=== PATIENT | female | born 1950 | race Caucasian/White ===

== ENCOUNTER 2017-02-11 13:15 | Inpatient (IN) ==
[2017-02-11 14:15] LABS: Basophils % 0.5 %; Eosinophils # 0.1 K/mcL (0.0-0.6); Eosinophils % 1.2 %; Hematocrit 47.7 % (35.3-44.9); Hemoglobin 15.3 g/dL (11.5-15.4); Immature Granulocytes % 0.2 % (0-4); Lymphocytes # 1.9 K/mcL (0.6-4.6); Lymphocytes % 30.7 %; Mean Corpuscular HGB Conc 32.1 g/dL (31.6-35.5); Mean Corpuscular Hemoglobin 29.7 pg (28.0-33.3); Mean Corpuscular Volume 92.6 fL (83.0-100.0); Mean Platelet Volume 9.7 fL (9.4-12.4); Monocytes # 0.8 K/mcL (0.0-1.3); Monocytes % 13.8 %; Neutrophils # 3.2 K/mcL (1.6-8.9); Platelet Count 187 K/mcL (140-400); Red Blood Count 5.15 M/mcL (3.82-4.97); Red Cell Distribution Width 14.6 % (11.5-14.5); Segmented Neutrophils % 53.6 %
[2017-02-11] MEDS ORDERED: predniSONE 20 MG TABLET PO ONE (14:19)
[2017-02-11] MEDS ORDERED: Ipratropium/Albuterol Neb 3 ML IH ONE (14:19)
[2017-02-11 14:25] LABS: BUN/Creatinine Ratio 15 (6-26); Blood Urea Nitrogen 11 mg/dL (7-20); Calcium 9.7 mg/dL (8.6-10.8); Carbon Dioxide 26 mEq/L (19-29); Chloride 104 mEq/L (98-109); Glucose 89 mg/dL (70-99); Osmolality,Calculated 287 (280-300); Potassium 4.4 mEq/L (3.5-4.5); Sodium 139 mEq/L (136-145); eGFR For African Americans > 60 (> 60); eGFR For Non-African Americans > 60 (> 60)
--- NOTE | 2017-02-11 14:28 | Emergency Department Note ---
Disposition Clinical Impression: Elevated troponin Congestive heart failure Qualifiers: Congestive heart failure type: unspecified congestive heart failure type Congestive heart failure chronicity: unspecified congestive heart failure chronicity Qualified Code(s): I50.9 - Heart failure, unspecified Disposition: Admitted As Inpatient Condition: Good Referrals: Duran Sims Jr, MD [Primary Care Provider] - Forms: ED Satisfaction Letter Time of Disposition: 16:16 General Adult HPI - General Chief complaint: ED Shortness of Breath/Dyspnea Stated complaint: TIM x 2 weeks Time Seen by Provider: 02/11/17 14:00 Source: patient Limitations: no limitations Nursing Notes Reviewed: Yes Vital Signs Reviewed: Yes - History of Present Illness HPI Narrative: 67 year old female presents to the eD with complaint of dyspnea and states she was here a few months ago for a smiliar episode. She states that she has had pneumonia in the past and bronchitis and smokes abou 1/2 pack a day. Lore states that she has a history of DVT but not PE. Denies chest pain or HX fo COPD /CHF. States that the dypsnea has been getting wrose with exertion and now at rest, she cole snot wear oxygen at home and is 93% on RA. Lore stats that she also has tea-colored urine that has a foul smell and is concnerend that she may also have a uti. Pain Scale: 0 - Related Data Home Medications Medication Instructions Recorded Confirmed Aspirin 81 mg PO DAILY 08/06/16 02/11/17 Citalopram [CeleXA] 20 mg PO DAILY 08/06/16 02/11/17 Pantoprazole Sodium [Protonix] 40 mg PO DAILY 08/06/16 02/11/17 Lipitor 02/11/17 02/11/17 Multivitamin-Min/Iron/FA/Vit K 1 each PO DAILY 02/11/17 02/11/17 [Multi-Day Plus Minerals Tablet] Allergies Allergy/AdvReac Type Severity Reaction Status Date / Time Neomycin Allergy Hives Verified 08/06/16 08:10 Penicillins Allergy Hives Verified 08/06/16 08:10 Constitutional: Denies: fever, chills, weakness, weight change Eyes: Denies: eye pain, eye discharge, vision change ENT ED: Denies: ear pain, throat pain, dental pain, hearing loss, epistaxis, congestion, dysphagia Cardiovascular: Denies: chest pain, palpitations, dyspnea on exertion, edema, syncope Respiratory: Reports: dyspnea. Denies: cough, wheezes, hemoptysis, stridor Gastrointestinal: Denies: abdominal pain, nausea, vomiting, diarrhea, constipation, hematemesis, melena, hematochezia Genitourinary: Reports: as per HPI. Denies: dysuria, frequency, hematuria, discharge Musculoskeletal: Denies: back pain, neck pain, arthralgia, myalgia Integumentary: Denies: rash, abrasion, lesions Neurological: Denies: headache, weakness, numbness, paresthesias, confusion, abnormal gait, vertigo Psychiatric: Denies: anxiety, depression, suicidal thoughts, homicidal thoughts , auditory hallucinations, visual hallucinations Endocrine: Denies: fatigue Hematological/Lymphatic: Denies: easy bleeding, easy bruising Allergic/Immunologic: Denies: facial swelling, urticaria Past Medical History - Past Medical History Medical history: Reports: arthritis, DVT, GERD Surgical history: Reports: hysterectomy Psychiatric history: Reports: depression - Social History Smoking Status: Current every day smoker Smokeless Tobacco Status: No Alcohol use: Reports: none Drug use: Reports: none Physical Exam - General Limitations: no limitations General appearance: alert, in no apparent distress - Head Head exam: atraumatic, normocephalic, normal inspection - Eye Eye exam: Present: normal appearance, PERRL, EOMI - Expanded Eye Exam Pupils: Bilateral: reactive - ENT ENT exam: normal exam, normal oropharynx, mucous membranes moist - Expanded ENT Exam External ear exam: Present: normal external inspection Mouth exam: Present: normal external inspection Teeth exam: Present: normal inspection Throat exam: Present: normal inspection - Neck Neck exam: Present: normal inspection, full ROM, trachea midline - Chest Chest inspection: Present: normal inspection, symmetric chest wall rise - Respiratory Respiratory exam: Present: normal lung sounds bilaterally - Expanded Respiratory Exam Location: decreased breath sounds: Left, Right, Upper, Lower - Cardiovascular Cardiovascular exam: Present: regular rate, normal rhythm, normal heart sounds - Abdominal Exam Abdominal exam: Present: soft, Non-Tender. Absent: tenderness, distention, guarding, rebound, rigidity - Extremities Exam Extremities exam: Present: normal inspection, full ROM. Absent: tenderness, pedal edema - Expanded Upper Extremity Exam Shoulder exam: Present: normal inspection, full ROM Arm exam: Present: normal inspection, full ROM Elbow exam: Present: normal inspection, full ROM Forearm/Wrist exam: Present: normal inspection, full ROM Hand exam: Present: normal inspection, full ROM Vascular exam: Normal: capillary refill, radial pulse - Expanded Lower Extremity Exam Hip/Pelvis exam: Present: normal inspection, full ROM Upper leg exam: Present: normal inspection, full ROM Knee exam: Present: normal inspection, full ROM Lower leg exam: Present: normal inspection, full ROM Ankle exam: Present: normal inspection, full ROM Foot/toe exam: Present: normal inspection, full ROM Neurovascular/Tendon exam: Absent: motor deficit, sensory deficit, tendon deficit - Back Exam Back exam: Present: normal inspection, full ROM. Absent: tenderness - Neurological Exam Neurological exam: Present: alert, oriented X3 - Expanded Neurological Exam Patient oriented to: Present: person, place, time Coma Scale Eye Opening: Spontaneous Coma Scale Motor Response: Obeys Commands Coma Scale Verbal Response: Oriented Coma Scale Total: 15 - Psychiatric Psychiatric exam: Present: normal affect, normal mood - Skin Skin exam: Present: warm, dry, intact, normal color Course Course Narrative: we will do a cardiopulmonary workup and treat with duonebs/steroids. - Reevaluation(s) Reevaluation #1: updated lore on results. and she is agreeable to admission Time: 16:15 - Consultations Consultation #1: discused case with Dr. Ascencio and he accepst lore to his service for admission. Time: 16:16 Vital Signs Temperature 97.5 F L 02/11/17 13:21 Pulse Rate 97 02/11/17 13:21 Respiratory Rate 18 02/11/17 13:21 Blood Pressure 123/89 02/11/17 13:21 O2 Sat by Pulse Oximetry 96 02/11/17 13:21 Temperature 97.5 F L 02/11/17 13:21 Pulse Rate 97 02/11/17 13:21 Respiratory Rate 18 02/11/17 14:46 Blood Pressure 136/80 02/11/17 15:05 O2 Sat by Pulse Oximetry 96 02/11/17 14:46 Oxygen Delivery Oxygen Delivery Room Air Medical Decision Making - Medical Records Medical records reviewed: Yes I reviewed the patient's medical records. - Lab Data Lab results reviewed: Yes I reviewed the patient's lab results. Result diagrams: 02/11/17 14:06 02/11/17 14:06 Lab Results 02/11/17 02/11/17 02/11/17 Range/Units 14:06 14:06 14:06 WBC 6.0 (4.3-11.1) K/mcL RBC 5.15 H (3.82-4.97) M/mcL Hgb 15.3 (11.5-15.4) g/dL Hct 47.7 H (35.3-44.9) % MCV 92.6 (83.0-100.0) fL MCH 29.7 (28.0-33.3) pg MCHC 32.1 (31.6-35.5) g/dL RDW 14.6 H (11.5-14.5) % Plt Count 187 (140-400) K/mcL MPV 9.7 (9.4-12.4) fL Immature Gran % 0.2 (0-4) % Seg Neutrophils % 53.6 % Lymphocytes % 30.7 % Monocytes % 13.8 % Eosinophils % 1.2 % Basophils % 0.5 % Neutrophils # 3.2 (1.6-8.9) K/mcL Lymphocytes # 1.9 (0.6-4.6) K/mcL Monocytes # 0.8 (0.0-1.3) K/mcL Eosinophils # 0.1 (0.0-0.6) K/mcL Basophils # 0.0 (0.0-0.2) K/mcL PT (9.4-12.1) Seconds INR APTT (26.0-36.0) Seconds Sodium 139 (136-145) mEq/L Potassium 4.4 (3.5-4.5) mEq/L Chloride 104 (98-109) mEq/L Carbon Dioxide 26 (19-29) mEq/L BUN 11 (7-20) mg/dL Creatinine 0.73 (0.57-1.11) mg/dL Est GFR ( Amer) > 60 (> 60) Est GFR (Non-Af Amer) > 60 (> 60) BUN/Creatinine Ratio 15 (6-26) Glucose 89 (70-99) mg/dL Calculated Osmolality 287 (280-300) Lactic Acid 0.9 (0.5-2.2) mmol/L Calcium 9.7 (8.6-10.8) mg/dL Troponin I (0-0.03) ng/mL B-Natriuretic Peptide (0-100) pg/mL Urine Color (Yellow) Urine Clarity (Clear) Urine pH (5.0-8.0) pH Units Ur Specific [place] (1.010-1.025) Urine Protein (Neg-Trace) mg/dL Urine Glucose (UA) (Normal) mg/dL Urine Ketones (Negative) mg/dL Urine Blood (Negative) Urine Nitrite (Negative) Urine Bilirubin (Negative) Urine Urobilinogen (Normal) mg/dL Ur Leukocyte Esterase (Negative) Urine Microscopic RBC (0-3) per hpf Urine Microscopic WBC (0-3) per hpf Ur Squamous Epith Cells (None-Few) per lpf Urine Bacteria (None-Few) per hpf Hyaline Casts (None-Few) per lpf Ur Culture Indicated? (NO) 02/11/17 02/11/17 02/11/17 Range/Units 14:06 14:06 14:06 WBC (4.3-11.1) K/mcL RBC (3.82-4.97) M/mcL Hgb (11.5-15.4) g/dL Hct (35.3-44.9) % MCV (83.0-100.0) fL MCH (28.0-33.3) pg MCHC (31.6-35.5) g/dL RDW (11.5-14.5) % Plt Count (140-400) K/mcL MPV (9.4-12.4) fL Immature Gran % (0-4) % Seg Neutrophils % % Lymphocytes % % Monocytes % % Eosinophils % % Basophils % % Neutrophils # (1.6-8.9) K/mcL Lymphocytes # (0.6-4.6) K/mcL Monocytes # (0.0-1.3) K/mcL Eosinophils # (0.0-0.6) K/mcL Basophils # (0.0-0.2) K/mcL PT 13.1 H (9.4-12.1) Seconds INR 1.2 APTT 29.6 (26.0-36.0) Seconds Sodium (136-145) mEq/L Potassium (3.5-4.5) mEq/L Chloride (98-109) mEq/L Carbon Dioxide (19-29) mEq/L BUN (7-20) mg/dL Creatinine (0.57-1.11) mg/dL Est GFR ( Amer) (> 60) Est GFR (Non-Af Amer) (> 60) BUN/Creatinine Ratio (6-26) Glucose (70-99) mg/dL Calculated Osmolality (280-300) Lactic Acid (0.5-2.2) mmol/L Calcium (8.6-10.8) mg/dL Troponin I 0.09 H* (0-0.03) ng/mL B-Natriuretic Peptide 3163 H (0-100) pg/mL Urine Color (Yellow) Urine Clarity (Clear) Urine pH (5.0-8.0) pH Units Ur Specific [place] (1.010-1.025) Urine Protein (Neg-Trace) mg/dL Urine Glucose (UA) (Normal) mg/dL Urine Ketones (Negative) mg/dL Urine Blood (Negative) Urine Nitrite (Negative) Urine Bilirubin (Negative) Urine Urobilinogen (Normal) mg/dL Ur Leukocyte Esterase (Negative) Urine Microscopic RBC (0-3) per hpf Urine Microscopic WBC (0-3) per hpf Ur Squamous Epith Cells (None-Few) per lpf Urine Bacteria (None-Few) per hpf Hyaline Casts (None-Few) per lpf Ur Culture Indicated? (NO) 02/11/17 Range/Units 15:01 WBC (4.3-11.1) K/mcL RBC (3.82-4.97) M/mcL Hgb (11.5-15.4) g/dL Hct (35.3-44.9) % MCV (83.0-100.0) fL MCH (28.0-33.3) pg MCHC (31.6-35.5) g/dL RDW (11.5-14.5) % Plt Count (140-400) K/mcL MPV (9.4-12.4) fL Immature Gran % (0-4) % Seg Neutrophils % % Lymphocytes % % Monocytes % % Eosinophils % % Basophils % % Neutrophils # (1.6-8.9) K/mcL Lymphocytes # (0.6-4.6) K/mcL Monocytes # (0.0-1.3) K/mcL Eosinophils # (0.0-0.6) K/mcL Basophils # (0.0-0.2) K/mcL PT (9.4-12.1) Seconds INR APTT (26.0-36.0) Seconds Sodium (136-145) mEq/L Potassium (3.5-4.5) mEq/L Chloride (98-109) mEq/L Carbon Dioxide (19-29) mEq/L BUN (7-20) mg/dL Creatinine (0.57-1.11) mg/dL Est GFR ( Amer) (> 60) Est GFR (Non-Af Amer) (> 60) BUN/Creatinine Ratio (6-26) Glucose (70-99) mg/dL Calculated Osmolality (280-300) Lactic Acid (0.5-2.2) mmol/L Calcium (8.6-10.8) mg/dL Troponin I (0-0.03) ng/mL B-Natriuretic Peptide (0-100) pg/mL Urine Color Yellow (Yellow) Urine Clarity Clear (Clear) Urine pH 6.5 (5.0-8.0) pH Units Ur Specific [place] 1.009 L (1.010-1.025) Urine Protein Negative (Neg-Trace) mg/dL Urine Glucose (UA) Normal (Normal) mg/dL Urine Ketones Negative (Negative) mg/dL Urine Blood Negative (Negative) Urine Nitrite Positive A (Negative) Urine Bilirubin Negative (Negative) Urine Urobilinogen Normal (Normal) mg/dL Ur Leukocyte Esterase Negative (Negative) Urine Microscopic RBC 0-3 (0-3) per hpf Urine Microscopic WBC 0-3 (0-3) per hpf Ur Squamous Epith Cells Moderate H (None-Few) per lpf Urine Bacteria None Seen (None-Few) per hpf Hyaline Casts None Seen (None-Few) per lpf Ur Culture Indicated? YES A (NO) - Radiology Data Radiology results reviewed: Yes I reviewed the patient's radiology results. - EKG Data EKG #1 EKG attestation: Yes I reviewed and interpreted this EKG. EKG results narrative: NSr with ectopic PVCs. No STEMI. normla intervla.s no change from 07/1016. 1333 EKG shows normal: sinus rhythm
[2017-02-11 14:40] LABS: INR 1.2; Prothrombin Time 13.1 Seconds (9.4-12.1)
[2017-02-11 14:43] LABS: Activated Partial Thrombo Time 29.6 Seconds (26.0-36.0)
[2017-02-11] MEDS ORDERED: Furosemide 40 MG/4 ML VIAL IVP ONE (14:46)
[2017-02-11] MEDS ORDERED: Aspirin 325 MG TABLET PO ONE (14:46)
--- NOTE | 2017-02-11 15:04 | Emergency Department Note ---
START Narrative - START START: I examined this patient and my medical decision-making was reviewed with the Resident Physician. I agree with the documented findings, disposition and treatment plan as described except to the extent set forth below. 67 year old female who orginialy presented to the urgent care for incrased left uppper arm (biceps) area for burning and electric shock like sensation with movement. Denies chset pain, shortnes of breath, HX of PE/Dvt. Urgent care was concerned that she may have a DVT in her left arm. ultrasound ordered.
[2017-02-11 15:19] LABS: Bilirubin,Urine Negative (Negative); Blood,Urine Negative (Negative); Clarity,Urine Clear (Clear); Color,Urine Yellow (Yellow); Glucose,Urine (UA) Normal (Normal); Ketones,Urine Negative (Negative); Leukocyte Esterase,Urine Negative (Negative); Nitrite,Urine Positive (Negative); PH,Urine 6.5 pH Units (5.0-8.0); Protein,Urine Negative (Neg-Trace); Specific Gravity,Urine 1.009 (1.010-1.025); Urobilinogen,Urine Normal (Normal)
[2017-02-11 15:21] LABS: Bacteria,Urine None Seen per hpf (None-Few); Hyaline Casts,Urine None Seen per lpf (None-Few); RBC,Urine 0-3 per hpf (0-3); Squamous Epithelial Cell,Urine Moderate per lpf (None-Few); WBC,Urine 0-3 per hpf (0-3)
[2017-02-11] MEDS ORDERED: Ondansetron 4 MG/2 ML VIAL IVP PRN (19:52)
[2017-02-11] MEDS ORDERED: Acetaminophen 325 MG TABLET PO PRN (19:52)
[2017-02-11] MEDS ORDERED: Naloxone 0.4 MG/ML INJ IVP PRN (19:52)
--- NOTE | 2017-02-11 21:51 | Internal Med History&Physical ---
Date of Encounter: 02/12/17 Time of Encounter: 21:45 Assessment and Plan (1) Congestive heart failure Current visit: Yes Status: Acute 1. The increasing shortness of breath she had been here for 3000 she also has a DVT in the past. We will check BNP is 3000 we will start on IV Lasix 40 daily Monitor intake and output and daily weights Low-sodium diet and fluid restriction Consult cardiology Qualifiers: Congestive heart failure type: unspecified congestive heart failure type Congestive heart failure chronicity: acute Qualified Code(s): I50.9 - Heart failure, unspecified (2) Elevated troponin Current visit: Yes Status: Acute 1 patient elevated suspects related to demand ischemia from CHF. We will continue to trend. Initiated on l heparin drip 2 continuous cardiac monitoring 3. Cardiology consult-patient has not had previous cardiac workup in the past We will obtain cardiac echo Continue with aspirin Check lipid profile (3) DVT prophylaxis Current visit: Yes Status: Acute Patient's on heparin drip Internal Medicine - H&P: HPI Chief complaint: SOB Admitted From: Emergency Dept Plans for Post Hospital Care: Home History of present illness: Ms. Smith is a 67 year old female with medical history past medical history of COPD CHF anemia DVT. According to patient she has been experiencing dyspnea. States that dyspnea is worse on exertion and is relieved with rest she does not normally wear oxygen at home and on presentation she was 93% on room air. She denies any fevers or chills or chest pain. She does have a cough with phlegm reduction clear. She denies any lower extremity swelling or weight gain. She is a current smoker and has had pneumonia and bronchitis in the past. She has also been experiencing dark colored urine described as tea- colored as well as foul-smelling. She denies any burning or hematuria however she does admit to urgency and frequency. She presented to the ER with the above complaints in the ER lab work was obtained which did reveal a BNP of 3163 troponins 0.09 lactate was 0.9 no leukocytosis urine was positive for UTI chest x-ray with cardiomegaly and chronic opacities. She has been admitted for further workup evaluation. Presently patient does display some conversational dyspnea. She does have crackles in her bases bilaterally denies any chest pain at this time she is hemodynamically stable. I did review this case with Dr. Dawson who agrees with plan. Past Med Surg Social Fam HX - Past Medical History Medical history: arthritis, DVT, GERD Psychiatric history: depression - Past Surgical History Surgical History: herniorrhaphy, hysterectomy - Social History Smoking Status: Current every day smoker Smokeless Tobacco Status: No Alcohol use: none Drug use: none - Family History Father Living Status: Hx Family Cardiac Disorders: Yes (CHF, [place]) Internal Medicine - H&P: Meds Aspirin 81 mg PO DAILY 08/06/16 [History] Citalopram [CeleXA] 20 mg PO DAILY 08/06/16 [History] Pantoprazole Sodium [Protonix] 40 mg PO DAILY 08/06/16 [History] Lipitor 02/11/17 [History] Multivitamin-Min/Iron/FA/Vit K [Multi-Day Plus Minerals Tablet] 1 each PO DAILY 02/11/17 [History] 3 Allergy/AdvReac Type Severity Reaction Status Date / Time Neomycin Allergy Hives Verified 08/06/16 08:10 Penicillins Allergy Hives Verified 08/06/16 08:10 All Systems PM: A 10-system review of systems was performed and is negative for pertinent findings except as documented above in the HPI. - Constitutional Constitutional: no chills, no fever(s), no night sweats - EENT Eyes: no change in vision, no discharge, no pain, no photophobia Nose, mouth and throat: no dysphagia, no nasal discharge, no neck pain, no sore throat - Cardiovascular Cardiovascular ROS IM: dyspnea, dyspnea on exertion, no chest pain, no diaphoresis, no lightheadedness, no palpitations, no syncope - Respiratory Respiratory: cough, dyspnea on exertion, change in phlegm color, no dyspnea, no wheezing, no excessive phlegm production - Gastrointestinal Gastrointestinal: no abdominal pain, no diarrhea, no hematemesis, no hematochezia, no melena, no nausea, no vomiting - Genitourinary Genitourinary: no change in urinary stream, no dysuria, no flank pain, no hematuria - Musculoskeletal Musculoskeletal ROS IM: no numbness, no tingling - Integumentary Integumentary IM: no rash, no unusual bruising - Neurological Neurological ROS: no confusion, no convulsions, no focal weakness, no numbness, no tingling, no tremor(s) - Hematologic/Lymphatic Hematologic/Lymphatic: no easy bruising - Constitutional Vitals: Temp Pulse Resp BP Pulse Ox 98.1 F 91 16 102/62 92 02/11/17 19:08 02/11/17 19:08 02/11/17 19:08 02/11/17 19:08 02/11/17 19:08 General appearance: Present: A&O X 3, answers questions appropriately - Head Head exam: Present: atraumatic, normocephalic - Eye Eye exam: Present: PERRL, conjuntiva pink, sclera anicteric Pupils: Present: PERRL - Neck Neck exam general surgery: Present: supple, trachea midline. Absent: lymphadenopathy - Respiratory Respiratory exam: Present: rales. Absent: accessory muscle use, rhonchi, wheezes - Cardiovascular Cardiovascular exam: Present: RRR, +S1, +S2. Absent: diastolic murmur, gallop, rubs, systolic murmur - GI/Abdominal GI/Abdominal exam: Present: normal bowel sounds, soft, no peritoneal signs. Absent: distended, tenderness - Extremities Exam Extremities exam: Present: warm, radial pulses palpable and symmetrical. Absent : calf tenderness, cyanotic, pedal edema - Expanded Lower Extremities Exam Foot/Toe exam: Present: erythema, swelling Internal Med - H&P Results - Labs CBC & Chem 7: 02/12/17 00:39 02/12/17 00:39 - Diagnostic Studies Other Images Additional comments: Chest X-Ray 02/11/17 13:26 IMPRESSION: Cardiomegaly and mild chronic increased interstitial opacities, stable D/ / 02/11/2017 14:08:33 Benton Diop MD / [facility] Interpreting Provider: Benton Diop MD
[2017-02-11] MEDS ORDERED: *HR* Heparin 5,000 UNIT/ML VIAL IVP PRN ×2 (23:23)
[2017-02-11] MEDS ORDERED: *HR* Heparin 5,000 UNIT/ML VIAL IVP ONE (23:23)
--- NOTE | 2017-02-12 00:48 | Event Note ---
Date of Encounter: 02/12/17 Time of Encounter: 00:46 Patient seen and examined with nurse practitioner. Patient presents with a two- week history of exertional shortness of breath, orthopnea. BMPs over 3000. Symptoms likely related to congestive heart failure. Only modest clinical volume overload. We will start the patient on Lasix 40 mg IV daily. She has prior history of DVT which she received few years of anticoagulation therapy discontinued about [address] angiogram will be performed to rule out pulmonary embolism. She has troponin elevation. She has no known prior history of coronary artery disease. We will keep on heparin drip from now. Serial troponin. Cardiology consultation
[2017-02-12 01:06] LABS: Basophils % 0.3 %; Hematocrit 45.4 % (35.3-44.9); Hemoglobin 14.8 g/dL (11.5-15.4); Immature Granulocytes % 0.5 % (0-4); Lymphocytes # 0.7 K/mcL (0.6-4.6); Lymphocytes % 19.3 %; Mean Corpuscular HGB Conc 32.6 g/dL (31.6-35.5); Mean Corpuscular Hemoglobin 29.6 pg (28.0-33.3); Mean Corpuscular Volume 90.8 fL (83.0-100.0); Mean Platelet Volume 10.2 fL (9.4-12.4); Monocytes # 0.3 K/mcL (0.0-1.3); Monocytes % 8.3 %; Neutrophils # 2.8 K/mcL (1.6-8.9); Platelet Count 198 K/mcL (140-400); Red Cell Distribution Width 14.5 % (11.5-14.5); Segmented Neutrophils % 71.6 %
[2017-02-12 01:12] LABS: INR 1.3; Prothrombin Time 13.9 Seconds (9.4-12.1)
[2017-02-12 01:14] LABS: Activated Partial Thrombo Time 29.3 Seconds (26.0-36.0)
[2017-02-12 01:19] LABS: BUN/Creatinine Ratio 17 (6-26); Blood Urea Nitrogen 13 mg/dL (7-20); Calcium 9.4 mg/dL (8.6-10.8); Carbon Dioxide 24 mEq/L (19-29); Chloride 102 mEq/L (98-109); Glucose 142 mg/dL (70-99); Osmolality,Calculated 285 (280-300); Potassium 4.1 mEq/L (3.5-4.5); Sodium 136 mEq/L (136-145); eGFR For African Americans > 60 (> 60); eGFR For Non-African Americans > 60 (> 60)
[2017-02-12] MEDS: Heparin 25,000 UNIT/500 ML D5W 25,000 UNIT/500 ML MLS IVC SCH (01:30)
[2017-02-12 02:19] LABS: Thyroid Stimulating Hormone 0.526 mcIU/mL (0.350-4.840)
[2017-02-12] MEDS ORDERED: *HR* Enoxaparin 40 MG/0.4 ML SYRINGE SQ SCH (06:00)
[2017-02-12] MEDS ORDERED: Pantoprazole 40 MG VIAL IVP SCH (09:00)
[2017-02-12] MEDS ORDERED: Furosemide 20 MG/2 ML VIAL IVP SCH (09:00)
[2017-02-12] MEDS: Aspirin 81 MG TAB.CHEW PO SCH (09:05)
[2017-02-12] MEDS: Furosemide 20 MG/2 ML VIAL IVP SCH (09:06)
[2017-02-12] MEDS: Multivit/Ca/Min/Fe/FA 1 TAB TABLET PO SCH (09:06)
--- NOTE | 2017-02-12 12:04 | Cardiology Consult Note ---
Date of Encounter: 02/12/17 Time of Encounter: 11:57 Assessment and Plan (1) Congestive heart failure Current Visit: Yes Status: Acute SOB and CT findings concerning for right sided CHF and pulmonary hypertension. TTE completed 12/2015 showed EF 65%, moderate diastolic dysfunction, moderate MAC , no significant valvuar disease. No pulmonary hypertension. Agree with repeating TTE. Continue IV diuretic. Strict I&O and daily weights. Reports high sodium diet. She is eating boxed foods and adds salt. Low sodium diet discussed. Further recs following echo. Qualifiers: Congestive heart failure type: unspecified congestive heart failure type Congestive heart failure chronicity: acute Qualified Code(s): I50.9 - Heart failure, unspecified (2) Elevated troponin Current Visit: Yes Status: Acute Mild adynamic troponin elevation in the setting CHF. Likely demand ischemia. Agree with checking TTE. Seen to have LBBB that does not appear to be new this admission. Seen on EKG 2016. No previous EKG prior to that. Discussion w patient/family: The assessment and plan as outlined above was discussed with the patient and/or family members who expressed understanding and agreement. All questions were answered. Thank you for involving us in the care of your patient. Please call with any questions. History of Present Illness Consult date: 02/12/17 Requesting physician: Nancy Borjas Consult reason: CHF History of present illness: Ms. Smith is a 67 year old female with a history of anemia, DVT, and tobacco use who presents with SOB for one week. She also c/o orthopnea and cough. Her cough is productive of clear to brownish sputum. C/o increased fatigue. She denies weight gain, edema, or increased abdominal girth. Her initial work-up included lab work that revealed elevated troponin at 0.09 and BNP 3163. CXR showed chronic mild interstitial opacities. CTA was negative for PE. There was evidence of pulmonary artery enlargement suggesting pulmonary hypertension. There was reflux into the hepatic veins suggesting right sided CHF. She also was seen to have finding suggestive of pulmonary edema. Cardiology consulted for CHF and elevated troponin. She denies previous cardiac history. Past Med Surg Social Fam HX - Past Medical History Attestation: Yes The following information was validated with the patient. Medical history: arthritis, DVT, GERD Psychiatric history: depression - Past Surgical History Surgical History: herniorrhaphy, hysterectomy - Social History Smoking Status: Current every day smoker Smokeless Tobacco Status: No Alcohol use: none Drug use: none - Family History Father Living Status: Hx Family Cardiac Disorders: Yes (CHF, [place]) Medications and Allergies Aspirin 81 mg PO DAILY 08/06/16 [History] Citalopram [CeleXA] 20 mg PO DAILY 08/06/16 [History] Pantoprazole Sodium [Protonix] 40 mg PO DAILY 08/06/16 [History] Lipitor 02/11/17 [History] Multivitamin-Min/Iron/FA/Vit K [Multi-Day Plus Minerals Tablet] 1 each PO DAILY 02/11/17 [History] 3 Allergy/AdvReac Type Severity Reaction Status Date / Time Neomycin Allergy Hives Verified 08/06/16 08:10 Penicillins Allergy Hives Verified 08/06/16 08:10 All Systems Review: A 10-system review of systems was performed and is negative for pertinent findings except as documented above in the HPI. Physical Examination Vital Signs, Last 4 Hours Temp Pulse Resp BP Pulse Ox 02/12/17 11:47 97.8 F 70 16 102/49 95 02/12/17 09:00 94 General: Conversant, No Apparent Distress HEENT: Atraumatic, Normocephaly, Mucus Membranes Moist Neck: Normal carotid pulses, Other (Hepato jugular venous distention noted. ) Cardiac: Reg Rate and Rhythm, Normal S1 and S2, No Murmur Lungs: Normal Breath Sounds, No Wheeze, Rales, Rhonchi Neuro: Alert and responsive, No focal deficits noted Abdomen: Soft, Non-Tender Skin: No rashes noted on visualized skin Musculoskeletal: No Chest Wall Tenderness Extremities: No Clubbing, No Cyanosis, No Edema, Normal Pulses Results 02/12/17 00:39 02/12/17 00:39 Lab Results 02/11/17 02/12/17 02/12/17 20:13 00:39 00:39 WBC 3.8 L Hgb 14.8 Hct 45.4 H Plt Count 198 INR APTT Sodium Potassium Chloride Carbon Dioxide BUN Creatinine Glucose Calcium Troponin I 0.09 H* 0.07 H* TSH 02/12/17 02/12/17 02/12/17 00:39 00:39 06:05 WBC Hgb Hct Plt Count INR 1.3 APTT 29.3 90.0 H D Sodium 136 Potassium 4.1 Chloride 102 Carbon Dioxide 24 BUN 13 Creatinine 0.77 Glucose 142 H Calcium 9.4 Troponin I TSH 0.526 02/12/17 07:34 WBC Hgb Hct Plt Count INR APTT Sodium Potassium Chloride Carbon Dioxide BUN Creatinine Glucose Calcium Troponin I 0.08 H* TSH - Imaging and Cardiology Echo: pending, report reviewed - EKG Interpretation EKG results cardiology: personally reviewed (SR with LBBB and PVC.) Consult Discharge Plan - Plan Referrals: Duran Sims Jr, MD [Primary Care Provider] -
--- NOTE | 2017-02-12 13:01 | Electrocardiograph Report ---
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
--- NOTE | 2017-02-12 15:01 | Internal Med Progress Note ---
Date of Encounter: 02/12/17 Time of Encounter: 14:58 - Assessment and plan (1) Congestive heart failure Current Visit: Yes Status: Acute Assessment and plan: China Wiley is a 67-year-old female with past medical history diastolic dysfunction and hyperlipidemia who presented to [facility] on 02/11/2017 with complaints of shortness of breath. She was found to have an elevated troponin and was started on a heparin drip. 1. Shortness of breath: Within with increasing shortness of breath. BNP 3000. Continue IV Lasix. Echo pending. Repeat echo pending. Cardiology following 2. Elevated troponin: troponin peaked at 0.09. Denies chest pain. Heparin gtt started in ED. Cont for now. 3 DVT prophulaxis: heparin gtt Qualifiers: Congestive heart failure type: unspecified congestive heart failure type Congestive heart failure chronicity: acute Qualified Code(s): I50.9 - Heart failure, unspecified (2) Elevated troponin Current Visit: Yes Status: Acute (3) DVT prophylaxis Current Visit: Yes Status: Acute - Subjective Interval history: Seen and examined at bedside. Patient is losing. Information obtained from chart review and patient report. Patient's that she is still having some shortness of breath. Denies chest pain. - Constitutional Vitals: Temp Pulse Resp BP Pulse Ox 97.8 F 70 16 102/49 95 02/12/17 11:47 02/12/17 11:47 02/12/17 11:47 02/12/17 11:47 02/12/17 11:47 General appearance: Present: A&O X 3, no acute distress, answers questions appropriately - Head Head exam: Present: atraumatic, normocephalic - Eye Eye exam: Present: PERRL, conjuntiva pink, sclera anicteric Pupils: Present: PERRL - Neck Neck exam general surgery: Present: supple, trachea midline. Absent: lymphadenopathy - Respiratory Respiratory exam: Present: CTAB. Absent: accessory muscle use, rales, rhonchi, wheezes - Cardiovascular Cardiovascular exam: Present: RRR, +S1, +S2. Absent: diastolic murmur, gallop, rubs, systolic murmur - GI/Abdominal GI/Abdominal exam: Present: normal bowel sounds, soft, no peritoneal signs. Absent: distended, tenderness - Extremities Exam Extremities exam: Present: warm, radial pulses palpable and symmetrical. Absent : calf tenderness, cyanotic, pedal edema - Neurological Exam Neurological exam: Present: CN II-XII intact, oriented X3, no focal deficits. Absent: pronater drift, facial droop, speech deficit - Skin Skin exam: Present: dry, intact Internal Medicine: Result - Labs CBC & Chem 7: 02/12/17 00:39 02/12/17 00:39 Labs: Short CBC 02/12/17 Range/Units 00:39 WBC 3.8 L (4.3-11.1) K/mcL Hgb 14.8 (11.5-15.4) g/dL Hct 45.4 H (35.3-44.9) % Plt Count 198 (140-400) K/mcL Neutrophils # 2.8 (1.6-8.9) K/mcL BMP 02/12/17 00:39 Sodium 136 Potassium 4.1 Chloride 102 Carbon Dioxide 24 BUN 13 Creatinine 0.77 Glucose 142 H Calcium 9.4 Cardiac Enzymes 02/11/17 02/12/17 02/12/17 Range/Units 20:13 00:39 07:34 Troponin I 0.09 H* 0.07 H* 0.08 H* (0-0.03) ng/mL - ABG Interpretation ABG results: PT/INR, D-dimer PT 13.9 Seconds (9.4-12.1) H 02/12/17 00:39 - Impressions Impressions Chest CTA 02/12/17 23:22 IMPRESSION: 1. No evidence of pulmonary embolism or aortic dissection. 2. Pulmonary arterial enlargement, raising the possibility of pulmonary arterial hypertension. 3. Reflux of contrast into the hepatic veins, suggesting right heart failure. 4. In addition, there is also alveolar ground-glass opacity throughout both lungs, with interlobular septal thickening, suggesting pulmonary edema. Correlate with any clinical evidence of pneumonia. 5. Borderline enlarged mediastinal lymph nodes, probably reactive, but follow-up to resolution should be considered. D/ / Martin Tobias MD / Martin Tobias MD Interpreting Provider: Martin Tobias MD Consult Discharge Plan - Plan Referrals: Duran Sims Jr, MD [Primary Care Provider] -
[2017-02-12] MEDS ORDERED: Perflutren Lipid Microsphere 1.3 ML in 0.9 % Sodium Chloride 8.7 ML IVP ONE (18:50)
[2017-02-12] MEDS ORDERED: Perflutren Lipid Microsphere 2 ML VIAL ONE (18:56)
[2017-02-13 01:22] LABS: Alanine Aminotransferase 22 Units/L (0-55); Albumin 3.5 g/dL (3.5-5.0); Albumin/Globulin Ratio 0.8 (1.1-2.2); Alkaline Phosphatase 110 Units/L (38-126); Aspartate Amino Transferase 29 Units/L (5-34); BUN/Creatinine Ratio 20 (6-26); Bilirubin,Total 0.6 mg/dL (0.2-1.2); Blood Urea Nitrogen 16 mg/dL (7-20); Calcium 9.4 mg/dL (8.6-10.8); Carbon Dioxide 26 mEq/L (19-29); Chloride 101 mEq/L (98-109); Globulin 4.3 g/dL (2.4-3.5); Glucose 114 mg/dL (70-99); Osmolality,Calculated 286 (280-300); Potassium 4.2 mEq/L (3.5-4.5); Sodium 137 mEq/L (136-145); Total Protein 7.8 g/dL (6.0-8.3); eGFR For African Americans > 60 (> 60); eGFR For Non-African Americans > 60 (> 60)
[2017-02-13 01:23] LABS: Hematocrit 46.4 % (35.3-44.9); Hemoglobin 14.6 g/dL (11.5-15.4); Mean Corpuscular HGB Conc 31.5 g/dL (31.6-35.5); Mean Corpuscular Volume 92.1 fL (83.0-100.0); Mean Platelet Volume 10.7 fL (9.4-12.4); Platelet Count 218 K/mcL (140-400); Red Blood Count 5.04 M/mcL (3.82-4.97); Red Cell Distribution Width 14.6 % (11.5-14.5)
[2017-02-13] MEDS: Heparin 25,000 UNIT/500 ML D5W 25,000 UNIT/500 ML MLS IVC SCH (03:04)
--- NOTE | 2017-02-13 11:21 | Event Note ---
Date of Encounter: 02/13/17 Time of Encounter: 11:18 - Cardiology Event Note TTE shows new low EF at 20%. [facility] recommended. R/B/A of procedure reviewed. Patient voiced understanding and is agreeable to proceed. We did a laying flat test and she tolerated well. Continue IV lasix. Patient is not measuring out-put. Recommend starict I&O. Low sodium diet.
--- NOTE | 2017-02-13 13:04 | Pre-Sedation Evaluation ---
Pre-sedation evaluation - Pre-sedation checklist Date of procedure: 02/13/17 Procedure: [facility] Recent Vitals: Last Vital Signs Temp 97.7 F 02/13/17 11:16 Pulse 92 02/13/17 11:16 Resp 15 02/13/17 11:16 BP 118/84 02/13/17 11:16 Pulse Ox 92 02/13/17 11:16 H&P (including ROS) documented in medical record: Yes Previous reaction to sedatives/anesthetics: No Dietary Status: NPO after Midnight Dentition: No loose teeth or bridges ASA Classification *see protocol: CLASS II-Mild systemic disease Plan of Care: Pt appropriate candidate for procedure/moderate/conscious sedation , Risks/benefits of procedure/sedation discussed w/ patient/family
--- NOTE | 2017-02-13 16:31 | Internal Med Progress Note ---
Date of Encounter: 02/13/17 Time of Encounter: 10:30 - Assessment and plan (1) Congestive heart failure Current Visit: Yes Status: Acute Assessment and plan: China Wiley is a 67-year-old female with past medical history diastolic dysfunction and hyperlipidemia who presented to [facility] on 02/11/2017 with complaints of shortness of breath. She was found to have an elevated troponin and was started on a heparin drip. 1. Acute systolic heart failure: presented with increasing shortness of breath. CXR with Cardiomegaly and mild chronic increased interstitial opacities, stable. BNP 3000. 02/12/2017 TTE with EF 20%, severe global LV systolic dysfunction with regional variations (EF previously 65% in 12/2015). Continue IV Lasix started on arrival. [facility] planned 02/13. Cardiology following 2. Elevated troponin: troponin peaked at 0.09. Denies chest pain. Heparin gtt started in ED. [facility] planned 02/13. Cardiology following 3. DVT prophulaxis: heparin gtt Qualifiers: Congestive heart failure type: unspecified congestive heart failure type Congestive heart failure chronicity: acute Qualified Code(s): I50.9 - Heart failure, unspecified (2) Elevated troponin Current Visit: Yes Status: Acute (3) DVT prophylaxis Current Visit: Yes Status: Acute - Subjective Interval history: Seen and examined at bedside. Sitting up on edge of bed. Says she is hungry and is somewhat anxious for [facility], otherwise has no complaints. - Constitutional Vitals: Temp Pulse Resp BP Pulse Ox 97.7 F 99 16 121/77 95 02/13/17 14:44 02/13/17 14:44 02/13/17 14:44 02/13/17 14:44 02/13/17 14:44 General appearance: Present: A&O X 3, no acute distress, answers questions appropriately - Head Head exam: Present: atraumatic, normocephalic - Eye Eye exam: Present: PERRL, conjuntiva pink, sclera anicteric Pupils: Present: PERRL - Neck Neck exam general surgery: Present: supple, trachea midline. Absent: lymphadenopathy - Respiratory Respiratory exam: Present: CTAB. Absent: accessory muscle use, rales, rhonchi, wheezes - Cardiovascular Cardiovascular exam: Present: RRR, +S1, +S2. Absent: diastolic murmur, gallop, rubs, systolic murmur - GI/Abdominal GI/Abdominal exam: Present: normal bowel sounds, soft, no peritoneal signs. Absent: distended, tenderness - Extremities Exam Extremities exam: Present: warm, radial pulses palpable and symmetrical. Absent : calf tenderness, cyanotic, pedal edema - Neurological Exam Neurological exam: Present: CN II-XII intact, oriented X3, no focal deficits. Absent: pronater drift, facial droop, speech deficit - Skin Skin exam: Present: dry, intact Internal Medicine: Result - Labs CBC & Chem 7: 02/13/17 00:35 02/13/17 00:35 Labs: Short CBC 02/13/17 Range/Units 00:35 WBC 8.0 D (4.3-11.1) K/mcL Hgb 14.6 (11.5-15.4) g/dL Hct 46.4 H (35.3-44.9) % Plt Count 218 (140-400) K/mcL BMP 02/13/17 00:35 Sodium 137 Potassium 4.2 Chloride 101 Carbon Dioxide 26 BUN 16 Creatinine 0.79 Glucose 114 H Calcium 9.4 Liver Function 02/13/17 Range/Units 00:35 Total Bilirubin 0.6 (0.2-1.2) mg/dL AST 29 (5-34) Units/L ALT 22 (0-55) Units/L Alkaline Phosphatase 110 (38-126) Units/L Albumin 3.5 (3.5-5.0) g/dL - ABG Interpretation ABG results: PT/INR, D-dimer PT 13.9 Seconds (9.4-12.1) H 02/12/17 00:39 - Impressions Impressions Echocardiogram 02/12/17 00:44 Impressions: LVEF 20%. Severe global LV systolic dysfunction with regional variations. Indeterminate diastolic function. There is no LV thrombus. Definity echo contrast was used. Normal sized RV with moderate reduction in function. Mild mitral regurgitation. Mild tricuspid regurgitation. Mild-moderate pulmonic regurgitation. Mild pulmonary hypertension. Since prior study, 01/03/2016, LV systolic function appears newly reduced. Abnormal findings communicated to ordering provider. Cardiology team made aware. Left Ventricular Wall Motion: Rest Echo Findings The apex, apical inferior, mid inferior, basal inferior, apical anterior, mid anterior, basal anterior, apical septal, mid inferior septal, basal inferior septal, apical lateral, mid anterior lateral, basal anterior lateral, mid anterior septal, mid inferior lateral, basal anterior septal and basal inferior lateral webb were hypokinetic. Findings: Study Quality * Technically adequate exam. ECG Findings * Normal sinus rhythm with BBB. Left Ventricle * Normal LV size. * Indeterminate diastolic function. * LVEF 20%. * There is no LV thrombus. * Definity echo contrast was used. Aorta * Normally sized aortic root. Aortic Valve * Trileaflet aortic valve. * Mildly sclerotic aortic valve leaflets. * No aortic stenosis. * Trace aortic regurgitation. Mitral Valve * Mild mitral regurgitation. * Normal mitral valve structure. * No mitral stenosis. * Mild mitral annular calcification * Mildly thickened mitral valve leaflets. Tricuspid Valve * Tricuspid valve not well visualized. * Mild tricuspid regurgitation. * Estimated RA pressure is 3 mmHg. * Estimated RVSP is 42 mmHg. * Mild pulmonary hypertension. Pulmonic Valve * Pulmonic valve is not well visualized. * No pulmonic stenosis. * Mild-moderate pulmonic regurgitation. Pulmonary Artery * Pulmonary artery not well visualized. Right Ventricle * Normal sized RV with moderate reduction in function. Lat S Carl 6.7 cm/s. Left Atrium * Moderately dilated left atrium. Right Atrium * Normal right atrial size. Interatrial Septum * No evidence of PFO by color Doppler. Pericardium * There is no pericardial effusion present. IVC * Normal IVC dimensions and inspiratory collapse. Consult Discharge Plan - Plan Referrals: Duran Sims Jr, MD [Primary Care Provider] -
[2017-02-13] MEDS ORDERED: Heparin 1,000 UNITS/500 mL NS 500 ML ONE (16:35)
[2017-02-13] MEDS ORDERED: *HR* Heparin 10,000 UNIT/10 ML VIAL ONE (16:35)
[2017-02-13] MEDS ORDERED: 0.9 % Sodium Chloride 1,000 ML ONE ×2 (16:35→17:07)
[2017-02-13] MEDS ORDERED: Nitroglycerin 1,000 MCG/10 ML VIAL IV ONE (16:37)
[2017-02-13] MEDS ORDERED: *HR* Midazolam HCl 2 MG/2 ML VIAL ONE (17:07)
[2017-02-13] MEDS ORDERED: *HR* FentaNYL (PF) 100 MCG/2 ML VIAL ONE (17:07)
--- NOTE | 2017-02-13 18:01 | Invasive Diagnostic Lab Proc ---
Name: China Smith Date of Study: 02/13/2017 Date: 1950 Ht: 61.0in Medical Record#: [id number] Age: 67 Wt: 159.39lb Gender: Female BSA: 1.72 Order #: [id number] BMI: 30.13 Physicians Procedure Physician: Amarjit De La Rosa MD Referring MD: Referring MD: Staff Name Position Time In Zulay Hardin RT Monitor 05:03 PM Radha Allison RN Brass Pourer 05:03 PM Aurora García RN Brass Pourer 05:03 PM Nancy Monk RT (R) Scrub 05:03 PM Indications Indication Cardiomyopathy Procedures Performed Procedure L HRT ARTERY/VENTRICLE ANGIO Pre-Procedure Checklist Informed consent is complete signed and on chart. H&P is on chart. ID band is on and ID verified with patient. Patient NPO for procedure The procedure was described for the patient and questions were answered. Blood Pressure: 129/80 ECG is on chart. Rhythm: NSR Plan of Care Patient will tolerate the procedure without complications. Adequate level of comfort will be maintained. Hemodynamics will remain stable Patient will recover from procedure without complications. Respiratory function will be maintained. Cardiac rhythm will remain stable. Patient temperature will be maintained. Patient and/or family have verbalized understanding of the procedure. Patient Education Chief Complaint/Reason for Test: Cardiac Cath Developmental Category: Adult (18-64 years) Developmentally Appropriate for Age: Yes Learning Barriers: None Education Needs: Procedure Education Method: Verbal Information Taught: Cardiac Cath Educational Evaluation: Able to repeat information Intravenous Access Time IV Size Location DC'd Fluid/Drip Rate Units RN 04:45 PM 18g 1 05/02" Patent On Arrival Rt Antecubital Allergies PCN BAND-AIDS ALL CILLIANS CILLINS, MYCINS, METALS PCN (penicillin) Neomycin Vital Signs Time BP (mmHg) HR (bpm) O2 Sat. RR (bpm) LOC 04:46 PM 118 / 84 92 92 % 15 5 = Fully awake and oriented or at pre-proc level 05:08 PM / % 5 = Fully awake and oriented or at pre-proc level 05:14 PM / % 5 = Fully awake and oriented or at pre-proc level 05:14 PM / % 4 = Oriented but drowsy 05:11 PM 129 / 80 90 % 12 05:16 PM 114 / 81 91 98 % 26 05:21 PM 122 / 75 84 98 % 21 05:26 PM 99 / 67 83 96 % 19 05:32 PM 115 / 72 90 96 % 32 05:30 PM / % 5 = Fully awake and oriented or at pre-proc level Procedural Medications Time Medication Dose Units Method Given By 05:08 PM Oxygen 2 L/min nasal cannula Aurora García RN 05:08 PM Versed 0.5 mg Intravenous Radha Allison RN 05:08 PM Oxygen 2 L/min nasal cannula Radha Allison RN 05:08 PM Fentanyl 25 mcg Intravenous Radha Allison RN 05:19 PM Lidocaine 2% 10 ml Subcutaneous Amarjit De La Rosa MD ASA Classification: CLASS II- Mild systemic disease (i.e. well-controlled diabetes, hypertension, asthma, cigarette smoking) Samia Score Preprocedure Postprocedure Activity 2- Moves 4 extremities sustained head lift Activity 2- Moves 4 extremities sustained head lift Circulation 2- SBP +/= 20 points of pre-anesthetic level Circulation 2- SBP +/= 20 points of pre-anesthetic level Consciousness 2- Awake and alert oriented x 3 Consciousness 2- Awake and alert oriented x 3 O2 Saturation 2- Able to maintain O2 satruation of 92% on room air O2 Saturation 2- Able to maintain O2 satruation of 92% on room air Respiratory 2- Able to deep breathe and cough well Respiratory 2- Able to deep breathe and cough well Total Score 10 Total Score 10 Contrast Agent: Isovue Diagnostic Contrast: 62 ml Total Contrast: 62 ml Fluoro Dose: 265 mGy Procedure Log Time Note Enter By 05:03 PM 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 well-controlled diabetes, hypertension, asthma, cigarette smoking) dsp: PM Meet and gregrace completed : PM Sign in performed according to hospital policy. : PM Procedure start 17:07 : PM Hair removed from procedure site in procedure lab using clippers. Bilateral groin prepped with Chloraprep by Aurora García RN, safety strap applied then patient was draped. Skin intact. :08 PM Time: 17:08 Patient comfortable and pain free: Yes :08 PM Time: 17:08LOC: 5 = Fully awake and oriented or at pre-proc level :09 PM Clinical Presentation: Stable angina dsp 05: PM CathStat 05:11 PM Vitals capture started with the following parameters, Patient=Adult, Interval=5 min, Initial Wbaicmsf=133 mmHg, Deflation Rate=5 mmHg, Cuff placed on Right Arm 05:11 PM HR=90 bpm, IXIO=834/80 mmhg, Resp=12 B/min 05:13 PM Time: 17:08 Versed .5 mg Intravenous Given by Radha Allison RN [facility] :13 PM Time: 17:08 Oxygen on at 2 L/min per nasal cannula by Radha Allison RN [facility]:13 PM Time: 17:08 Fentanyl 25 mcg Intravenous Given by Radha Allison RN [facility] 05:14 PM Time: 17:14 Patient comfortable and pain free: Yes :14 PM Time: 17:14LOC: 5 = Fully awake and oriented or at pre-proc level kk 05:16 PM HR=91 bpm, HXFU=958/81 mmhg, SpO2=98 %, Resp=26 B/min 05:19 PM Time out performed according to hospital policy :19 PM Pressure channel 2 zeroed. 05:21 PM Time: 17:19 10 ml Lidocaine 2% to right groin Subcutaneous Given by Amarjit De La Rosa MD sohan 05:21 PM Micro-Introducer Kit utilized for sheath placement kkall 05:21 PM HR=84 bpm, HBQZ=178/75 mmhg, SpO2=98.0 %, Resp=21 B/min 05:24 PM [address] De La Rosa kkner 05:25 PM Access obtained by percutaneous puncture. 5Fr 10cm Terumo [place] Tassell sheath placed in right Femoral artery. [id number] [email or web address] 05:25 PM 5Fr FR 4 catheter inserted over the wire DN [email or web address] 05:25 PM wire removed kkallner 05:26 PM HR=83 bpm, NIBP=99/67 mmhg, SpO2=96.0 %, Resp=19 B/min 05:27 PM Recorded Pressure: LV, HR=86, Condition=Condition 1 (Left Ventricle) LV 109/27/28 05:27 PM Recorded Pressure: LV, Ao, HR=88, Condition=Condition 1 (Left Ventricle) LV 112/28/37, (Aorta) Ao 109/58/83 05:28 PM Recorded Pressure: Ao, HR=85, Condition=Condition 1 (Aorta) Ao 102/73/88 05:28 PM Catheter selectively placed in left ventricle kkallner 05:28 PM pressures obtained kkner 05:28 PM catheter repositioned into RCa kkallner 05:28 PM RCA angiography performed in multiple views. [email or web address] 05:29 PM Catheter removed kk 05:29 PM 5Fr FL 4 catheter inserted over the wire [facility] 05:29 PM wire removed kkner 05:30 PM Time: 17:14LOC: 4 = Oriented but drowsy [email or web address] 05:30 PM Time: 17:14 Patient comfortable and pain free: Yes [email or web address] 05:30 PM LCA angiography performed in multiple views. [email or web address] 05:31 PM Recorded Pressure: Ao, HR=91, Condition=Condition 1 (Aorta) Ao 121/67/89 05:31 PM Recorded Pressure: Ao, HR=88, Condition=Condition 1 (Aorta) Ao 107/71/88 05:32 PM HR=90 bpm, HDTA=550/72 mmhg, SpO2=96 %, Resp=32 B/min 05:34 PM Catheter removed kkallner 05:34 PM Procedure completed at 17:34 [email or web address] 05:35 PM Sign out completed: Radiation Dose 265.20 mGy Fluoro Time: 1.4 Isovue 370 - 200ml contrast 62 ml given by Amarjit De La Rosa MD. Complications: NoneCardiac Rehab Consult needed: YesConfirmed administered medications: Yes [email or web address] 05:35 PM Isovue 370 - 200ml,1 Bottle(s) used. [email or web address] 05:36 PM Post Blood Pressure 115/72 kkallner 05:36 PM Information taught Cardiac Cath kkallner 05:36 PM Education needs Procedure, Plan of Care, and Responsibilities of Patient in Care kkallner 05:36 PM Learning barriers :None kkallner 05:36 PM Education Methods Verbal kkallner 05:36 PM Education evaluation Able to repeat information kkallner 05:36 PM Plavix, Effient or Brilinta given No kkallner 05:36 PM Delay to floor No kkallner 05:36 PM Family placed in consult room. kkallner 05:36 PM Complications: None kkall 05:36 PM Fluoro Time: 1.4 all 05:37 PM Isovue 370 - 200ml contrast 62 ml given by Amarjit De La Rosa MD. kk 05:37 PM Radiation Dose 265.20 mGy kk 05:39 PM Report given to Rachel SCHMITT Pt taken to Room #44. 17:37 kkallner 05:46 PM Time: 17:30 Patient comfortable and pain free: Yes kkall 05:46 PM Time: 17:30LOC: 5 = Fully awake and oriented or at pre-proc level kkallner 05:48 PM Coronary Dominance: right kkallner 05:48 PM Lesion found in Mid LAD. Pre Stenosis: 25 Pre MARAH Flow: [email or web address] 05:48 PM Lesion found in 1st Marginal. Pre Stenosis: 50 Pre MARAH Flow: kkallner 05:49 PM Lesion found in Mid RCA. Pre Stenosis: 70 Pre MARAH Flow: kkallner 05:49 PM Left Main Coronary Artery with 0% stenosis kkallner 05:49 PM Proximal Left Anterior Descending Coronary Artery with 0% stenosis. If graft is supplying this territory, 0 % stenosis. kkallner 05:49 PM Mid/Distal Left Anterior Descending Coronary Artery and diagonal branches with 25% stenosis. If graft is supplying this area, 0 % stenosis kkallner 05:49 PM Circumflex, Obtuse Marginal, Left Posterior Descending, and Left Posterolateral Coronary Arteries with 50 % stenosis. If graft is supplying this area, 0 % stenosis kkallner 05:50 PM Right Coronary, Right Posterior Descending Arteries with Right Posterolateral and Acute Marginal branches with 70 % stenosis. If graft is supplying this area, 0 % stenosis kkallner 05:50 PM 17:50 Post Pulses Bilateral DP & PT 1+ kkallner 05:52 PM Ramus with 0% stenosis. If graft is supplying this area, 0 % stenosis kkallner 05:53 PM Site status No bleeding/hematoma - Rt Groin as reported by Nancy Monk RT (R) at 17:53 [email or web address] 05:53 PM Opsite applied kkallner 05:53 PM Patient out of room: 17:53 [email or web address] Complications Complication None None Hemodynamics Pressures Site Systolic/A Wave Diastolic/V Wave Mean LV 109 27 28 LV 112 28 37 AO 109 58 83 AO 102 73 88 AO 121 67 89 AO 107 71 88 Post Procedure Information Blood Pressure: 115/72 mmHg Post procedural instructions were given Site Checks Time Location Status Staff Sheath In? Note 05:53 PM Rt Groin No bleeding/hematoma Nancy Monk RT (R) Pulses Time Site Pre-Procedure Post-Procedure Note 02/13/2017 4:45:00 PM Bilateral DP & PT 2+ 5:50:00 PM Bilateral DP & PT 1+ Updated by Zulay Hardin, RT (R) on 02/13/2017 5:53:53 PM electronically signed on 02/13/2017 5:55:14 PM with status of Final
[2017-02-13] MEDS: Multivit/Ca/Min/Fe/FA 1 TAB TABLET PO SCH (18:38)
[2017-02-13] MEDS: Aspirin 81 MG TAB.CHEW PO SCH ×2 (18:38→18:44)
[2017-02-13] MEDS: Furosemide 20 MG/2 ML VIAL IVP SCH (18:38)
[2017-02-13 18:43] LABS: Basophils % 0.7 %; Eosinophils # 0.1 K/mcL (0.0-0.6); Eosinophils % 1.1 %; Hematocrit 44.9 % (35.3-44.9); Hemoglobin 14.3 g/dL (11.5-15.4); Immature Granulocytes % 0.4 % (0-4); Lymphocytes # 1.9 K/mcL (0.6-4.6); Lymphocytes % 34.7 %; Mean Corpuscular HGB Conc 31.8 g/dL (31.6-35.5); Mean Corpuscular Hemoglobin 29.3 pg (28.0-33.3); Mean Platelet Volume 9.7 fL (9.4-12.4); Monocytes # 0.7 K/mcL (0.0-1.3); Monocytes % 13.4 %; Neutrophils # 2.7 K/mcL (1.6-8.9); Platelet Count 190 K/mcL (140-400); Red Blood Count 4.88 M/mcL (3.82-4.97); Red Cell Distribution Width 14.6 % (11.5-14.5); Segmented Neutrophils % 49.7 %
[2017-02-13 18:56] LABS: BUN/Creatinine Ratio 18 (6-26); Blood Urea Nitrogen 11 mg/dL (7-20); Calcium 9.4 mg/dL (8.6-10.8); Carbon Dioxide 28 mEq/L (19-29); Chloride 101 mEq/L (98-109); Glucose 100 mg/dL (70-99); Osmolality,Calculated 283 (280-300); Potassium 4.2 mEq/L (3.5-4.5); Sodium 137 mEq/L (136-145); eGFR For African Americans > 60 (> 60); eGFR For Non-African Americans > 60 (> 60)
[2017-02-14 05:38] LABS: Hemoglobin 14.2 g/dL (11.5-15.4); Mean Corpuscular HGB Conc 31.6 g/dL (31.6-35.5); Mean Corpuscular Hemoglobin 29.2 pg (28.0-33.3); Mean Corpuscular Volume 92.6 fL (83.0-100.0); Mean Platelet Volume 10.6 fL (9.4-12.4); Platelet Count 195 K/mcL (140-400); Red Blood Count 4.86 M/mcL (3.82-4.97); Red Cell Distribution Width 14.6 % (11.5-14.5)
[2017-02-14 05:53] LABS: Alanine Aminotransferase 30 Units/L (0-55); Albumin 3.4 g/dL (3.5-5.0); Albumin/Globulin Ratio 0.8 (1.1-2.2); Alkaline Phosphatase 109 Units/L (38-126); Aspartate Amino Transferase 38 Units/L (5-34); BUN/Creatinine Ratio 22 (6-26); Bilirubin,Total 0.8 mg/dL (0.2-1.2); Blood Urea Nitrogen 14 mg/dL (7-20); Calcium 9.5 mg/dL (8.6-10.8); Carbon Dioxide 27 mEq/L (19-29); Chloride 103 mEq/L (98-109); Globulin 4.1 g/dL (2.4-3.5); Glucose 98 mg/dL (70-99); Osmolality,Calculated 286 (280-300); Potassium 4.4 mEq/L (3.5-4.5); Sodium 138 mEq/L (136-145); Total Protein 7.5 g/dL (6.0-8.3); eGFR For African Americans > 60 (> 60); eGFR For Non-African Americans > 60 (> 60)
[2017-02-14] MEDS: Aspirin 81 MG TAB.CHEW PO SCH ×2 (08:41→08:51)
[2017-02-14] MEDS: Multivit/Ca/Min/Fe/FA 1 TAB TABLET PO SCH (08:41)
[2017-02-14] MEDS: Furosemide 20 MG/2 ML VIAL IVP SCH (08:42)
--- NOTE | 2017-02-14 09:56 | Cardiology Progress Note ---
Date of Encounter: 02/14/17 Time of Encounter: 09:54 Assessment and Plan (1) Congestive heart failure Current Visit: Yes Status: Acute TTE showed newly reduced EF at 20%. Proceeded with LHC. RCA disease seen, otherwise non-obstructive CAD. Non-ischemic cardiomyopathy. TTE 12/2015 showed EF 65%, moderate diastolic dysfunction, moderate MAC, no significant valvular disease. No pulmonary hypertension. Now breathing better. Poor I&O documentation. I weighed patient and she is 152.9 lb. -6 lbs since admission. Change IV lasix to oral. Agree with carvedilol and lisinopril. Increase carvedilol to 6.25 mg BID. Daily weights. Reports high sodium diet. She is eating boxed foods and adds salt. We had a long discussion about low sodium diet. Close out-pt f/u will be coordinated by [facility]. Qualifiers: Congestive heart failure type: systolic Congestive heart failure chronicity : acute Qualified Code(s): I50.21 - Acute systolic (congestive) heart failure (2) Elevated troponin Current Visit: Yes Status: Acute Mild adynamic troponin elevation in the setting CHF. Likely demand ischemia. LHC completed and no intervention completed. (3) Coronary artery disease Current Visit: Yes Status: Acute LHC completed by Dr. De La Rosa 02/13/17 showed severe RCA disease. Non-obstructive disease otherwise per verbal report from Dr. De La Rosa. Medical management recommended. Recommended consideration of stress test if indicated. Denies chest pain. We will continue medical management for now. Recommend asa, statin and beta-bettina. No complication from procedure. Activity restrictions: No lifting over 10 lbs for one week. No driving for a week. No tub baths for one week. She can take showers. Qualifiers: Coronary Disease-Associated Artery/Lesion type: telida artery [place] vs. transplanted heart: telida heart Associated angina: without angina Qualified Code(s): I25.10 - Atherosclerotic heart disease of telida coronary artery without angina pectoris Discussion w patient/family: The assessment and plan as outlined above was discussed with the patient and/or family members who expressed understanding and agreement. All questions were answered. Thank you for involving us in the care of your patient. Please call with any questions. Subjective Principal diagnosis: CAD, CMP Interval history: Ms. Smith reports she is breathing better and slept well last night. Denies chest pain. Continues to have productive cough of brown sputum. She does smoke 2 packs per day. Objective Vital Signs, Last 4 Hours Temp Pulse Resp BP Pulse Ox 02/14/17 07:27 98.0 F 88 16 125/86 97 General: Conversant, No Apparent Distress HEENT: Atraumatic, Normocephaly, Mucus Membranes Moist Neck: No JVD, Normal carotid pulses Cardiac: Reg Rate and Rhythm, Normal S1 and S2, No Murmur Lungs: Normal Breath Sounds, No Wheeze, Rales, Rhonchi Neuro: Alert and responsive, No focal deficits noted Abdomen: Soft, Non-Tender Skin: No rashes noted on visualized skin Musculoskeletal: No Chest Wall Tenderness Extremities: No Clubbing, No Cyanosis, No Edema, Normal Pulses Results 02/14/17 04:42 02/14/17 04:42 Lab Results 02/13/17 02/13/17 02/14/17 18:35 18:35 04:42 WBC 5.4 5.2 Hgb 14.3 14.2 Hct 44.9 45.0 H Plt Count 190 195 Sodium 137 Potassium 4.2 Chloride 101 Carbon Dioxide 28 BUN 11 Creatinine 0.62 Glucose 100 H Calcium 9.4 Total Bilirubin AST ALT Alkaline Phosphatase 02/14/17 04:42 WBC Hgb Hct Plt Count Sodium 138 Potassium 4.4 Chloride 103 Carbon Dioxide 27 BUN 14 Creatinine 0.63 Glucose 98 Calcium 9.5 Total Bilirubin 0.8 AST 38 H ALT 30 Alkaline Phosphatase 109 - Imaging and Cardiology Echo: report reviewed Cardiac cath: report reviewed - EKG Interpretation EKG results cardiology: personally reviewed Consult Discharge Plan - Plan Referrals: Duran Sims Jr, MD [Primary Care Provider] -
[2017-02-14 11:52] VITALS: BP 102/68
--- NOTE | 2017-02-14 14:00 | Discharge Summary ---
Date of Encounter: 02/14/17 Time of Encounter: 13:55 - Discharge Diagnosis (1) Congestive heart failure Priority: Primary Status: Acute Comments: China Wiley is a 67-year-old female with past medical history diastolic dysfunction and hyperlipidemia who presented to [facility] on 02/11/2017 with complaints of shortness of breath. She was found to have an elevated troponin and was started on a heparin drip. She was found to have new systolic heart failure and was started on Lasix, PREMA and BB. Her symptoms improved and she was discharged home in stable condition with outpatient follow-up 1. Acute systolic heart failure: new diagnosis. Presented with increasing shortness of breath. CXR with cardiomegaly and stable, mild chronic interstitial opacities. BNP 3000. 02/12/2017 TTE with EF 20%, severe global LV systolic dysfunction with regional variations (EF previously 65% in 12/2015). [facility] with RCA disease, otherwise non-obstructive CAD. Evaluated by cardiology who recommended carvedilol, lisinopril, Plavix. Continue home ASA. Will need to follow up with [facility] outpatient. 2. Tobacco use: Current smoker; cessation advised. Qualifiers: Congestive heart failure type: systolic Congestive heart failure chronicity : acute Qualified Code(s): I50.21 - Acute systolic (congestive) heart failure - Discharge Medications Prescriptions: Carvedilol [Coreg] 6.25 mg PO BIDWM #60 tablet Clopidogrel [Plavix] 75 mg PO DAILY #30 tablet Furosemide [Lasix] 20 mg PO DAILY #30 tablet Lisinopril [Zestril] 2.5 mg PO DAILY #30 tablet Home Medications: Aspirin 81 mg PO DAILY 08/06/16 [History] Citalopram [CeleXA] 20 mg PO DAILY 08/06/16 [History] Pantoprazole Sodium [Protonix] 40 mg PO DAILY 08/06/16 [History] Lipitor 02/11/17 [History] Multivitamin-Min/Iron/FA/Vit K [Multi-Day Plus Minerals Tablet] 1 each PO DAILY 02/11/17 [History] Carvedilol [Coreg] 6.25 mg PO BIDWM #60 tablet 02/14/17 [Rx] Clopidogrel [Plavix] 75 mg PO DAILY #30 tablet 02/14/17 [Rx] Furosemide [Lasix] 20 mg PO DAILY #30 tablet 02/14/17 [Rx] Lisinopril [Zestril] 2.5 mg PO DAILY #30 tablet 02/14/17 [Rx] Allergies/Adverse Reactions: 3 Allergy/AdvReac Type Severity Reaction Status Date / Time Neomycin Allergy Hives Verified 08/06/16 08:10 Penicillins Allergy Hives Verified 08/06/16 08:10 Procedures/tests Complete & Pending: Procedures Performed prior 72 hours Category Date Time Status CT angio chest [CT] Stat Cat Scan 02/12/17 23:22 Completed CL Cardiac Catheterization [CL] Routine Manufacture Specialist 02/13/17 11:15 Ordered ECG 12 lead ECG [ECG] Routine Y 02/13/17 07:36 Completed ECG 12 lead ECG [ECG] Routine Y 02/13/17 18:07 Completed EV echocardiogram w enhance Routine Y 02/12/17 00:44 Completed Date of admission: 02/11/17 19:52 Primary care physician: Duran Sims Jr, MD Consults: 02/11/17 23:24 Consult to Cardiology [CONS] Routine Comment: Consulting Provider: Cardiology Jolene Reason for Consult: elevated troponin- new CHF Time Notified: 23:25 Call Completed: No Discharging clinician: Lizzie Abdul Anticipated date of discharge: 02/14/17 - Patient Status Disposition: Home, Self-Care Condition: Good Functional capacity at discharge: independent ambulation Overall status at discharge: patient is progressing back to baseline - Discharge Instructions Instructions: Heart Failure (DC), Heart Healthy Diet (DC), Seasoning Without Salt (DC), Low Sodium Diet (DC) Follow Up With: Duran Sims Jr, MD [Primary Care Provider] - Additional Instructions: RISK FACTORS: STOP SMOKING: If you smoke, STOP. Smoking or tobacco use significantly increases your risk of heart disease because nicotine causes the arteries to narrow or constrict. It also causes fats to stick to the artery. Your chances of having a heart attack are greatly increased if you continue to smoke. For more information, call the education line for smoking cessation 5-753-VNWRCCF EAT A LOW FAT/CHOLESTEROL/SODIUM DIET: This diet may help reduce your chances of having a heart attack. LIFTING: Avoid lifting anything more than 10 pounds for 5-7 days Prior to straining, laughing, sneezing and/or coughing, apply manual pressure directly over insertion site. ACTIVITY: You may walk or climb stairs as tolerated You can resume sexual activity as tolerated In general, you are encouraged to engage in a minimum of 30 minutes or more of moderate intensity physical activity, such as brisk walking, daily or at least 3 -4 times weekly BATHING Do not submerge the site into water (bath tub, hot tub, swimming pool) for 1 week. This can be a source for infection into the blood stream. You may shower after 24 hours SITE CARE: After 24 hours, you may remove the dressing and leave the site open to air. Keep the site clean and dry. Clean gently and pat dry. You can expect bruising and tenderness that gradually resolve within a week or two. Return to work as instructed per your physician Resume driving as instructed per physician Keep all scheduled follow up appointments Resume medications as instructed IMPORTANT: If prescribed a Platelet Aggregation Inhibitor such as, Plavix, Brilinta or Effient: Duration of therapy is minimum one year These medications are often used in combination with Aspirin in prevention of future heart attacks Never discontinue unless consult with your [employer] (CVA) Risk factors for a stroke are: Age, cigarette smoking, diabetes, excessive alcohol consumption, family history, high blood pressure, overweight, physical inactivity, prior stroke, heart attack, diagnosis of carotid artery stenosis or other artery disease. Warning signs: Sudden numbness or weakness of the face, arm or leg; especially on one side of the body, sudden confusion, trouble speaking or understanding, sudden trouble seeing in one or both eyes, sudden trouble walking, dizziness, loss of balance or coordination, sudden severe headache with no cause. Call 911 or go to the Emergency Room. CONGESTIVE HEART FAILURE: If you have been diagnosed with Congestive Heart Failure (CHF) and your symptoms return, make an appointment with your physician Weigh yourself daily. Notify your physician if you have a weight gain of two or more pounds in one day or five or more pounds in one week. If you experience any difficulty breathing, please call 911 BLEEDING: Although the risk of bleeding is minimal, it can happen. If you have any bleeding from the site, apply firm pressure above the puncture site for 10-15 minutes. If the bleeding does not stop, continue manual pressure and call 911 Contact your physician if: You develop a fever greater than 101 degrees Fahrenheit Your site becomes reddened or has any drainage You have an increase in pain or burning at the site or if a large knot forms at the site. If you experience chest pain, shortness of breath, dizziness, or extreme tiredness, stop the activity and rest. Please notify your physicians office if you experience any of these symptoms and they are not relieved by rest please call 911!Follow-up appointments: If there is not an appointment listed below, please call your physician and schedule a follow-up appointment. If you have congestive heart failure and your symptoms return, make an appointment with your physician. Medication List: Carry an up to date list of medications you are taking at all time. We have given you an updated medication list including any new medications that you have been prescribed. Please provide that list to your primary provider Symptoms: If your condition changes or you experience any of the following symptoms, notify your physician immediately: Unusual or worsening pain, fever, persistent nausea and vomiting, bleeding, increase in swelling (especially in your legs), sudden weight gain, extreme dizziness, chest pain, increased drainage or redness from a wound or incision. Go to the emergency department if you experience a problem with breathing. Weights: If you have a history of swelling or shortness of breath, weigh yourself daily and notify your physician if you have a weight gain of two or more pounds in one day or 5 or more pounds in a week. If you experience any of the warning signs for stroke: Sudden numbness or weakness of the face, arm or leg; especially on one side of the body, sudden confusion, trouble speaking or understanding, sudden trouble seeing in one or both eyes, sudden trouble walking, dizziness, loss of balance or coordination, sudden sever headache with no cause; Call 911 or go to the emergency room. Stroke is a medical emergency. Some risk factors for stroke: Age, cigarette smoking, diabetes, excessive alcohol consumption, family history , high blood pressure, overweight, physical inactivity, prior stroke, heart attack, diagnosis of carotid artery stenosis or other artery disease. If you smoke, STOP: Smoking or tobacco use significantly increases your risk of heart and lung disease. Your chance of disease greatly increases if you continue to smoke. For more information, call the [place] tobacco quit line for smoking cessation QUIT-NOW ( ) - Diet and Activity Activity: resume usual activities as tolerated Diet: low fat, low cholesterol, low salt diet Interval History: Seen and examined at bedside. Discussed echo results with patient and daughter at length regarding new diagnosis of CHF. Educated on daily weights, low sodium diet, medication adherence and smoking cessation. Daughter and patient verbalize understanding. Hospital course: Ms. Smith is a 67 year old female - Time Spent with Patient Total time spent providing and/or coordinating discharge services: Greater than 30 minutes (48 minutes spent on discharge) - Constitutional Vitals: Temp Pulse Resp BP Pulse Ox 98.0 F 85 16 102/68 94 02/14/17 11:51 02/14/17 11:51 02/14/17 11:51 02/14/17 11:51 02/14/17 11:51 General appearance: Present: A&O X 3, no acute distress, answers questions appropriately - Head Head exam: Present: atraumatic, normocephalic - Eye Eye exam: Present: PERRL, conjuntiva pink, sclera anicteric Pupils: Present: PERRL - Neck Neck exam general surgery: Present: supple, trachea midline. Absent: lymphadenopathy - Respiratory Respiratory exam: Present: CTAB. Absent: accessory muscle use, rales, rhonchi, wheezes - Cardiovascular Cardiovascular exam: Present: RRR, +S1, +S2. Absent: diastolic murmur, gallop, rubs, systolic murmur - GI/Abdominal GI/Abdominal exam: Present: normal bowel sounds, soft, no peritoneal signs. Absent: distended, tenderness - Extremities Exam Extremities exam: Present: warm, radial pulses palpable and symmetrical. Absent : calf tenderness, cyanotic, pedal edema - Neurological Exam Neurological exam: Present: CN II-XII intact, oriented X3, no focal deficits. Absent: pronater drift, facial droop, speech deficit - Skin Skin exam: Present: dry, intact
--- NOTE | 2017-02-14 15:20 | Electrocardiograph Report ---
[place] [id number] Test Date: 2017-02-13 Pat Name: China Smith Department: [id number] Room: 3B44 Gender: [employer]: : 1950 Requested By: Avelina Pierre Order Number: [id number] Reading MD: Otoniel Parsons Measurements Intervals [place] Rate: 82 P: [place]: 0 QRS: -54 QRSD: 139 T: 109 QT: 432 QTc: 470 Interpretive Statements SINUS RHYTHM WITH PVCS INTRAVENTRICULAR CONDUCTION DELAY LEFT VENTRICULAR HYPERTROPHY AND ST-T CHANGE Electronically Signed On 02-14-2017 15:18:48 EDT by Otoniel Parsons
[2017-02-15] MEDS ORDERED: Furosemide 20 MG TABLET PO SCH (09:00)
== END 2017-02-14 16:12 | disposition home or self-care (01) | DRG 287 ==
LOC: EMEROO 13:15 → 3BNU 13:15
PROVIDERS: ADMIT Nurse Practitioner Family; ATTEND Registered Nurse

== ENCOUNTER 2017-10-03 13:24 | Inpatient (IN) ==
[2017-10-03] MEDS ORDERED: Ipratropium/Albuterol Neb 3 ML IH ONE (13:38)
--- NOTE | 2017-10-03 13:43 | Emergency Department Note ---
Disposition Clinical Impression: ACS (acute coronary syndrome), Elevated troponin, Acute exacerbation of chronic obstructive airways disease Disposition: Admitted As Inpatient Condition: Undetermined Referrals: Duran Sims Jr, MD [Primary Care Provider] - Forms: ED Satisfaction Letter Time of Disposition: 15:13 SOB HPI - General Chief Complaint: ED Shortness of Breath/Dyspnea Stated Complaint: TIM, HX CHF Time Seen by Provider: 10/03/17 13:32 Source: patient Mode of arrival: ambulatory Limitations: no limitations Nursing Notes Reviewed: Yes Vital Signs Reviewed: Yes - History of Present Illness 67-year-old female with past history of congestive heart failure roughly 9 months ago, arrives to the emergency department after being told to come here by cardiology during a visit in the office 4 days ago. The patient states that she has had progressive shortness of breath over the past 7 days. The patient admits to some pressure in her retrosternal region without any radiation. The patient states this is what it felt like when she had congestive heart failure exacerbation during her last episode. The patient states that she retains fluid in her abdomen and chest knot in her bilateral lower extremities. Patient has had a history of DVT but denies any unilateral leg swelling, hemoptysis, pain and bilateral lower extremity is. She is resting comfortably in the room but she does have some decrease in speech to roughly 5-6 word sentences. She is in mild respiratory distress but is still able to speak. Patient has some audible wheezing without a stethoscope. She denies any other complaints at this time. - Related Data Home Medications Medication Instructions Recorded Confirmed Aspirin 81 mg PO DAILY 08/06/16 05/13/17 Citalopram [CeleXA] 20 mg PO DAILY 08/06/16 05/13/17 Pantoprazole Sodium [Protonix] 40 mg PO DAILY 08/06/16 05/13/17 Multivitamin-Min/Iron/FA/Vit K 1 each PO DAILY 02/11/17 05/13/17 [Multi-Day Plus Minerals Tablet] Previous Rx's Medication Instructions Recorded Carvedilol [Coreg] 6.25 mg PO BIDWM #60 tablet 02/14/17 Clopidogrel [Plavix] 75 mg PO DAILY #30 tablet 02/14/17 Furosemide [Lasix] 20 mg PO DAILY #30 tablet 02/14/17 Lisinopril [Zestril] 2.5 mg PO DAILY #30 tablet 02/14/17 Allergies Allergy/AdvReac Type Severity Reaction Status Date / Time Neomycin Allergy Blister Verified 05/13/17 07:41 Penicillins Allergy Blister Verified 05/13/17 07:41 All systems ED: reviewed and negative except as stated. Constitutional: Denies: fever, chills, weakness ENT ED: Denies: congestion Cardiovascular: Reports: chest pain, dyspnea on exertion. Denies: palpitations , orthopnea, edema, syncope Respiratory: Reports: cough, dyspnea, wheezes, sputum production. Denies: hemoptysis, stridor Gastrointestinal: Denies: abdominal pain, nausea, vomiting Genitourinary: Denies: urgency, dysuria Musculoskeletal: Denies: back pain Neurological: Denies: headache Past Medical History - Past Medical History Attestation: Yes The following information was validated with the patient. Source: patient Medical history: Reports: arthritis, CHF, DVT, GERD, hyperlipidemia, hypertension Surgical history: Reports: herniorrhaphy, hysterectomy Psychiatric history: Reports: depression - Social History Smoking Status: Current every day smoker Smokeless Tobacco Status: No Alcohol use: Reports: none Drug use: Reports: none Physical Exam - General Limitations: no limitations General appearance: alert, in distress (mild respiratory) - Head Head exam: atraumatic, normocephalic, normal inspection - Eye Eye exam: Present: normal appearance, PERRL, EOMI - ENT ENT exam: normal exam, normal oropharynx, mucous membranes moist - Neck Neck exam: Present: normal inspection, full ROM, trachea midline - Chest Chest inspection: Present: normal inspection, symmetric chest wall rise - Respiratory Respiratory exam: Present: normal lung sounds bilaterally - Cardiovascular Cardiovascular exam: Present: regular rate, normal rhythm, normal heart sounds - Abdominal Exam Abdominal exam: Present: soft, Non-Tender. Absent: tenderness, distention, guarding, rebound, rigidity - Extremities Exam Extremities exam: Present: full ROM, other (Patient has chronic venous stasis bilateral lower extremities with numerous varicose veins.). Absent: tenderness , pedal edema - Neurological Exam Neurological exam: Present: alert, oriented X3 - Skin Skin exam: Present: warm, dry, intact, normal color Course - Consultations Consultation #1: Spoke to Dr. De La Torre who recommended 2 hour troponin and admission with heparin. Time: 15:07 Vital Signs Temperature 97.9 F 10/03/17 13:26 Pulse Rate 97 10/03/17 13:26 Respiratory Rate 24 10/03/17 13:26 Blood Pressure 128/77 10/03/17 13:26 O2 Sat by Pulse Oximetry 98 10/03/17 13:26 Temperature 97.9 F 10/03/17 13:50 Pulse Rate 91 10/03/17 14:20 Respiratory Rate 16 10/03/17 14:49 Blood Pressure 139/80 10/03/17 14:20 O2 Sat by Pulse Oximetry 96 10/03/17 14:49 Oxygen Delivery Oxygen Delivery Room Air Shortness of Breath/Dyspnea - MDM Narrative Medical decision making narrative: Workup in the emergency department demonstrates findings consistent with congestive heart failure. The patient has an elevated BNP. Addition the patient appears to have an in STEMI with concern with elevated troponin at 0.1. The patient's shortness of breath may be the manifestation of an acute coronary syndrome as the patient has what appears to be a new left bundle- branch block compared to EKG performed at 2008. Given the extensive period of time between the 2 EKGs we spoke with cardiology who recommended treating the troponin with a repeat troponin at roughly 2 hours after initial as well as admission to the hospital and heparin. This was administered. The patient was made aware and agrees to plan. The patient's chest x-ray was clear. Patient was given albuterol duo nebs and is feeling better at this time. The patient will be admitted to the hospital at this time. No further questions or concerns - Medical Records Medical records reviewed: Yes I reviewed the patient's medical records. - Lab Data Lab results reviewed: Yes I reviewed the patient's lab results. Result diagrams: 10/03/17 14:00 10/03/17 14:00 Lab Results 10/03/17 10/03/17 10/03/17 Range/Units 14:00 14:00 14:00 WBC 7.8 (4.3-11.1) K/mcL RBC 5.17 H (3.82-4.97) M/mcL Hgb 15.5 H (11.5-15.4) g/dL Hct 48.5 H (35.3-44.9) % MCV 93.8 (83.0-100.0) fL MCH 30.0 (28.0-33.3) pg MCHC 32.0 (31.6-35.5) g/dL RDW 14.6 H (11.5-14.5) % Plt Count 220 (140-400) K/mcL MPV 9.7 (9.4-12.4) fL Immature Gran % 0.1 (0-4) % Seg Neutrophils % 58.2 % Lymphocytes % 27.9 % Monocytes % 12.0 % Eosinophils % 1.4 % Basophils % 0.4 % Neutrophils # 4.5 (1.6-8.9) K/mcL Lymphocytes # 2.2 (0.6-4.6) K/mcL Monocytes # 0.9 (0.0-1.3) K/mcL Eosinophils # 0.1 (0.0-0.6) K/mcL Basophils # 0.0 (0.0-0.2) K/mcL D-Dimer (0-500) ng/mLFEU Sodium 133 L (136-145) mEq/L Potassium 4.2 (3.5-5.1) mEq/L Chloride 95 L (98-107) mEq/L Carbon Dioxide 34 H (23-29) mEq/L BUN 12 (8-23) mg/dL Creatinine 0.51 L (0.60-1.20) mg/dL Est GFR ( Amer) > 60 (> 60) Est GFR (Non-Af Amer) > 60 (> 60) BUN/Creatinine Ratio 24 (6-26) Glucose 105 (70-105) mg/dL Calculated Osmolality 276 L (280-300) Calcium 10.0 (8.6-10.3) mg/dL Troponin I 0.10 H* (< 0.04) ng/mL B-Natriuretic Peptide 1473 H (Less than 100) pg/mL 10/03/17 Range/Units 14:00 WBC (4.3-11.1) K/mcL RBC (3.82-4.97) M/mcL Hgb (11.5-15.4) g/dL Hct (35.3-44.9) % MCV (83.0-100.0) fL MCH (28.0-33.3) pg MCHC (31.6-35.5) g/dL RDW (11.5-14.5) % Plt Count (140-400) K/mcL MPV (9.4-12.4) fL Immature Gran % (0-4) % Seg Neutrophils % % Lymphocytes % % Monocytes % % Eosinophils % % Basophils % % Neutrophils # (1.6-8.9) K/mcL Lymphocytes # (0.6-4.6) K/mcL Monocytes # (0.0-1.3) K/mcL Eosinophils # (0.0-0.6) K/mcL Basophils # (0.0-0.2) K/mcL D-Dimer 449 (0-500) ng/mLFEU Sodium (136-145) mEq/L Potassium (3.5-5.1) mEq/L Chloride (98-107) mEq/L Carbon Dioxide (23-29) mEq/L BUN (8-23) mg/dL Creatinine (0.60-1.20) mg/dL Est GFR ( Amer) (> 60) Est GFR (Non-Af Amer) (> 60) BUN/Creatinine Ratio (6-26) Glucose (70-105) mg/dL Calculated Osmolality (280-300) Calcium (8.6-10.3) mg/dL Troponin I (< 0.04) ng/mL B-Natriuretic Peptide (Less than 100) pg/mL - Radiology Data Radiology results reviewed: Yes I reviewed the patient's radiology results. Chest X-Ray 10/03/17 13:38 IMPRESSION: Persistent cardiomegaly. No radiographic evidence of acute cardiopulmonary process. D/ / 10/03/2017 14:21:43 Braxton Cast MD / Farzana Clemons Interpreting Provider: Braxton Cast MD - EKG Data EKG attestation: Yes I reviewed and interpreted this EKG. EKG results narrative: Heart rate 94 beats for minute. Normal sinus rhythm with left bundle branch block that is new compared to EKG from 11/16/2008. No ST elevation or ST depression. No criteria for [place] at this time.
[2017-10-03 14:15] LABS: Basophils % 0.4 %; Eosinophils # 0.1 K/mcL (0.0-0.6); Eosinophils % 1.4 %; Hematocrit 48.5 % (35.3-44.9); Hemoglobin 15.5 g/dL (11.5-15.4); Immature Granulocytes % 0.1 % (0-4); Lymphocytes # 2.2 K/mcL (0.6-4.6); Lymphocytes % 27.9 %; Mean Corpuscular Volume 93.8 fL (83.0-100.0); Mean Platelet Volume 9.7 fL (9.4-12.4); Monocytes # 0.9 K/mcL (0.0-1.3); Neutrophils # 4.5 K/mcL (1.6-8.9); Platelet Count 220 K/mcL (140-400); Red Blood Count 5.17 M/mcL (3.82-4.97); Red Cell Distribution Width 14.6 % (11.5-14.5); Segmented Neutrophils % 58.2 %
[2017-10-03 14:40] LABS: BUN/Creatinine Ratio 24 (6-26); Blood Urea Nitrogen 12 mg/dL (8-23); Carbon Dioxide 34 mEq/L (23-29); Chloride 95 mEq/L (98-107); Glucose 105 mg/dL (70-105); Osmolality,Calculated 276 (280-300); Potassium 4.2 mEq/L (3.5-5.1); Sodium 133 mEq/L (136-145); eGFR For African Americans > 60 (> 60); eGFR For Non-African Americans > 60 (> 60)
[2017-10-03] MEDS ORDERED: Aspirin 325 MG TABLET PO ONE (14:43)
[2017-10-03] MEDS ORDERED: Furosemide 40 MG/4 ML VIAL IVP ONE (14:43)
--- NOTE | 2017-10-03 14:56 | Emergency Department Note ---
Disposition Clinical Impression: ACS (acute coronary syndrome), Elevated troponin Disposition: Still a Patient Forms: ED Satisfaction Letter General Adult HPI - General Chief complaint: ED Shortness of Breath/Dyspnea Stated complaint: TIM, HX CHF Time Seen by Provider: 10/03/17 13:32 Source: patient Mode of arrival: ambulatory Limitations: no limitations - History of Present Illness Pain Scale: 0 - Related Data Home Medications Medication Instructions Recorded Confirmed Aspirin 81 mg PO DAILY 08/06/16 05/13/17 Citalopram [CeleXA] 20 mg PO DAILY 08/06/16 05/13/17 Pantoprazole Sodium [Protonix] 40 mg PO DAILY 08/06/16 05/13/17 Multivitamin-Min/Iron/FA/Vit K 1 each PO DAILY 02/11/17 05/13/17 [Multi-Day Plus Minerals Tablet] Previous Rx's Medication Instructions Recorded Carvedilol [Coreg] 6.25 mg PO BIDWM #60 tablet 02/14/17 Clopidogrel [Plavix] 75 mg PO DAILY #30 tablet 02/14/17 Furosemide [Lasix] 20 mg PO DAILY #30 tablet 02/14/17 Lisinopril [Zestril] 2.5 mg PO DAILY #30 tablet 02/14/17 Allergies Allergy/AdvReac Type Severity Reaction Status Date / Time Neomycin Allergy Blister Verified 05/13/17 07:41 Penicillins Allergy Blister Verified 05/13/17 07:41 Constitutional: Denies: fever, chills, weakness ENT ED: Denies: congestion Cardiovascular: Reports: chest pain, dyspnea on exertion. Denies: palpitations , orthopnea, edema, syncope Respiratory: Reports: cough, dyspnea, wheezes, sputum production. Denies: hemoptysis, stridor Gastrointestinal: Denies: abdominal pain, nausea, vomiting Genitourinary: Denies: urgency, dysuria Musculoskeletal: Denies: back pain Neurological: Denies: headache Past Medical History - Past Medical History Medical history: Reports: arthritis, CHF, DVT, GERD, hyperlipidemia, hypertension Surgical history: Reports: herniorrhaphy, hysterectomy Psychiatric history: Reports: depression - Social History Smoking Status: Current every day smoker Smokeless Tobacco Status: No Alcohol use: Reports: none Drug use: Reports: none Physical Exam - General Limitations: no limitations General appearance: alert, in distress Course - Reevaluation(s) Reevaluation #1: ATTESTATION NOTE I examined this patient and my medical decision-making was reviewed with the emergency medicine resident Dr. Metzger I agree with the documented findings, disposition and treatment plan as described except to the extent set forth below. I have personally performed a face to face evaluation on this patient. I have reviewed and agree with the care plan. Briefly: 67-year-old female presents with chest pain shortness of breath history of COPD CHF has not new left bundle-branch block on EKG no old available for comparison troponin is critically elevated at 0.1 which is critical elevation. Patient renal function essentially normal limits patient will be admitted for chest pain acute coronary syndrome with elevated troponin. Cardiology will be paged hospitalist admission anticipated, disposition pending. Time: 14:54 Vital Signs Temperature 97.9 F 10/03/17 13:26 Pulse Rate 97 10/03/17 13:26 Respiratory Rate 24 10/03/17 13:26 Blood Pressure 128/77 10/03/17 13:26 O2 Sat by Pulse Oximetry 98 10/03/17 13:26 Temperature 97.9 F 10/03/17 13:50 Pulse Rate 91 10/03/17 14:20 Respiratory Rate 16 10/03/17 14:49 Blood Pressure 139/80 10/03/17 14:20 O2 Sat by Pulse Oximetry 96 10/03/17 14:49 Oxygen Delivery Oxygen Delivery Room Air Medical Decision Making - Lab Data Result diagrams: 10/03/17 14:00 10/03/17 14:00 Lab Results 10/03/17 10/03/17 10/03/17 Range/Units 14:00 14:00 14:00 WBC 7.8 (4.3-11.1) K/mcL RBC 5.17 H (3.82-4.97) M/mcL Hgb 15.5 H (11.5-15.4) g/dL Hct 48.5 H (35.3-44.9) % MCV 93.8 (83.0-100.0) fL MCH 30.0 (28.0-33.3) pg MCHC 32.0 (31.6-35.5) g/dL RDW 14.6 H (11.5-14.5) % Plt Count 220 (140-400) K/mcL MPV 9.7 (9.4-12.4) fL Immature Gran % 0.1 (0-4) % Seg Neutrophils % 58.2 % Lymphocytes % 27.9 % Monocytes % 12.0 % Eosinophils % 1.4 % Basophils % 0.4 % Neutrophils # 4.5 (1.6-8.9) K/mcL Lymphocytes # 2.2 (0.6-4.6) K/mcL Monocytes # 0.9 (0.0-1.3) K/mcL Eosinophils # 0.1 (0.0-0.6) K/mcL Basophils # 0.0 (0.0-0.2) K/mcL D-Dimer (0-500) ng/mLFEU Sodium 133 L (136-145) mEq/L Potassium 4.2 (3.5-5.1) mEq/L Chloride 95 L (98-107) mEq/L Carbon Dioxide 34 H (23-29) mEq/L BUN 12 (8-23) mg/dL Creatinine 0.51 L (0.60-1.20) mg/dL Est GFR ( Amer) > 60 (> 60) Est GFR (Non-Af Amer) > 60 (> 60) BUN/Creatinine Ratio 24 (6-26) Glucose 105 (70-105) mg/dL Calculated Osmolality 276 L (280-300) Calcium 10.0 (8.6-10.3) mg/dL Troponin I 0.10 H* (< 0.04) ng/mL B-Natriuretic Peptide 1473 H (Less than 100) pg/mL 10/03/17 Range/Units 14:00 WBC (4.3-11.1) K/mcL RBC (3.82-4.97) M/mcL Hgb (11.5-15.4) g/dL Hct (35.3-44.9) % MCV (83.0-100.0) fL MCH (28.0-33.3) pg MCHC (31.6-35.5) g/dL RDW (11.5-14.5) % Plt Count (140-400) K/mcL MPV (9.4-12.4) fL Immature Gran % (0-4) % Seg Neutrophils % % Lymphocytes % % Monocytes % % Eosinophils % % Basophils % % Neutrophils # (1.6-8.9) K/mcL Lymphocytes # (0.6-4.6) K/mcL Monocytes # (0.0-1.3) K/mcL Eosinophils # (0.0-0.6) K/mcL Basophils # (0.0-0.2) K/mcL D-Dimer 449 (0-500) ng/mLFEU Sodium (136-145) mEq/L Potassium (3.5-5.1) mEq/L Chloride (98-107) mEq/L Carbon Dioxide (23-29) mEq/L BUN (8-23) mg/dL Creatinine (0.60-1.20) mg/dL Est GFR ( Amer) (> 60) Est GFR (Non-Af Amer) (> 60) BUN/Creatinine Ratio (6-26) Glucose (70-105) mg/dL Calculated Osmolality (280-300) Calcium (8.6-10.3) mg/dL Troponin I (< 0.04) ng/mL B-Natriuretic Peptide (Less than 100) pg/mL
[2017-10-03] MEDS ORDERED: *HR* Enoxaparin 80 MG/0.8 ML SYRINGE SQ STA (15:01)
[2017-10-03] MEDS ORDERED: Naloxone 0.4 MG/ML INJ IVP PRN (16:32)
[2017-10-03] MEDS ORDERED: Ipratropium/Albuterol Neb 3 ML IH PRN (16:45)
--- NOTE | 2017-10-03 16:48 | Internal Med History&Physical ---
<CarlosrossyDeandra O - Last Filed: 10/03/17 22:12> Date of Encounter: 10/03/17 Internal Medicine - H&P: HPI History of present illness: Ms. Smith is a 67 year old female Internal Medicine - H&P: Meds Aspirin 81 mg PO DAILY 08/06/16 [History] Citalopram [CeleXA] 20 mg PO DAILY 08/06/16 [History] Pantoprazole Sodium [Protonix] 40 mg PO DAILY 08/06/16 [History] Multivitamin-Min/Iron/FA/Vit K [Multi-Day Plus Minerals Tablet] 1 each PO DAILY 02/11/17 [History] Carvedilol [Coreg] 6.25 mg PO BIDWM #60 tablet 02/14/17 [Rx] Clopidogrel [Plavix] 75 mg PO DAILY #30 tablet 02/14/17 [Rx] Furosemide [Lasix] 20 mg PO DAILY #30 tablet 02/14/17 [Rx] Lisinopril [Zestril] 2.5 mg PO DAILY #30 tablet 02/14/17 [Rx] Atorvastatin [Lipitor] 10 mg PO HS 10/03/17 [History] Ferrous Sulfate [Iron] 325 mg PO DAILY 10/03/17 [History] 3 Allergy/AdvReac Type Severity Reaction Status Date / Time Neomycin Allergy Blister Verified 10/03/17 15:06 Penicillins Allergy Blister Verified 10/03/17 15:06 All Systems PM: A 10-system review of systems was performed and is negative for pertinent findings except as documented above in the HPI. - Constitutional Vitals: Temp Pulse Resp BP Pulse Ox 97.7 F 81 15 129/78 94 10/03/17 22:10 10/03/17 22:10 10/03/17 22:10 10/03/17 22:10 10/03/17 22:10 Internal Med - H&P Results - Labs CBC & Chem 7: 10/03/17 14:00 10/03/17 14:00 Labs: Cardiac Enzymes 10/03/17 Range/Units 19:38 Troponin I 0.12 H* (< 0.04) ng/mL - Attending Attestation I performed a history and physical exam of the patient and discussed her management with the [employer]. I reviewed the CNPs note and agree with the documented findings and plan of care. - Time Spent With Patient Total time spent is greater than 50% in coordination of care (as documented) at patient's floor/unit and/or counseling patient: <Sonu Alejo - Last Filed: 10/03/17 22:50> Date of Encounter: 10/03/17 Time of Encounter: 15:30 Internal Medicine - H&P: HPI Chief complaint: SOB/Dyspnea/Orthopnea Admitted From: Emergency Dept Plans for Post Hospital Care: Home History of present illness: Ms. Smith is a 67 year old female w/PMH of arthritis, CHF, DVT, GERD, HLD, HTN presents from the ED w/CC of SOB/Dyspnea/Orthopnea for the past 2-3 weeks that has been worsening. Pt. reports no alleviating factors. No home O2/BiPAP/ CPAP. Hx of CHF and recurrent episodes. Reports no significant pedal edema, only increasing SOB w and w/o exertion. Denies recent Echocardiogram. Pt. reports increased stress at home d/t caring for two grandchildren but cannot take her Xanax d/t her daughter stealing them. Pt. denies recent illness, fever , chills, nausea, vomiting, headache, changes in vision, unusual bleeding, abdominal pain, diarrhea, constipation, dizziness, lightheadedness, presyncope, or syncope. Past Med Surg Social Fam HX - Past Medical History Source: patient, old records reviewed, obtained from family Medical history: arthritis, CHF, DVT, GERD, hyperlipidemia, hypertension Additional medical history: venous insufficency Psychiatric history: anxiety, depression - Past Surgical History Surgical History: herniorrhaphy, hysterectomy Additional surgical history: Tubal ligation - Social History Smoking Status: Current every day smoker Smokeless Tobacco Status: No Alcohol use: none Drug use: none Current living situation: Home, With Family Activity Level: Independent ambulation Recent Out of Country Travel Within the Last 8 Weeks: No Exposure or Possible Exposure to Illness During Travel: No - Family History Father Race: Family Member Ethnicity: Non- Living Status: Age at : 65 Cause of : [place] Hx Family Cardiac Disorders: Yes (CHF, [place], HTN) Hx Family Endocrine Disorder: Yes (DM) Mother Race: Family Member Ethnicity: Non- Living Status: Age at : 80 Cause of : Alzheimer's disease Hx Family Neurologic Disorders: Yes (Alzheimer's disease) Brother Race: Family Member Ethnicity: Non- Living Status: Age at : 60 Cause of : Pancreatic cancer Hx Family Cancer: Yes (Pancreatic) Sister Race: Family Member Ethnicity: Non- Living Status: Age at : 48 Cause of : Drug abuse Hx Family Psychosocial Disorders: Yes (Drug abuse) All Systems PM: A 10-system review of systems was performed and is negative for pertinent findings except as documented above in the HPI. - Constitutional Constitutional: no chills, no fever(s), no night sweats - EENT Eyes: no change in vision, no discharge, no pain, no photophobia Ears: no ear discharge, no ear pain, no tinnitus Nose, mouth and throat: no dysphagia, no nasal discharge, no neck pain, no sore throat - Breasts Breasts: as per HPI - Cardiovascular Cardiovascular ROS IM: as per HPI, dyspnea, dyspnea on exertion, orthopnea, no chest pain, no diaphoresis, no lightheadedness, no palpitations, no syncope - Respiratory Respiratory: as per HPI, dyspnea, dyspnea on exertion, no cough, no wheezing, no excessive phlegm production - Gastrointestinal Gastrointestinal: no abdominal pain, no diarrhea, no hematemesis, no hematochezia, no melena, no nausea, no vomiting - Genitourinary Genitourinary: no change in urinary stream, no dysuria, no flank pain, no hematuria Menstruation: as per HPI, post hysterectomy - Musculoskeletal Musculoskeletal ROS IM: as per HPI, arthralgias, no numbness, no tingling - Integumentary Integumentary IM: no rash, no unusual bruising - Neurological Neurological ROS: no confusion, no convulsions, no focal weakness, no numbness, no tingling, no tremor(s) - Psychiatric Psychiatric: as per HPI, anxiety, depression - Endocrine Endocrine IM: as per HPI - Hematologic/Lymphatic Hematologic/Lymphatic: no easy bruising - Allergic/Immunologic Allergic/Immunologic: as per HPI - Constitutional Vitals: Temp Pulse Resp BP Pulse Ox 97.8 F 96 16 145/61 94 10/03/17 15:55 10/03/17 15:55 10/03/17 15:55 10/03/17 15:55 10/03/17 15:55 General appearance: Present: cooperative, mild distress (Respiratory distress from CHF exacerbation), A&O X 3, pleasant, obese, answers questions appropriately - Head Head exam: Present: atraumatic, normocephalic - Eye Eye exam: Present: PERRL, conjuntiva pink, sclera anicteric Pupils: Present: PERRL - ENT ENT exam: Present: normal exam - Neck Neck exam general surgery: Present: normal inspection, supple, trachea midline. Absent: lymphadenopathy - Respiratory Respiratory exam: Present: accessory muscle use, decreased breath sounds. Absent: rales, rhonchi, wheezes - Cardiovascular Cardiovascular exam: Present: RRR, +S1, +S2. Absent: diastolic murmur, gallop, rubs, systolic murmur - GI/Abdominal GI/Abdominal exam: Present: normal bowel sounds, soft, no peritoneal signs. Absent: distended, tenderness - Rectal Rectal exam: Present: deferred - Additional comments: exam deferred. - Extremities Exam Extremities exam: Present: warm, radial pulses palpable and symmetrical. Absent : calf tenderness, cyanotic, pedal edema - Back Exam Back exam: Present: normal inspection - Neurological Exam Neurological exam: Present: CN II-XII intact, oriented X3, no focal deficits. Absent: pronater drift, facial droop, speech deficit - Psychiatric Psychiatric exam: Present: normal affect, normal mood - Skin Skin exam: Present: dry, intact Internal Med - H&P Results - Labs CBC & Chem 7: 10/03/17 14:00 10/03/17 14:00 - EKG Data EKG shows normal: sinus rhythm - EKG Data Prior EKG available for review: no EKG comments: 10/03/17 16:56 EKG dated 10/03/17 shows sinus rhythm with short DC interval with occasional ventricular premature complexes, marked left axis deviation, and LBBB. - Diagnostic Studies Chest x-ray Additional comments: Impressions Chest X-Ray 10/03/17 13:38 IMPRESSION: Persistent cardiomegaly. No radiographic evidence of acute cardiopulmonary process. D/ / 10/03/2017 14:21:43 Braxton Cast MD / Farzana Clemons Interpreting Provider: Braxton Cast MD - Assessment and plan (1) Acute exacerbation of CHF (congestive heart failure) Current Visit: Yes Status: Acute Assessment and plan: Acute exacerbation of CHF that began 2-3 weeks ago and became progressively worse. BNP 1473. No pedal edema. Pt. reports SOB, dyspnea, and orthopnea. Sx with and without exertion. Patient reports taking by mouth Lasix 20 mg daily. States Waste Cotton Cleaner is Dr. De La Rosa. Echocardiogram ordered to asses current LVEF. Continuous cardiac telemetry. Supplemental O2 with titration and SPO2 monitoring. DuoNeb's every 6 when necessary. Cardiology consult ordered and ED. 1.5L daily fluid restriction. Monitor I&O and daily weight. Hold pts. PO lasix and administer 40 mg IVP daily. Pt. discussed w/Dr. Caruso who agrees w/ plan of care. Pt. is high risk for further morbidity and cardiac/respiratory distress based on current sx of SOB/dyspnea/orthopnea, elevated troponin, need for IVP lasix for tx, hx; and risk factors of HTN, HLD, obesity, and current tobacco abuse. Inpatient. Qualifiers: Heart failure type: unspecified Qualified Code(s): I50.9 - Heart failure, unspecified (2) SOB (shortness of breath) Current Visit: Yes Status: Acute Assessment and plan: Acute SOB/Dyspnea/Orthopnea r/t current acute exacerbation of CHF. Denies home O2 use or BiPAP/CPAP. Supplemental O2 w/titration and SpO2 monitoring. DuoNebs Q6HR PRN. Falls/safety precautions. Up with assist. (3) Elevated troponin Current Visit: Yes Status: Chronic Assessment and plan: Hx of acute on chronically elevated troponin levels. Currently 0.10 on admission. Pt. denies CP. Most likely reactive d/t current CHF exacerbation. Will trend. Continuous cardiac telemetry. Cardiology consult ordered in ED. Pt. reports her Waste Cotton Cleaner is Dr. De La Rosa. (4) Hx of deep venous thrombosis Current Visit: Yes Status: Chronic Assessment and plan: Hx of DVT in past. D-dimer 449 on admission. Heparin 5,000 units SQ Q8HR for DVT prophylaxis. (5) GERD (gastroesophageal reflux disease) Current Visit: Yes Status: Chronic Assessment and plan: Hx of chronic GERD. IVP Protonix 40 mg daily. IVP Phenergan 12.5 mg Q6HR PRN for N/V. Qualifiers: Esophagitis presence: esophagitis presence not specified Qualified Code(s) : K21.9 - Gastro-esophageal reflux disease without esophagitis (6) HLD (hyperlipidemia) Current Visit: Yes Status: Chronic Assessment and plan: Hx of chronic HLD. Lipid panel in a.m. labs. Continue pts. Lipitor. Qualifiers: Hyperlipidemia type: pure hypercholesterolemia Qualified Code(s): E78.00 - Pure hypercholesterolemia, unspecified; E78.0 - Pure hypercholesterolemia (7) HTN (hypertension) Current Visit: Yes Status: Chronic Assessment and plan: Hx of chronic HTN. Monitor pt. and VS. Continue pts. Coreg and lisinopril. Qualifiers: Hypertension type: essential hypertension Qualified Code(s): I10 - Essential (primary) hypertension (8) Coronary artery disease Current Visit: Yes Status: Chronic Assessment and plan: Hx of CAD. Pt. reports no stents d/t allergy to metal. Currently on Plavix. Continuous cardiac telemetry. Continue pts. Aspirin, Lipitor, Coreg, Plavix, and lisinopril Qualifiers: Coronary Disease-Associated Artery/Lesion type: [place] artery [place] vs. transplanted heart: [place] heart Associated angina: without angina Qualified Code(s): I25.10 - Atherosclerotic heart disease of [place] coronary artery without angina pectoris (9) Depression Current Visit: Yes Status: Chronic Assessment and plan: Hx of chronic depression. Continue pts. Celexa. Pt. also reports high level of anxiety d/t current life stressors but cannot take Xanax d/t drug-addicted daughter who lives with her stealing them. SW consult ordered to assess for solutions. Qualifiers: Depression Type: unspecified Qualified Code(s): F32.9 - Major depressive disorder, single episode, unspecified (10) Tobacco abuse Current Visit: Yes Status: Chronic Assessment and plan: Hx of chronic tobacco abuse. Currently smokes 1 PPD. Denies need for nicotine patch at this time. No interest in quitting at this time d/t current stress in life. (11) DVT prophylaxis Current Visit: Yes Status: Acute Assessment and plan: Heparin 5,000 units SQ Q8HR for DVT prophylaxis. Monitor pt. for signs of bleeding. - Time Spent With Patient Total time spent is greater than 50% in coordination of care (as documented) at patient's floor/unit and/or counseling patient: Greater than 35 minutes
[2017-10-03] MEDS ORDERED: *HR* Promethazine 25 MG/ML VIAL IVP PRN (17:05)
[2017-10-03] MEDS: Pantoprazole 40 MG VIAL IVP SCH (17:26)
[2017-10-03] MEDS: *HR* Heparin 5,000 UNIT/ML VIAL SQ SCH (23:17)
[2017-10-04 02:21] LABS: Basophils % 0.5 %; Eosinophils # 0.2 K/mcL (0.0-0.6); Eosinophils % 2.5 %; Hematocrit 46.1 % (35.3-44.9); Hemoglobin 14.4 g/dL (11.5-15.4); Immature Granulocytes % 0.2 % (0-4); Lymphocytes % 31.2 %; Mean Corpuscular HGB Conc 31.2 g/dL (31.6-35.5); Mean Corpuscular Hemoglobin 30.1 pg (28.0-33.3); Mean Corpuscular Volume 96.4 fL (83.0-100.0); Mean Platelet Volume 10.1 fL (9.4-12.4); Monocytes % 16.1 %; Neutrophils # 3.2 K/mcL (1.6-8.9); Platelet Count 206 K/mcL (140-400); Red Blood Count 4.78 M/mcL (3.82-4.97); Red Cell Distribution Width 14.6 % (11.5-14.5); Segmented Neutrophils % 49.5 %
[2017-10-04 04:34] LABS: Alanine Aminotransferase 22 Units/L (7-52); Albumin 3.8 g/dL (3.5-5.7); Albumin/Globulin Ratio 1.1 (1.1-2.2); Alkaline Phosphatase 78 Units/L (34-104); Aspartate Amino Transferase 26 Units/L (13-39); BUN/Creatinine Ratio 25 (6-26); Bilirubin,Total 0.4 mg/dL (0.3-1.0); Blood Urea Nitrogen 12 mg/dL (8-23); Calcium 9.1 mg/dL (8.6-10.3); Carbon Dioxide 32 mEq/L (23-29); Chloride 98 mEq/L (98-107); Chol/HDL Ratio 2.3 (0-4.9); Cholesterol 130 mg/dL (< 200); Globulin 3.5 g/dL (2.4-3.5); Glucose 111 mg/dL (70-105); HDL Cholesterol 57 mg/dL (40-59); LDL Cholesterol,Calculated 57 mg/dL (0-99); Osmolality,Calculated 284 (280-300); Potassium 4.7 mEq/L (3.5-5.1); Sodium 137 mEq/L (136-145); Total Protein 7.3 g/dL (6.4-8.9); Triglycerides 80 mg/dL (< 150); eGFR For African Americans > 60 (> 60); eGFR For Non-African Americans > 60 (> 60)
[2017-10-04 08:12] LABS: Estimated Average Glucose 111 mg/dl; Hemoglobin A1C 5.5 %
--- NOTE | 2017-10-04 08:16 | Cardiology Consult Note ---
<Mickey Ontivreos - Last Filed: 10/04/17 10:32> Date of Encounter: 10/04/17 Time of Encounter: 08:15 Assessment and Plan (1) SOB (shortness of breath) Current Visit: Yes Status: Acute Per Cardiology: History of nicotine abuse smoking one pack per day for 50 years. Denies any known history of COPD. Suspect contributing factor to her symptoms. Consider pulmonology evaluation and PFTs. (2) NICM (nonischemic cardiomyopathy) Current Visit: Yes Status: Chronic Per Cardiology: History of presumed nonischemic cardio myopathy. EF 65% December 2015 and most recent EF since January 2017 noted to be 20%, then 30%, then 30%. BNP elevated in the 1400s. Chest x-ray showed no overt heart failure. Clinically euvolemic on exam. On Lasix at home. Currently on IV Lasix 40 mg IV daily. Patient reports no increase in overall weight gain and weighs herself daily and baseline weight 148-149 pounds. Will need consideration in outpatient setting for potential need for ICD. On beta bettina and PREMA inhibitor. (3) Elevated troponin Current Visit: Yes Status: Chronic Per Cardiology: Troponins flat and adynamic with peak of 0.12. Had mild troponin elevation last hospital stay as well. Do not suspect non-STEMI, suspect demand ischemia with suspected COPD exacerbation. No cardiac rehabilitation consult warranted. (4) Coronary artery disease Current Visit: Yes Status: Chronic Per Cardiology: Heart catheterization from 01/2017: Lesion Findings/Interventions * Left Main Coronary Artery The LMCA is angiographically free of disease. * Left Anterior Descending The Mid LAD has mild luminal irregularities. There is a 25% stenosis in the Mid LAD. * Circumflex There is a 50% stenosis in the 1st Marginal. * Right Coronary Artery There is a 70% stenosis in the Mid RCA. We will review films and discussed with Dr. Adams and Dr. De La Torre regarding reevaluation of mid RCA 70% lesion. Chest pain-free. Qualifiers: Coronary Disease-Associated Artery/Lesion type: [place] artery [place] vs. transplanted heart: [place] heart Associated angina: without angina Qualified Code(s): I25.10 - Atherosclerotic heart disease of [place] coronary artery without angina pectoris Discussion w patient/family: The assessment and plan as outlined above was discussed with the patient who expressed understanding and agreement. All questions were answered. Thank you for involving us in the care of your patient. Please call with any questions. History of Present Illness Consult date: 10/04/17 Requesting physician: Sonu Metzger Consult reason: NSTEMI? Chief complaint: SOB History of present illness: Ms. Smith is a 67 year old female with relevant past medical history of CHF , history of DVT, GERD, hyperlipidemia, hypertension, osteoarthritis, nicotine abuse. Cardiology consults for concerns of non-STEMI and CHF. Patient presented with SOB. Patient reports progressive worsening of shortness of breath at rest with exertion for the past 2-3 weeks. She reports she smokes one pack per day for the past 50 years. She denies any known history or diagnosis of COPD. Does not utilize home oxygen. She denies any chest pain symptoms. Denies any palpitations, dizziness, syncope, falls. Denies any active bleeding or blood loss. Does report overall increase in fatigue the past few weeks as well. Patient denies any edema or swelling. She denies any significant weight gain reports daily weights remain about 148-149 pounds. Past Med Surg Social Fam HX - Past Medical History Attestation: Yes The following information was validated with the patient. Source: patient, old records reviewed Medical history: arthritis, CHF, DVT, GERD, hyperlipidemia, hypertension Additional medical history: venous insufficency Psychiatric history: anxiety, depression - Past Surgical History Surgical History: herniorrhaphy, hysterectomy Additional surgical history: Tubal ligation - Social History Smoking Status: Current every day smoker Smokeless Tobacco Status: No Alcohol use: none Drug use: none - Family History Father Race: Family Member Ethnicity: Non- Living Status: Age at : 65 Cause of : [place] Hx Family Cardiac Disorders: Yes (CHF, [place], HTN) Hx Family Endocrine Disorder: Yes (DM) Mother Race: Family Member Ethnicity: Non- Living Status: Age at : 80 Cause of : Alzheimer's disease Hx Family Neurologic Disorders: Yes (Alzheimer's disease) Brother Race: Family Member Ethnicity: Non- Living Status: Age at : 60 Cause of : Pancreatic cancer Hx Family Cancer: Yes (Pancreatic) Sister Race: Family Member Ethnicity: Non- Living Status: Age at : 48 Cause of : Drug abuse Hx Family Psychosocial Disorders: Yes (Drug abuse) Medications and Allergies Aspirin 81 mg PO DAILY 08/06/16 [History] Citalopram [CeleXA] 20 mg PO DAILY 08/06/16 [History] Pantoprazole Sodium [Protonix] 40 mg PO DAILY 08/06/16 [History] Multivitamin-Min/Iron/FA/Vit K [Multi-Day Plus Minerals Tablet] 1 each PO DAILY 02/11/17 [History] Carvedilol [Coreg] 6.25 mg PO BIDWM #60 tablet 02/14/17 [Rx] Clopidogrel [Plavix] 75 mg PO DAILY #30 tablet 02/14/17 [Rx] Furosemide [Lasix] 20 mg PO DAILY #30 tablet 02/14/17 [Rx] Lisinopril [Zestril] 2.5 mg PO DAILY #30 tablet 02/14/17 [Rx] Atorvastatin [Lipitor] 10 mg PO HS 10/03/17 [History] Ferrous Sulfate [Iron] 325 mg PO DAILY 10/03/17 [History] 3 Allergy/AdvReac Type Severity Reaction Status Date / Time Neomycin Allergy Blister Verified 10/03/17 15:06 Penicillins Allergy Blister Verified 10/03/17 15:06 All Systems Review: The remainder of the systems were reviewed and are negative - Constitutional Constitutional: fatigue - Cardiovascular Cardiovascular: as per HPI, dyspnea at rest, dyspnea on exertion Physical Examination Vital Signs, Last 4 Hours Temp Pulse Resp BP Pulse Ox 10/04/17 07:07 98.6 F 103 16 119/65 94 General: Conversant, No Apparent Distress HEENT: Atraumatic, Normocephaly, Mucus Membranes Moist Neck: No JVD, Normal carotid pulses Cardiac: Reg Rate and Rhythm, Normal S1 and S2, No Murmur Lungs: Normal Breath Sounds, No Wheeze, Rales, Rhonchi Neuro: Alert and responsive, No focal deficits noted Abdomen: Soft, Non-Tender Skin: No rashes noted on visualized skin Musculoskeletal: No Chest Wall Tenderness Extremities: No Clubbing, No Cyanosis, No Edema, Normal Pulses Results 10/04/17 01:49 10/04/17 03:42 Lab Results Laboratory Tests 10/03/17 10/03/17 10/03/17 14:00 14:00 14:00 D-Dimer 449 Creatinine Est GFR (Non-Af Amer) Magnesium AST ALT Troponin I 0.10 H* B-Natriuretic Peptide 1473 H 10/03/17 10/04/17 10/04/17 19:38 01:49 03:42 D-Dimer Creatinine 0.48 L Est GFR (Non-Af Amer) > 60 Magnesium 2.0 AST 26 ALT 22 Troponin I 0.12 H* 0.11 H* B-Natriuretic Peptide ITS Impressions Chest X-Ray 10/03/17 13:38 IMPRESSION: Persistent cardiomegaly. No radiographic evidence of acute cardiopulmonary process. D/ / 10/03/2017 14:21:43 Braxton Cast MD / Farzana Clemons Interpreting Provider: Braxton Cast MD Intake & Output 10/01/17 10/02/17 10/03/17 10/04/17 23:59 23:59 23:59 23:59 Output Total 0 / 0 Balance 0 / 0 Weight 68 kg Active Medications Acetaminophen (Tylenol) 650 mg PO Q6HR PRN PRN Reason: Mild Pain/Fever Stop: 04/04/18 16:33 Albuterol/Ipratropium (Duoneb) 3 ml IH [id number] PRN PRN Reason: Shortness Of Breath/Wheezing Stop: 04/04/18 16:46 Aspirin (Aspirin) 81 mg PO DAILY ALESSANDRO Stop: 04/05/18 09:01 Atorvastatin Calcium (Lipitor) 10 mg PO HS ALESSANDRO Stop: 04/04/18 21:01 Last Admin: 10/03/17 20:05 Dose: 10 mg Carvedilol (Coreg) 6.25 mg PO BIDWM ALESSANDRO PRN Reason: Protocol Stop: 04/04/18 17:01 Last Admin: 10/03/17 17:26 Dose: 6.25 mg Citalopram Hydrobromide (Celexa) 20 mg PO DAILY ALESSANDRO Stop: 04/05/18 09:01 Clopidogrel Bisulfate (Plavix) 75 mg PO DAILY ALESSANDRO Stop: 04/05/18 09:01 Ferrous Sulfate (Ferrous Sulfate) 325 mg PO DAILY ALESSANDRO Stop: 04/05/18 09:01 Furosemide (Lasix) 40 mg IVP DAILY ALESSANDRO Stop: 04/05/18 09:01 Heparin Sodium (Porcine) (Heparin) 5,000 unit SQ Q8HR ALESSANDRO Stop: 04/05/18 00:01 Last Admin: 10/03/17 23:17 Dose: 5,000 unit Lisinopril (Zestril) 2.5 mg PO DAILY [facility] PRN Reason: Protocol Stop: 04/05/18 09:01 Multivitamins/Calcium (Thera M Plus) 1 tab PO DAILY [facility] Stop: 04/05/18 09:01 Naloxone HCl (Narcan) 0.4 mg IVP Q2MIN PRN PRN Reason: SEE COMMENTS Stop: 04/04/18 16:33 Pantoprazole Sodium (Protonix) 40 mg IVP DAILY [facility] Stop: 04/04/18 16:46 Last Admin: 10/03/17 17:26 Dose: 40 mg Promethazine HCl (Phenergan) 12.5 mg IVP Q6HR PRN PRN Reason: Nausea And Vomiting Stop: 04/04/18 17:06 - Imaging and Cardiology Echo: report reviewed Cardiac cath: report reviewed - EKG Interpretation EKG results cardiology: personally reviewed (Sinus rhythm with intraventricular conduction delay with LVH, comparable to baseline ECG), no diagnostic ischemia Consult Discharge Plan - Plan Referrals: Duran Sims Jr, MD [Primary Care Provider] - (web request 10/06/2017) <Dm Adams - Last Filed: 10/08/17 13:27> Date of Encounter: 10/04/17 Time of Encounter: 16:00 - Attending Attestation I have personally performed a face to face evaluation on this patient. I have reviewed and agree with the care plan. History and Exam by me shows: CC: Shortness of breath Pt reports increasing shortness of breath over last week prior to admission. Initially she has SOB with activity, but notes developed shortness of breath at rest last two days before presentation. She denies chest pain, pressure and palpitations. She continues to smoke at least one pack of cigarettes daily against medical advice. She reports shortness of breath has improved since hospital admission ROS: Reviewed PMH Reviewed PE: pt seen and examined, agree with findings as documented. IMP:PLAN 1. Elevated troponin: adynamic, hovering around .12, pt denies chest pain, has had similar troponin elevations on previous admissions, suspect may have chronic elevation rather than a series of acute events. 2. Moderate CAD: previous [facility] 02/12 revealed moderate to severe 70% stenosis in mid RCA, 50% in first Marginal, and 25% stenosis in mid LAD, recommend repeat LHC/poss, risks and benefits discussed, agrees to proceed. Assessment and Plan Discussion w patient/family: The assessment and plan as outlined above was discussed with the patient and/or family members who expressed understanding and agreement. All questions were answered. Thank you for involving us in the care of your patient. Please call with any questions. History of Present Illness History of present illness: Ms. Smith is a 67 year old female All Systems Review: The remainder of the systems were reviewed and are negative Physical Examination Vital Signs, Last 4 Hours Temp Pulse Resp BP Pulse Ox 10/08/17 11:30 16 99 10/08/17 10:48 98.2 F 110 17 103/67 98 Results 10/08/17 05:01 10/08/17 05:01 Lab Results 10/08/17 10/08/17 05:01 05:01 WBC 7.1 Hgb 13.6 Hct 43.5 Plt Count 175 Sodium 135 L Potassium 4.4 Chloride 90 L Carbon Dioxide 38 H BUN 24 H Creatinine 0.40 L Glucose 88 Calcium 9.6 Total Bilirubin 0.5 AST 22 ALT 21 Alkaline Phosphatase 55
[2017-10-04] MEDS: Pantoprazole 40 MG VIAL IVP SCH (09:55)
[2017-10-04] MEDS: Multivit/Ca/Min/Fe/FA 1 TAB TABLET PO SCH (09:55)
[2017-10-04] MEDS: Aspirin 81 MG TAB.CHEW PO SCH (09:57)
[2017-10-04] MEDS: Acetaminophen 325 MG TABLET PO PRN ×2 (09:57→23:10)
[2017-10-04] MEDS: *HR* Heparin 5,000 UNIT/ML VIAL SQ SCH ×3 (09:57→23:10)
[2017-10-04] MEDS: Furosemide 40 MG/4 ML VIAL IVP SCH (09:58)
--- NOTE | 2017-10-04 11:09 | Event Note ---
Date of Encounter: 10/04/17 Time of Encounter: 11:10 - Cardiology Event Note Discussed and reviewed with Dr. Adams and Dr. De La Torre. Recommend evaluate for possible COPD. We will proceed with close follow-up with cardiology and can consider stress testing in outpatient setting if clinically warranted and will need evaluation for ICD. Cardiology will sign off, reconsult as needed, follow- up arranged.
--- NOTE | 2017-10-04 15:58 | Internal Med Progress Note ---
Date of Encounter: 10/04/17 Time of Encounter: 11:35 - Assessment and plan (1) Elevated troponin Current Visit: Yes Status: Chronic Assessment and plan: History of chronically elevated troponins. This admission 0.10< 0.12< 0.11, flat, stable, adynamic. Elevated in the setting of current CHF exacerbation. Patient denies chest pain. Patient with reduced ejection fraction, 30% in January 2017. Patient has elevated BNP, chest x-ray negative for heart failure, no peripheral edema, lungs are clear and diminished. Patient denies overall weight gain. Cardiology discussed ICD placement, we will discuss after discharge. Continue telemetry Continue beta bettina and ACEI Continue Lasix 40 mg IV daily. (2) Coronary artery disease Current Visit: Yes Status: Chronic Assessment and plan: Chronic. Pt denies chest pain. Continue ASA, statin, Plavix, BB, ACEI Continue telemetry Qualifiers: Coronary Disease-Associated Artery/Lesion type: [place] artery [place] vs. transplanted heart: [place] heart Associated angina: without angina Qualified Code(s): I25.10 - Atherosclerotic heart disease of [place] coronary artery without angina pectoris (3) Acute exacerbation of CHF (congestive heart failure) Current Visit: Yes Status: Acute Assessment and plan: Acute exacerbation of systolic heart failure. Echocardiogram from 10/03/17 shows LVEF of 30% with atypical septal motion consistent with bundle branch block, no significant valvular dysfunction. Pt appears to be euvolemic, lungs are clear and diminished. Continue telemetry Lasix 40mg iVP daily Continue ASA, Plavix Qualifiers: Heart failure type: systolic Qualified Code(s): I50.23 - Acute on chronic systolic (congestive) heart failure (4) Hx of deep venous thrombosis Current Visit: Yes Status: Chronic Assessment and plan: Heparin SQ TID. (5) GERD (gastroesophageal reflux disease) Current Visit: Yes Status: Chronic Assessment and plan: Chronic. Continue home medications. Qualifiers: Esophagitis presence: esophagitis presence not specified Qualified Code(s) : K21.9 - Gastro-esophageal reflux disease without esophagitis (6) HLD (hyperlipidemia) Current Visit: Yes Status: Chronic Assessment and plan: Chronic. Continue home medications. Qualifiers: Hyperlipidemia type: pure hypercholesterolemia Qualified Code(s): E78.00 - Pure hypercholesterolemia, unspecified; E78.0 - Pure hypercholesterolemia (7) HTN (hypertension) Current Visit: Yes Status: Chronic Assessment and plan: Chronic. Continue home medications. Qualifiers: Hypertension type: essential hypertension Qualified Code(s): I10 - Essential (primary) hypertension (8) SOB (shortness of breath) Current Visit: Yes Status: Acute Assessment and plan: Acute SOB/Dyspnea/Orthopnea r/t current acute exacerbation of CHF. Supplemental O2 to maintain sats < 92%. DuoNebs Q6HR PRN. Chantix now and for discharge. (9) Depression Current Visit: Yes Status: Chronic Assessment and plan: Chronic. Continue home medications. Qualifiers: Depression Type: unspecified Qualified Code(s): F32.9 - Major depressive disorder, single episode, unspecified (10) Tobacco abuse Current Visit: Yes Status: Chronic Assessment and plan: Chronic. Patient reports smoking a pack per day. Patient reports that she does not need a nicotine patch at this time, states that she would like to try Chantix after discharge. (11) DVT prophylaxis Current Visit: Yes Status: Acute Assessment and plan: Heparin subcutaneous 3 times a day - Time Spent With Patient Total time spent is greater than 50% in coordination of care (as documented) at patient's floor/unit and/or counseling patient: less than 15 minutes - Subjective Interval history: Patient was seen and assessed the bedside 11:35 AM. Cardiology MEDICAL ENGINEER was also in the room. Plan of care for cardiology and medicine discussed with patient. She verbalizes understanding. Patient reports that she is very drowsy and that she has not been sleeping well due to shortness of breath. Pt is a long-time smoker, current smoker with possible new diagnosis of COPD. Pt states that she would like to try Chantix for smoking cessation. She denies chest pain, n/v/d, abdominal pain, peripheral edema, headache, or blurred vision. - Constitutional Vitals: Temp Pulse Resp BP Pulse Ox 98.1 F 73 12 120/60 96 10/04/17 15:20 10/04/17 15:20 10/04/17 15:20 10/04/17 15:20 10/04/17 15:20 General appearance: Present: cooperative, mild distress (Respiratory distress from CHF exacerbation), A&O X 3, pleasant, obese, answers questions appropriately - Head Head exam: Present: atraumatic, normal inspection, normocephalic - Eye Eye exam: Present: normal appearance, conjuntiva pink, sclera anicteric - Neck Neck exam general surgery: Present: normal inspection, supple, trachea midline. Absent: lymphadenopathy, tenderness - Respiratory Respiratory exam: Present: CTAB. Absent: accessory muscle use, rales, rhonchi, wheezes - Cardiovascular Cardiovascular exam: Present: RRR, +S1, +S2. Absent: diastolic murmur, gallop, rubs, systolic murmur - GI/Abdominal GI/Abdominal exam: Present: normal bowel sounds, soft. Absent: distended, hepatomegaly, tenderness - Extremities Exam Extremities exam: Present: normal inspection, warm, radial pulses palpable and symmetrical. Absent: calf tenderness, cyanotic, normal capillary refill, pedal edema, tenderness - Neurological Exam Neurological exam: Present: alert, oriented X3, no focal deficits, strengths equal and symetr throughout. Absent: altered, facial droop, speech deficit - Skin Skin exam: Present: dry, intact, normal color, warm. Absent: rash Internal Medicine: Result - Labs CBC & Chem 7: 10/04/17 01:49 10/04/17 03:42 Labs: Short CBC 10/04/17 Range/Units 01:49 WBC 6.5 (4.3-11.1) K/mcL Hgb 14.4 (11.5-15.4) g/dL Hct 46.1 H (35.3-44.9) % Plt Count 206 (140-400) K/mcL Neutrophils # 3.2 (1.6-8.9) K/mcL BMP 10/04/17 03:42 Sodium 137 Potassium 4.7 Chloride 98 Carbon Dioxide 32 H BUN 12 Creatinine 0.48 L Glucose 111 H Calcium 9.1 Cardiac Enzymes 10/03/17 10/04/17 Range/Units 19:38 01:49 Troponin I 0.12 H* 0.11 H* (< 0.04) ng/mL Liver Function 10/04/17 Range/Units 03:42 Total Bilirubin 0.4 (0.3-1.0) mg/dL AST 26 (13-39) Units/L ALT 22 (7-52) Units/L Alkaline Phosphatase 78 (34-104) Units/L Albumin 3.8 (3.5-5.7) g/dL - ABG Interpretation ABG results: PT/INR, D-dimer D-Dimer 449 ng/mLFEU (0-500) 10/03/17 14:00 - Impressions Impressions Echocardiogram 10/04/17 16:40 Impressions: LVEF 30%. Global left ventricular systolic dysfunction. Indeterminate diastolic function. Atypical septal motion consistent with bundle branch block. Normal right ventricular structure and function. Unable to estimate RVSP due to lack of TR jet. No significant valvular dysfunction. Left Ventricular Wall Motion: Rest Echo Findings The apex, apical inferior, mid inferior, basal inferior, apical anterior, mid anterior, basal anterior, apical septal, mid inferior septal, basal inferior septal, apical lateral, mid anterior lateral, basal anterior lateral, mid anterior septal, mid inferior lateral, basal anterior septal and basal inferior lateral webb were hypokinetic. Findings: Study Quality * Technically adequate exam. ECG Findings * Sinus rhythm with BBB. Left Ventricle * LVEF 30%. * Normal LV chamber size. * Global left ventricular systolic dysfunction. * Indeterminate diastolic function. * Atypical septal motion consistent with bundle branch block. Right Ventricle * Normal right ventricular structure and function. Left Atrium * Severely dilated left atrium. Right Atrium * Mildly dilated right atrium. Aortic Valve * Mildly calcified aortic valve leaflets. * No aortic regurgitation. * No aortic stenosis. Mitral Valve * Unable to determine the number of leaflets. Focal areas of calcification noted. * No mitral regurgitation. * No mitral stenosis. Tricuspid Valve * Normal tricuspid valve structure and function. * No tricuspid regurgitation. * Unable to estimate RVSP due to lack of TR jet. Pulmonic Valve * Normal pulmonic valve structure and function. * No pulmonic regurgitation. Aorta * Normally sized aortic root. Pericardium * There is a trivial pericardial effusion present. IVC * Normal IVC dimensions and inspiratory collapse. Pulmonary Artery * Normal visualized portions of the main pulmonary artery. Consult Discharge Plan - Plan Referrals: Duran Sims Jr, MD [Primary Care Provider] -
--- NOTE | 2017-10-04 17:29 | Electrocardiograph Report ---
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
--- NOTE | 2017-10-04 18:07 | Electrocardiograph Report ---
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
[2017-10-05 04:45] LABS: Basophils % 0.3 %; Eosinophils # 0.1 K/mcL (0.0-0.6); Eosinophils % 0.6 %; Hematocrit 46.5 % (35.3-44.9); Hemoglobin 14.1 g/dL (11.5-15.4); Immature Granulocytes % 0.5 % (0-4); Lymphocytes % 24.7 %; Mean Corpuscular HGB Conc 30.3 g/dL (31.6-35.5); Mean Corpuscular Hemoglobin 29.8 pg (28.0-33.3); Mean Corpuscular Volume 98.3 fL (83.0-100.0); Mean Platelet Volume 10.4 fL (9.4-12.4); Monocytes # 1.1 K/mcL (0.0-1.3); Monocytes % 13.5 %; Neutrophils # 4.8 K/mcL (1.6-8.9); Platelet Count 191 K/mcL (140-400); Red Blood Count 4.73 M/mcL (3.82-4.97); Segmented Neutrophils % 60.4 %
[2017-10-05 04:59] LABS: BUN/Creatinine Ratio 31 (6-26); Blood Urea Nitrogen 18 mg/dL (8-23); Calcium 9.2 mg/dL (8.6-10.3); Carbon Dioxide 39 mEq/L (23-29); Chloride 91 mEq/L (98-107); Glucose 140 mg/dL (70-105); Osmolality,Calculated 280 (280-300); Potassium 4.5 mEq/L (3.5-5.1); Sodium 133 mEq/L (136-145); eGFR For African Americans > 60 (> 60); eGFR For Non-African Americans > 60 (> 60)
[2017-10-05 05:00] LABS: Magnesium 2.1 mg/dL (1.6-2.6); Phosphorous 4.6 mg/dL (2.7-4.5)
[2017-10-05 05:12] LABS: Thyroid Stimulating Hormone 0.383 mcIU/mL (0.340-5.600)
--- NOTE | 2017-10-05 08:20 | Internal Med Progress Note ---
Date of Encounter: 10/05/17 Time of Encounter: 08:10 - Assessment and plan (1) Elevated troponin Current Visit: Yes Status: Chronic Assessment and plan: Chronically elevated Denies chest pain Flat, stable, adynamic in the setting of current acute exacerbation of CHF Cardiology discussed ICD placement after discharge. Continue telemetry Continue beta bettina and ACEI Continue Lasix 40 mg IV daily. (2) Coronary artery disease Current Visit: Yes Status: Chronic Assessment and plan: Continue ASA, statin, Plavix, BB, ACEI Continue telemetry Qualifiers: Coronary Disease-Associated Artery/Lesion type: [place] artery [place] vs. transplanted heart: [place] heart Associated angina: without angina Qualified Code(s): I25.10 - Atherosclerotic heart disease of [place] coronary artery without angina pectoris (3) Acute exacerbation of CHF (congestive heart failure) Current Visit: Yes Status: Acute Assessment and plan: Acute exacerbation of systolic heart failure. Pt appears to be euvolemic, lungs are clear and diminished, +1 nonpitting bilateral lower extremity edema noted. Continue telemetry Lasix 40mg iVP daily Continue ASA, Plavix Qualifiers: Heart failure type: systolic Qualified Code(s): I50.23 - Acute on chronic systolic (congestive) heart failure (4) Hx of deep venous thrombosis Current Visit: Yes Status: Chronic Assessment and plan: Heparin SQ TID. (5) GERD (gastroesophageal reflux disease) Current Visit: Yes Status: Chronic Assessment and plan: Chronic. Stable. Continue home medications. Qualifiers: Esophagitis presence: esophagitis presence not specified Qualified Code(s) : K21.9 - Gastro-esophageal reflux disease without esophagitis (6) HLD (hyperlipidemia) Current Visit: Yes Status: Chronic Assessment and plan: Continue Lipitor. Qualifiers: Hyperlipidemia type: pure hypercholesterolemia Qualified Code(s): E78.00 - Pure hypercholesterolemia, unspecified; E78.0 - Pure hypercholesterolemia (7) HTN (hypertension) Current Visit: Yes Status: Chronic Assessment and plan: Stable and well controlled. Continue home medications. Qualifiers: Hypertension type: essential hypertension Qualified Code(s): I10 - Essential (primary) hypertension (8) SOB (shortness of breath) Current Visit: Yes Status: Acute Assessment and plan: Patient does not appear to be in distress. Lungs are clear and diminished. She is requiring supplemental oxygen maintain sats. Likely secondary to underlying COPD and CHF exacerbation. Continue telemetry Continue duo nebs when necessary O2 as needed to maintain sats greater than 92% Continue Lasix (9) Depression Current Visit: Yes Status: Chronic Assessment and plan: Chronic. Continue Celexa. Qualifiers: Depression Type: unspecified Qualified Code(s): F32.9 - Major depressive disorder, single episode, unspecified (10) Tobacco abuse Current Visit: Yes Status: Chronic Assessment and plan: Chronic. Chantix started yesterday. (11) DVT prophylaxis Current Visit: Yes Status: Acute Assessment and plan: Heparin SQ TID (12) Acute respiratory failure with hypoxia Current Visit: Yes Status: Acute Assessment and plan: Pt requiring supplemental 02, no home 02 use prior to admission. Pt was found sitting in the chair in another patient's room this am. Room air sats were in the 70s and pt had altered mental status. Pt was put back on 02 and recovered. Upon exam, pt appeared to be back at her baseline. She will require continuous 02 upon discharge due to hypoxia. ABG ordered and pending 02 and pulse ox continuous (13) Altered mental status Current Visit: Yes Status: Acute Assessment and plan: See above. Likely due to hypoxia. Pt reports headache for 2-3 days that she did not mention yesterday, CT head ordered. Monitor pt for safety and falls. 02 to maintain sats > 92%, titrate prn ABG ordered and pending. UA with reflex micro Qualifiers: Altered mental status type: unspecified Qualified Code(s): R41.82 - Altered mental status, unspecified - Time Spent With Patient Total time spent is greater than 50% in coordination of care (as documented) at patient's floor/unit and/or counseling patient: less than 15 minutes - Subjective Interval history: Patient was seen and assessed the bedside 0810 AM. She denies chest pain, n/v/d , abdominal pain, peripheral edema, or blurred vision. I received a page from primary RN requesting that I come see the patient. Patient was found in another patient's room sitting in the chair. Patient does not know how she got there or why she was there. Patient denies any memory of this. Primary nurse reports that she feels that patient is not at her baseline from yesterday. Patient answers questions appropriately and has no neurological deficits. Patient today reports frontal headache that she has had for 2-3 days. - Constitutional Vitals: Temp Pulse Resp BP Pulse Ox 98.2 F 107 16 128/76 98 10/05/17 07:50 10/05/17 07:50 10/05/17 07:50 10/05/17 07:50 10/05/17 07:50 General appearance: Present: cooperative, mild distress (Respiratory distress from CHF exacerbation), A&O X 3, pleasant, no acute distress, obese, answers questions appropriately - Head Head exam: Present: atraumatic, normal inspection, normocephalic - Eye Eye exam: Present: normal appearance, conjuntiva pink, sclera anicteric - Neck Neck exam general surgery: Present: supple, trachea midline. Absent: lymphadenopathy, tenderness - Respiratory Respiratory exam: Present: decreased breath sounds, CTAB. Absent: accessory muscle use, chest wall tenderness, rales, respiratory distress, rhonchi, wheezes - Cardiovascular Cardiovascular exam: Present: RRR, +S1, +S2. Absent: bradycardia, diastolic murmur, gallop, rubs, systolic murmur, tachycardia - GI/Abdominal GI/Abdominal exam: Present: normal bowel sounds, soft. Absent: distended, hepatomegaly, tenderness - Extremities Exam Extremities exam: Present: normal capillary refill, normal inspection, pedal edema, warm, radial pulses palpable and symmetrical. Absent: calf tenderness, cyanotic Additional comments: +1 nonpitting bilateral lower extremity edema. - Neurological Exam Neurological exam: Present: alert, CN II-XII intact, oriented X3, no focal deficits, strengths equal and symetr throughout. Absent: abnormal gait, altered , motor sensory deficit, pronater drift, facial droop, speech deficit - Skin Skin exam: Present: dry, intact, normal color, warm. Absent: rash Internal Medicine: Result - Labs CBC & Chem 7: 10/05/17 03:43 10/05/17 03:43 Labs: Short CBC 10/05/17 Range/Units 03:43 WBC 7.9 (4.3-11.1) K/mcL Hgb 14.1 (11.5-15.4) g/dL Hct 46.5 H (35.3-44.9) % Plt Count 191 (140-400) K/mcL Neutrophils # 4.8 (1.6-8.9) K/mcL BMP 06/09/18 03:43 Sodium 133 L Potassium 4.5 Chloride 91 L Carbon Dioxide 39 H BUN 18 Creatinine 0.58 L Glucose 140 H Calcium 9.2 - ABG Interpretation ABG results: PT/INR, D-dimer D-Dimer 449 ng/mLFEU (0-500) 10/03/17 14:00 - Impressions Impressions Echocardiogram 10/04/17 16:40 Impressions: LVEF 30%. Global left ventricular systolic dysfunction. Indeterminate diastolic function. Atypical septal motion consistent with bundle branch block. Normal right ventricular structure and function. Unable to estimate RVSP due to lack of TR jet. No significant valvular dysfunction. Left Ventricular Wall Motion: Rest Echo Findings The apex, apical inferior, mid inferior, basal inferior, apical anterior, mid anterior, basal anterior, apical septal, mid inferior septal, basal inferior septal, apical lateral, mid anterior lateral, basal anterior lateral, mid anterior septal, mid inferior lateral, basal anterior septal and basal inferior lateral webb were hypokinetic. Findings: Study Quality * Technically adequate exam. ECG Findings * Sinus rhythm with BBB. Left Ventricle * LVEF 30%. * Normal LV chamber size. * Global left ventricular systolic dysfunction. * Indeterminate diastolic function. * Atypical septal motion consistent with bundle branch block. Right Ventricle * Normal right ventricular structure and function. Left Atrium * Severely dilated left atrium. Right Atrium * Mildly dilated right atrium. Aortic Valve * Mildly calcified aortic valve leaflets. * No aortic regurgitation. * No aortic stenosis. Mitral Valve * Unable to determine the number of leaflets. Focal areas of calcification noted. * No mitral regurgitation. * No mitral stenosis. Tricuspid Valve * Normal tricuspid valve structure and function. * No tricuspid regurgitation. * Unable to estimate RVSP due to lack of TR jet. Pulmonic Valve * Normal pulmonic valve structure and function. * No pulmonic regurgitation. Aorta * Normally sized aortic root. Pericardium * There is a trivial pericardial effusion present. IVC * Normal IVC dimensions and inspiratory collapse. Pulmonary Artery * Normal visualized portions of the main pulmonary artery. Consult Discharge Plan - Plan Referrals: Duran Sims Jr, MD [Primary Care Provider] -
[2017-10-05 08:35] LABS: ABG Base Excess 12 mEq/L (-2 to 3); ABG HCO3 44 mEq/L (21-27); ABG Oxygen Saturation 97 % (95-98); ABG PCO2 91 mmHg (35-45); ABG PH 7.29 pH Units (7.32-7.45); ABG PO2 106 mmHg (85-104); ABG TCO2 46 mEq/L (20-26)
[2017-10-05] MEDS: Aspirin 81 MG TAB.CHEW PO SCH (08:45)
[2017-10-05] MEDS: Multivit/Ca/Min/Fe/FA 1 TAB TABLET PO SCH (08:46)
[2017-10-05] MEDS: Acetaminophen 325 MG TABLET PO PRN (08:46)
[2017-10-05] MEDS: Pantoprazole 40 MG VIAL IVP SCH (08:47)
[2017-10-05] MEDS: *HR* Heparin 5,000 UNIT/ML VIAL SQ SCH ×2 (08:47→17:58)
[2017-10-05] MEDS: Furosemide 40 MG/4 ML VIAL IVP SCH (08:48)
[2017-10-05 09:56] LABS: Bilirubin,Urine Negative (Negative); Blood,Urine Small (Negative); Clarity,Urine Clear (Clear); Color,Urine Yellow (Yellow); Glucose,Urine (UA) Normal (Normal); Ketones,Urine Negative (Negative); Leukocyte Esterase,Urine Trace (Negative); Nitrite,Urine Negative (Negative); Protein,Urine Negative (Neg-Trace); Specific Gravity,Urine 1.015 (1.010-1.025); Urobilinogen,Urine Normal (Normal)
[2017-10-05 09:58] LABS: Bacteria,Urine Few per hpf (None-Few); RBC,Urine 0-3 per hpf (0-3); WBC,Urine 0-3 per hpf (0-3)
[2017-10-05] MEDS ORDERED: 0.9 % Sodium Chloride 1,000 ML ONE (11:15)
[2017-10-05] MEDS ORDERED: Isovue-370 500 ML INFUS..BTL IV ONE (11:28)
--- NOTE | 2017-10-05 11:42 | Pulmonology Consult Note ---
<MohsenJustin M - Last Filed: 10/05/17 14:23> Date of Encounter: 10/05/17 Medications and Allergies Aspirin 81 mg PO DAILY 08/06/16 [History] Citalopram [CeleXA] 20 mg PO DAILY 08/06/16 [History] Pantoprazole Sodium [Protonix] 40 mg PO DAILY 08/06/16 [History] Multivitamin-Min/Iron/FA/Vit K [Multi-Day Plus Minerals Tablet] 1 each PO DAILY 02/11/17 [History] Carvedilol [Coreg] 6.25 mg PO BIDWM #60 tablet 02/14/17 [Rx] Clopidogrel [Plavix] 75 mg PO DAILY #30 tablet 02/14/17 [Rx] Furosemide [Lasix] 20 mg PO DAILY #30 tablet 02/14/17 [Rx] Lisinopril [Zestril] 2.5 mg PO DAILY #30 tablet 02/14/17 [Rx] Atorvastatin [Lipitor] 10 mg PO HS 10/03/17 [History] Ferrous Sulfate [Iron] 325 mg PO DAILY 10/03/17 [History] 3 Allergy/AdvReac Type Severity Reaction Status Date / Time Neomycin Allergy Blister Verified 10/03/17 15:06 Penicillins Allergy Blister Verified 10/03/17 15:06 All Systems: The remainder of the systems were reviewed and are negative Physical Examination Vital Signs: Vital Signs, Last 4 Hours Temp Pulse Resp BP Pulse Ox 10/05/17 12:26 97.3 F L 93 14 109/53 95 Results - Laboratory Findings CBC and BMP: 10/05/17 03:43 10/05/17 03:43 ABG ABG pH 7.29 pH Units (7.32-7.45) L 10/05/17 11:42 ABG pCO2 85 mmHg (35-45) H* 10/05/17 11:42 ABG pO2 84 mmHg (85-104) L 10/05/17 11:42 ABG O2 Saturation 94 % (95-98) L 10/05/17 11:42 PT/INR, D-dimer D-Dimer 449 ng/mLFEU (0-500) 10/03/17 14:00 Abnormal lab findings: Abnormal lab results Hct 46.5 % (35.3-44.9) H 10/05/17 03:43 MCHC 30.3 g/dL (31.6-35.5) L 10/05/17 03:43 ABG pH 7.29 pH Units (7.32-7.45) L 10/05/17 11:42 ABG pCO2 85 mmHg (35-45) H* 10/05/17 11:42 ABG pO2 84 mmHg (85-104) L 10/05/17 11:42 ABG HCO3 41 mEq/L (21-27) H 10/05/17 11:42 ABG Total CO2 43 mEq/L (20-26) H 10/05/17 11:42 ABG O2 Saturation 94 % (95-98) L 10/05/17 11:42 ABG Base Excess 10 mEq/L (-2 to 3) H 10/05/17 11:42 Sodium 133 mEq/L (136-145) L 10/05/17 03:43 Chloride 91 mEq/L (98-107) L 10/05/17 03:43 Carbon Dioxide 39 mEq/L (23-29) H 10/05/17 03:43 Creatinine 0.58 mg/dL (0.60-1.20) L 10/05/17 03:43 BUN/Creatinine Ratio 31 (6-26) H 10/05/17 03:43 Glucose 140 mg/dL (70-105) H 10/05/17 03:43 Phosphorus 4.6 mg/dL (2.7-4.5) H 10/05/17 03:43 Troponin I 0.14 ng/mL (< 0.04) H* 10/05/17 11:47 B-Natriuretic Peptide 1473 pg/mL (Less than 100) H 10/03/17 14:00 Urine Blood Small (Negative) H 10/05/17 09:39 Ur Leukocyte Esterase Trace (Negative) H 10/05/17 09:39 Ur Culture Indicated? YES (NO) A 10/05/17 09:39 - Clinical Findings Intake & Output: Intake & Output 10/04/17 10/05/17 10/05/17 23:59 07:59 15:59 Intake Total 490 / 490 Output Total 100 / 100 Balance 490 / 490 -100 / -100 Weight 70.3 kg Consult Discharge Plan - Plan Referrals: Duran Sims Jr, MD [Primary Care Provider] - - Attending Attestation I examined this patient and my medical decision-making was reviewed with the Resident Physician. I agree with the documented findings, disposition and treatment plan as described except to the extent set forth below. Patient seen and examined. Labs, radiology, chart personally reviewed. 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 I feel patient has COPD exacerbation and she will benefit from a course of systemic steroid and rhonchi dilators. I have advised him strongly to quit smoking In the presence of her family. She will need an outpatient follow-up. Patient is completely stable at this time and following commands and she can be transferred to the floor. Cardiovascular: Patient with congestive heart failure and cardiology follow-up. Thank you very much for consultation <Jase Gray - Last Filed: 10/05/17 15:15> Date of Encounter: 10/05/17 Time of Encounter: 11:42 Assessment and Plan (1) Acute exacerbation of chronic obstructive airways disease Current Visit: Yes Status: Acute 1. No formal diagnosis (PFTs) but after speaking with patient, reviewing her imaging and examining her, she does have COPD 2. Recommend continued nebs and starting steroids 3. Still unclear of her initial resp distress and hypercapnia. But she sounds clear and is alert and responsive and in no distress. 4. Stable for transfer back to the floor, however, would recommend step-down for possible BiPAP at night or when necessary. (2) Congestive heart failure Current Visit: Yes Status: Acute 1. Likely the source of her shortness of breath, elevated BNP, poor EF 2. Unsure of what caused her AMS but this has completely resolved and she is now awake, alert and no deficits noted 3. Plan to continue current care from primary team and cardiology Qualifiers: Qualified Code(s): I50.21 - Acute systolic (congestive) heart failure History of Present Illness Consult date: 10/05/17 Requesting physician: Avelina Pierre Reason for consult: dyspnea Chief complaint: dyspnea History of present illness: Patient was being admitted for CHF. Apparently was found unresponsive today, hypoxic, bradycardic. Patient was placed on BiPAP pending ABGs showed hypercapnia. She was transferred to ICU. Upon arrival to the ICU the patient was alert, off BiPAP and sats were normal on her home nasal cannula. She denied any shortness of breath, chest pain, headache, changes in vision, abdominal pain, n/v/d. Patient currently eating upon my evaluation. Past Med Surg Social Fam HX - Past Medical History Medical history: arthritis, CHF, DVT, GERD, hyperlipidemia, hypertension Additional medical history: venous insufficency Psychiatric history: anxiety, depression - Past Surgical History Surgical History: herniorrhaphy, hysterectomy Additional surgical history: Tubal ligation - Social History Smoking Status: Current every day smoker Smokeless Tobacco Status: No Alcohol use: none Drug use: none - Family History Father Race: Family Member Ethnicity: Non- Living Status: Age at : 65 Cause of : MT Hx Family Cardiac Disorders: Yes (CHF, [place], HTN) Hx Family Endocrine Disorder: Yes (DM) Mother Race: Family Member Ethnicity: Non- Living Status: Age at : 80 Cause of : Alzheimer's disease Hx Family Neurologic Disorders: Yes (Alzheimer's disease) Brother Race: Family Member Ethnicity: Non- Living Status: Age at : 60 Cause of : Pancreatic cancer Hx Family Cancer: Yes (Pancreatic) Sister Race: Family Member Ethnicity: Non- Living Status: Age at : 48 Cause of : Drug abuse Hx Family Psychosocial Disorders: Yes (Drug abuse) All Systems: The remainder of the systems were reviewed and are negative Review of Systems: As reviewed in the HPI. All other systems reviewed are negative or normal. Physical Examination Vital Signs: Vital Signs, Last 4 Hours Temp Pulse Resp BP Pulse Ox 10/05/17 09:51 25 98 10/05/17 07:50 98.2 F 107 16 128/76 98 General appearance: no acute distress, alert Eyes: nonicteric ENT: oropharynx moist Effort: normal Auscultation: bilateral: wheezes Cardiovascular: regular rate and rhythm Gastrointestinal: normoactive bowel sounds, soft Integumentary: normal Extremities: no cyanosis, no clubbing, edema Musculoskeletal: no deformities, ROM normal normal mental status mood appropriate, affect normal Results - Laboratory Findings CBC and BMP: 10/05/17 03:43 10/05/17 03:43 ABG ABG pH 7.29 pH Units (7.32-7.45) L 10/05/17 08:29 ABG pCO2 91 mmHg (35-45) H* 10/05/17 08:29 ABG pO2 106 mmHg (85-104) H 10/05/17 08:29 ABG O2 Saturation 97 % (95-98) 10/05/17 08:29 PT/INR, D-dimer D-Dimer 449 ng/mLFEU (0-500) 10/03/17 14:00 Abnormal lab findings: Abnormal lab results Hct 46.5 % (35.3-44.9) H 10/05/17 03:43 MCHC 30.3 g/dL (31.6-35.5) L 10/05/17 03:43 ABG pH 7.29 pH Units (7.32-7.45) L 10/05/17 08:29 ABG pCO2 91 mmHg (35-45) H* 10/05/17 08:29 ABG pO2 106 mmHg (85-104) H 10/05/17 08:29 ABG HCO3 44 mEq/L (21-27) H 10/05/17 08:29 ABG Total CO2 46 mEq/L (20-26) H 10/05/17 08:29 ABG Base Excess 12 mEq/L (-2 to 3) H 10/05/17 08:29 Sodium 133 mEq/L (136-145) L 10/05/17 03:43 Chloride 91 mEq/L (98-107) L 10/05/17 03:43 Carbon Dioxide 39 mEq/L (23-29) H 10/05/17 03:43 Creatinine 0.58 mg/dL (0.60-1.20) L 10/05/17 03:43 BUN/Creatinine Ratio 31 (6-26) H 10/05/17 03:43 Glucose 140 mg/dL (70-105) H 10/05/17 03:43 Phosphorus 4.6 mg/dL (2.7-4.5) H 10/05/17 03:43 Troponin I 0.11 ng/mL (< 0.04) H* 10/04/17 01:49 B-Natriuretic Peptide 1473 pg/mL (Less than 100) H 10/03/17 14:00 Urine Blood Small (Negative) H 10/05/17 09:39 Ur Leukocyte Esterase Trace (Negative) H 10/05/17 09:39 Ur Culture Indicated? YES (NO) A 10/05/17 09:39 - Clinical Findings Intake & Output: Intake & Output 10/04/17 10/05/17 10/05/17 23:59 07:59 15:59 Intake Total 490 / 490 Output Total 100 / 100 Balance 490 / 490 -100 / -100
[2017-10-05 11:45] LABS: ABG Base Excess 10 mEq/L (-2 to 3); ABG HCO3 41 mEq/L (21-27); ABG Oxygen Saturation 94 % (95-98); ABG PCO2 85 mmHg (35-45); ABG PH 7.29 pH Units (7.32-7.45); ABG PO2 84 mmHg (85-104); ABG TCO2 43 mEq/L (20-26); Blood Gas Respiration Rate 20
--- NOTE | 2017-10-05 12:01 | Event Note ---
Date of Encounter: 10/05/17 Time of Encounter: 11:45 - Cardiology Event Note Patient asked to evaluate by primary service due to concerns of confusion this morning and found another patient room and now with decreased levels of responsiveness and required BiPAP. ECG showed sinus rhythm the 60s with PVCs, no acute ischemia appreciated. ABG results noted and patient with PCO2 of 106. Head CT with no acute findings. Pulm consult pending. Chest CTA pending. Repeat ABG and troponin pending. Pending transfer to higher acuity of care. No further cardiac recommendations at this time. Discussed and reviewed with Dr. De La Torre. Laboratory Tests 10/05/17 10/05/17 10/05/17 03:43 03:43 03:43 WBC 7.9 Hgb 14.1 Hct 46.5 H Plt Count 191 ABG pH ABG pCO2 O2 Delivery Device Inspired O2 Potassium 4.5 Creatinine 0.58 L Est GFR (Non-Af Amer) > 60 TSH 0.383 Urine Blood Ur Leukocyte Esterase Ur Culture Indicated? 10/05/17 10/05/17 08:29 09:39 WBC Hgb Hct Plt Count ABG pH 7.29 L ABG pCO2 91 H* O2 Delivery Device Cannula Inspired O2 3.0 Potassium Creatinine Est GFR (Non-Af Amer) TSH Urine Blood Small H Ur Leukocyte Esterase Trace H Ur Culture Indicated? YES A
--- NOTE | 2017-10-05 13:14 | Event Note ---
Date of Encounter: 10/05/17 Time of Encounter: 11:50 Time is approximate. I was notified by the primary RN that pt's pulse was in the 30s. Went to the room to see the patient, she was wearing BiPAP, responsive only to sternal rub. On bedside monitor, it was noted the patient's pulse was 32. Stat EKG was completed that showed sinus bradycardia with PVCs. Patient's peripheral pulses were weak and thready. IV fluid was initiated. I requested that cardiology SUPERVISOR WOOL SHEARING review EKG with me to assess for any dysrhythmias. He believes the issue was not cardiac in nature, instead was respiratory in nature. Admitting physician at bedside, as well. It was decided patient should move to ICU. Stat chest CTA ordered, as well as stat troponin and stat repeat ABG. Patient was taken to CAT scan and then transferred from CAT scan to ICU. I spoke with Dr. Gray prior to patient being transferred.
[2017-10-05] MEDS ORDERED: Naloxone 0.4 MG/ML INJ IVP PRN (14:39)
[2017-10-05] MEDS ORDERED: Acetaminophen 325 MG TABLET PO PRN (14:39)
[2017-10-05] MEDS ORDERED: Ipratropium/Albuterol Neb 3 ML IH PRN (14:39)
[2017-10-05] MEDS ORDERED: *HR* Promethazine 25 MG/ML VIAL IVP PRN (14:39)
[2017-10-05] MEDS: predniSONE 20 MG TABLET PO SCH (17:57)
[2017-10-06] MEDS: *HR* Heparin 5,000 UNIT/ML VIAL SQ SCH ×3 (00:27→16:40)
[2017-10-06 03:29] LABS: Hematocrit 43.1 % (35.3-44.9); Hemoglobin 13.4 g/dL (11.5-15.4); Immature Granulocytes % 0.3 % (0-4); Lymphocytes % 15.7 %; Mean Corpuscular HGB Conc 31.1 g/dL (31.6-35.5); Mean Corpuscular Volume 96.6 fL (83.0-100.0); Mean Platelet Volume 10.3 fL (9.4-12.4); Monocytes # 0.4 K/mcL (0.0-1.3); Neutrophils # 4.8 K/mcL (1.6-8.9); Platelet Count 178 K/mcL (140-400); Red Blood Count 4.46 M/mcL (3.82-4.97); Red Cell Distribution Width 13.7 % (11.5-14.5)
[2017-10-06 03:47] LABS: Alanine Aminotransferase 17 Units/L (7-52); Albumin 3.7 g/dL (3.5-5.7); Albumin/Globulin Ratio 1.2 (1.1-2.2); Alkaline Phosphatase 65 Units/L (34-104); Aspartate Amino Transferase 23 Units/L (13-39); BUN/Creatinine Ratio 36 (6-26); Bilirubin,Total 0.5 mg/dL (0.3-1.0); Blood Urea Nitrogen 16 mg/dL (8-23); Calcium 9.2 mg/dL (8.6-10.3); Carbon Dioxide 37 mEq/L (23-29); Chloride 92 mEq/L (98-107); Globulin 3.1 g/dL (2.4-3.5); Glucose 128 mg/dL (70-105); Osmolality,Calculated 275 (280-300); Potassium 4.6 mEq/L (3.5-5.1); Sodium 131 mEq/L (136-145); Total Protein 6.8 g/dL (6.4-8.9); eGFR For African Americans > 60 (> 60); eGFR For Non-African Americans > 60 (> 60)
[2017-10-06] MEDS: predniSONE 20 MG TABLET PO SCH (07:41)
[2017-10-06] MEDS: Aspirin 81 MG TAB.CHEW PO SCH (07:42)
[2017-10-06] MEDS: Multivit/Ca/Min/Fe/FA 1 TAB TABLET PO SCH (07:42)
[2017-10-06] MEDS: Furosemide 40 MG/4 ML VIAL IVP SCH (07:43)
[2017-10-06] MEDS ORDERED: Pantoprazole 40 MG VIAL IVP SCH (09:00)
--- NOTE | 2017-10-06 12:31 | Internal Med Progress Note ---
Date of Encounter: 10/06/17 Time of Encounter: 12:26 - Assessment and plan (1) Acute on chronic respiratory failure with hypoxia and hypercapnia Current Visit: Yes Status: Acute Assessment and plan: hypercapnia, chronic alkalosis, exam consistent with COPD clinically euvolemic now with intermittent confusion and need for BiPAP, suspect primary issue is respiratory cont prednisone, bronchodilator nebs prn VBG if confusion, may use BiPAP as needed for now will likely need home O2, will defer to pulmonology whether she needs home BiPAP (2) Demand ischemia Current Visit: Yes Status: Acute Assessment and plan: NSTEMI - type ii due to above (3) Acute exacerbation of chronic obstructive airways disease Current Visit: Yes Status: Acute Assessment and plan: plan as above under resp failure (4) Coronary artery disease Current Visit: Yes Status: Chronic Assessment and plan: Has some obstructive CAD but does not explain the degree of cardiomyopathy may consider OP stress test per cardiology cont ASA, Plavix Qualifiers: Coronary Disease-Associated Artery/Lesion type: [place] artery [place] vs. transplanted heart: [place] heart Associated angina: without angina Qualified Code(s): I25.10 - Atherosclerotic heart disease of [place] coronary artery without angina pectoris (5) NICM (nonischemic cardiomyopathy) Current Visit: Yes Status: Chronic Assessment and plan: EF 30%, presumed ischemic euvolemic today will cont IV lasix for now to ensure that she remains on the dry side and this doesn't contribute to resp failure; may switch to PO Lasix if Cr bump cont PREMA-i, BB eval for AICD after on GDMT as OP (6) Bradycardia Current Visit: Yes Status: Acute Assessment and plan: HR 30's on 10/05 due to hypoxic resp failure would defer to cardiology (7) Debility Current Visit: Yes Status: Acute Assessment and plan: PT/OT eval - Time Spent With Patient Total time spent is greater than 50% in coordination of care (as documented) at patient's floor/unit and/or counseling patient: - Subjective Interval history: dyepnea somewhat imrpoved interittent confusion thismorning, required BiPAP in the morning headache no chest pain, n, v, abd pain, d, c - Constitutional Vitals: Temp Pulse Resp BP Pulse Ox 97.8 F 98 19 121/76 98 10/06/17 11:06 10/06/17 11:10/06/17 11:06 10/06/17 11:10/06/17 11:06 General appearance: Present: cooperative, A&O X 3, pleasant, no acute distress, answers questions appropriately - Head Head exam: Present: atraumatic, normocephalic - Eye Eye exam: Present: PERRL, conjuntiva pink, sclera anicteric Pupils: Present: PERRL - Neck Neck exam general surgery: Present: supple, trachea midline. Absent: nuchal rigidity - Respiratory Respiratory exam: Present: decreased breath sounds (very poor air entry in all lung bailey). Absent: accessory muscle use, rales, rhonchi, wheezes - Cardiovascular Cardiovascular exam: Present: RRR, +S1, +S2. Absent: diastolic murmur, gallop, JVD, rubs, systolic murmur - GI/Abdominal GI/Abdominal exam: Present: normal bowel sounds, soft, no peritoneal signs. Absent: distended, tenderness - Extremities Exam Extremities exam: Present: warm, radial pulses palpable and symmetrical. Absent : calf tenderness, cyanotic, pedal edema - Neurological Exam Neurological exam: Present: alert, no focal deficits. Absent: pronater drift, facial droop, speech deficit - Skin Skin exam: Present: dry, intact Internal Medicine: Result - Labs CBC & Chem 7: 10/06/17 02:25 10/06/17 02:25 Labs: Short CBC 10/06/17 Range/Units 02:25 WBC 6.2 (4.3-11.1) K/mcL Hgb 13.4 (11.5-15.4) g/dL Hct 43.1 (35.3-44.9) % Plt Count 178 (140-400) K/mcL Neutrophils # 4.8 (1.6-8.9) K/mcL BMP 10/06/17 02:25 Sodium 131 L Potassium 4.6 Chloride 92 L Carbon Dioxide 37 H BUN 16 Creatinine 0.44 L Glucose 128 H Calcium 9.2 Liver Function 10/06/17 Range/Units 02:25 Total Bilirubin 0.5 (0.3-1.0) mg/dL AST 23 (13-39) Units/L ALT 17 (7-52) Units/L Alkaline Phosphatase 65 (34-104) Units/L Albumin 3.7 (3.5-5.7) g/dL - ABG Interpretation ABG results: ABG ABG pH 7.29 pH Units (7.32-7.45) L 10/05/17 11:42 ABG pCO2 85 mmHg (35-45) H* 10/05/17 11:42 ABG pO2 84 mmHg (85-104) L 10/05/17 11:42 ABG O2 Saturation 94 % (95-98) L 10/05/17 11:42 PT/INR, D-dimer D-Dimer 449 ng/mLFEU (0-500) 10/03/17 14:00 - Impressions Impressions Chest CTA 10/05/17 11:28 IMPRESSION: 1. No acute pulmonary embolism. 2. Enlarged main pulmonary artery can be seen with pulmonary arterial hypertension. 3. Scattered partial atelectasis bilaterally. 4. Fluid filled esophagus. Correlate for any history of reflux. D/ / Chuck Damon MD / Chuck aDmon MD Interpreting Provider: Chuck Damon MD Consult Discharge Plan - Plan Referrals: Duran Sims Jr, MD [Primary Care Provider] -
[2017-10-07] MEDS: *HR* Heparin 5,000 UNIT/ML VIAL SQ SCH ×4 (00:06→23:48)
[2017-10-07 04:26] LABS: Basophils % 0.2 %; Eosinophils # 0.1 K/mcL (0.0-0.6); Eosinophils % 0.6 %; Hematocrit 43.4 % (35.3-44.9); Hemoglobin 13.7 g/dL (11.5-15.4); Immature Granulocytes % 0.3 % (0-4); Lymphocytes # 3.1 K/mcL (0.6-4.6); Lymphocytes % 32.5 %; Mean Corpuscular HGB Conc 31.6 g/dL (31.6-35.5); Mean Corpuscular Hemoglobin 30.1 pg (28.0-33.3); Mean Corpuscular Volume 95.4 fL (83.0-100.0); Mean Platelet Volume 10.1 fL (9.4-12.4); Monocytes # 1.2 K/mcL (0.0-1.3); Monocytes % 12.7 %; Neutrophils # 5.2 K/mcL (1.6-8.9); Platelet Count 193 K/mcL (140-400); Red Blood Count 4.55 M/mcL (3.82-4.97); Red Cell Distribution Width 13.7 % (11.5-14.5); Segmented Neutrophils % 53.7 %
[2017-10-07 04:52] LABS: Alanine Aminotransferase 20 Units/L (7-52); Albumin 3.6 g/dL (3.5-5.7); Albumin/Globulin Ratio 1.1 (1.1-2.2); Alkaline Phosphatase 61 Units/L (34-104); Aspartate Amino Transferase 22 Units/L (13-39); BUN/Creatinine Ratio 52 (6-26); Bilirubin,Total 0.5 mg/dL (0.3-1.0); Blood Urea Nitrogen 22 mg/dL (8-23); Calcium 9.7 mg/dL (8.6-10.3); Carbon Dioxide 42 mEq/L (23-29); Chloride 91 mEq/L (98-107); Globulin 3.2 g/dL (2.4-3.5); Glucose 121 mg/dL (70-105); Osmolality,Calculated 283 (280-300); Potassium 4.2 mEq/L (3.5-5.1); Sodium 134 mEq/L (136-145); Total Protein 6.8 g/dL (6.4-8.9); eGFR For African Americans > 60 (> 60); eGFR For Non-African Americans > 60 (> 60)
--- NOTE | 2017-10-07 08:07 | Electrocardiograph Report ---
[place] [id number] Test Date: 2017-10-05 Pat Name: China Smith Department: 113 Room: 2A14 Gender: Press Machine Feeder: : [id number] Requested By: Natalya Munoz Order Number: [id number] Reading MD: Phillip De La Torre Measurements Intervals [place] Rate: 99 P: 258 [place]: 154 QRS: -58 QRSD: 140 T: 115 QT: 366 QTc: 422 Interpretive Statements SINUS RHYTHM MARKED LEFT AXIS DEVIATION LEFT BUNDLE BRANCH BLOCK Electronically Signed On 10-07-2017 8:06:14 EDT by Phillip De La Torre
[2017-10-07] MEDS: predniSONE 20 MG TABLET PO SCH (09:21)
[2017-10-07] MEDS: Furosemide 40 MG/4 ML VIAL IVP SCH (09:22)
[2017-10-07] MEDS: Multivit/Ca/Min/Fe/FA 1 TAB TABLET PO SCH (09:22)
[2017-10-07] MEDS: Aspirin 81 MG TAB.CHEW PO SCH (09:22)
--- NOTE | 2017-10-07 15:26 | Internal Med Progress Note ---
Date of Encounter: 10/07/17 Time of Encounter: 15:15 - Assessment and plan (1) Acute respiratory failure with hypoxia Current Visit: Yes Status: Acute Assessment and plan: Likely multifactorial. She reports 1 pack per day smoking all her life and is high risk for undiagnosed COPD. New onset cardiomyopathy with elevated BNP was noted on admission as well. Both need to be optimized. (2) Acute exacerbation of CHF (congestive heart failure) Current Visit: Yes Status: Acute Assessment and plan: Acute exacerbation of systolic heart failure. New-onset cardiomyopathy with ejection fraction 30% noted. Pt appears to be euvolemic, lungs are clear and diminished. Continue telemetry Transition to oral Lasix Continue ASA, Plavix Continue Coreg Outpatient stress test per cardiology Reassess for AICD based on outpatient workup Qualifiers: Heart failure type: systolic Qualified Code(s): I50.23 - Acute on chronic systolic (congestive) heart failure (3) Elevated troponin Current Visit: Yes Status: Chronic Assessment and plan: Likely demand ischemia (4) Coronary artery disease Current Visit: Yes Status: Chronic Assessment and plan: Per Cardiology: Heart catheterization from 01/2017: Lesion Findings/Interventions * Left Main Coronary Artery The LMCA is angiographically free of disease. * Left Anterior Descending The Mid LAD has mild luminal irregularities. There is a 25% stenosis in the Mid LAD. * Circumflex There is a 50% stenosis in the 1st Marginal. * Right Coronary Artery There is a 70% stenosis in the Mid RCA. Will need outpatient follow-up in clinic and stress test as per cardiology recommendations. Qualifiers: Coronary Disease-Associated Artery/Lesion type: [place] artery [place] vs. transplanted heart: [place] heart Associated angina: without angina Qualified Code(s): I25.10 - Atherosclerotic heart disease of [place] coronary artery without angina pectoris (5) GERD (gastroesophageal reflux disease) Current Visit: Yes Status: Chronic Assessment and plan: Chronic. Stable. Continue home medications. Qualifiers: Esophagitis presence: esophagitis presence not specified Qualified Code(s) : K21.9 - Gastro-esophageal reflux disease without esophagitis (6) HLD (hyperlipidemia) Current Visit: Yes Status: Chronic Assessment and plan: Continue Lipitor. Qualifiers: Hyperlipidemia type: pure hypercholesterolemia Qualified Code(s): E78.00 - Pure hypercholesterolemia, unspecified; E78.0 - Pure hypercholesterolemia (7) HTN (hypertension) Current Visit: Yes Status: Chronic Assessment and plan: Stable and well controlled. Continue home medications. Qualifiers: Hypertension type: essential hypertension Qualified Code(s): I10 - Essential (primary) hypertension (8) Depression Current Visit: Yes Status: Chronic Assessment and plan: Chronic. Continue Celexa. Qualifiers: Depression Type: unspecified Qualified Code(s): F32.9 - Major depressive disorder, single episode, unspecified (9) Tobacco abuse Current Visit: Yes Status: Chronic Assessment and plan: Chronic. Chantix started yesterday. (10) DVT prophylaxis Current Visit: Yes Status: Acute (11) COPD (chronic obstructive pulmonary disease) Current Visit: Yes Status: Acute Assessment and plan: Likely has undiagnosed sleep apnea and hypoventilation from COPD. Continue prednisone for a total of 5 days. Continue DuoNeb's. She will need a pulmonary function test and 6 minute walk test in clinic. She will benefit from noninvasive positive pressure ventilation overnight due to overlap syndrome. Sleep study to be performed outpatient. Qualifiers: COPD type: COPD with acute exacerbation Qualified Code(s): J44.1 - Chronic obstructive pulmonary disease with (acute) exacerbation - Time Spent With Patient Total time spent is greater than 50% in coordination of care (as documented) at patient's floor/unit and/or counseling patient: 25 - 35 minutes - Subjective Interval history: dyspnea is improved so has cough. No events overnight,no new complaints. - Constitutional Vitals: Temp Pulse Resp BP Pulse Ox 98.5 F 76 16 115/64 99 10/07/17 11:26 10/07/17 11:26 10/07/17 11:26 10/07/17 11:26 10/07/17 11:26 Exam: Physical exam Gen: Comfortable, laying in bed, in no visible distress HEENT: Normocephalic, atraumatic. No conjunctival icterus. Moist oral mucosa. Neck: Supple Lungs: Clear to auscultation, no foreign sounds, diminished breath sounds Heart: Normal S1-S2, no murmurs rubs or gallops Abdomen: Normoactive bowel sounds, no guarding rigidity or tenderness Extremities: No edema clubbing or cyanosis Neuro: Alert oriented 3, no focal deficits Skin: No skin lesions Internal Medicine: Result - Labs CBC & Chem 7: 10/07/17 04:01 10/07/17 04:01 Labs: Short CBC 10/03/17 10/04/17 10/04/17 Range/Units 19:38 01:49 01:49 WBC (4.3-11.1) K/mcL RBC 4.78 (3.82-4.97) M/mcL Hgb (11.5-15.4) g/dL Hct (35.3-44.9) % MCV 96.4 (83.0-100.0) fL MCH 30.1 (28.0-33.3) pg MCHC 31.2 L (31.6-35.5) g/dL RDW 14.6 H (11.5-14.5) % Plt Count (140-400) K/mcL MPV 10.1 (9.4-12.4) fL Immature Gran % 0.2 (0-4) % Seg Neutrophils % 49.5 % Lymphocytes % 31.2 % Monocytes % 16.1 % Eosinophils % 2.5 % Basophils % 0.5 % Neutrophils # (1.6-8.9) K/mcL Lymphocytes # 2.0 (0.6-4.6) K/mcL Monocytes # 1.0 (0.0-1.3) K/mcL Eosinophils # 0.2 (0.0-0.6) K/mcL Basophils # 0.0 (0.0-0.2) K/mcL Sample Site ABG pH (7.32-7.45) pH Units ABG pCO2 (35-45) mmHg ABG pO2 (85-104) mmHg ABG HCO3 (21-27) mEq/L ABG Total CO2 (20-26) mEq/L ABG O2 Saturation (95-98) % ABG Base Excess (-2 to 3) mEq/L Emiliano Test Respiration Rate O2 Delivery Device Inspired O2 (1-15=lpm [id number]=%) Sodium (136-145) mEq/L Potassium (3.5-5.1) mEq/L Chloride (98-107) mEq/L Carbon Dioxide (23-29) mEq/L BUN (8-23) mg/dL Creatinine (0.60-1.20) mg/dL Est GFR ( Amer) (> 60) Est GFR (Non-Af Amer) (> 60) BUN/Creatinine Ratio (6-26) Glucose (70-105) mg/dL POC Glucose (70-99) mg/dL Est Mean Plasma Glucose mg/dl Hemoglobin A1c ( - 5.6) % Calculated Osmolality (280-300) Calcium (8.6-10.3) mg/dL Phosphorus (2.7-4.5) mg/dL Magnesium (1.6-2.6) mg/dL Total Bilirubin (0.3-1.0) mg/dL AST (13-39) Units/L ALT (7-52) Units/L Alkaline Phosphatase (34-104) Units/L Troponin I 0.12 H* 0.11 H* (< 0.04) ng/mL Serum Total Protein (6.4-8.9) g/dL Albumin (3.5-5.7) g/dL Globulin (2.4-3.5) g/dL Albumin/Globulin Ratio (1.1-2.2) Triglycerides (< 150) mg/dL Cholesterol (< 200) mg/dL LDL Cholesterol, Calc (0-99) mg/dL VLDL Cholesterol, Calc (< 31) mg/dL HDL Cholesterol (40-59) mg/dL Cholesterol/HDL Ratio (0-4.9) TSH (0.340-5.600) mcIU/mL Urine Color (Yellow) Urine Clarity (Clear) Urine pH (5.0-8.0) pH Units Ur Specific Van (1.010-1.025) Urine Protein (Neg-Trace) mg/dL Urine Glucose (UA) (Normal) mg/dL Urine Ketones (Negative) mg/dL Urine Blood (Negative) Urine Nitrite (Negative) Urine Bilirubin (Negative) Urine Urobilinogen (Normal) mg/dL Ur Leukocyte Esterase (Negative) Urine Microscopic RBC (0-3) per hpf Urine Microscopic WBC (0-3) per hpf Urine Bacteria (None-Few) per hpf Ur Culture Indicated? (NO) Specimen Rejected 10/04/17 10/04/17 10/04/17 Range/Units 01:49 01:49 03:42 WBC (4.3-11.1) K/mcL RBC (3.82-4.97) M/mcL Hgb (11.5-15.4) g/dL Hct (35.3-44.9) % MCV (83.0-100.0) fL MCH (28.0-33.3) pg MCHC (31.6-35.5) g/dL RDW (11.5-14.5) % Plt Count (140-400) K/mcL MPV (9.4-12.4) fL Immature Gran % (0-4) % Seg Neutrophils % % Lymphocytes % % Monocytes % % Eosinophils % % Basophils % % Neutrophils # (1.6-8.9) K/mcL Lymphocytes # (0.6-4.6) K/mcL Monocytes # (0.0-1.3) K/mcL Eosinophils # (0.0-0.6) K/mcL Basophils # (0.0-0.2) K/mcL Sample Site ABG pH (7.32-7.45) pH Units ABG pCO2 (35-45) mmHg ABG pO2 (85-104) mmHg ABG HCO3 (21-27) mEq/L ABG Total CO2 (20-26) mEq/L ABG O2 Saturation (95-98) % ABG Base Excess (-2 to 3) mEq/L Emiliano Test Respiration Rate O2 Delivery Device Inspired O2 (1-15=lpm [id number]=%) Sodium 137 (136-145) mEq/L Potassium 4.7 (3.5-5.1) mEq/L Chloride 98 (98-107) mEq/L Carbon Dioxide 32 H (23-29) mEq/L BUN 12 (8-23) mg/dL Creatinine 0.48 L (0.60-1.20) mg/dL Est GFR ( Amer) > 60 (> 60) Est GFR (Non-Af Amer) > 60 (> 60) BUN/Creatinine Ratio 25 (6-26) Glucose 111 H (70-105) mg/dL POC Glucose (70-99) mg/dL Est Mean Plasma Glucose 111 mg/dl Hemoglobin A1c 5.5 ( - 5.6) % Calculated Osmolality 284 (280-300) Calcium 9.1 (8.6-10.3) mg/dL Phosphorus (2.7-4.5) mg/dL Magnesium 2.0 (1.6-2.6) mg/dL Total Bilirubin 0.4 (0.3-1.0) mg/dL AST 26 (13-39) Units/L ALT 22 (7-52) Units/L Alkaline Phosphatase 78 (34-104) Units/L Troponin I (< 0.04) ng/mL Serum Total Protein 7.3 (6.4-8.9) g/dL Albumin 3.8 (3.5-5.7) g/dL Globulin 3.5 (2.4-3.5) g/dL Albumin/Globulin Ratio 1.1 (1.1-2.2) Triglycerides 80 (< 150) mg/dL Cholesterol 130 (< 200) mg/dL LDL Cholesterol, Calc 57 (0-99) mg/dL VLDL Cholesterol, Calc 16 (< 31) mg/dL HDL Cholesterol 57 (40-59) mg/dL Cholesterol/HDL Ratio 2.3 (0-4.9) TSH (0.340-5.600) mcIU/mL Urine Color (Yellow) Urine Clarity (Clear) Urine pH (5.0-8.0) pH Units Ur Specific Van (1.010-1.025) Urine Protein (Neg-Trace) mg/dL Urine Glucose (UA) (Normal) mg/dL Urine Ketones (Negative) mg/dL Urine Blood (Negative) Urine Nitrite (Negative) Urine Bilirubin (Negative) Urine Urobilinogen (Normal) mg/dL Ur Leukocyte Esterase (Negative) Urine Microscopic RBC (0-3) per hpf Urine Microscopic WBC (0-3) per hpf Urine Bacteria (None-Few) per hpf Ur Culture Indicated? (NO) Specimen Rejected Hemolyzed 10/05/1718 10/05/17 Range/Units 03:43 03:43 03:43 WBC (4.3-11.1) K/mcL RBC 4.73 (3.82-4.97) M/mcL Hgb (11.5-15.4) g/dL Hct (35.3-44.9) % MCV 98.3 (83.0-100.0) fL MCH 29.8 (28.0-33.3) pg MCHC 30.3 L (31.6-35.5) g/dL RDW 14.0 (11.5-14.5) % Plt Count (140-400) K/mcL MPV 10.4 (9.4-12.4) fL Immature Gran % 0.5 (0-4) % Seg Neutrophils % 60.4 % Lymphocytes % 24.7 % Monocytes % 13.5 % Eosinophils % 0.6 % Basophils % 0.3 % Neutrophils # (1.6-8.9) K/mcL Lymphocytes # 2.0 (0.6-4.6) K/mcL Monocytes # 1.1 (0.0-1.3) K/mcL Eosinophils # 0.1 (0.0-0.6) K/mcL Basophils # 0.0 (0.0-0.2) K/mcL Sample Site ABG pH (7.32-7.45) pH Units ABG pCO2 (35-45) mmHg ABG pO2 (85-104) mmHg ABG HCO3 (21-27) mEq/L ABG Total CO2 (20-26) mEq/L ABG O2 Saturation (95-98) % ABG Base Excess (-2 to 3) mEq/L Emiliano Test Respiration Rate O2 Delivery Device Inspired O2 (1-15=lpm [id number]=%) Sodium 133 L (136-145) mEq/L Potassium 4.5 (3.5-5.1) mEq/L Chloride 91 L (98-107) mEq/L Carbon Dioxide 39 H (23-29) mEq/L BUN 18 (8-23) mg/dL Creatinine 0.58 L (0.60-1.20) mg/dL Est GFR ( Amer) > 60 (> 60) Est GFR (Non-Af Amer) > 60 (> 60) BUN/Creatinine Ratio 31 H (6-26) Glucose 140 H (70-105) mg/dL POC Glucose (70-99) mg/dL Est Mean Plasma Glucose mg/dl Hemoglobin A1c ( - 5.6) % Calculated Osmolality 280 (280-300) Calcium 9.2 (8.6-10.3) mg/dL Phosphorus 4.6 H (2.7-4.5) mg/dL Magnesium 2.1 (1.6-2.6) mg/dL Total Bilirubin (0.3-1.0) mg/dL AST (13-39) Units/L ALT (7-52) Units/L Alkaline Phosphatase (34-104) Units/L Troponin I (< 0.04) ng/mL Serum Total Protein (6.4-8.9) g/dL Albumin (3.5-5.7) g/dL Globulin (2.4-3.5) g/dL Albumin/Globulin Ratio (1.1-2.2) Triglycerides (< 150) mg/dL Cholesterol (< 200) mg/dL LDL Cholesterol, Calc (0-99) mg/dL VLDL Cholesterol, Calc (< 31) mg/dL HDL Cholesterol (40-59) mg/dL Cholesterol/HDL Ratio (0-4.9) TSH 0.383 (0.340-5.600) mcIU/mL Urine Color (Yellow) Urine Clarity (Clear) Urine pH (5.0-8.0) pH Units Ur Specific Van (1.010-1.025) Urine Protein (Neg-Trace) mg/dL Urine Glucose (UA) (Normal) mg/dL Urine Ketones (Negative) mg/dL Urine Blood (Negative) Urine Nitrite (Negative) Urine Bilirubin (Negative) Urine Urobilinogen (Normal) mg/dL Ur Leukocyte Esterase (Negative) Urine Microscopic RBC (0-3) per hpf Urine Microscopic WBC (0-3) per hpf Urine Bacteria (None-Few) per hpf Ur Culture Indicated? (NO) Specimen Rejected 10/05/17 10/05/17 10/05/17 Range/Units 08:29 09:39 11:42 WBC (4.3-11.1) K/mcL RBC (3.82-4.97) M/mcL Hgb (11.5-15.4) g/dL Hct (35.3-44.9) % MCV (83.0-100.0) fL MCH (28.0-33.3) pg MCHC (31.6-35.5) g/dL RDW (11.5-14.5) % Plt Count (140-400) K/mcL MPV (9.4-12.4) fL Immature Gran % (0-4) % Seg Neutrophils % % Lymphocytes % % Monocytes % % Eosinophils % % Basophils % % Neutrophils # (1.6-8.9) K/mcL Lymphocytes # (0.6-4.6) K/mcL Monocytes # (0.0-1.3) K/mcL Eosinophils # (0.0-0.6) K/mcL Basophils # (0.0-0.2) K/mcL Sample Site L Radial R Radial ABG pH 7.29 L 7.29 L (7.32-7.45) pH Units ABG pCO2 91 H* 85 H* (35-45) mmHg ABG pO2 106 H 84 L (85-104) mmHg ABG HCO3 44 H 41 H (21-27) mEq/L ABG Total CO2 46 H 43 H (20-26) mEq/L ABG O2 Saturation 97 94 L (95-98) % ABG Base Excess 12 H 10 H (-2 to 3) mEq/L Emiliano Test Positive Positive Respiration Rate 20 O2 Delivery Device Cannula BiPAP Inspired O2 3.0 32.0 (1-15=lpm [id number]=%) Sodium (136-145) mEq/L Potassium (3.5-5.1) mEq/L Chloride (98-107) mEq/L Carbon Dioxide (23-29) mEq/L BUN (8-23) mg/dL Creatinine (0.60-1.20) mg/dL Est GFR ( Amer) (> 60) Est GFR (Non-Af Amer) (> 60) BUN/Creatinine Ratio (6-26) Glucose (70-105) mg/dL POC Glucose (70-99) mg/dL Est Mean Plasma Glucose mg/dl Hemoglobin A1c ( - 5.6) % Calculated Osmolality (280-300) Calcium (8.6-10.3) mg/dL Phosphorus (2.7-4.5) mg/dL Magnesium (1.6-2.6) mg/dL Total Bilirubin (0.3-1.0) mg/dL AST (13-39) Units/L ALT (7-52) Units/L Alkaline Phosphatase (34-104) Units/L Troponin I (< 0.04) ng/mL Serum Total Protein (6.4-8.9) g/dL Albumin (3.5-5.7) g/dL Globulin (2.4-3.5) g/dL Albumin/Globulin Ratio (1.1-2.2) Triglycerides (< 150) mg/dL Cholesterol (< 200) mg/dL LDL Cholesterol, Calc (0-99) mg/dL VLDL Cholesterol, Calc (< 31) mg/dL HDL Cholesterol (40-59) mg/dL Cholesterol/HDL Ratio (0-4.9) TSH (0.340-5.600) mcIU/mL Urine Color Yellow (Yellow) Urine Clarity Clear (Clear) Urine pH 6.0 (5.0-8.0) pH Units Ur Specific Van 1.015 (1.010-1.025) Urine Protein Negative (Neg-Trace) mg/dL Urine Glucose (UA) Normal (Normal) mg/dL Urine Ketones Negative (Negative) mg/dL Urine Blood Small H (Negative) Urine Nitrite Negative (Negative) Urine Bilirubin Negative (Negative) Urine Urobilinogen Normal (Normal) mg/dL Ur Leukocyte Esterase Trace H (Negative) Urine Microscopic RBC 0-3 (0-3) per hpf Urine Microscopic WBC 0-3 (0-3) per hpf Urine Bacteria Few (None-Few) per hpf Ur Culture Indicated? YES A (NO) Specimen Rejected 10/05/17 10/05/17 10/06/17 Range/Units 11:47 12:23 02:25 WBC (4.3-11.1) K/mcL RBC 4.46 (3.82-4.97) M/mcL Hgb (11.5-15.4) g/dL Hct (35.3-44.9) % MCV 96.6 (83.0-100.0) fL MCH 30.0 (28.0-33.3) pg MCHC 31.1 L (31.6-35.5) g/dL RDW 13.7 (11.5-14.5) % Plt Count (140-400) K/mcL MPV 10.3 (9.4-12.4) fL Immature Gran % 0.3 (0-4) % Seg Neutrophils % 78.0 % Lymphocytes % 15.7 % Monocytes % 6.0 % Eosinophils % 0.0 % Basophils % 0.0 % Neutrophils # (1.6-8.9) K/mcL Lymphocytes # 1.0 (0.6-4.6) K/mcL Monocytes # 0.4 (0.0-1.3) K/mcL Eosinophils # 0.0 (0.0-0.6) K/mcL Basophils # 0.0 (0.0-0.2) K/mcL Sample Site ABG pH (7.32-7.45) pH Units ABG pCO2 (35-45) mmHg ABG pO2 (85-104) mmHg ABG HCO3 (21-27) mEq/L ABG Total CO2 (20-26) mEq/L ABG O2 Saturation (95-98) % ABG Base Excess (-2 to 3) mEq/L Emiliano Test Respiration Rate O2 Delivery Device Inspired O2 (1-15=lpm la49-475=%) Sodium (136-145) mEq/L Potassium (3.5-5.1) mEq/L Chloride (98-107) mEq/L Carbon Dioxide (23-29) mEq/L BUN (8-23) mg/dL Creatinine (0.60-1.20) mg/dL Est GFR ( Amer) (> 60) Est GFR (Non-Af Amer) (> 60) BUN/Creatinine Ratio (6-26) Glucose (70-105) mg/dL POC Glucose 118 H (70-99) mg/dL Est Mean Plasma Glucose mg/dl Hemoglobin A1c ( - 5.6) % Calculated Osmolality (280-300) Calcium (8.6-10.3) mg/dL Phosphorus (2.7-4.5) mg/dL Magnesium (1.6-2.6) mg/dL Total Bilirubin (0.3-1.0) mg/dL AST (13-39) Units/L ALT (7-52) Units/L Alkaline Phosphatase (34-104) Units/L Troponin I 0.14 H* (< 0.04) ng/mL Serum Total Protein (6.4-8.9) g/dL Albumin (3.5-5.7) g/dL Globulin (2.4-3.5) g/dL Albumin/Globulin Ratio (1.1-2.2) Triglycerides (< 150) mg/dL Cholesterol (< 200) mg/dL LDL Cholesterol, Calc (0-99) mg/dL VLDL Cholesterol, Calc (< 31) mg/dL HDL Cholesterol (40-59) mg/dL Cholesterol/HDL Ratio (0-4.9) TSH (0.340-5.600) mcIU/mL Urine Color (Yellow) Urine Clarity (Clear) Urine pH (5.0-8.0) pH Units Ur Specific Van (1.010-1.025) Urine Protein (Neg-Trace) mg/dL Urine Glucose (UA) (Normal) mg/dL Urine Ketones (Negative) mg/dL Urine Blood (Negative) Urine Nitrite (Negative) Urine Bilirubin (Negative) Urine Urobilinogen (Normal) mg/dL Ur Leukocyte Esterase (Negative) Urine Microscopic RBC (0-3) per hpf Urine Microscopic WBC (0-3) per hpf Urine Bacteria (None-Few) per hpf Ur Culture Indicated? (NO) Specimen Rejected 10/06/17 10/07/17 10/07/17 Range/Units 02:25 04:01 04:01 WBC 9.6 D (4.3-11.1) K/mcL RBC 4.55 (3.82-4.97) M/mcL Hgb 13.7 (11.5-15.4) g/dL Hct 43.4 (35.3-44.9) % MCV 95.4 (83.0-100.0) fL MCH 30.1 (28.0-33.3) pg MCHC 31.6 (31.6-35.5) g/dL RDW 13.7 (11.5-14.5) % Plt Count 193 (140-400) K/mcL MPV 10.1 (9.4-12.4) fL Immature Gran % 0.3 (0-4) % Seg Neutrophils % 53.7 % Lymphocytes % 32.5 % Monocytes % 12.7 % Eosinophils % 0.6 % Basophils % 0.2 % Neutrophils # 5.2 (1.6-8.9) K/mcL Lymphocytes # 3.1 (0.6-4.6) K/mcL Monocytes # 1.2 (0.0-1.3) K/mcL Eosinophils # 0.1 (0.0-0.6) K/mcL Basophils # 0.0 (0.0-0.2) K/mcL Sample Site ABG pH (7.32-7.45) pH Units ABG pCO2 (35-45) mmHg ABG pO2 (85-104) mmHg ABG HCO3 (21-27) mEq/L ABG Total CO2 (20-26) mEq/L ABG O2 Saturation (95-98) % ABG Base Excess (-2 to 3) mEq/L Emiliano Test Respiration Rate O2 Delivery Device Inspired O2 (1-15=lpm dr48-606=%) Sodium 131 L 134 L (136-145) mEq/L Potassium 4.6 4.2 (3.5-5.1) mEq/L Chloride 92 L 91 L (98-107) mEq/L Carbon Dioxide 37 H 42 H* (23-29) mEq/L BUN 16 22 (8-23) mg/dL Creatinine 0.44 L 0.42 L (0.60-1.20) mg/dL Est GFR ( Amer) > 60 > 60 (> 60) Est GFR (Non-Af Amer) > 60 > 60 (> 60) BUN/Creatinine Ratio 36 H 52 H (6-26) Glucose 128 H 121 H (70-105) mg/dL POC Glucose (70-99) mg/dL Est Mean Plasma Glucose mg/dl Hemoglobin A1c ( - 5.6) % Calculated Osmolality 275 L 283 (280-300) Calcium 9.2 9.7 (8.6-10.3) mg/dL Phosphorus (2.7-4.5) mg/dL Magnesium (1.6-2.6) mg/dL Total Bilirubin 0.5 0.5 (0.3-1.0) mg/dL AST 23 22 (13-39) Units/L ALT 17 20 (7-52) Units/L Alkaline Phosphatase 65 61 (34-104) Units/L Troponin I (< 0.04) ng/mL Serum Total Protein 6.8 6.8 (6.4-8.9) g/dL Albumin 3.7 3.6 (3.5-5.7) g/dL Globulin 3.1 3.2 (2.4-3.5) g/dL Albumin/Globulin Ratio 1.2 1.1 (1.1-2.2) Triglycerides (< 150) mg/dL Cholesterol (< 200) mg/dL LDL Cholesterol, Calc (0-99) mg/dL VLDL Cholesterol, Calc (< 31) mg/dL HDL Cholesterol (40-59) mg/dL Cholesterol/HDL Ratio (0-4.9) TSH (0.340-5.600) mcIU/mL Urine Color (Yellow) Urine Clarity (Clear) Urine pH (5.0-8.0) pH Units Ur Specific Van (1.010-1.025) Urine Protein (Neg-Trace) mg/dL Urine Glucose (UA) (Normal) mg/dL Urine Ketones (Negative) mg/dL Urine Blood (Negative) Urine Nitrite (Negative) Urine Bilirubin (Negative) Urine Urobilinogen (Normal) mg/dL Ur Leukocyte Esterase (Negative) Urine Microscopic RBC (0-3) per hpf Urine Microscopic WBC (0-3) per hpf Urine Bacteria (None-Few) per hpf Ur Culture Indicated? (NO) Specimen Rejected BMP 10/07/17 04:01 Sodium 134 L Potassium 4.2 Chloride 91 L Carbon Dioxide 42 H* BUN 22 Creatinine 0.42 L Glucose 121 H Calcium 9.7 Liver Function 10/07/17 Range/Units 04:01 Total Bilirubin 0.5 (0.3-1.0) mg/dL AST 22 (13-39) Units/L ALT 20 (7-52) Units/L Alkaline Phosphatase 61 (34-104) Units/L Albumin 3.6 (3.5-5.7) g/dL - ABG Interpretation ABG results: ABG ABG pH 7.29 pH Units (7.32-7.45) L 10/05/17 11:42 ABG pCO2 85 mmHg (35-45) H* 10/05/17 11:42 ABG pO2 84 mmHg (85-104) L 10/05/17 11:42 ABG O2 Saturation 94 % (95-98) L 10/05/17 11:42 PT/INR, D-dimer D-Dimer 449 ng/mLFEU (0-500) 10/03/17 14:00 Consult Discharge Plan - Plan Referrals: Duran Sims Jr, MD [Primary Care Provider] - (web request 10/06/2017)
[2017-10-07] MEDS: Ipratropium/Albuterol Neb 3 ML IH SCH ×3 (16:15→23:09)
[2017-10-08] MEDS: Ipratropium/Albuterol Neb 3 ML IH SCH ×6 (03:42→23:51)
[2017-10-08 05:43] LABS: Basophils % 0.1 %; Eosinophils % 0.4 %; Hematocrit 43.5 % (35.3-44.9); Hemoglobin 13.6 g/dL (11.5-15.4); Immature Granulocytes % 0.1 % (0-4); Lymphocytes # 2.2 K/mcL (0.6-4.6); Lymphocytes % 31.5 %; Mean Corpuscular HGB Conc 31.3 g/dL (31.6-35.5); Mean Corpuscular Hemoglobin 30.2 pg (28.0-33.3); Mean Corpuscular Volume 96.5 fL (83.0-100.0); Mean Platelet Volume 10.1 fL (9.4-12.4); Monocytes % 14.6 %; Neutrophils # 3.8 K/mcL (1.6-8.9); Platelet Count 175 K/mcL (140-400); Red Blood Count 4.51 M/mcL (3.82-4.97); Red Cell Distribution Width 13.7 % (11.5-14.5); Segmented Neutrophils % 53.3 %
[2017-10-08 06:49] LABS: Alanine Aminotransferase 21 Units/L (7-52); Albumin 3.6 g/dL (3.5-5.7); Albumin/Globulin Ratio 1.2 (1.1-2.2); Alkaline Phosphatase 55 Units/L (34-104); Aspartate Amino Transferase 22 Units/L (13-39); BUN/Creatinine Ratio 60 (6-26); Bilirubin,Total 0.5 mg/dL (0.3-1.0); Blood Urea Nitrogen 24 mg/dL (8-23); Calcium 9.6 mg/dL (8.6-10.3); Carbon Dioxide 38 mEq/L (23-29); Chloride 90 mEq/L (98-107); Globulin 3.1 g/dL (2.4-3.5); Glucose 88 mg/dL (70-105); Osmolality,Calculated 283 (280-300); Potassium 4.4 mEq/L (3.5-5.1); Sodium 135 mEq/L (136-145); Total Protein 6.7 g/dL (6.4-8.9); eGFR For African Americans > 60 (> 60); eGFR For Non-African Americans > 60 (> 60)
--- NOTE | 2017-10-08 09:29 | Internal Med Progress Note ---
Date of Encounter: 10/09/17 Time of Encounter: 09:00 - Assessment and plan (1) Acute respiratory failure with hypoxia Current Visit: Yes Status: Acute Assessment and plan: Likely multifactorial. She reports 1 pack per day smoking all her life and is high risk for undiagnosed COPD. New onset cardiomyopathy with elevated BNP was noted on admission as well. Both need to be optimized. (2) Acute exacerbation of CHF (congestive heart failure) Current Visit: Yes Status: Acute Assessment and plan: Acute exacerbation of systolic heart failure. New-onset cardiomyopathy with ejection fraction 30% noted. Pt appears to be euvolemic, lungs are clear and diminished. Continue telemetry Transitioned to oral Lasix Continue ASA, Plavix Continue Coreg Outpatient stress test per cardiology Reassess for AICD based on outpatient workup Walking and resting oximetry today. Home soon. Qualifiers: Heart failure type: systolic Qualified Code(s): I50.23 - Acute on chronic systolic (congestive) heart failure (3) COPD (chronic obstructive pulmonary disease) Current Visit: Yes Status: Acute Assessment and plan: Likely has undiagnosed sleep apnea and hypoventilation from COPD. Continue prednisone for a total of 5 days. Continue DuoNeb's. She will need a pulmonary function test and 6 minute walk test in clinic. She will benefit from noninvasive positive pressure ventilation overnight due to overlap syndrome. Sleep study to be performed outpatient. Qualifiers: COPD type: COPD with acute exacerbation Qualified Code(s): J44.1 - Chronic obstructive pulmonary disease with (acute) exacerbation (4) Elevated troponin Current Visit: Yes Status: Chronic Assessment and plan: Likely demand ischemia (5) Coronary artery disease Current Visit: Yes Status: Chronic Assessment and plan: Per Cardiology: Heart catheterization from 01/2017: Lesion Findings/Interventions * Left Main Coronary Artery The LMCA is angiographically free of disease. * Left Anterior Descending The Mid LAD has mild luminal irregularities. There is a 25% stenosis in the Mid LAD. * Circumflex There is a 50% stenosis in the 1st Marginal. * Right Coronary Artery There is a 70% stenosis in the Mid RCA. Will need outpatient follow-up in clinic and stress test as per cardiology recommendations. Qualifiers: Coronary Disease-Associated Artery/Lesion type: [place] artery [place] vs. transplanted heart: [place] heart Associated angina: without angina Qualified Code(s): I25.10 - Atherosclerotic heart disease of [place] coronary artery without angina pectoris (6) GERD (gastroesophageal reflux disease) Current Visit: Yes Status: Chronic Assessment and plan: Chronic. Stable. Continue home medications. Qualifiers: Esophagitis presence: esophagitis presence not specified Qualified Code(s) : K21.9 - Gastro-esophageal reflux disease without esophagitis (7) HLD (hyperlipidemia) Current Visit: Yes Status: Chronic Assessment and plan: Continue Lipitor. Qualifiers: Hyperlipidemia type: pure hypercholesterolemia Qualified Code(s): E78.00 - Pure hypercholesterolemia, unspecified; E78.0 - Pure hypercholesterolemia (8) HTN (hypertension) Current Visit: Yes Status: Chronic Assessment and plan: Stable and well controlled. Continue home medications. Qualifiers: Hypertension type: essential hypertension Qualified Code(s): I10 - Essential (primary) hypertension (9) Depression Current Visit: Yes Status: Chronic Assessment and plan: Chronic. Continue Celexa. Qualifiers: Depression Type: unspecified Qualified Code(s): F32.9 - Major depressive disorder, single episode, unspecified (10) Tobacco abuse Current Visit: Yes Status: Chronic Assessment and plan: Chronic. Chantix started yesterday. (11) DVT prophylaxis Current Visit: Yes Status: Acute Assessment and plan: Heparin SQ TID - Time Spent With Patient Total time spent is greater than 50% in coordination of care (as documented) at patient's floor/unit and/or counseling patient: 25 - 35 minutes - Subjective Interval history: Dyspnea and cough better. No events overnight, no new complaints. - Constitutional Vitals: Temp Pulse Resp BP Pulse Ox 97.9 F 107 16 109/68 96 10/08/17 06:55 10/08/17 06:55 10/08/17 06:55 10/08/17 07:00 10/08/17 06:55 Exam: Physical exam Gen: Comfortable, laying in bed, in no visible distress HEENT: Normocephalic, atraumatic. No conjunctival icterus. Moist oral mucosa. Neck: Supple Lungs: Clear to auscultation, no foreign sounds, diminished breath sounds Heart: Normal S1-S2, no murmurs rubs or gallops Abdomen: Normoactive bowel sounds, no guarding rigidity or tenderness Extremities: No edema clubbing or cyanosis Neuro: Alert oriented 3, no focal deficits Skin: No skin lesions Internal Medicine: Result - Labs CBC & Chem 7: 10/08/17 05:01 10/08/17 05:01 Labs: Short CBC 10/08/17 Range/Units 05:01 WBC 7.1 (4.3-11.1) K/mcL Hgb 13.6 (11.5-15.4) g/dL Hct 43.5 (35.3-44.9) % Plt Count 175 (140-400) K/mcL Neutrophils # 3.8 (1.6-8.9) K/mcL BMP 10/08/17 05:01 Sodium 135 L Potassium 4.4 Chloride 90 L Carbon Dioxide 38 H BUN 24 H Creatinine 0.40 L Glucose 88 Calcium 9.6 Liver Function 10/08/17 Range/Units 05:01 Total Bilirubin 0.5 (0.3-1.0) mg/dL AST 22 (13-39) Units/L ALT 21 (7-52) Units/L Alkaline Phosphatase 55 (34-104) Units/L Albumin 3.6 (3.5-5.7) g/dL - ABG Interpretation ABG results: ABG ABG pH 7.29 pH Units (7.32-7.45) L 10/05/17 11:42 ABG pCO2 85 mmHg (35-45) H* 10/05/17 11:42 ABG pO2 84 mmHg (85-104) L 10/05/17 11:42 ABG O2 Saturation 94 % (95-98) L 10/05/17 11:42 PT/INR, D-dimer D-Dimer 449 ng/mLFEU (0-500) 10/03/17 14:00 Consult Discharge Plan - Plan Referrals: Duran Sims Jr, MD [Primary Care Provider] - (web request 10/06/2017)
[2017-10-08] MEDS: Furosemide 40 MG TABLET PO SCH (09:37)
[2017-10-08] MEDS: Aspirin 81 MG TAB.CHEW PO SCH (09:38)
[2017-10-08] MEDS: predniSONE 20 MG TABLET PO SCH (09:38)
[2017-10-08] MEDS: Multivit/Ca/Min/Fe/FA 1 TAB TABLET PO SCH (09:38)
[2017-10-08] MEDS: *HR* Heparin 5,000 UNIT/ML VIAL SQ SCH ×2 (09:39→16:00)
[2017-10-09] MEDS: *HR* Heparin 5,000 UNIT/ML VIAL SQ SCH ×2 (00:22→09:38)
[2017-10-09] MEDS: Ipratropium/Albuterol Neb 3 ML IH SCH ×4 (03:47→16:04)
[2017-10-09] MEDS: Aspirin 81 MG TAB.CHEW PO SCH (09:37)
[2017-10-09] MEDS: Multivit/Ca/Min/Fe/FA 1 TAB TABLET PO SCH (09:37)
[2017-10-09] MEDS: Furosemide 40 MG TABLET PO SCH (09:37)
--- NOTE | 2017-10-09 15:34 | Discharge Summary ---
- NOTES TO OUTPATIENT PROVIDER Notes to Outpatient Provider: Follow-up with clinical auditor within 2 weeks Date of Encounter: 10/09/17 Time of Encounter: 13:45 - Discharge Diagnosis (1) Acute on chronic respiratory failure with hypoxia and hypercapnia Priority: Primary Status: Acute Assessment and Plan: Likely multifactorial. Presented with new onset of cardio myopathy ejection fraction 30% requiring intravenous diuresis. Additional note was made of findings of COPD on imaging such as CT chest. She also has hypercapnia suggestive of chronic hypoventilation from Medical disorder. Likely undiagnosed RICKY. (2) Acute exacerbation of CHF (congestive heart failure) Priority: Primary Status: Acute Assessment and Plan: Acute exacerbation of systolic heart failure. New-onset cardiomyopathy with ejection fraction 30% noted. Pt appears to be euvolemic, lungs are clear and diminished. Continue telemetry Transitioned to oral Lasix Continue ASA, Plavix Continue Coreg Outpatient stress test per cardiology Reassess for AICD based on outpatient workup Walking and resting oximetry predischarge. Supplemental oxygen as needed. Qualifiers: Heart failure type: systolic Qualified Code(s): I50.23 - Acute on chronic systolic (congestive) heart failure (3) COPD (chronic obstructive pulmonary disease) Priority: Primary Status: Acute Assessment and Plan: Likely has undiagnosed sleep apnea and hypoventilation from COPD. Continue prednisone for a total of 5 days. Start LAMA and when necessary albuterol She will need a pulmonary function test and 6 minute walk test in clinic. She will benefit from noninvasive positive pressure ventilation overnight due to overlap syndrome. Sleep study to be performed outpatient. Qualifiers: COPD type: COPD with acute exacerbation Qualified Code(s): J44.1 - Chronic obstructive pulmonary disease with (acute) exacerbation (4) Elevated troponin Priority: Primary Status: Chronic Assessment and Plan: Likely demand ischemia (5) Coronary artery disease Priority: Secondary Status: Chronic Assessment and Plan: Per Cardiology: Heart catheterization from 01/2017: Lesion Findings/Interventions * Left Main Coronary Artery The LMCA is angiographically free of disease. * Left Anterior Descending The Mid LAD has mild luminal irregularities. There is a 25% stenosis in the Mid LAD. * Circumflex There is a 50% stenosis in the 1st Marginal. * Right Coronary Artery There is a 70% stenosis in the Mid RCA. Will need outpatient follow-up in clinic and stress test as per cardiology recommendations. Qualifiers: Coronary Disease-Associated Artery/Lesion type: [place] artery [place] vs. transplanted heart: [place] heart Associated angina: without angina Qualified Code(s): I25.10 - Atherosclerotic heart disease of [place] coronary artery without angina pectoris (6) GERD (gastroesophageal reflux disease) Priority: Secondary Status: Chronic Assessment and Plan: Chronic. Stable. Continue home medications. Qualifiers: Esophagitis presence: esophagitis presence not specified Qualified Code(s) : K21.9 - Gastro-esophageal reflux disease without esophagitis (7) HLD (hyperlipidemia) Priority: Secondary Status: Chronic Assessment and Plan: Continue Lipitor. Qualifiers: Hyperlipidemia type: pure hypercholesterolemia Qualified Code(s): E78.00 - Pure hypercholesterolemia, unspecified; E78.0 - Pure hypercholesterolemia (8) HTN (hypertension) Priority: Secondary Status: Chronic Assessment and Plan: Stable and well controlled. Continue home medications. Qualifiers: Hypertension type: essential hypertension Qualified Code(s): I10 - Essential (primary) hypertension (9) Depression Priority: Secondary Status: Chronic Assessment and Plan: Chronic. Continue Celexa. Qualifiers: Depression Type: unspecified Qualified Code(s): F32.9 - Major depressive disorder, single episode, unspecified (10) Tobacco abuse Priority: Secondary Status: Chronic Assessment and Plan: Chronic. Chantix started yesterday. Hospital course: Ms. Smith is a 67 year old female w/PMH of arthritis, CHF, DVT, GERD, HLD, HTN presents from the ED w/CC of SOB/Dyspnea/Orthopnea for the past 2-3 weeks that has been worsening. Pt. reports no alleviating factors. No home O2/BiPAP/ CPAP. Hx of CHF and recurrent episodes. Reports no significant pedal edema, only increasing SOB w and w/o exertion. Denies recent Echocardiogram. Pt. reports increased stress at home d/t caring for two grandchildren but cannot take her Xanax d/t her daughter stealing them. Pt. denies recent illness, fever , chills, nausea, vomiting, headache, changes in vision, unusual bleeding, abdominal pain, diarrhea, constipation, dizziness, lightheadedness, presyncope, or syncope. Her initial physical exam was suggestive of accessory respiratory muscle use and decreased breath sounds. EKG showed sinus rhythm with occasional PVCs, left bundle branch block. Follow-up echo was obtained and showed an ejection fraction of 30%, indeterminate diastolic dysfunction, atypical septal motion consistent with bundle branch block, normal RV structure and function. RVSP could not be estimated. No significant valvular dysfunction was noted. She was started on intravenous diuresis. She also required noninvasive positive pressure ventilation. On November 04, 2017 patient became bradycardic and encephalopathic, requiring rescue BiPAP. CTA chest was obtained Imp: 1. No acute pulmonary embolism. 2. Enlarged main pulmonary artery can be seen with pulmonary arterial hypertension. 3. Scattered partial atelectasis bilaterally 4. Fluid filled esophagus. Correlate for any history of reflux. CTH was obtained Imp: No acute intracranial abnormality We attributed this presentation to hypercapnic respiratory failure. Pulmonology was consulted and steroids were started in addition to bronchodilators. ABG showed 7.29, 85, 84 on BiPAP.She was monitored over the next few days with excellent recovery. Intravenous Lasix was changed to oral Lasix. Other incidental findings during this admission include troponinemia. Cardiology was consult and recommended outpatient stress test. The also recommended consideration for AICD outpatient. Today being day 6 of admission, patient will will be discharged home with the noted medications and advised close follow-up with primary care physician, cardiology and pulmonary medicine. She will need outpatient sleep study as noted in my notes above. Discharge discussed with: patient Time spent discussing smoking cessation with patient: more than 10 minutes - Time Spent with Patient Total time spent providing and/or coordinating discharge services: Greater than 30 minutes - Discharge Medications Prescriptions: Albuterol Sulfate [Albuterol Inhaler] 2 puff IH Q4HR PRN #1 hfa.[email or web address] PRN Reason: Dyspnea Tiotropium [Spiriva] 18 mcg IH DAILY #30 capsule Home Medications: Aspirin 81 mg PO DAILY 08/06/16 [History] Citalopram [CeleXA] 20 mg PO DAILY 08/06/16 [History] Pantoprazole Sodium [Protonix] 40 mg PO DAILY 08/06/16 [History] Multivitamin-Min/Iron/FA/Vit K [Multi-Day Plus Minerals Tablet] 1 each PO DAILY 02/11/17 [History] Carvedilol [Coreg] 6.25 mg PO BIDWM #60 tablet 02/14/17 [Rx] Clopidogrel [Plavix] 75 mg PO DAILY #30 tablet 02/14/17 [Rx] Furosemide [Lasix] 20 mg PO DAILY #30 tablet 02/14/17 [Rx] Lisinopril [Zestril] 2.5 mg PO DAILY #30 tablet 02/14/17 [Rx] Atorvastatin [Lipitor] 10 mg PO HS 10/03/17 [History] Ferrous Sulfate [Iron] 325 mg PO DAILY 10/03/17 [History] Albuterol Sulfate [Albuterol Inhaler] 2 puff IH Q4HR PRN #1 hfa.[email or web address] 10/09/17 [Rx] Tiotropium [Spiriva] 18 mcg IH DAILY #30 capsule 10/09/17 [Rx] Allergies/Adverse Reactions: 3 Allergy/AdvReac Type Severity Reaction Status Date / Time Neomycin Allergy Blister Verified 10/03/17 15:06 Penicillins Allergy Blister Verified 10/03/17 15:06 Date of admission: 10/03/17 16:32 Primary care physician: Duran Sims Jr, MD Consults: 10/04/17 09:10 Consult to Nurse Navigator [CONS] Routine Comment: CHF Discharging clinician: Rajesh Paniagua Anticipated date of discharge: 10/09/17 - Constitutional Vitals: Temp Pulse Resp BP Pulse Ox 98.1 F 102 18 106/59 100 10/09/17 11:40 10/09/17 11:40 10/09/17 11:40 10/09/17 11:40 10/09/17 11:40 Exam: Physical exam Gen: Comfortable, laying in bed, in no visible distress HEENT: Normocephalic, atraumatic. No conjunctival icterus. Moist oral mucosa. Neck: Supple Lungs: Clear to auscultation, no foreign sounds, diminished breath sounds Heart: Normal S1-S2, no murmurs rubs or gallops Abdomen: Normoactive bowel sounds, no guarding rigidity or tenderness Extremities: No edema clubbing or cyanosis Neuro: Alert oriented 3, no focal deficits Skin: No skin lesions - Patient Status Disposition: Home, Self-Care Condition: Good Functional capacity at discharge: independent ambulation Overall status at discharge: patient is progressing back to baseline - Discharge Instructions Follow Up With: Duran Sims Jr, MD [Primary Care Provider] - (web request 10/06/2017) Dm Adams DO [Partnered Physician] - Justin Connolly MD [Partnered Physician] - Additional Instructions: Follow-up with above listed doctors within 2 weeks - Diet and Activity Activity: resume usual activities as tolerated Diet: advance to your usual diet
[2017-10-09] MEDS ORDERED: predniSONE 20 MG TABLET PO ONE (15:41)
[2017-10-09 15:58] VITALS: BP 100/55
== END 2017-10-09 16:59 | disposition home or self-care (01) | DRG 291 ==
LOC: 3BNU 13:24 → EMEROO 13:24 → 3BNU 15:48 → ICNU 10-05 12:59 → 2ANU 10-05 16:15
PROVIDERS: ADMIT Family Medicine; ATTEND Family Medicine

== ENCOUNTER 2017-11-21 13:47 | Observation (INO) ==
[2017-11-21 14:34] LABS: Hematocrit 41.7 % (35.3-44.9); Hemoglobin 13.4 g/dL (11.5-15.4); Mean Corpuscular HGB Conc 32.1 g/dL (31.6-35.5); Mean Corpuscular Hemoglobin 31.2 pg (28.0-33.3); Platelet Count 216 K/mcL (140-400); Red Cell Distribution Width 14.1 % (11.5-14.5)
[2017-11-21 14:40] LABS: BUN/Creatinine Ratio 25 (6-26); Blood Urea Nitrogen 14 mg/dL (8-23); Calcium 9.6 mg/dL (8.6-10.3); Carbon Dioxide 36 mEq/L (23-29); Chloride 98 mEq/L (98-107); Glucose 97 mg/dL (70-105); Osmolality,Calculated 284 (280-300); Potassium 4.7 mEq/L (3.5-5.1); Sodium 137 mEq/L (136-145); eGFR For Non-African Americans > 60 (> 60)
[2017-11-21 14:49] LABS: Troponin I 0.07 ng/mL (< 0.04)
--- NOTE | 2017-11-21 14:54 | Emergency Department Note ---
Disposition Clinical Impression: Elevated troponin, Elevated brain natriuretic peptide (BNP) level, History of CHF (congestive heart failure) Dyspnea Qualifiers: Dyspnea type: unspecified Qualified Code(s): R06.00 - Dyspnea, unspecified Back pain Qualifiers: Back pain location: thoracic back pain Chronicity: acute Back pain laterality: unspecified Qualified Code(s): M54.6 - Pain in thoracic spine Disposition: Admitted As Inpatient Condition: Good Referrals: Duran Sims Jr, MD [Primary Care Provider] - Forms: ED Satisfaction Letter Time of Disposition: 15:38 SOB HPI - General Chief Complaint: ED Shortness of Breath/Dyspnea Stated Complaint: SOB Time Seen by Provider: 11/21/17 14:50 Source: patient, family Mode of arrival: ambulatory Limitations: no limitations Nursing Notes Reviewed: Yes Vital Signs Reviewed: Yes - History of Present Illness Patient is a 67-year-old female with past medical history of CHF and hypertension, hyperlipidemia, DVT. She is not currently on any blood thinners. She is currently on Plavix. She presents today due to concern for shortness of breath. She states that she chronically wears 2 L nasal cannula oxygen but over the past 1 week has been more short of breath above her baseline. Denies any fevers, productive cough, abdominal pain, nausea, vomiting. She denies any overt chest discomfort but does admit to some heaviness in her bilateral shoulders. She does state that the shortness of breath worsens with exertion. Denies any increase in lower extremity swelling. - Related Data Home Medications Medication Instructions Recorded Confirmed Aspirin 81 mg PO DAILY 08/06/16 10/03/17 Citalopram [CeleXA] 20 mg PO DAILY 08/06/16 10/03/17 Pantoprazole Sodium [Protonix] 40 mg PO DAILY 08/06/16 10/03/17 Multivitamin-Min/Iron/FA/Vit K 1 each PO DAILY 02/11/17 10/03/17 [Multi-Day Plus Minerals Tablet] Atorvastatin [Lipitor] 10 mg PO HS 10/03/17 10/03/17 Ferrous Sulfate [Iron] 325 mg PO DAILY 10/03/17 10/03/17 Previous Rx's Medication Instructions Recorded Carvedilol [Coreg] 6.25 mg PO BIDWM #60 tablet 02/14/17 Clopidogrel [Plavix] 75 mg PO DAILY #30 tablet 02/14/17 Furosemide [Lasix] 20 mg PO DAILY #30 tablet 02/14/17 Lisinopril [Zestril] 2.5 mg PO DAILY #30 tablet 02/14/17 Albuterol Sulfate [Albuterol 2 puff IH Q4HR PRN #1 hfa.aer.ad 10/09/17 Inhaler] Tiotropium [Spiriva] 18 mcg IH DAILY #30 capsule 10/09/17 Allergies Allergy/AdvReac Type Severity Reaction Status Date / Time Neomycin Allergy Blister Verified 10/03/17 15:06 Penicillins Allergy Blister Verified 10/03/17 15:06 All systems ED: reviewed and negative except as stated. Constitutional: Denies: fever Cardiovascular: Denies: chest pain Respiratory: Reports: cough, dyspnea. Denies: wheezes, hemoptysis, sputum production Gastrointestinal: Denies: abdominal pain, nausea, vomiting, diarrhea Genitourinary: Denies: urgency, dysuria, frequency Musculoskeletal: Reports: back pain Integumentary: Denies: rash Neurological: Denies: headache, weakness, numbness, paresthesias Past Medical History - Past Medical History Attestation: Yes The following information was validated with the patient. Medical history: Reports: arthritis, CHF, DVT, GERD, hyperlipidemia, hypertension Surgical history: Reports: herniorrhaphy, hysterectomy Psychiatric history: Reports: anxiety, depression STAFF DEVELOPMENT MANAGER history: Reports: no STAFF DEVELOPMENT MANAGER history - Social History Smoking Status: Current every day smoker Smokeless Tobacco Status: No Alcohol use: Reports: none Drug use: Reports: none Physical Exam - General Limitations: no limitations General appearance: alert, in no apparent distress - Head Head exam: atraumatic, normocephalic, normal inspection - Eye Eye exam: Present: normal appearance, PERRL, EOMI - ENT ENT exam: normal exam, normal oropharynx, mucous membranes moist - Neck Neck exam: Present: normal inspection, full ROM, trachea midline - Chest Chest inspection: Present: normal inspection, symmetric chest wall rise - Respiratory Respiratory exam: Present: normal lung sounds bilaterally. Absent: respiratory distress, wheezes, stridor, accessory muscle use - Cardiovascular Cardiovascular exam: Present: regular rate, normal rhythm, normal heart sounds - Abdominal Exam Abdominal exam: Present: soft, Non-Tender. Absent: tenderness, distention, guarding, rebound, rigidity - Extremities Exam Extremities exam: Present: normal inspection, full ROM, pedal edema (Mild to moderate). Absent: tenderness - Neurological Exam Neurological exam: Present: alert, oriented X3 - Psychiatric Psychiatric exam: Present: normal affect, normal mood - Skin Skin exam: Present: warm, dry, intact, normal color Course Course Narrative: Currently concern for CHF exacerbation. Patient was given IV Lasix 20 mg and aspirin 325 mg. Basic labs show elevation in troponin level. She does have a chronic elevation. There is also elevation in BNP. Chest x-ray shows no acute cardio pulmonary process. Patient denies any overt chest discomfort but she does have some upper back heavy pressure sensation. Concern for ACS versus CHF exacerbation. We will admit to the hospitalist for further care and recommending trending troponins. Chest X-Ray 11/21/17 13:52 IMPRESSION: No radiographic evidence of acute process in the chest. D/ / Chan Vargas / Chan Vargas Interpreting Provider: Chan Vargas Vital Signs Temperature 97.7 F 11/21/17 13:48 Pulse Rate 76 11/21/17 13:48 Respiratory Rate 20 11/21/17 13:48 Blood Pressure 110/70 11/21/17 13:48 O2 Sat by Pulse Oximetry 94 11/21/17 13:48 Temperature 97.7 F 11/21/17 13:48 Pulse Rate 76 11/21/17 13:48 Respiratory Rate 20 11/21/17 13:48 Blood Pressure 110/70 11/21/17 13:48 O2 Sat by Pulse Oximetry 94 11/21/17 13:48 Oxygen Delivery Oxygen Delivery Nasal Cannula Shortness of Breath/Dyspnea - MDM Narrative Medical decision making narrative: Currently concern for CHF exacerbation. Patient was given IV Lasix 20 mg and aspirin 325 mg. Basic labs show elevation in troponin level. She does have a chronic elevation. There is also elevation in BNP. Chest x-ray shows no acute cardio pulmonary process. Patient denies any overt chest discomfort but she does have some upper back heavy pressure sensation. Concern for ACS versus CHF exacerbation. We will admit to the hospitalist for further care and recommending trending troponins. - Medical Records Medical records reviewed: Yes I reviewed the patient's medical records. - Lab Data Lab results reviewed: Yes I reviewed the patient's lab results. Result diagrams: 11/21/17 14:03 11/21/17 14:03 Lab Results 11/21/17 11/21/17 11/21/17 Range/Units 14:03 14:03 14:03 WBC 6.5 (4.3-11.1) K/mcL RBC 4.30 (3.82-4.97) M/mcL Hgb 13.4 (11.5-15.4) g/dL Hct 41.7 (35.3-44.9) % MCV 97.0 (83.0-100.0) fL MCH 31.2 (28.0-33.3) pg MCHC 32.1 (31.6-35.5) g/dL RDW 14.1 (11.5-14.5) % Plt Count 216 (140-400) K/mcL MPV 10.0 (9.4-12.4) fL Sodium 137 (136-145) mEq/L Potassium 4.7 (3.5-5.1) mEq/L Chloride 98 (98-107) mEq/L Carbon Dioxide 36 H (23-29) mEq/L BUN 14 (8-23) mg/dL Creatinine 0.57 L (0.60-1.20) mg/dL Est GFR ( Amer) > 60 (> 60) Est GFR (Non-Af Amer) > 60 (> 60) BUN/Creatinine Ratio 25 (6-26) Glucose 97 (70-105) mg/dL Calculated Osmolality 284 (280-300) Lactic Acid 1.0 (0.5-2.2) mmol/L Calcium 9.6 (8.6-10.3) mg/dL Troponin I 0.07 H* (< 0.04) ng/mL B-Natriuretic Peptide (Less than 100) pg/mL 11/21/17 Range/Units 14:03 WBC (4.3-11.1) K/mcL RBC (3.82-4.97) M/mcL Hgb (11.5-15.4) g/dL Hct (35.3-44.9) % MCV (83.0-100.0) fL MCH (28.0-33.3) pg MCHC (31.6-35.5) g/dL RDW (11.5-14.5) % Plt Count (140-400) K/mcL MPV (9.4-12.4) fL Sodium (136-145) mEq/L Potassium (3.5-5.1) mEq/L Chloride (98-107) mEq/L Carbon Dioxide (23-29) mEq/L BUN (8-23) mg/dL Creatinine (0.60-1.20) mg/dL Est GFR ( Amer) (> 60) Est GFR (Non-Af Amer) (> 60) BUN/Creatinine Ratio (6-26) Glucose (70-105) mg/dL Calculated Osmolality (280-300) Lactic Acid (0.5-2.2) mmol/L Calcium (8.6-10.3) mg/dL Troponin I (< 0.04) ng/mL B-Natriuretic Peptide 656 H (Less than 100) pg/mL - Radiology Data Radiology results reviewed: Yes I reviewed the patient's radiology results. Chest X-Ray 11/21/17 13:52 IMPRESSION: No radiographic evidence of acute process in the chest. D/ / Chan Vargas / Chan Vargas Interpreting Provider: Chan Vargas - EKG Data EKG attestation: Yes I reviewed and interpreted this EKG. EKG results narrative: 11/21/2017 at 14:35. A. fib. Rate 73. QRS 125. QTC 442. Left axis deviation. No acute ST elevation or depression. Occasional PVC. S.B.A.R. - S.B.A.R. Situation: Demographics, MOA Background: Presenting Complaint, Relevant PMH, Meds, & Allergies Assessment: Vital Signs, Course and respsone to treatment, Exam Concerns, Patient/Family Expectation, Pertinant Lab Results Recommendation: Barrier(s) to disposition, Recommendation based on pending studies, treatments, or consults S.B.A.R. Report Given to: Dr. Booker
[2017-11-21] MEDS ORDERED: Furosemide 20 MG/2 ML VIAL IVP ONE (15:12)
[2017-11-21] MEDS ORDERED: Aspirin 325 MG TABLET PO ONE (15:12)
--- NOTE | 2017-11-21 15:34 | Emergency Department Note ---
Disposition Clinical Impression: Elevated troponin, Elevated brain natriuretic peptide (BNP) level, History of CHF (congestive heart failure) Dyspnea Qualifiers: Dyspnea type: unspecified Qualified Code(s): R06.00 - Dyspnea, unspecified Back pain Qualifiers: Back pain location: thoracic back pain Chronicity: acute Back pain laterality: unspecified Qualified Code(s): M54.6 - Pain in thoracic spine Disposition: Admitted As Inpatient Condition: Good General Adult HPI - General Chief complaint: ED Shortness of Breath/Dyspnea Stated complaint: SOB Time Seen by Provider: 11/21/17 14:50 Source: patient, family Mode of arrival: ambulatory Limitations: no limitations - History of Present Illness Pain Scale: 0 - Related Data Home Medications Medication Instructions Recorded Confirmed Aspirin 81 mg PO DAILY 08/06/16 11/21/17 Citalopram [CeleXA] 20 mg PO DAILY 08/06/16 11/21/17 Pantoprazole Sodium [Protonix] 40 mg PO DAILY 08/06/16 11/21/17 Multivitamin-Min/Iron/FA/Vit K 1 each PO DAILY 02/11/17 11/21/17 [Multi-Day Plus Minerals Tablet] Atorvastatin [Lipitor] 10 mg PO HS 10/03/17 11/21/17 Ferrous Sulfate [Iron] 325 mg PO DAILY 10/03/17 11/21/17 Previous Rx's Medication Instructions Recorded Carvedilol [Coreg] 6.25 mg PO BIDWM #60 tablet 02/14/17 Clopidogrel [Plavix] 75 mg PO DAILY #30 tablet 02/14/17 Furosemide [Lasix] 20 mg PO DAILY #30 tablet 02/14/17 Lisinopril [Zestril] 2.5 mg PO DAILY #30 tablet 02/14/17 Albuterol Sulfate [Albuterol 2 puff IH Q4HR PRN #1 hfa.aer.ad 10/09/17 Inhaler] Tiotropium [Spiriva] 18 mcg IH DAILY #30 capsule 10/09/17 Allergies Allergy/AdvReac Type Severity Reaction Status Date / Time Neomycin Allergy Blister Verified 10/03/17 15:06 Penicillins Allergy Blister Verified 10/03/17 15:06 Past Medical History - Past Medical History Medical history: Reports: arthritis, CHF, DVT, GERD, hyperlipidemia, hypertension Surgical history: Reports: herniorrhaphy, hysterectomy Psychiatric history: Reports: anxiety, depression 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 RESOURCE SPECIALIST history - Social History Smoking Status: Current every day smoker Smokeless Tobacco Status: No Alcohol use: Reports: none Drug use: Reports: none Physical Exam - General Limitations: no limitations General appearance: alert, in no apparent distress Course Vital Signs Temperature 97.7 F 11/21/17 13:48 Pulse Rate 76 11/21/17 13:48 Respiratory Rate 20 11/21/17 13:48 Blood Pressure 110/70 11/21/17 13:48 O2 Sat by Pulse Oximetry 94 11/21/17 13:48 Temperature 98.1 F 11/21/17 16:32 Pulse Rate 82 11/21/17 16:32 Respiratory Rate 19 11/21/17 16:32 Blood Pressure 129/55 11/21/17 16:32 O2 Sat by Pulse Oximetry 99 11/21/17 16:49 Oxygen Delivery Oxygen Delivery Nasal Cannula Medical Decision Making - Lab Data Result diagrams: 11/21/17 14:03 11/21/17 14:03 Lab Results 11/21/17 11/21/17 11/21/17 Range/Units 14:03 14:03 14:03 WBC 6.5 (4.3-11.1) K/mcL RBC 4.30 (3.82-4.97) M/mcL Hgb 13.4 (11.5-15.4) g/dL Hct 41.7 (35.3-44.9) % MCV 97.0 (83.0-100.0) fL MCH 31.2 (28.0-33.3) pg MCHC 32.1 (31.6-35.5) g/dL RDW 14.1 (11.5-14.5) % Plt Count 216 (140-400) K/mcL MPV 10.0 (9.4-12.4) fL Sodium 137 (136-145) mEq/L Potassium 4.7 (3.5-5.1) mEq/L Chloride 98 (98-107) mEq/L Carbon Dioxide 36 H (23-29) mEq/L BUN 14 (8-23) mg/dL Creatinine 0.57 L (0.60-1.20) mg/dL Est GFR ( Amer) > 60 (> 60) Est GFR (Non-Af Amer) > 60 (> 60) BUN/Creatinine Ratio 25 (6-26) Glucose 97 (70-105) mg/dL Calculated Osmolality 284 (280-300) Lactic Acid 1.0 (0.5-2.2) mmol/L Calcium 9.6 (8.6-10.3) mg/dL Troponin I 0.07 H* (< 0.04) ng/mL B-Natriuretic Peptide (Less than 100) pg/mL 11/21/17 Range/Units 14:03 WBC (4.3-11.1) K/mcL RBC (3.82-4.97) M/mcL Hgb (11.5-15.4) g/dL Hct (35.3-44.9) % MCV (83.0-100.0) fL MCH (28.0-33.3) pg MCHC (31.6-35.5) g/dL RDW (11.5-14.5) % Plt Count (140-400) K/mcL MPV (9.4-12.4) fL Sodium (136-145) mEq/L Potassium (3.5-5.1) mEq/L Chloride (98-107) mEq/L Carbon Dioxide (23-29) mEq/L BUN (8-23) mg/dL Creatinine (0.60-1.20) mg/dL Est GFR ( Amer) (> 60) Est GFR (Non-Af Amer) (> 60) BUN/Creatinine Ratio (6-26) Glucose (70-105) mg/dL Calculated Osmolality (280-300) Lactic Acid (0.5-2.2) mmol/L Calcium (8.6-10.3) mg/dL Troponin I (< 0.04) ng/mL B-Natriuretic Peptide 656 H (Less than 100) pg/mL Attestation Statement - Attestation Attestation: I examined this patient and my medical decision-making was reviewed with the RISK ENGINEER/PA/Advanced Practice Nurse/Resident Physician. I agree with the documented findings, disposition and treatment plan as described except to the extent set forth below. I did see the patient and spoke with her and examined her, lung sounds are distant, she does have bilateral shoulder pain concerning for ischemia and she does have a elevated troponin. I did review her EKG showing atrial fibrillation and T-wave inversion in leads 1 and aVL with some nonspecific ST change. I did review the patient's other labs. She will be admitted to the hospital with concern for nSTEMI [id number]
[2017-11-21] MEDS ORDERED: Naloxone 0.4 MG/ML INJ IVP PRN (16:11)
[2017-11-21] MEDS ORDERED: Ipratropium/Albuterol Neb 3 ML IH PRN (16:12)
--- NOTE | 2017-11-21 16:20 | Internal Med History&Physical ---
Date of Encounter: 11/21/17 Time of Encounter: 13:10 Internal Medicine - H&P: HPI Chief complaint: increasing orthopnea History of present illness: Ms. Smith is a 67 year old female with past medical history of HFrEF, nonischemic cardiomyopathy, COPD, CAD with 70% RCA lesion, presented to the ED with 2 day history of increasing orthopnea. She had to use 1-2 more pillows to sleep and still had trouble catching her breath. Otherwise, no weight gain, PND , or LE swelling. Denies chest pain, N/V, diaphoresis. No cough, sputum production, wheezing, fever/chills, or sick contacts. No GI/ symptoms. Echo done in 09/2017 showed EF 30% with global LV systolic dysfunction and is currently being worked up for the need for ICD and has a testing scheduled next Saturday in [place]. In the ED, patient was afebrile and hemodynamically stable. Initial labs showed mildly elevated troponin of 0.07 which has been around the same since June 2016. EKG no new changes. BNP 656 which has been the lowest number that she had for the last 1-1/2 year. Past Med Surg Social Fam HX - Past Medical History Medical history: arthritis, CHF, DVT, GERD, hyperlipidemia, hypertension Additional medical history: venous insufficency Psychiatric history: anxiety, depression - Past Surgical History Surgical History: herniorrhaphy, hysterectomy Additional surgical history: Tubal ligation - Social History Smoking Status: Current every day smoker Smokeless Tobacco Status: No Alcohol use: none Drug use: none - Family History Father Family Member Ethnicity: Non- Living Status: Hx Family Cardiac Disorders: Yes (CHF, MD, HTN) Hx Family Endocrine Disorder: Yes (DM) Mother Family Member Ethnicity: Non- Living Status: Hx Family Neurologic Disorders: Yes (Alzheimer's disease) Brother Family Member Ethnicity: Non- Living Status: Hx Family Cancer: Yes (Pancreatic) Sister Family Member Ethnicity: Non- Living Status: Internal Medicine - H&P: Meds Aspirin 81 mg PO DAILY 08/06/16 [History] Citalopram [CeleXA] 20 mg PO DAILY 08/06/16 [History] Pantoprazole Sodium [Protonix] 40 mg PO DAILY 08/06/16 [History] Multivitamin-Min/Iron/FA/Vit K [Multi-Day Plus Minerals Tablet] 1 each PO DAILY 02/11/17 [History] Carvedilol [Coreg] 6.25 mg PO BIDWM #60 tablet 02/14/17 [Rx] Clopidogrel [Plavix] 75 mg PO DAILY #30 tablet 02/14/17 [Rx] Furosemide [Lasix] 20 mg PO DAILY #30 tablet 02/14/17 [Rx] Lisinopril [Zestril] 2.5 mg PO DAILY #30 tablet 02/14/17 [Rx] Atorvastatin [Lipitor] 10 mg PO HS 10/03/17 [History] Ferrous Sulfate [Iron] 325 mg PO DAILY 10/03/17 [History] Albuterol Sulfate [Albuterol Inhaler] 2 puff IH Q4HR PRN #1 hfa.aer.ad 10/09/17 [Rx] Tiotropium [Spiriva] 18 mcg IH DAILY #30 capsule 10/09/17 [Rx] 3 Allergy/AdvReac Type Severity Reaction Status Date / Time Neomycin Allergy Blister Verified 10/03/17 15:06 Penicillins Allergy Blister Verified 10/03/17 15:06 All Systems PM: A 10-system review of systems was performed and is negative for pertinent findings except as documented above in the HPI. - Constitutional Vitals: Temp Pulse Resp BP Pulse Ox 97.7 F 76 18 93/79 94 11/21/17 13:48 11/21/17 13:48 11/21/17 16:03 11/21/17 16:03 11/21/17 13:48 Exam: General: Alert and oriented, mildly dyspneic HEENT:EOM, pupils equal, round, and reactive. Cardiovascular:Normal S1 & S2, no murmurs or gallops. Unable to appreciate JVD. Pulse regular. No LE swelling. Lungs:Normal breath sounds, no wheezes or crackles. Abdomen:Soft, non-tender, no rigidity. Extremities:No deformity, no edema or tenderness, no joint swelling. Neurological:Normal cognition and motor skills. Skin:Normal color, no rash, no lesions. Pulses:Carotid and radial pulses normal +2. Rest of the physical exam is non-contributory Internal Med - H&P Results - Labs CBC & Chem 7: 11/21/17 14:03 11/21/17 14:03 - Assessment and plan (1) Acute exacerbation of CHF (congestive heart failure) Current Visit: No Status: Acute Assessment and plan: Complains of increasing orthopnea but otherwise no evidence of decompensated heart failure. BNP of 656 is the best number that she has had for the last 1.5 years troponin 0.07 (chronic), EKG no new changes, CXR without significant pulm edema. O2 requirement is at baseline given lasix in the ED, will observe for symptomatic relief -> if so, may need to adjust diuretic dosage trend troponin further workup for ICD evaluation scheduled next Saturday Qualifiers: Heart failure type: systolic Qualified Code(s): I50.23 - Acute on chronic systolic (congestive) heart failure (2) Elevated troponin Current Visit: Yes Status: Chronic Assessment and plan: 0.07 without EKG changes, chronic check once more to rule out ACS (3) NICM (nonischemic cardiomyopathy) Current Visit: No Status: Chronic Assessment and plan: Schedule for outpatient evaluation for ICD placement (4) COPD (chronic obstructive pulmonary disease) Current Visit: No Status: Acute Assessment and plan: no signs of exacerbation, resume home meds smoking cessation reinforced Qualifiers: COPD type: COPD with acute exacerbation Qualified Code(s): J44.1 - Chronic obstructive pulmonary disease with (acute) exacerbation (5) DVT prophylaxis Current Visit: No Status: Acute Assessment and plan: heparin SQ - Time Spent With Patient Total time spent is greater than 50% in coordination of care (as documented) at patient's floor/unit and/or counseling patient:
[2017-11-21] MEDS: *HR* Heparin 5,000 UNIT/ML VIAL SQ SCH (16:47)
[2017-11-22] MEDS: *HR* Heparin 5,000 UNIT/ML VIAL SQ SCH (05:27)
[2017-11-22 05:35] LABS: Basophils % 0.5 %; Eosinophils # 0.2 K/mcL (0.0-0.6); Eosinophils % 2.7 %; Hematocrit 42.5 % (35.3-44.9); Immature Granulocytes % 0.2 % (0-4); Lymphocytes # 1.6 K/mcL (0.6-4.6); Lymphocytes % 29.3 %; Mean Corpuscular HGB Conc 30.6 g/dL (31.6-35.5); Mean Corpuscular Volume 97.9 fL (83.0-100.0); Mean Platelet Volume 10.3 fL (9.4-12.4); Monocytes # 1.2 K/mcL (0.0-1.3); Monocytes % 22.1 %; Neutrophils # 2.5 K/mcL (1.6-8.9); Platelet Count 188 K/mcL (140-400); Red Blood Count 4.34 M/mcL (3.82-4.97); Red Cell Distribution Width 14.2 % (11.5-14.5); Segmented Neutrophils % 45.2 %
[2017-11-22 05:53] LABS: BUN/Creatinine Ratio 25 (6-26); Blood Urea Nitrogen 15 mg/dL (8-23); Calcium 9.4 mg/dL (8.6-10.3); Carbon Dioxide 37 mEq/L (23-29); Chloride 98 mEq/L (98-107); Glucose 115 mg/dL (70-105); Magnesium 2.1 mg/dL (1.6-2.6); Osmolality,Calculated 288 (280-300); Potassium 4.4 mEq/L (3.5-5.1); Sodium 138 mEq/L (136-145); eGFR For Non-African Americans > 60 (> 60)
[2017-11-22 05:56] LABS: Platelet Estimate Normal (Normal); Reactive Lymphocytes Present (Not Present)
[2017-11-22] MEDS ORDERED: Multivit/Ca/Min/Fe/FA 1 TAB TABLET PO SCH (09:00)
[2017-11-22] MEDS ORDERED: Aspirin 81 MG TAB.CHEW PO SCH (09:00)
[2017-11-22] MEDS ORDERED: Tiotropium 18 MCG inhalation IH SCH (10:00)
[2017-11-22] MEDS ORDERED: Furosemide 20 MG TABLET PO SCH (11:15)
[2017-11-22 11:37] VITALS: BP 124/69
--- NOTE | 2017-11-22 15:33 | Discharge Summary ---
- NOTES TO OUTPATIENT PROVIDER Notes to Outpatient Provider: Patient hospitalized with acute exacerbation of CHF after presenting to the ER with complaints of orthopnea. Her BNP has actually improved significantly from her prior values. She was treated with IV Lasix. She feels much better today and wishes to go home. She has follow-up with cardiology on Saturday as outpatient. She will continue to take Lasix as prescribed. Date of Encounter: 11/22/17 Time of Encounter: 15:34 - Discharge Diagnosis (1) Acute exacerbation of CHF (congestive heart failure) Priority: Primary Status: Acute Qualifiers: Heart failure type: systolic Qualified Code(s): I50.23 - Acute on chronic systolic (congestive) heart failure (2) Elevated troponin Priority: Secondary Status: Chronic (3) NICM (nonischemic cardiomyopathy) Priority: Secondary Status: Chronic (4) COPD (chronic obstructive pulmonary disease) Priority: Secondary Status: Acute Qualifiers: COPD type: COPD with acute exacerbation Qualified Code(s): J44.1 - Chronic obstructive pulmonary disease with (acute) exacerbation (5) DVT prophylaxis Priority: Secondary Status: Acute Hospital course: Ms. Smith is a 67 year old female Patient with history of cardiomyopathy, COPD, coronary artery disease was hospitalized with acute exacerbation of CHF after presenting to the ER with complaints of orthopnea. Her BNP has actually improved significantly from her prior values. She was treated with IV Lasix. She feels much better today and wishes to go home. She has follow-up with cardiology on Saturday as outpatient. She will continue to take Lasix as prescribed. Discharge discussed with: patient, nurse - Time Spent with Patient Total time spent providing and/or coordinating discharge services: Greater than 30 minutes (32 min) - Discharge Medications Home Medications: Aspirin 81 mg PO DAILY 08/06/16 [History] Citalopram [CeleXA] 20 mg PO DAILY 08/06/16 [History] Pantoprazole Sodium [Protonix] 40 mg PO DAILY 08/06/16 [History] Multivitamin-Min/Iron/FA/Vit K [Multi-Day Plus Minerals Tablet] 1 each PO DAILY 02/11/17 [History] Carvedilol [Coreg] 6.25 mg PO BIDWM #60 tablet 02/14/17 [Rx] Clopidogrel [Plavix] 75 mg PO DAILY #30 tablet 02/14/17 [Rx] Furosemide [Lasix] 20 mg PO DAILY #30 tablet 02/14/17 [Rx] Lisinopril [Zestril] 2.5 mg PO DAILY #30 tablet 02/14/17 [Rx] Atorvastatin [Lipitor] 10 mg PO HS 10/03/17 [History] Ferrous Sulfate [Iron] 325 mg PO DAILY 10/03/17 [History] Albuterol Sulfate [Albuterol Inhaler] 2 puff IH Q4HR PRN #1 hfa.aer.ad 10/09/17 [Rx] Tiotropium [Spiriva] 18 mcg IH DAILY #30 capsule 10/09/17 [Rx] Allergies/Adverse Reactions: 3 Allergy/AdvReac Type Severity Reaction Status Date / Time Neomycin Allergy Blister Verified 10/03/17 15:06 Penicillins Allergy Blister Verified 10/03/17 15:06 Date of admission: 11/21/17 15:43 Primary care physician: Duran Sims Jr, MD Discharging clinician: Steve Gramajo Anticipated date of discharge: 11/22/17 - Constitutional Vitals: Temp Pulse Resp BP Pulse Ox 98.3 F 82 17 124/69 98 11/22/17 11:34 11/22/17 11:34 11/22/17 11:34 11/22/17 11:34 11/22/17 11:34 General appearance: Present: cooperative, A&O X 3, answers questions appropriately - Respiratory Respiratory exam: Present: decreased breath sounds (At bases). Absent: accessory muscle use, rales, rhonchi, wheezes - Cardiovascular Cardiovascular exam: Present: RRR, +S1, +S2. Absent: diastolic murmur, gallop, rubs, systolic murmur - GI/Abdominal GI/Abdominal exam: Present: normal bowel sounds, soft, no peritoneal signs. Absent: distended, tenderness - Extremities Exam Extremities exam: Present: pedal edema, warm, radial pulses palpable and symmetrical. Absent: calf tenderness, cyanotic - Neurological Exam Neurological exam: Present: alert, oriented X3, no focal deficits. Absent: facial droop, speech deficit - Skin Skin exam: Present: dry, intact - Patient Status Disposition: Home, Self-Care Condition: Good Functional capacity at discharge: independent ambulation Overall status at discharge: patient is progressing back to baseline - Discharge Instructions Instructions: Dyspnea (GEN) Follow Up With: Duran Sims Jr, MD [Primary Care Provider] - (in 1-2 weeks) Additional Instructions: Follow up with cardiology next week as scheduled - Diet and Activity Activity: increase activity as tolerated Diet: low fat, low cholesterol, low salt diet, other (Fluid restriction to 1.5 L per day)
--- NOTE | 2017-11-22 16:27 | Electrocardiograph Report ---
[address] [place] [address] Test Date: 2017-11-21 Pat Name: China Smith Department: [id number] Room: 2A32 Gender: F Personal Coach: RAJ : 1950 Requested By: Shreyas Wall Order Number: [id number] Reading MD: Shahbaz Wilson Measurements Intervals [place] Rate: 73 P: IA: 0 QRS: -52 QRSD: 125 T: 112 QT: 417 QTc: 442 Interpretive Statements ATRIAL FIBRILLATION ABERRANT CONDUCTION OR VENTRICULAR PREMATURE COMPLEXES LEFT ANTERIOR FASCICULAR BLOCK VOLTAGE CRITERIA FOR LVH POSSIBLE ANTERIOR MYOCARDIAL INFARCTION, OF INDETERMINATE AGE MODERATE T-WAVE ABNORMALITY, CONSIDER LATERAL ISCHEMIA Electronically Signed On 11-22-2017 16:25:26 EDT by Shahbaz Wilson
== END 2017-11-22 16:42 | disposition home or self-care (01) ==
LOC: 2ANU 13:47 → EMEROO 13:47 → SUATTDRO 15:43 → 2ANU 16:16
PROVIDERS: ADMIT Internal Medicine; ATTEND Internal Medicine

== ENCOUNTER 2018-02-06 08:07 | Observation (INO) ==
[2018-02-06] MEDS ORDERED: Furosemide 40 MG/4 ML VIAL IVP ONE (08:32)
--- NOTE | 2018-02-06 08:44 | Emergency Department Note ---
Disposition Clinical Impression: Shortness of breath COPD (chronic obstructive pulmonary disease) Qualifiers: COPD type: COPD with acute exacerbation Qualified Code(s): J44.1 - Chronic obstructive pulmonary disease with (acute) exacerbation Anemia Qualifiers: Anemia type: unspecified type Qualified Code(s): D64.9 - Anemia, unspecified Disposition: Admitted As Inpatient Condition: Good Referrals: Duran Sims Jr, MD [Primary Care Provider] - Forms: ED Satisfaction Letter Time of Disposition: 10:57 SOB HPI - General Chief Complaint: ED Shortness of Breath/Dyspnea Stated Complaint: TIM Time Seen by Provider: 02/06/18 08:09 Source: patient, family Mode of arrival: EMS Limitations: no limitations Nursing Notes Reviewed: Yes Vital Signs Reviewed: Yes - History of Present Illness Patient is a 68-year-old female with a history of COPD on 2 L of oxygen by nasal cannula at home coming in today with complaints of increased shortness of breath over the last week with increased swelling in her lower extremities. She denies chest pain, headache, abdominal pain, nausea, vomiting, constipation , diarrhea, dysuria, frequency, muscle pain, joint pain, numbness or tingling, fevers or chills. She states that she uses breathing treatments at home and her last one was at 6 AM this morning she normally does up to 4 treatments per day when she can fit it in, she states that these treatments may be just water but they do help her feel better. She states that she is also on a baby aspirin , Plavix, and 20 mg of Lasix per day. - Related Data Home Medications Medication Instructions Recorded Confirmed Aspirin 81 mg PO DAILY 08/06/16 02/06/18 Citalopram [CeleXA] 20 mg PO DAILY 08/06/16 02/06/18 Pantoprazole Sodium [Protonix] 40 mg PO DAILY 08/06/16 02/06/18 Multivitamin-Min/Iron/FA/Vit K 1 each PO DAILY 02/11/17 02/06/18 [Multi-Day Plus Minerals Tablet] Atorvastatin [Lipitor] 10 mg PO DAILY 10/03/17 02/06/18 Docusate Sodium [Colace] 100 mg PO DAILY 02/06/18 02/06/18 Psyllium Husk [Daily Fiber] 0.52 gm PO DAILY 02/06/18 02/06/18 Previous Rx's Medication Instructions Recorded Carvedilol [Coreg] 6.25 mg PO BIDWM #60 tablet 02/14/17 Clopidogrel [Plavix] 75 mg PO DAILY #30 tablet 02/14/17 Furosemide [Lasix] 20 mg PO DAILY #30 tablet 02/14/17 Lisinopril [Zestril] 2.5 mg PO DAILY #30 tablet 02/14/17 Albuterol Sulfate [Albuterol 2 puff IH Q4HR PRN #1 hfa.aer.ad 10/09/17 Inhaler] Allergies Allergy/AdvReac Type Severity Reaction Status Date / Time Neomycin Allergy Blister Verified 02/06/18 09:57 Penicillins Allergy Blister Verified 02/06/18 09:57 All systems ED: reviewed and negative except as stated. Review of Systems: As Per HPI Constitutional: Denies: fever, chills Eyes: Denies: eye pain ENT ED: Denies: throat pain Cardiovascular: Reports: dyspnea on exertion. Denies: chest pain Respiratory: Reports: dyspnea. 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 Absent : tenderness - Respiratory Respiratory exam: Present: other (no wheezes appreciated, but decreased breath sounds in lower quadrants) - Cardiovascular Cardiovascular exam: Present: regular rate, irregular rhythm - Expanded Cardiovascular Exam Peripheral pulses: 2+: radial (R), radial (L), dorsalis pedis (R), dorsalis pedis (L) - Abdominal Exam Abdominal exam: Present: soft, Non-Tender - Expanded Lower Extremity Exam Lower leg exam: Present: swelling (2+ pitting edema ray) - Back Exam Back exam: Present: full ROM, other (kyphotic) - Neurological Exam Neurological exam: Present: alert - Psychiatric Psychiatric exam: Present: normal affect, normal mood - Skin Skin exam: Present: warm, dry, intact Course Course Narrative: Patient has an underlying diagnosis of COPD and is likely presenting with an exacerbation of her underlying disease process. She will be given a dose of Solu-Medrol, a triple dose of DuoNeb's, and a dose of IV Lasix, and basic blood work will be ordered to include CBC, CMP, troponin, BNP, and extended electrolytes. 1 view portable chest xray will be ordered. She is not febrile and does not appear septic, blood cultures are not necessary at this time. She has an extensive list of comorbidities, so threshold for admitting her will be relatively low. - Reevaluation(s) Reevaluation #1: Pt states that she is feeling better after the breathing treatments, that she feels like she is breathing easier. Her lungs sound somewhat better, with better air movement in the bases. Labs are notable for a chronically elevated troponin not in excess of her most recent value on 01/19/18, although she has a decreased H&H from her normal baseline. Will check for rectal bleeding and admit to hospitalist. Time: 10:00 Reevaluation #2: Pt refused rectal examination because she states that she has "hemorrhoids so bad they can't even do a colonoscopy." Time: 10:26 Vital Signs Temperature 98.1 F 02/06/18 08:10 Pulse Rate 76 02/06/18 08:10 Respiratory Rate 20 02/06/18 08:10 Blood Pressure 96/58 02/06/18 08:10 O2 Sat by Pulse Oximetry 91 02/06/18 08:10 Temperature 98.1 F 02/06/18 08:17 Pulse Rate 80 02/06/18 10:34 Respiratory Rate 18 02/06/18 10:34 Blood Pressure 109/41 02/06/18 10:34 O2 Sat by Pulse Oximetry 100 02/06/18 10:34 Oxygen Delivery Oxygen Delivery Nasal Cannula Shortness of Breath/Dyspnea - [facility] Narrative Medical decision making narrative: Patient states that her shortness of breath was somewhat improved after administration of 3 DuoNeb, and 20 of IV Lasix. Although her H&H was decreased from last time when it was measured on January 19 of this year, she refused a rectal exam to check for bleeding. Anemia may be contributed to her shortness of breath, and with her comorbidities she will need to be admitted to the hospital for further management. I spoke with the hospitalist, Dr. Booker, who accepts the patient. - Medical Records Medical records reviewed: Yes I reviewed the patient's medical records. - Lab Data Lab results reviewed: Yes I reviewed the patient's lab results. Result diagrams: 02/06/18 09:00 02/06/18 09:00 Lab Results 02/06/18 02/06/18 02/06/18 Range/Units 09:00 09:00 09:00 WBC 6.2 (4.3-11.1) K/mcL RBC 3.62 L (3.82-4.97) M/mcL Hgb 9.7 L (11.5-15.4) g/dL Hct 32.6 L (35.3-44.9) % MCV 90.1 (83.0-100.0) fL MCH 26.8 L (28.0-33.3) pg MCHC 29.8 L (31.6-35.5) g/dL RDW 14.2 (11.5-14.5) % Plt Count 238 (140-400) K/mcL MPV 9.9 (9.4-12.4) fL Immature Gran % 0.2 (0-4) % Seg Neutrophils % 57.4 % Lymphocytes % 22.8 % Monocytes % 17.3 % Eosinophils % 1.8 % Basophils % 0.5 % Neutrophils # 3.6 (1.6-8.9) K/mcL Lymphocytes # 1.4 (0.6-4.6) K/mcL Monocytes # 1.1 (0.0-1.3) K/mcL Eosinophils # 0.1 (0.0-0.6) K/mcL Basophils # 0.0 (0.0-0.2) K/mcL Platelet Estimate Normal (Normal) Hypochromasia Present A (Not Present) Anisocytosis 1+ A (Not Present) Sodium 135 L (136-145) mEq/L Potassium 4.3 (3.5-5.1) mEq/L Chloride 95 L (98-107) mEq/L Carbon Dioxide 38 H (23-29) mEq/L BUN 17 (8-23) mg/dL Creatinine 0.44 L (0.60-1.20) mg/dL Est GFR ( Amer) > 60 (> 60) Est GFR (Non-Af Amer) > 60 (> 60) BUN/Creatinine Ratio 39 H (6-26) Glucose 109 H (70-105) mg/dL Calculated Osmolality 282 (280-300) Calcium 9.2 (8.6-10.3) mg/dL Phosphorus 3.7 (2.7-4.5) mg/dL Magnesium 1.9 (1.6-2.6) mg/dL Total Bilirubin 0.5 (0.3-1.0) mg/dL AST 18 (13-39) Units/L ALT 15 (7-52) Units/L Alkaline Phosphatase 66 (34-104) Units/L Troponin I 0.06 H* (< 0.04) ng/mL B-Natriuretic Peptide 775 H (Less than 100) pg/mL Serum Total Protein 7.0 (6.4-8.9) g/dL Albumin 3.8 (3.5-5.7) g/dL Globulin 3.2 (2.4-3.5) g/dL Albumin/Globulin Ratio 1.2 (1.1-2.2) Urine Color (Yellow) Urine Clarity (Clear) Urine pH (5.0-8.0) pH Units Ur Specific [place] (1.010-1.025) Urine Protein (Neg-Trace) mg/dL Urine Glucose (UA) (Normal) mg/dL Urine Ketones (Negative) mg/dL Urine Blood (Negative) Urine Nitrite (Negative) Urine Bilirubin (Negative) Urine Urobilinogen (Normal) mg/dL Ur Leukocyte Esterase (Negative) Urine Microscopic RBC (0-3) per hpf Urine Microscopic WBC (0-3) per hpf Ur Squamous Epith Cells (None-Few) per lpf Urine Bacteria (None-Few) per hpf Hyaline Casts (None-Few) per lpf Ur Culture Indicated? (NO) 02/06/18 Range/Units 09:19 WBC (4.3-11.1) K/mcL RBC (3.82-4.97) M/mcL Hgb (11.5-15.4) g/dL Hct (35.3-44.9) % MCV (83.0-100.0) fL MCH (28.0-33.3) pg MCHC (31.6-35.5) g/dL RDW (11.5-14.5) % Plt Count (140-400) K/mcL MPV (9.4-12.4) fL Immature Gran % (0-4) % Seg Neutrophils % % Lymphocytes % % Monocytes % % Eosinophils % % Basophils % % Neutrophils # (1.6-8.9) K/mcL Lymphocytes # (0.6-4.6) K/mcL Monocytes # (0.0-1.3) K/mcL Eosinophils # (0.0-0.6) K/mcL Basophils # (0.0-0.2) K/mcL Platelet Estimate (Normal) Hypochromasia (Not Present) Anisocytosis (Not Present) Sodium (136-145) mEq/L Potassium (3.5-5.1) mEq/L Chloride (98-107) mEq/L Carbon Dioxide (23-29) mEq/L BUN (8-23) mg/dL Creatinine (0.60-1.20) mg/dL Est GFR ( Amer) (> 60) Est GFR (Non-Af Amer) (> 60) BUN/Creatinine Ratio (6-26) Glucose (70-105) mg/dL Calculated Osmolality (280-300) Calcium (8.6-10.3) mg/dL Phosphorus (2.7-4.5) mg/dL Magnesium (1.6-2.6) mg/dL Total Bilirubin (0.3-1.0) mg/dL AST (13-39) Units/L ALT (7-52) Units/L Alkaline Phosphatase (34-104) Units/L Troponin I (< 0.04) ng/mL B-Natriuretic Peptide (Less than 100) pg/mL Serum Total Protein (6.4-8.9) g/dL Albumin (3.5-5.7) g/dL Globulin (2.4-3.5) g/dL Albumin/Globulin Ratio (1.1-2.2) Urine Color Yellow (Yellow) Urine Clarity Clear (Clear) Urine pH 6.5 (5.0-8.0) pH Units Ur Specific [place] 1.018 (1.010-1.025) Urine Protein Negative (Neg-Trace) mg/dL Urine Glucose (UA) Normal (Normal) mg/dL Urine Ketones Negative (Negative) mg/dL Urine Blood Negative (Negative) Urine Nitrite Negative (Negative) Urine Bilirubin Negative (Negative) Urine Urobilinogen Normal (Normal) mg/dL Ur Leukocyte Esterase Moderate H (Negative) Urine Microscopic RBC 0-3 (0-3) per hpf Urine Microscopic WBC 5-15 H (0-3) per hpf Ur Squamous Epith Cells Moderate H (None-Few) per lpf Urine Bacteria None Seen (None-Few) per hpf Hyaline Casts None Seen (None-Few) per lpf Ur Culture Indicated? YES A (NO) - Radiology Data Radiology results reviewed: Yes I reviewed the patient's radiology results. Chest X-Ray 02/06/18 08:32 IMPRESSION: Cardiomegaly with minimal interstitial edema. D/ / 02/06/2018 08:58:01 Melva Jarquin MD / bret Interpreting Provider: Melva Jarquin MD - EKG Data EKG attestation: Yes I reviewed and interpreted this EKG. EKG results narrative: HR 79, atrial fibrillation, axis left -38. QRS duration 183. QTC 523. At least one PVC visualized on 6 second strip. Notched R wave in V3-V4 consistent with LBBB. EKG grossly unchanged from previous on 01/19/18. Attestation Statement - Attestation Attestation: I, Gómez Ornelas DO, examined this patient [id number] and my medical decision-making was reviewed with Dr. Qian Ynag, Resident Physician. I agree with the documented findings, disposition and treatment plan as described except to the extent set forth below. Please see my progress notes for details.
[2018-02-06] MEDS ORDERED: Ipratropium/Albuterol Neb 3 ML IH ONE (08:45)
[2018-02-06] MEDS ORDERED: methylPREDNISolone 125 MG/2 ML VIAL IVP ONE (08:45)
[2018-02-06] MEDS ORDERED: Furosemide 20 MG/2 ML VIAL IVP ONE (08:48)
[2018-02-06 09:25] LABS: Bilirubin,Urine Negative (Negative); Blood,Urine Negative (Negative); Clarity,Urine Clear (Clear); Color,Urine Yellow (Yellow); Glucose,Urine (UA) Normal (Normal); Ketones,Urine Negative (Negative); Leukocyte Esterase,Urine Moderate (Negative); Nitrite,Urine Negative (Negative); PH,Urine 6.5 pH Units (5.0-8.0); Protein,Urine Negative (Neg-Trace); Specific Gravity,Urine 1.018 (1.010-1.025); Urobilinogen,Urine Normal (Normal)
[2018-02-06 09:27] LABS: Bacteria,Urine None Seen per hpf (None-Few); Hyaline Casts,Urine None Seen per lpf (None-Few); Squamous Epithelial Cell,Urine Moderate per lpf (None-Few)
[2018-02-06 09:46] LABS: RBC,Urine 0-3 per hpf (0-3)
[2018-02-06 09:46] LABS: Basophils % 0.5 %; Immature Granulocytes % 0.2 % (0-4); Mean Platelet Volume 9.9 fL (9.4-12.4)
[2018-02-06 09:48] LABS: Eosinophils # 0.1 K/mcL (0.0-0.6); Eosinophils % 1.8 %; Hematocrit 32.6 % (35.3-44.9); Hemoglobin 9.7 g/dL (11.5-15.4); Lymphocytes # 1.4 K/mcL (0.6-4.6); Lymphocytes % 22.8 %; Mean Corpuscular HGB Conc 29.8 g/dL (31.6-35.5); Mean Corpuscular Hemoglobin 26.8 pg (28.0-33.3); Mean Corpuscular Volume 90.1 fL (83.0-100.0); Monocytes # 1.1 K/mcL (0.0-1.3); Monocytes % 17.3 %; Neutrophils # 3.6 K/mcL (1.6-8.9); Platelet Count 238 K/mcL (140-400); Red Blood Count 3.62 M/mcL (3.82-4.97); Red Cell Distribution Width 14.2 % (11.5-14.5); Segmented Neutrophils % 57.4 %
--- NOTE | 2018-02-06 09:50 | Emergency Department Note ---
Disposition Clinical Impression: COPD (chronic obstructive pulmonary disease), Anemia, Shortness of breath Disposition: Admitted As Inpatient Condition: Fair Referrals: Durna Sims Jr, MD [Primary Care Provider] - Forms: ED Satisfaction Letter Time of Disposition: 10:54 General Adult HPI - General Chief complaint: ED Shortness of Breath/Dyspnea Stated complaint: TIM Time Seen by Provider: 02/06/18 08:09 Source: patient, family Limitations: no limitations - History of Present Illness Pain Scale: 0 - Related Data Home Medications Medication Instructions Recorded Confirmed Aspirin 81 mg PO DAILY 08/06/16 12/21/17 Citalopram [CeleXA] 20 mg PO DAILY 08/06/16 12/21/17 Pantoprazole Sodium [Protonix] 40 mg PO DAILY 08/06/16 12/21/17 Multivitamin-Min/Iron/FA/Vit K 1 each PO DAILY 02/11/17 12/21/17 [Multi-Day Plus Minerals Tablet] Atorvastatin [Lipitor] 10 mg PO HS 10/03/17 12/21/17 Docusate Sodium [Colace] 100 mg PO DAILY 02/06/18 02/06/18 Psyllium Husk [Daily Fiber] 0.52 gm PO DAILY 02/06/18 02/06/18 Previous Rx's Medication Instructions Recorded Carvedilol [Coreg] 6.25 mg PO BIDWM #60 tablet 02/14/17 Clopidogrel [Plavix] 75 mg PO DAILY #30 tablet 02/14/17 Furosemide [Lasix] 20 mg PO DAILY #30 tablet 02/14/17 Lisinopril [Zestril] 2.5 mg PO DAILY #30 tablet 02/14/17 Albuterol Sulfate [Albuterol 2 puff IH Q4HR PRN #1 hfa.aer.ad 10/09/17 Inhaler] Allergies Allergy/AdvReac Type Severity Reaction Status Date / Time Neomycin Allergy Blister Verified 02/06/18 09:57 Penicillins Allergy Blister Verified 02/06/18 09:57 Constitutional: Denies: fever, chills Eyes: Denies: eye pain ENT ED: Denies: throat pain Cardiovascular: Reports: dyspnea on exertion. Denies: chest pain Respiratory: Reports: dyspnea. 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 - Social History Smoking Status: Current every day smoker Smokeless Tobacco Status: No Alcohol use: Reports: none Drug use: Reports: none Physical Exam - General Limitations: no limitations General appearance: alert Course Vital Signs Temperature 98.1 F 02/06/18 08:10 Pulse Rate 76 02/06/18 08:10 Respiratory Rate 20 02/06/18 08:10 Blood Pressure 96/58 02/06/18 08:10 O2 Sat by Pulse Oximetry 91 02/06/18 08:10 Temperature 98.1 F 02/06/18 08:17 Pulse Rate 76 02/06/18 09:04 Respiratory Rate 18 02/06/18 09:04 Blood Pressure 111/61 02/06/18 09:04 O2 Sat by Pulse Oximetry 98 02/06/18 09:04 Oxygen Delivery Oxygen Delivery Nasal Cannula Medical Decision Making - Lab Data Result diagrams: 02/06/18 09:00 02/06/18 09:00 Lab Results 02/06/18 02/06/18 02/06/18 Range/Units 09:00 09:00 09:00 WBC 6.2 (4.3-11.1) K/mcL RBC 3.62 L (3.82-4.97) M/mcL Hgb 9.7 L (11.5-15.4) g/dL Hct 32.6 L (35.3-44.9) % MCV 90.1 (83.0-100.0) fL MCH 26.8 L (28.0-33.3) pg MCHC 29.8 L (31.6-35.5) g/dL RDW 14.2 (11.5-14.5) % Plt Count 238 (140-400) K/mcL MPV 9.9 (9.4-12.4) fL Immature Gran % 0.2 (0-4) % Seg Neutrophils % 57.4 % Lymphocytes % 22.8 % Monocytes % 17.3 % Eosinophils % 1.8 % Basophils % 0.5 % Neutrophils # 3.6 (1.6-8.9) K/mcL Lymphocytes # 1.4 (0.6-4.6) K/mcL Monocytes # 1.1 (0.0-1.3) K/mcL Eosinophils # 0.1 (0.0-0.6) K/mcL Basophils # 0.0 (0.0-0.2) K/mcL Platelet Estimate Normal (Normal) Hypochromasia Present A (Not Present) Anisocytosis 1+ A (Not Present) Sodium 135 L (136-145) mEq/L Potassium 4.3 (3.5-5.1) mEq/L Chloride 95 L (98-107) mEq/L Carbon Dioxide 38 H (23-29) mEq/L BUN 17 (8-23) mg/dL Creatinine 0.44 L (0.60-1.20) mg/dL Est GFR ( Amer) > 60 (> 60) Est GFR (Non-Af Amer) > 60 (> 60) BUN/Creatinine Ratio 39 H (6-26) Glucose 109 H (70-105) mg/dL Calculated Osmolality 282 (280-300) Calcium 9.2 (8.6-10.3) mg/dL Phosphorus 3.7 (2.7-4.5) mg/dL Magnesium 1.9 (1.6-2.6) mg/dL Total Bilirubin 0.5 (0.3-1.0) mg/dL AST 18 (13-39) Units/L ALT 15 (7-52) Units/L Alkaline Phosphatase 66 (34-104) Units/L Troponin I 0.06 H* (< 0.04) ng/mL B-Natriuretic Peptide 775 H (Less than 100) pg/mL Serum Total Protein 7.0 (6.4-8.9) g/dL Albumin 3.8 (3.5-5.7) g/dL Globulin 3.2 (2.4-3.5) g/dL Albumin/Globulin Ratio 1.2 (1.1-2.2) Urine Color (Yellow) Urine Clarity (Clear) Urine pH (5.0-8.0) pH Units Ur Specific [place] (1.010-1.025) Urine Protein (Neg-Trace) mg/dL Urine Glucose (UA) (Normal) mg/dL Urine Ketones (Negative) mg/dL Urine Blood (Negative) Urine Nitrite (Negative) Urine Bilirubin (Negative) Urine Urobilinogen (Normal) mg/dL Ur Leukocyte Esterase (Negative) Urine Microscopic RBC (0-3) per hpf Urine Microscopic WBC (0-3) per hpf Ur Squamous Epith Cells (None-Few) per lpf Urine Bacteria (None-Few) per hpf Hyaline Casts (None-Few) per lpf Ur Culture Indicated? (NO) 02/06/18 Range/Units 09:19 WBC (4.3-11.1) K/mcL RBC (3.82-4.97) M/mcL Hgb (11.5-15.4) g/dL Hct (35.3-44.9) % MCV (83.0-100.0) fL MCH (28.0-33.3) pg MCHC (31.6-35.5) g/dL RDW (11.5-14.5) % Plt Count (140-400) K/mcL MPV (9.4-12.4) fL Immature Gran % (0-4) % Seg Neutrophils % % Lymphocytes % % Monocytes % % Eosinophils % % Basophils % % Neutrophils # (1.6-8.9) K/mcL Lymphocytes # (0.6-4.6) K/mcL Monocytes # (0.0-1.3) K/mcL Eosinophils # (0.0-0.6) K/mcL Basophils # (0.0-0.2) K/mcL Platelet Estimate (Normal) Hypochromasia (Not Present) Anisocytosis (Not Present) Sodium (136-145) mEq/L Potassium (3.5-5.1) mEq/L Chloride (98-107) mEq/L Carbon Dioxide (23-29) mEq/L BUN (8-23) mg/dL Creatinine (0.60-1.20) mg/dL Est GFR ( Amer) (> 60) Est GFR (Non-Af Amer) (> 60) BUN/Creatinine Ratio (6-26) Glucose (70-105) mg/dL Calculated Osmolality (280-300) Calcium (8.6-10.3) mg/dL Phosphorus (2.7-4.5) mg/dL Magnesium (1.6-2.6) mg/dL Total Bilirubin (0.3-1.0) mg/dL AST (13-39) Units/L ALT (7-52) Units/L Alkaline Phosphatase (34-104) Units/L Troponin I (< 0.04) ng/mL B-Natriuretic Peptide (Less than 100) pg/mL Serum Total Protein (6.4-8.9) g/dL Albumin (3.5-5.7) g/dL Globulin (2.4-3.5) g/dL Albumin/Globulin Ratio (1.1-2.2) Urine Color Yellow (Yellow) Urine Clarity Clear (Clear) Urine pH 6.5 (5.0-8.0) pH Units Ur Specific [place] 1.018 (1.010-1.025) Urine Protein Negative (Neg-Trace) mg/dL Urine Glucose (UA) Normal (Normal) mg/dL Urine Ketones Negative (Negative) mg/dL Urine Blood Negative (Negative) Urine Nitrite Negative (Negative) Urine Bilirubin Negative (Negative) Urine Urobilinogen Normal (Normal) mg/dL Ur Leukocyte Esterase Moderate H (Negative) Urine Microscopic RBC 0-3 (0-3) per hpf Urine Microscopic WBC 5-15 H (0-3) per hpf Ur Squamous Epith Cells Moderate H (None-Few) per lpf Urine Bacteria None Seen (None-Few) per hpf Hyaline Casts None Seen (None-Few) per lpf Ur Culture Indicated? YES A (NO) Attestation Statement - Attestation Attestation: I, Gómez Ornelas DO, examined this patient [id number] and my medical decision-making was reviewed with Dr. Qian Yang, Resident Physician. I agree with the documented findings, disposition and treatment plan as described except to the extent set forth below. Please see my progress notes for details. 68-year-old female presents emergency room from home for evaluation of shortness of breath difficulty with breathing and exertional dyspnea. Patient is chronically on 2 L of oxygen 24 hours a day. She has known history of COPD and takes all medications for this but she is not a good historian with her medications. She also does not remember whether or not she has atrial fibrillation. She describes being on aspirin and Plavix at home but no other blood thinner at this time. Vital signs initial presentation are stable. Patient is alert she is oriented she speaks in full sentences. Extraocular muscles are intact. Pupils are equal round reactive oropharynx is patent trachea is midline. She has no stridor no trismus. She does have diminished breath sounds bilaterally. Some increased work of breathing accessory muscle use is noted. Heart is irregular at this time with no auscultated murmurs. Patient has atrial fibrillation on the monitor. Patient is a poor historian for her medical issues and denies any history of this point of atrial fibrillation but she thinks she may have been told that at one point the past. Currently she is denying chest pain or other symptoms at this point outside of the shortness of breath. Breathing treatments will be provided. Repeat evaluation to be established. Discussion was had with the patient all possible admission versus being discharged home. Patient does disclose that she request to go home and she is able to. Concern is noted for the significance of her orthopnea and increased work of breathing. We will continue to monitor his the chest x-ray CBC chemistry troponin and BNP electrolytes urinalysis and symptomatically control are established. See detailed documentation the physical exam, medical intervention, medical decision-making and disposition in the resident physician's note. No critical care provider the patient's treatment course at this time. 1015 Patient is found to have a hemoglobin of 9.7. MCV is normal so chronic blood loss anemia is low on the differential. Patient denies any hemoptysis melena hematochezia at this time. Rectal occult testing will be completed. Patient also has an elevated BNP that does appear to be consistent with prior but because of the exertional dyspnea symptoms what appears to be failed outpatient management of COPD we will recommended admission. The confounding factor is the anemia which could be exacerbating all the symptoms here today. Patient will be informed admission process to be established once Hemoccult testing is completed. Hospitalist has been informed. No other recommendations or concerns. Patient will be admitted for continuation of care. We will continue monitoring in emergency room until admission processes has been established.
[2018-02-06 10:05] LABS: Alanine Aminotransferase 15 Units/L (7-52); Albumin 3.8 g/dL (3.5-5.7); Albumin/Globulin Ratio 1.2 (1.1-2.2); Alkaline Phosphatase 66 Units/L (34-104); Aspartate Amino Transferase 18 Units/L (13-39); BUN/Creatinine Ratio 39 (6-26); Bilirubin,Total 0.5 mg/dL (0.3-1.0); Blood Urea Nitrogen 17 mg/dL (8-23); Calcium 9.2 mg/dL (8.6-10.3); Carbon Dioxide 38 mEq/L (23-29); Chloride 95 mEq/L (98-107); Globulin 3.2 g/dL (2.4-3.5); Glucose 109 mg/dL (70-105); Magnesium 1.9 mg/dL (1.6-2.6); Osmolality,Calculated 282 (280-300); Phosphorous 3.7 mg/dL (2.7-4.5); Potassium 4.3 mEq/L (3.5-5.1); Sodium 135 mEq/L (136-145); eGFR For Non-African Americans > 60 (> 60)
[2018-02-06 10:09] LABS: Troponin I 0.06 ng/mL (< 0.04)
[2018-02-06 10:15] LABS: Anisocytosis 1+ (Not Present); Hypochromasia Present (Not Present)
[2018-02-06 10:16] LABS: Platelet Estimate Normal (Normal)
[2018-02-06] MEDS ORDERED: Naloxone 0.4 MG/ML INJ IVP PRN (10:58)
--- NOTE | 2018-02-06 11:18 | Internal Med History&Physical ---
Date of Encounter: 02/06/18 Time of Encounter: 11:00 Internal Medicine - H&P: HPI Chief complaint: SOB Admitted From: Home History of present illness: Ms. Smith is a 68 year old female with past medical history of HFrEF, nonischemic cardiomyopathy, COPD, CAD with 70% RCA lesion, presented to the ED with 2-3 day history of dyspnea. She denies orthopnea, PND, but did notice that her legs were slightly more swollen than before. No chest pain, palpitation, fever/chills, cough, sputum production, or sick contacts. She did not notice any melena, hematemesis, hematochezia, or bright red blood per rectum. She states that GI attempted colonoscopy a few month ago which could not be completed due to painful hemorrhoids. Takes aspirin and Plavix for CAD. In the ED, patient was afebrile with initial BP of 96/58. Initial labs showed mildly elevated troponin of 0.07 which has been around the same since June 2016. EKG no new changes. BNP 775 which is close to her baseline. Chest x-ray was only suggestive of minimal interstitial edema. Declined rectal exam due to hemorrhoid. She was given a dose of Lasix, IV Solu-Medrol, bronchodilators, and admitted for further management. Past Med Surg Social Fam HX - Past Medical History Attestation: Yes The following information was validated with the patient. Medical history: arthritis, CHF, DVT, GERD, hyperlipidemia, hypertension Additional medical history: Hernia x 4 Psychiatric history: depression - Past Surgical History Surgical History: herniorrhaphy, hysterectomy Additional surgical history: Tubal ligation. Endometriosis. Shoulder sx - Social History Smoking Status: Current every day smoker Smokeless Tobacco Status: No Alcohol use: none Drug use: none - Family History Father Family Member Ethnicity: Non- Living Status: Hx Family Cardiac Disorders: Yes (CHF, [place], HTN) Hx Family Endocrine Disorder: Yes (DM) Mother Family Member Ethnicity: Non- Living Status: Hx Family Neurologic Disorders: Yes (Alzheimer's disease) Brother Family Member Ethnicity: Non- Living Status: Hx Family Cancer: Yes (Pancreatic) Sister Family Member Ethnicity: Non- Living Status: Internal Medicine - H&P: Meds Aspirin 81 mg PO DAILY 08/06/16 [History] Citalopram [CeleXA] 20 mg PO DAILY 08/06/16 [History] Pantoprazole Sodium [Protonix] 40 mg PO DAILY 08/06/16 [History] Multivitamin-Min/Iron/FA/Vit K [Multi-Day Plus Minerals Tablet] 1 each PO DAILY 02/11/17 [History] Carvedilol [Coreg] 6.25 mg PO BIDWM #60 tablet 02/14/17 [Rx] Clopidogrel [Plavix] 75 mg PO DAILY #30 tablet 02/14/17 [Rx] Furosemide [Lasix] 20 mg PO DAILY #30 tablet 02/14/17 [Rx] Lisinopril [Zestril] 2.5 mg PO DAILY #30 tablet 02/14/17 [Rx] Atorvastatin [Lipitor] 10 mg PO DAILY 10/03/17 [History] Albuterol Sulfate [Albuterol Inhaler] 2 puff IH Q4HR PRN #1 hfa.aer.ad 10/09/17 [Rx] Docusate Sodium [Colace] 100 mg PO DAILY 02/06/18 [History] Psyllium Husk [Daily Fiber] 0.52 gm PO DAILY 02/06/18 [History] 3 Allergy/AdvReac Type Severity Reaction Status Date / Time Neomycin Allergy Blister Verified 02/06/18 09:57 Penicillins Allergy Blister Verified 02/06/18 09:57 All Systems PM: A 10-system review of systems was performed and is negative for pertinent findings except as documented above in the HPI. - Constitutional Vitals: Temp Pulse Resp BP Pulse Ox 98.1 F 80 18 109/41 100 02/06/18 08:17 02/06/18 10:34 02/06/18 10:34 02/06/18 10:34 02/06/18 10:34 Exam: General: Alert and oriented, not in acute distress. HEENT:EOM, pupils equal, round and reactive. Cardiovascular:Normal S1 & S2, No JVD. Pulse regular. Lungs: bibasilar rales, no rhonchi/wheezes Abdomen:Soft, non-tender, no rigidity. No masses. Declined rectal exam Extremities: Minimal left swelling at the ankles Neurological:Normal cognition and motor skills. Non-focal Skin:Normal color, no rash, no lesions. Pulses:Carotid and radial pulses normal +2. Rest of the physical exam is non contributory Internal Med - H&P Results - Labs CBC & Chem 7: 02/06/18 09:00 02/06/18 09:00 Labs: Short CBC 02/06/18 Range/Units 09:00 WBC 6.2 (4.3-11.1) K/mcL Hgb 9.7 L (11.5-15.4) g/dL Hct 32.6 L (35.3-44.9) % Plt Count 238 (140-400) K/mcL Neutrophils # 3.6 (1.6-8.9) K/mcL BMP 02/06/18 09:00 Sodium 135 L Potassium 4.3 Chloride 95 L Carbon Dioxide 38 H BUN 17 Creatinine 0.44 L Glucose 109 H Calcium 9.2 Cardiac Enzymes 02/06/18 Range/Units 09:00 Troponin I 0.06 H* (< 0.04) ng/mL Liver Function 02/06/18 Range/Units 09:00 Total Bilirubin 0.5 (0.3-1.0) mg/dL AST 18 (13-39) Units/L ALT 15 (7-52) Units/L Alkaline Phosphatase 66 (34-104) Units/L Albumin 3.8 (3.5-5.7) g/dL Urine 02/06/18 Range/Units 09:19 Urine Color Yellow (Yellow) Urine Clarity Clear (Clear) Urine pH 6.5 (5.0-8.0) pH Units Ur Specific [place] 1.018 (1.010-1.025) Urine Protein Negative (Neg-Trace) mg/dL Urine Glucose (UA) Normal (Normal) mg/dL - Impressions ITS Impressions Chest X-Ray 02/06/18 08:32 IMPRESSION: Cardiomegaly with minimal interstitial edema. D/ / 02/06/2018 08:58:01 Melva Jarquin MD / bret Interpreting Provider: Melva Jarquin MD - Assessment and plan (1) Symptomatic anemia Current Visit: Yes Status: Acute Assessment and plan: Presented with SOB that does not seem entirely consistent with decompensated heart failure or COPD exacerbation Hb 9.7, was 12.6 in 11/2017 denies any signs of symptoms of GIB but patient is on dual antiplatelet for her CAD. Declined rectal exam for stool occult Please collect sample from her bowel movement for occult bleeding H&H Q8, given her cardiac history, would aim for Hb >9 IV PPI twice a day, nothing by mouth Iron study, type and cross consider GI consult if Hb further drops or stool guaiac is +ve (2) Elevated troponin Current Visit: No Status: Chronic Assessment and plan: Chronic, hemoglobin goal as above (3) Coronary artery disease Current Visit: No Status: Chronic Assessment and plan: Asymptomatic. Dual antiplatelets on hold due to anemia until active bleed is ruled out Coreg and PREMA inhibitor will also be held off until active bleed is ruled out Qualifiers: Coronary Disease-Associated Artery/Lesion type: [place] artery [place] vs. transplanted heart: [place] heart Associated angina: without angina Qualified Code(s): I25.10 - Atherosclerotic heart disease of [place] coronary artery without angina pectoris (4) COPD (chronic obstructive pulmonary disease) Current Visit: Yes Status: Acute Assessment and plan: Presented with shortness of breath in the absence of worsening cough or sputum production. No wheezing on exam Does not seem to be in exacerbation, With monitor on when necessary bronchodilators Qualifiers: COPD type: COPD with acute exacerbation Qualified Code(s): J44.1 - Chronic obstructive pulmonary disease with (acute) exacerbation (5) NICM (nonischemic cardiomyopathy) Current Visit: No Status: Chronic Assessment and plan: Has cardiology appointment on 02/25 for ICD evaluation (6) DVT prophylaxis Current Visit: No Status: Acute Assessment and plan: SCD - Time Spent With Patient Total time spent is greater than 50% in coordination of care (as documented) at patient's floor/unit and/or counseling patient:
[2018-02-06] MEDS ORDERED: Ipratropium/Albuterol Neb 3 ML IH PRN (11:24)
[2018-02-06 11:41] LABS: INR 1.2; Prothrombin Time 13.8 Seconds (9.4-12.1)
[2018-02-06 12:05] LABS: % Iron Saturation 4 % (15-50); Iron 18 mcg/dL (50-170); Transferrin 325 mg/dL (203-362)
[2018-02-06 14:52] LABS: Hematocrit 33.5 % (35.3-44.9); Hemoglobin 9.9 g/dL (11.5-15.4)
[2018-02-06] MEDS: Pantoprazole 40 MG VIAL IVP SCH (18:08)
[2018-02-06 23:12] LABS: Hemoglobin 10.5 g/dL (11.5-15.4)
[2018-02-07] MEDS: Pantoprazole 40 MG VIAL IVP SCH ×2 (05:44→17:53)
[2018-02-07 07:12] LABS: Immature Granulocytes % 0.2 % (0-4); Platelet Count 251 K/mcL (140-400)
[2018-02-07 07:14] LABS: Basophils % 0.3 %; Eosinophils % 0.6 %; Hematocrit 35.6 % (35.3-44.9); Hemoglobin 10.3 g/dL (11.5-15.4); Lymphocytes # 1.8 K/mcL (0.6-4.6); Lymphocytes % 28.7 %; Mean Corpuscular HGB Conc 28.9 g/dL (31.6-35.5); Mean Corpuscular Hemoglobin 26.3 pg (28.0-33.3); Mean Platelet Volume 9.4 fL (9.4-12.4); Monocytes # 1.2 K/mcL (0.0-1.3); Monocytes % 19.1 %; Neutrophils # 3.2 K/mcL (1.6-8.9); Red Blood Count 3.91 M/mcL (3.82-4.97); Red Cell Distribution Width 14.4 % (11.5-14.5); Segmented Neutrophils % 51.1 %
[2018-02-07 07:31] LABS: BUN/Creatinine Ratio 33 (6-26); Blood Urea Nitrogen 17 mg/dL (8-23); Calcium 9.5 mg/dL (8.6-10.3); Carbon Dioxide 40 mEq/L (23-29); Chloride 94 mEq/L (98-107); Glucose 89 mg/dL (70-105); Osmolality,Calculated 285 (280-300); Potassium 4.7 mEq/L (3.5-5.1); Sodium 137 mEq/L (136-145); eGFR For Non-African Americans > 60 (> 60)
[2018-02-07 07:56] LABS: Anisocytosis 1+ (Not Present); Hypochromasia Present (Not Present); Platelet Estimate Normal (Normal)
[2018-02-07] MEDS ORDERED: Furosemide 20 MG TABLET PO SCH (09:00)
[2018-02-07] MEDS: Multivit/Ca/Min/Fe/FA 1 TAB TABLET PO SCH (09:23)
[2018-02-07] MEDS: Psyllium 1 PACKET POWD.PACK PO SCH (09:23)
--- NOTE | 2018-02-07 09:44 | Internal Med Progress Note ---
Hospitalist Progress Note - Encounter Date of Encounter: 02/07/18 Time of Encounter: 09:41 - Subjective Interval History: Patient seen and examined this morning. No acute overnight events. SOB improved but still present. Denies any chest pain or abdominal pain. Refusing rectal exam. Hasn't had BM. Wants to go home. Says cant lay flat to get CT scan. - Exam Vitals: Temp Pulse Resp BP Pulse Ox 98.2 F 65 16 98/62 93 02/07/18 07:08 02/07/18 07:08 02/07/18 07:08 02/07/18 07:08 02/07/18 07:08 Exam: General: In no acute distress. Conversant. Mild conversational dyspnea. Respiratory exam: CTAB. Decreased air entry bilaterally. No rales, rhonchi, wheezes. Occasional crackles at base. Cardiovascular exam: RRR, +S1, +S2. no murmur, gallop, rubs. GI/Abdominal exam: Non-tender, Non-distended, normal bowel sounds, soft, no peritoneal signs. Extremities exam: full ROM, 1+ pedal edema, warm, pulses palpable in b/l lower extremities. no calf tenderness Neurological exam: CN II-XII intact, AO X3, no focal deficits. no pronater drift , facial droop, speech deficit Skin exam: No skin rash, ulcer, purpura or ecchymosis. - Assessment and Plan (1) Elevated troponin Current Visit: No Status: Chronic (2) DVT prophylaxis Current Visit: No Status: Acute (3) Coronary artery disease Current Visit: No Status: Chronic (4) NICM (nonischemic cardiomyopathy) Current Visit: No Status: Chronic (5) COPD (chronic obstructive pulmonary disease) Current Visit: Yes Status: Acute (6) Symptomatic anemia Current Visit: Yes Status: Acute - Summary of Assessment and Plan Summary of Assessment and Plan: Shortness of breath - likely from Symptomatic anemia along with other comorbidities - SOB that does not seem entirely consistent with decompensated heart failure or COPD exacerbation - Hb 9.7, was 12.6 in 11/2017 - Stool occult pending. - Did not receive transfusion. Hb 10.3. No acute bleeding. - Transfuse to keep Hb >8 given significant cardiac history. - c/w PPI twice a day, nothing by mouth - Iron study suggestive of iron deficiency. will start iron supplementation on discharge. - f/u stool guaiac. - No risk factors for PE. Cannot lay flat for CT scan. Will get D-dimer and LE doppler. - colonoscopy on 05/13/17 showed many diverticula, internal hemorrhoids grade 2. Could not finish due to tortuous colon with possible luminal narrawoing. Monitor H&H for today. Pt does not appear to want to get colonscopy if possible. Will monitor for now. - Patient ambulatory at home, uses 2lpm of oxygen at baseline. - EKG from ED with atrial fibrillation. symptoms possible from afib. currently regular. Will start pt on monitoring coordinator. Consider cardiology consult. - ECHO on 10/14 wtih EF of 30%, diastolic dysfunction. Does not appear to have CHF exacerbation. Will consider repeat ECHO if testing for DVT positive given cannot get CT and BP slightly on lower end. Elevated troponin - without chest pain. - Unlikley to have ACS. - EKG with irregular rhythm. CAD - Asymptomatic. - Dual antiplatelets on hold due to anemia until active bleed is ruled out - Coreg and PREMA inhibitor held off until active bleed is ruled out COPD - Presented with shortness of breath in the absence of worsening cough or sputum production. No wheezing on exam - Does not seem to be in exacerbation - prn bronchodilators NICM - Has cardiology appointment on 02/25 for ICD evaluation DVT prophylaxis - SCD - Time Spent with Patient Total time spent is greater than 50% in coordination of care (as documented) at patient's floor/unit and/or counseling patient: Internal Medicine: Result - Labs CBC & Chem 7: 02/07/18 06:49 02/07/18 06:49 Labs: Short CBC 02/06/18 02/06/18 02/07/18 Range/Units 14:42 23:00 06:49 WBC 6.3 (4.3-11.1) K/mcL Hgb 9.9 L 10.5 L 10.3 L (11.5-15.4) g/dL Hct 33.5 L 36.0 35.6 (35.3-44.9) % Plt Count 251 (140-400) K/mcL Neutrophils # 3.2 (1.6-8.9) K/mcL BMP 02/07/18 06:49 Sodium 137 Potassium 4.7 Chloride 94 L Carbon Dioxide 40 H* BUN 17 Creatinine 0.52 L Glucose 89 Calcium 9.5 Cardiac Enzymes 02/06/18 Range/Units 14:42 Troponin I 0.04 H* (< 0.04) ng/mL - ABG Interpretation ABG results: PT/INR, D-dimer PT 13.8 Seconds (9.4-12.1) H 02/06/18 11:23 Consult Discharge Plan - Plan Referrals: Duran Sims Jr, MD [Primary Care Provider] - (3) Coronary artery disease Qualifiers: Coronary Disease-Associated Artery/Lesion type: [place] artery [place] vs. transplanted heart: [place] heart Associated angina: without angina Qualified Code(s): I25.10 - Atherosclerotic heart disease of [place] coronary artery without angina pectoris (5) COPD (chronic obstructive pulmonary disease) Qualifiers: COPD type: COPD with acute exacerbation Qualified Code(s): J44.1 - Chronic obstructive pulmonary disease with (acute) exacerbation
[2018-02-08 05:10] LABS: Hemoglobin 9.7 g/dL (11.5-15.4); Immature Granulocytes % 0.2 % (0-4)
[2018-02-08 05:12] LABS: Basophils % 0.3 %; Eosinophils # 0.1 K/mcL (0.0-0.6); Eosinophils % 1.5 %; Hematocrit 33.1 % (35.3-44.9); Lymphocytes # 1.7 K/mcL (0.6-4.6); Lymphocytes % 28.3 %; Mean Corpuscular HGB Conc 29.3 g/dL (31.6-35.5); Mean Corpuscular Hemoglobin 26.3 pg (28.0-33.3); Mean Corpuscular Volume 89.7 fL (83.0-100.0); Mean Platelet Volume 9.7 fL (9.4-12.4); Monocytes # 0.9 K/mcL (0.0-1.3); Monocytes % 15.4 %; Platelet Count 248 K/mcL (140-400); Red Blood Count 3.69 M/mcL (3.82-4.97); Red Cell Distribution Width 14.2 % (11.5-14.5); Segmented Neutrophils % 54.3 %
[2018-02-08 05:16] LABS: Neutrophils # 3.3 K/mcL (1.6-8.9)
[2018-02-08 05:30] LABS: BUN/Creatinine Ratio 36 (6-26); Blood Urea Nitrogen 20 mg/dL (8-23); Calcium 9.2 mg/dL (8.6-10.3); Carbon Dioxide 40 mEq/L (23-29); Chloride 94 mEq/L (98-107); Glucose 92 mg/dL (70-105); Osmolality,Calculated 286 (280-300); Potassium 4.4 mEq/L (3.5-5.1); Sodium 137 mEq/L (136-145); eGFR For Non-African Americans > 60 (> 60)
[2018-02-08 05:35] LABS: Hypochromasia Present (Not Present); Platelet Estimate Normal (Normal); Reactive Lymphocytes Present (Not Present)
[2018-02-08 05:36] LABS: Anisocytosis 1+ (Not Present)
[2018-02-08] MEDS: Pantoprazole 40 MG VIAL IVP SCH (05:39)
[2018-02-08] MEDS: Psyllium 1 PACKET POWD.PACK PO SCH (08:18)
[2018-02-08] MEDS: Multivit/Ca/Min/Fe/FA 1 TAB TABLET PO SCH (08:19)
[2018-02-08 11:19] VITALS: BP 100/49
--- NOTE | 2018-02-08 11:22 | Discharge Summary ---
Date of Encounter: 02/08/18 Time of Encounter: 11:16 - Discharge Diagnosis (1) COPD exacerbation Priority: Primary Status: Acute (2) Anemia Priority: Primary Status: Chronic Qualifiers: Anemia type: iron deficiency Iron deficiency anemia type: unspecified iron deficiency Qualified Code(s): D50.9 - Iron deficiency anemia, unspecified (3) Coronary artery disease Priority: Secondary Status: Chronic Qualifiers: Coronary Disease-Associated Artery/Lesion type: [place] artery [place] vs. transplanted heart: [place] heart Associated angina: without angina Qualified Code(s): I25.10 - Atherosclerotic heart disease of [place] coronary artery without angina pectoris (4) Elevated troponin Priority: Secondary Status: Chronic (5) Chronic diastolic heart failure Priority: Secondary Status: Chronic (6) GERD (gastroesophageal reflux disease) Priority: Secondary Status: Chronic Qualifiers: Esophagitis presence: esophagitis presence not specified Qualified Code(s) : K21.9 - Gastro-esophageal reflux disease without esophagitis Hospital course: HOSPITAL COURSE: This is a 68-year-old woman was admitted to the hospital with some difficulty breathing and weakness developing in the last few days preceding the admission. It was likely caused by COPD exacerbation. Chest x-ray did not show any pulmonary congestion. The patient has had underlying coronary artery disease/ chronic diastolic heart failure. We found her to have mild anemia with hemoglobin of 10.5. Her iron level is only 18 with saturation of 4. The patient had attempted colonoscopy diffuse last several months ago. They could not do this as she had very painful hemorrhoids. She has never had EGD. She has chronic elevation of her troponin. CONDITION AT DISCHARGE: The patient feels good. She is weak but able to walk by herself without difficulties. Her cough is mild; without wheezing. Denies chest pain. Denies abdominal pain, nausea and vomiting. She has normal urination. Skin: Free of rash and discoloration. Respiratory: Normal breath sounds with no crackles and wheezes bilaterally. CV: Heart is regular with no gallop or murmur. GI: Abdomen is flat and soft with no palpable mass or visceromegaly. Neuro exam: There is no focal deficits. Normal speech, swallowing and gait. SEE DISCHARGE ORDERS/MEDICATIONS.. She would benefit from outpatient GI workuplooking for a source of bleeding/ iron deficiency anemia. I started her on ferrous gluconate. Discharge discussed with: patient - Time Spent with Patient Total time spent providing and/or coordinating discharge services: Greater than 30 minutes (40 minutes..) - Discharge Medications Prescriptions: Ferrous Gluconate 324 mg PO BID #60 tablet Home Medications: Aspirin 81 mg PO DAILY 08/06/16 [History] Citalopram [CeleXA] 20 mg PO DAILY 08/06/16 [History] Pantoprazole Sodium [Protonix] 40 mg PO DAILY 08/06/16 [History] Multivitamin-Min/Iron/FA/Vit K [Multi-Day Plus Minerals Tablet] 1 each PO DAILY 02/11/17 [History] Carvedilol [Coreg] 6.25 mg PO BIDWM #60 tablet 02/14/17 [Rx] Clopidogrel [Plavix] 75 mg PO DAILY #30 tablet 02/14/17 [Rx] Furosemide [Lasix] 20 mg PO DAILY #30 tablet 02/14/17 [Rx] Lisinopril [Zestril] 2.5 mg PO DAILY #30 tablet 02/14/17 [Rx] Atorvastatin [Lipitor] 10 mg PO DAILY 10/03/17 [History] Albuterol Sulfate [Albuterol Inhaler] 2 puff IH Q4HR PRN #1 hfa.aer.ad 10/09/17 [Rx] Docusate Sodium [Colace] 100 mg PO DAILY 02/06/18 [History] Psyllium Husk [Daily Fiber] 0.52 gm PO DAILY 02/06/18 [History] Ferrous Gluconate 324 mg PO BID #60 tablet 02/08/18 [Rx] Allergies/Adverse Reactions: 3 Allergy/AdvReac Type Severity Reaction Status Date / Time Neomycin Allergy Blister Verified 02/06/18 09:57 Penicillins Allergy Blister Verified 02/06/18 09:57 Date of admission: 02/06/18 11:05 Primary care physician: Duran Sims Jr, MD Discharging clinician: Angelo Ojeda Anticipated date of discharge: 02/08/18 - Constitutional Vitals: Temp Pulse Resp BP Pulse Ox 97.9 F 86 17 116/67 94 02/08/18 08:05 02/08/18 08:05 02/08/18 08:05 02/08/18 08:05 02/08/18 08:05 General appearance: Present: A&O X 3, pleasant, answers questions appropriately Exam: xx - Patient Status Disposition: Home, Self-Care Condition: Good Functional capacity at discharge: independent ambulation Overall status at discharge: patient is back to baseline - Discharge Instructions Instructions: Iron Deficiency Anemia (DC), Dyspnea (GEN) Follow Up With: Duran Sims Jr, MD [Primary Care Provider] - (Web requested appointment, office will call with appoint date and time. if you do not hear from office within 2-3 days, please call to schedule appoiment.) Additional Instructions: THE PATIENT HAS IRON-DEFFICIENCY ANEMIA; GI WORK-UP IS INDICATED.. - Diet and Activity Activity: increase activity as tolerated Diet: low fat, low cholesterol - VTE Reasons for not Prescribing Prophylaxis: Treatment not Indicated - Low risk for VTE Deep Vein Thrombosis/Pulmonary Embolism Present on Admission: No
--- NOTE | 2018-02-09 17:07 | Electrocardiograph Report ---
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
== END 2018-02-08 12:25 | disposition home or self-care (01) ==
LOC: EMEROOARM 08:07 → 3BNU 08:07 → SUATTDRO 11:05 → 3BNU 12:04
PROVIDERS: ADMIT Internal Medicine; ATTEND Internal Medicine

== ENCOUNTER 2018-02-17 11:32 | Inpatient (IN) ==
--- NOTE | 2018-02-17 12:10 | Emergency Department Note ---
Disposition Clinical Impression: Orthopnea, BOBBY (dyspnea on exertion), Chronic anemia, Elevated troponin CHF (congestive heart failure) Qualifiers: Heart failure type: unspecified Heart failure chronicity: acute on chronic Qualified Code(s): I50.9 - Heart failure, unspecified Disposition: Admitted As Inpatient Condition: Fair Referrals: Duran Sims Jr, MD [Primary Care Provider] - Forms: ED Satisfaction Letter SOB HPI - General Chief Complaint: ED Shortness of Breath/Dyspnea Stated Complaint: "low O2,CHF sent by " Time Seen by Provider: 02/17/18 11:46 Source: patient Mode of arrival: private vehicle Limitations: no limitations Nursing Notes Reviewed: Yes Vital Signs Reviewed: Yes - History of Present Illness 68-year-old female history of oxygen-dependent COPD on 2 L continuously, CHF on 20 mg of Lasix daily, prior CAD on aspirin and Plavix who presents to the ER from her primary care office due to concern for CHF and COPD. The patient states she has had worsening shortness of breath over the last 3 days. Reports orthopnea which is chronic for her. Denies any fevers, chest pain, cough, nausea, vomiting, diarrhea. Reports when history of DVT however not on anticoagulation now. No history of pulmonary embolism. No other complaints. Pt Subjective Complaint: shortness of breath Onset (ago): day(s) Severity: moderate Consistency/Duration: constant Improves with: nothing Worsens with: nothing Known history of: COPD, congestive heart failure Associated symptoms: Denies: chest pain, fever, cough Treatment prior to arrival: oxygen Cough present: No Sputum production: No Sputum Amount: None - Related Data Home oxygen amount: 2 liters Home Medications Medication Instructions Recorded Confirmed Aspirin 81 mg PO DAILY 08/06/16 02/06/18 Citalopram [CeleXA] 20 mg PO DAILY 08/06/16 02/06/18 Pantoprazole Sodium [Protonix] 40 mg PO DAILY 08/06/16 02/06/18 Multivitamin-Min/Iron/FA/Vit K 1 each PO DAILY 02/11/17 02/06/18 [Multi-Day Plus Minerals Tablet] Atorvastatin [Lipitor] 10 mg PO DAILY 10/03/17 02/06/18 Docusate Sodium [Colace] 100 mg PO DAILY 02/06/18 02/06/18 Psyllium Husk [Daily Fiber] 0.52 gm PO DAILY 02/06/18 02/06/18 Previous Rx's Medication Instructions Recorded Carvedilol [Coreg] 6.25 mg PO BIDWM #60 tablet 02/14/17 Clopidogrel [Plavix] 75 mg PO DAILY #30 tablet 02/14/17 Furosemide [Lasix] 20 mg PO DAILY #30 tablet 02/14/17 Lisinopril [Zestril] 2.5 mg PO DAILY #30 tablet 02/14/17 Albuterol Sulfate [Albuterol 2 puff IH Q4HR PRN #1 hfa.aer.ad 10/09/17 Inhaler] Ferrous Gluconate 324 mg PO BID #60 tablet 02/08/18 Allergies Allergy/AdvReac Type Severity Reaction Status Date / Time Neomycin Allergy Blister Verified 02/06/18 09:57 Penicillins Allergy Blister Verified 02/06/18 09:57 All systems ED: reviewed and negative except as stated. Constitutional: Denies: fever Cardiovascular: Reports: orthopnea. Denies: chest pain, palpitations Respiratory: Reports: dyspnea. Denies: cough Gastrointestinal: Denies: abdominal pain, nausea, vomiting, diarrhea Past Medical History - Past Medical History Attestation: Yes The following information was validated with the patient. Source: patient Medical history: Reports: arthritis, CHF, DVT, GERD, hyperlipidemia, hypertension Surgical history: Reports: herniorrhaphy, hysterectomy Psychiatric history: Reports: depression HOOK TENDER history: Reports: no HOOK TENDER history - Social History Smoking Status: Current every day smoker Smokeless Tobacco Status: No Alcohol use: Reports: none Drug use: Reports: none Physical Exam - General Limitations: no limitations General appearance: alert, in no apparent distress - Head Head exam: atraumatic, normocephalic - Eye Eye exam: Present: normal appearance - ENT ENT exam: normal exam - Neck Neck exam: Present: normal inspection - Chest Chest inspection: Present: normal inspection, symmetric chest wall rise - Respiratory Respiratory exam: Present: normal lung sounds bilaterally - Cardiovascular Cardiovascular exam: Present: regular rate, normal rhythm, normal heart sounds - Abdominal Exam Abdominal exam: Present: soft, Non-Tender. Absent: tenderness, distention, rigidity - Extremities Exam Extremities exam: Present: normal inspection, full ROM - Expanded Upper Extremity Exam Shoulder exam: Present: normal inspection, full ROM Arm exam: Present: normal inspection, full ROM Elbow exam: Present: normal inspection, full ROM Forearm/Wrist exam: Present: normal inspection, full ROM Hand exam: Present: normal inspection, full ROM - Expanded Lower Extremity Exam Hip/Pelvis exam: Present: normal inspection, full ROM Upper leg exam: Present: normal inspection, full ROM Knee exam: Present: normal inspection, full ROM Lower leg exam: Present: normal inspection, full ROM, swelling (2+ pitting edema) Ankle exam: Present: normal inspection, full ROM Foot/toe exam: Present: normal inspection, full ROM - Skin Skin exam: Present: warm, dry Course Course Narrative: Patient seen and examined. Vital signs reviewed. Plan for EKG, chest x-ray, labs including troponin and BNP. - Reevaluation(s) Reevaluation #1: Imaging and labs reviewed. Discussed with patient. Plan for Lasix as she appears volume overloaded. Vital Signs Temperature 98.2 F 02/17/18 11:36 Pulse Rate 75 02/17/18 11:36 Respiratory Rate 22 02/17/18 11:36 Blood Pressure 96/38 02/17/18 11:36 O2 Sat by Pulse Oximetry 94 02/17/18 11:36 Temperature 98.2 F 02/17/18 12:18 Pulse Rate 81 02/17/18 12:18 Respiratory Rate 22 02/17/18 12:18 Blood Pressure 121/77 02/17/18 12:18 O2 Sat by Pulse Oximetry 100 02/17/18 12:18 Oxygen Delivery Oxygen Delivery Nasal Cannula Shortness of Breath/Dyspnea - [facility] Narrative Medical decision making narrative: 68-year-old female with 3 days of worsening dyspnea. She is noted to have tachypnea here. She is hemodynamically stable. Her EKG is without ischemic findings. Chest x-ray by my interpretation does appear a little bit worse with some worsening vascular congestion. She has lower extremity pitting edema. Her labs are chronically elevated including BNP and troponin. Patient given 40 mg of IV Lasix. Admitted to the hospitalist service. - Lab Data Lab results reviewed: Yes I reviewed the patient's lab results. Result diagrams: 02/17/18 12:03 02/17/18 12:03 Lab Results 02/17/18 02/17/18 02/17/18 Range/Units 12:03 12:03 12:03 WBC 7.2 (4.3-11.1) K/mcL RBC 3.61 L (3.82-4.97) M/mcL Hgb 9.4 L (11.5-15.4) g/dL Hct 32.5 L (35.3-44.9) % MCV 90.0 (83.0-100.0) fL MCH 26.0 L (28.0-33.3) pg MCHC 28.9 L (31.6-35.5) g/dL RDW 15.2 H (11.5-14.5) % Plt Count 222 (140-400) K/mcL MPV 10.2 (9.4-12.4) fL Immature Gran % 0.1 (0-4) % Seg Neutrophils % 62.8 % Lymphocytes % 15.9 % Monocytes % 19.4 % Eosinophils % 1.5 % Basophils % 0.3 % Neutrophils # 4.5 (1.6-8.9) K/mcL Lymphocytes # 1.1 (0.6-4.6) K/mcL Monocytes # 1.4 H (0.0-1.3) K/mcL Eosinophils # 0.1 (0.0-0.6) K/mcL Basophils # 0.0 (0.0-0.2) K/mcL Platelet Estimate Normal (Normal) Stomatocytes 1+ A (Not Present) Sodium 138 (136-145) mEq/L Potassium 4.0 (3.5-5.1) mEq/L Chloride 97 L (98-107) mEq/L Carbon Dioxide 39 H (23-29) mEq/L BUN 14 (8-23) mg/dL Creatinine 0.55 L (0.60-1.20) mg/dL Est GFR ( Amer) > 60 (> 60) Est GFR (Non-Af Amer) > 60 (> 60) BUN/Creatinine Ratio 25 (6-26) Glucose 96 (70-105) mg/dL Calculated Osmolality 286 (280-300) Calcium 9.5 (8.6-10.3) mg/dL Magnesium 2.0 (1.6-2.6) mg/dL Troponin I 0.05 H* (< 0.04) ng/mL B-Natriuretic Peptide 646 H (Less than 100) pg/mL - Radiology Data Radiology results reviewed: Yes I reviewed the patient's radiology results. Chest X-Ray 02/17/18 11:42 IMPRESSION: Stable cardiomegaly without evidence of heart failure. D/ / Magnus Ann / Magnus Ann Interpreting Provider: Magnus Ann - EKG Data EKG attestation: Yes I reviewed and interpreted this EKG. EKG results narrative: EKG demonstrates sinus rhythm with trigeminy with rate of 71 bpm. Left axis deviation. Prolonged QRS sikhism of 133. No gross ST elevations or depressions. No acute ischemic findings. S.B.Samina - Yvon Situation: Demographics, MOA Background: Presenting Complaint, Relevant PMH, Meds, & Allergies Assessment: Course and respsone to treatment, Exam Concerns, Patient/Family Ex pectation, Pertinant Lab Results Recommendation: Barrier(s) to disposition, Recommendation based on pending studies, treatments, or consults S.B.ANaiRNai Report Given to: Dr. Zee Sanz Repor Time: 13:20
--- NOTE | 2018-02-17 12:12 | Emergency Department Note ---
Disposition Clinical Impression: CHF (congestive heart failure), Orthopnea, BOBBY (dyspnea on exertion) Disposition: Still a Patient General Adult HPI - General Chief complaint: ED Shortness of Breath/Dyspnea Stated complaint: "low O2,CHF sent by " Time Seen by Provider: 02/17/18 11:46 - History of Present Illness Pain Scale: 0 - Related Data Home Medications Medication Instructions Recorded Confirmed Aspirin 81 mg PO DAILY 08/06/16 02/06/18 Citalopram [CeleXA] 20 mg PO DAILY 08/06/16 02/06/18 Pantoprazole Sodium [Protonix] 40 mg PO DAILY 08/06/16 02/06/18 Multivitamin-Min/Iron/FA/Vit K 1 each PO DAILY 02/11/17 02/06/18 [Multi-Day Plus Minerals Tablet] Atorvastatin [Lipitor] 10 mg PO DAILY 10/03/17 02/06/18 Docusate Sodium [Colace] 100 mg PO DAILY 02/06/18 02/06/18 Psyllium Husk [Daily Fiber] 0.52 gm PO DAILY 02/06/18 02/06/18 Previous Rx's Medication Instructions Recorded Carvedilol [Coreg] 6.25 mg PO BIDWM #60 tablet 02/14/17 Clopidogrel [Plavix] 75 mg PO DAILY #30 tablet 02/14/17 Furosemide [Lasix] 20 mg PO DAILY #30 tablet 02/14/17 Lisinopril [Zestril] 2.5 mg PO DAILY #30 tablet 02/14/17 Albuterol Sulfate [Albuterol 2 puff IH Q4HR PRN #1 hfa.aer.ad 10/09/17 Inhaler] Ferrous Gluconate 324 mg PO BID #60 tablet 02/08/18 Allergies Allergy/AdvReac Type Severity Reaction Status Date / Time Neomycin Allergy Blister Verified 02/06/18 09:57 Penicillins Allergy Blister Verified 02/06/18 09:57 Past Medical History - Past Medical History Medical history: Reports: arthritis, CHF, DVT, GERD, hyperlipidemia, hypertension Surgical history: Reports: herniorrhaphy, hysterectomy Psychiatric history: Reports: depression PLANT WIRE CHIEF history: Reports: no PLANT WIRE CHIEF history - Social History Smoking Status: Current every day smoker Smokeless Tobacco Status: No Alcohol use: Reports: none Drug use: Reports: none Course Vital Signs Temperature 98.2 F 02/17/18 11:36 Pulse Rate 75 02/17/18 11:36 Respiratory Rate 22 02/17/18 11:36 Blood Pressure 96/38 02/17/18 11:36 O2 Sat by Pulse Oximetry 94 02/17/18 11:36 Temperature 98.2 F 02/17/18 11:36 Pulse Rate 75 02/17/18 11:36 Respiratory Rate 22 02/17/18 11:36 Blood Pressure 96/38 02/17/18 11:36 O2 Sat by Pulse Oximetry 94 02/17/18 11:36 Oxygen Delivery Oxygen Delivery Nasal Cannula Attestation Statement - Attestation Attestation: I examined this patient and my medical decision-making was reviewed with the Resident Physician. I agree with the documented findings, disposition and treatment plan as described except to the extent set forth below. 68 yo F presents w COPD/CHF concerns. over 3 days. getting worse. assoc with orthopnea, sob, weight gain, leg swelling. concerns for both chf and copd flare. on chronic home O2. will work up for this anticipate admission. vss. no chest pain. EKG was reading atrial fibrillation. It seems very regular. She is in trigeminy with a bundle branch block, left. she has no cp.
[2018-02-17 12:38] LABS: Eosinophils % 1.5 %; Red Cell Distribution Width 15.2 % (11.5-14.5)
[2018-02-17 12:39] LABS: Basophils % 0.3 %; Eosinophils # 0.1 K/mcL (0.0-0.6); Hematocrit 32.5 % (35.3-44.9); Hemoglobin 9.4 g/dL (11.5-15.4); Immature Granulocytes % 0.1 % (0-4); Lymphocytes % 15.9 %; Mean Corpuscular HGB Conc 28.9 g/dL (31.6-35.5); Mean Platelet Volume 10.2 fL (9.4-12.4); Monocytes # 1.4 K/mcL (0.0-1.3); Monocytes % 19.4 %; Neutrophils # 4.5 K/mcL (1.6-8.9); Platelet Count 222 K/mcL (140-400); Red Blood Count 3.61 M/mcL (3.82-4.97); Segmented Neutrophils % 62.8 %
[2018-02-17 12:41] LABS: Lymphocytes # 1.1 K/mcL (0.6-4.6)
[2018-02-17 12:57] LABS: BUN/Creatinine Ratio 25 (6-26); Blood Urea Nitrogen 14 mg/dL (8-23); Calcium 9.5 mg/dL (8.6-10.3); Carbon Dioxide 39 mEq/L (23-29); Chloride 97 mEq/L (98-107); Glucose 96 mg/dL (70-105); Osmolality,Calculated 286 (280-300); Sodium 138 mEq/L (136-145); eGFR For Non-African Americans > 60 (> 60)
[2018-02-17 13:02] LABS: Troponin I 0.05 ng/mL (< 0.04)
[2018-02-17 13:03] LABS: Platelet Estimate Normal (Normal); Stomatocytes 1+ (Not Present)
[2018-02-17] MEDS ORDERED: Aspirin 325 MG TABLET PO ONE (13:03)
[2018-02-17] MEDS ORDERED: Furosemide 40 MG/4 ML VIAL IVP ONE (13:03)
--- NOTE | 2018-02-17 13:57 | Internal Med History&Physical ---
Date of Encounter: 02/17/18 Time of Encounter: 13:55 Internal Medicine - H&P: HPI Chief complaint: sob x 3 days Admitted From: Emergency Dept Plans for Post Hospital Care: Home History of present illness: Ms. Smith is a 68 year old female Patient with history of CAD PTCA in the past,last has RCA 70% not i ntervened COPD, non-ischemic cardiomyopathy EF 30%, history of DVT, anemia, hypertension, high cholesterol, smoking history. Patient recently admitted to the hospital and discharge February 08 patient sent from primary physician office Dr. Sims for shortness of breath patient described shortness of breath, progressively getting worse with PND and orthopnea with weight gain and leg swelling for 3 days evaluation consistent with congestive heart failure patient denies any chest pain troponin 0.05 BnP was 646 Past Med Surg Social Fam HX - Past Medical History Medical history: arthritis, CHF, DVT, GERD, hyperlipidemia, hypertension Additional medical history: Hernia x 4 Psychiatric history: depression - Past Surgical History Surgical History: herniorrhaphy, hysterectomy Additional surgical history: Tubal ligation. Endometriosis. Shoulder sx - Social History Smoking Status: Current every day smoker Smokeless Tobacco Status: No Alcohol use: none Drug use: none - Family History Father Family Member Ethnicity: Non- Living Status: Hx Family Cardiac Disorders: Yes (CHF, [place], HTN) Hx Family Endocrine Disorder: Yes (DM) Mother Family Member Ethnicity: Non- Living Status: Hx Family Neurologic Disorders: Yes (Alzheimer's disease) Brother Family Member Ethnicity: Non- Living Status: Hx Family Cancer: Yes (Pancreatic) Sister Family Member Ethnicity: Non- Living Status: Internal Medicine - H&P: Meds Aspirin 81 mg PO DAILY 08/06/16 [History] Citalopram [CeleXA] 20 mg PO DAILY 08/06/16 [History] Pantoprazole Sodium [Protonix] 40 mg PO DAILY 08/06/16 [History] Carvedilol [Coreg] 6.25 mg PO BIDWM #60 tablet 02/14/17 [Rx] Clopidogrel [Plavix] 75 mg PO DAILY #30 tablet 02/14/17 [Rx] Furosemide [Lasix] 20 mg PO DAILY #30 tablet 02/14/17 [Rx] Lisinopril [Zestril] 2.5 mg PO DAILY #30 tablet 02/14/17 [Rx] Atorvastatin [Lipitor] 10 mg PO DAILY 10/03/17 [History] Albuterol Sulfate [Albuterol Inhaler] 2 puff IH Q4HR PRN #1 hfa.aer.ad 10/09/17 [Rx] Docusate Sodium [Colace] 100 mg PO DAILY 02/06/18 [History] Psyllium Husk [Daily Fiber] 0.52 gm PO DAILY 02/06/18 [History] Ferrous Gluconate 324 mg PO BID #60 tablet 02/08/18 [Rx] Ipratropium/Albuterol Sulfate [Iprat-Albut 0.5-3(2.5) mg/3 ml] 3 ml IH 3-4XD PRN 02/17/18 [History] Allergy/AdvReac Type Severity Reaction Status Date / Time Neomycin Allergy Blister Verified 02/17/18 13:47 Penicillins Allergy Blister Verified 02/17/18 13:47 All Systems PM: A 10-system review of systems was performed and is negative for pertinent findings except as documented above in the HPI. - Constitutional Vitals: Temp Pulse Resp BP Pulse Ox 98.2 F 81 22 135/88 100 02/17/18 12:18 02/17/18 12:18 02/17/18 12:18 02/17/18 13:00 02/17/18 12:18 General appearance: Present: cooperative, mild distress Exam: done - Head Head exam: Present: atraumatic, normocephalic - Eye Eye exam: Present: PERRL, conjuntiva pink, sclera anicteric Pupils: Present: PERRL - Neck Neck exam general surgery: Present: supple, trachea midline. Absent: lymphadenopathy - Respiratory Respiratory exam: Present: prolonged expiratory phase, rales - Cardiovascular Cardiovascular exam: Present: RRR, +S1, +S2 - GI/Abdominal GI/Abdominal exam: Present: normal bowel sounds, soft, no peritoneal signs. Absent: distended, tenderness - Extremities Exam Extremities exam: Present: pedal edema Internal Med - H&P Results - Labs CBC & Chem 7: 02/17/18 12:03 02/17/18 12:03 Labs: Short CBC 02/17/18 Range/Units 12:03 WBC 7.2 (4.3-11.1) K/mcL Hgb 9.4 L (11.5-15.4) g/dL Hct 32.5 L (35.3-44.9) % Plt Count 222 (140-400) K/mcL Neutrophils # 4.5 (1.6-8.9) K/mcL BMP 02/17/18 12:03 Sodium 138 Potassium 4.0 Chloride 97 L Carbon Dioxide 39 H BUN 14 Creatinine 0.55 L Glucose 96 Calcium 9.5 Cardiac Enzymes 02/17/18 Range/Units 12:03 Troponin I 0.05 H* (< 0.04) ng/mL - Impressions ITS Impressions Chest X-Ray 02/17/18 11:42 IMPRESSION: Stable cardiomegaly without evidence of heart failure. D/ / Magnus Ann / Magnus Ann Interpreting Provider: Magnus Ann - Assessment and plan (1) Elevated troponin Current Visit: Yes Status: Chronic Assessment and plan: Elevated troponin patient denies any chest pain with transient troponin (2) Acute exacerbation of CHF (congestive heart failure) Current Visit: No Status: Acute Assessment and plan: Acute on chronic systolic heart failure BNP 647 was started on IV Lasix and consult cardiology for further management Qualifiers: Heart failure type: systolic Qualified Code(s): I50.23 - Acute on chronic systolic (congestive) heart failure (3) Anemia Current Visit: No Status: Chronic Assessment and plan: Chronic hemoglobin is stable Qualifiers: Anemia type: unspecified type Qualified Code(s): D64.9 - Anemia, unspecified (4) COPD (chronic obstructive pulmonary disease) Current Visit: No Status: Chronic Assessment and plan: Chronic no active wheezing with resume home medication Qualifiers: COPD type: emphysema Emphysema type: unspecified Qualified Code(s): J43.9 - Emphysema, unspecified (5) Coronary artery disease Current Visit: No Status: Chronic Assessment and plan: Last cardiac cath as documented RCA 70% that was not intervened was a discussion about possible intervention will consult cardiology for further evaluation patient says she is allergic to metals and does not want angioplasty unless can be proven she would not have reaction to it Qualifiers: Coronary Disease-Associated Artery/Lesion type: [place] artery [place] vs. transplanted heart: [place] heart Associated angina: without angina Qualified Code(s): I25.10 - Atherosclerotic heart disease of [place] coronary artery wit hout angina pectoris (6) HLD (hyperlipidemia) Current Visit: No Status: Chronic Qualifiers: Hyperlipidemia type: pure hypercholesterolemia Qualified Code(s): E78.00 - Pure hypercholesterolemia, unspecified; E78.0 - Pure hypercholesterolemia (7) HTN (hypertension) Current Visit: No Status: Chronic Assessment and plan: Chronic and well controlled Qualifiers: Hypertension type: essential hypertension Qualified Code(s): I10 - Essential (primary) hypertension (8) NICM (nonischemic cardiomyopathy) Current Visit: No Status: Chronic Assessment and plan: EF 30% down from previous echo of normal LVF 2016 (9) Tobacco abuse Current Visit: No Status: Chronic - Time Spent With Patient Total time spent is greater than 50% in coordination of care (as documented) at patient's floor/unit and/or counseling patient:
[2018-02-17] MEDS ORDERED: Naloxone 0.4 MG/ML INJ IVP PRN (14:06)
[2018-02-17] MEDS ORDERED: Ipratropium/Albuterol Neb 3 ML IH PRN (14:09)
[2018-02-17] MEDS: Furosemide 40 MG/4 ML VIAL IVP SCH (16:14)
[2018-02-18 03:21] LABS: Immature Granulocytes % 0.2 % (0-4); Red Cell Distribution Width 15.3 % (11.5-14.5)
[2018-02-18 03:22] LABS: Basophils % 0.5 %; Eosinophils # 0.1 K/mcL (0.0-0.6); Eosinophils % 1.6 %; Hematocrit 33.9 % (35.3-44.9); Hemoglobin 9.6 g/dL (11.5-15.4); Lymphocytes # 1.5 K/mcL (0.6-4.6); Lymphocytes % 26.5 %; Mean Corpuscular HGB Conc 28.3 g/dL (31.6-35.5); Mean Corpuscular Hemoglobin 25.9 pg (28.0-33.3); Mean Corpuscular Volume 91.6 fL (83.0-100.0); Monocytes # 1.2 K/mcL (0.0-1.3); Monocytes % 20.2 %; Neutrophils # 2.9 K/mcL (1.6-8.9); Platelet Count 219 K/mcL (140-400)
[2018-02-18 03:35] LABS: Hypochromasia Present (Not Present); Platelet Estimate Normal (Normal)
[2018-02-18 03:43] LABS: Alanine Aminotransferase 15 Units/L (7-52); Albumin 3.7 g/dL (3.5-5.7); Albumin/Globulin Ratio 1.2 (1.1-2.2); Alkaline Phosphatase 70 Units/L (34-104); Aspartate Amino Transferase 17 Units/L (13-39); BUN/Creatinine Ratio 26 (6-26); Bilirubin,Total 0.3 mg/dL (0.3-1.0); Blood Urea Nitrogen 13 mg/dL (8-23); Calcium 9.3 mg/dL (8.6-10.3); Carbon Dioxide 44 mEq/L (23-29); Chloride 95 mEq/L (98-107); Chol/HDL Ratio 2.5 (0-4.9); Cholesterol 112 mg/dL (< 200); Globulin 3.2 g/dL (2.4-3.5); Glucose 137 mg/dL (70-105); HDL Cholesterol 45 mg/dL (40-59); LDL Cholesterol,Calculated 58 mg/dL (0-99); Magnesium 2.1 mg/dL (1.6-2.6); Osmolality,Calculated 292 (280-300); Potassium 4.3 mEq/L (3.5-5.1); Sodium 140 mEq/L (136-145); Total Protein 6.9 g/dL (6.4-8.9); Triglycerides 47 mg/dL (< 150); eGFR For Non-African Americans > 60 (> 60)
[2018-02-18] MEDS: *HR* Enoxaparin 40 MG/0.4 ML SYRINGE SQ SCH (05:47)
[2018-02-18] MEDS: Psyllium 1 PACKET POWD.PACK PO SCH (09:43)
[2018-02-18] MEDS: Aspirin 81 MG TAB.CHEW PO SCH (09:43)
[2018-02-18] MEDS: Furosemide 40 MG/4 ML VIAL IVP SCH ×2 (09:43→18:12)
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
--- NOTE | 2018-02-18 16:09 | Cardiology Consult Note ---
Date of Encounter: 02/18/18 Time of Encounter: 16:07 Assessment and Plan (1) Congestive heart failure Current Visit: Yes Status: Acute Likely systolic decompensated CHF with a component of possible ischemia however with her metal allergy she is strongly against any PCI or cardiac interventions at this time. He has been seen by an supervisor printing shop in this allergy has been confirmed. Patient is not excepting any risk of allergic reaction to the stent in her coronary arteries. In the setting of worsening CHF and LHC may be reasonable to evaluate for worse olga of her LCA disease or reassessment as this may have been underestimated previously. Echocardiogram obtained today reveals a ejection fraction of 30% similar to her most recent. Continue gentle diuresis Qualifiers: Heart failure type: unspecified Heart failure chronicity: acute on chronic Qualified Code(s): I50.9 - Heart failure, unspecified (2) ACS (acute coronary syndrome) Current Visit: No Status: Acute Possibly related to worsening coronary artery disease involving the RCA or LCA disease. We will discussed the possibility of a LHC to reevaluate symptoms once patient is euvolemic Discussion w patient/family: The assessment and plan as outlined above was discussed with the patient and/or family members who expressed understanding and agreement. All questions were answered. Thank you for involving us in the care of your patient. Please call with any questions. History of Present Illness Consult date: 02/18/18 Consult reason: SOB Chief complaint: SOB History of present illness: Ms. Smith is a 68 year old female with multiple cardiac risk factors and global systolic dysfunction with ejection fraction of 30%. And LHC revealed severe single-vessel disease in the RCA territory with nonobstructive disease in the LCA. She has out of proportion CHF to her coronary artery disease likely nonischemic component is present. She continues to have episodes of decompensated CHF and her symptoms are confuses COPD exacerbation as well. She has a strong allergic reaction to multiple metals therefore PCI does carry a risk of an allergic reaction to the stent. We discussed the risks of proceeding with PCI in the RCA territory and reevaluation of her LCA however she is very strongly against any stenting regardless of the risk mentioned. Past Med Surg Social Fam HX - Past Medical History Medical history: arthritis, CHF, DVT, GERD, hyperlipidemia, hypertension Additional medical history: Hernia x 4 Psychiatric history: depression - Past Surgical History Surgical History: herniorrhaphy, hysterectomy Additional surgical history: Tubal ligation. Endometriosis. Shoulder sx - Social History Smoking Status: Former smoker Smokeless Tobacco Status: No Alcohol use: none Drug use: none - Family History Father Family Member Ethnicity: Non- Living Status: Hx Family Cardiac Disorders: Yes (CHF, AR, HTN) Hx Family Endocrine Disorder: Yes (DM) Mother Family Member Ethnicity: Non- Living Status: Hx Family Neurologic Disorders: Yes (Alzheimer's disease) Brother Family Member Ethnicity: Non- Living Status: Hx Family Cancer: Yes (Pancreatic) Sister Family Member Ethnicity: Non- Living Status: Medications and Allergies Aspirin 81 mg PO DAILY 08/06/16 [History] Citalopram [CeleXA] 20 mg PO DAILY 08/06/16 [History] Pantoprazole Sodium [Protonix] 40 mg PO DAILY 08/06/16 [History] Carvedilol [Coreg] 6.25 mg PO BIDWM #60 tablet 02/14/17 [Rx] Clopidogrel [Plavix] 75 mg PO DAILY #30 tablet 02/14/17 [Rx] Furosemide [Lasix] 20 mg PO DAILY #30 tablet 02/14/17 [Rx] Lisinopril [Zestril] 2.5 mg PO DAILY #30 tablet 02/14/17 [Rx] Atorvastatin [Lipitor] 10 mg PO DAILY 10/03/17 [History] Albuterol Sulfate [Albuterol Inhaler] 2 puff IH Q4HR PRN #1 hfa.aer.[id number] 10/09/17 [Rx] Docusate Sodium [Colace] 100 mg PO DAILY 02/06/18 [History] Psyllium Husk [Daily Fiber] 0.52 gm PO DAILY 02/06/18 [History] Ferrous Gluconate 324 mg PO BID #60 tablet 02/08/18 [Rx] Ipratropium/Albuterol Sulfate [Iprat-Albut 0.5-3(2.5) mg/3 ml] 3 ml IH 3-4XD PRN 02/17/18 [History] Allergy/AdvReac Type Severity Reaction Status Date / Time Neomycin Allergy Blister Verified 02/17/18 13:47 Penicillins Allergy Blister Verified 02/17/18 13:47 All Systems Review: The remainder of the systems were reviewed and are negative Physical Examination Vital Signs, Last 4 Hours Temp Pulse Resp BP Pulse Ox 02/18/18 15:37 97.7 F 81 17 102/62 97 02/18/18 13:50 80 138/71 General: Conversant, No Apparent Distress HEENT: Atraumatic, Normocephaly, Mucus Membranes Moist Neck: No JVD, Normal carotid pulses Cardiac: Reg Rate and Rhythm, Normal S1 and S2, No Murmur Lungs: Normal Breath Sounds, No Wheeze, Rales, Rhonchi Neuro: Alert and responsive, No focal deficits noted Abdomen: Soft, Non-Tender Skin: No rashes noted on visualized skin Musculoskeletal: No Chest Wall Tenderness Extremities: No Clubbing, No Cyanosis, No Edema, Normal Pulses Results 02/18/18 02:56 02/18/18 02:56 Lab Results 02/17/18 02/17/18 02/18/18 14:28 20:17 02:56 WBC Hgb Hct Plt Count Sodium Potassium Chloride Carbon Dioxide BUN Creatinine Glucose Calcium Magnesium Total Bilirubin AST ALT Alkaline Phosphatase Troponin I 0.06 H* 0.06 H* 0.05 H* B-Natriuretic Peptide 02/18/18 02/18/18 02/18/18 02:56 02:56 02:56 WBC 5.7 Hgb 9.6 L Hct 33.9 L Plt Count 219 Sodium 140 Potassium 4.3 Chloride 95 L Carbon Dioxide 44 H* BUN 13 Creatinine 0.50 L Glucose 137 H Calcium 9.3 Magnesium 2.1 Total Bilirubin 0.3 AST 17 ALT 15 Alkaline Phosphatase 70 Troponin I B-Natriuretic Peptide 865 H Consult Discharge Plan - Plan Referrals: Duran Sims Jr, MD [Primary Care Provider] - 03/05/18 11:45 am Amarjit De La Rosa [Partnered Physician] - 02/25/18 12:50 pm
[2018-02-19 04:10] LABS: Red Cell Distribution Width 15.3 % (11.5-14.5); Segmented Neutrophils % 57.7 %
[2018-02-19 04:11] LABS: Basophils % 0.4 %; Eosinophils # 0.1 K/mcL (0.0-0.6); Eosinophils % 1.7 %; Hematocrit 35.6 % (35.3-44.9); Hemoglobin 9.7 g/dL (11.5-15.4); Immature Granulocytes % 0.1 % (0-4); Lymphocytes # 1.5 K/mcL (0.6-4.6); Lymphocytes % 22.3 %; Mean Corpuscular HGB Conc 27.2 g/dL (31.6-35.5); Mean Corpuscular Hemoglobin 25.4 pg (28.0-33.3); Mean Corpuscular Volume 93.2 fL (83.0-100.0); Mean Platelet Volume 9.8 fL (9.4-12.4); Monocytes # 1.2 K/mcL (0.0-1.3); Monocytes % 17.8 %; Platelet Count 237 K/mcL (140-400); Red Blood Count 3.82 M/mcL (3.82-4.97)
[2018-02-19 04:32] LABS: Hypochromasia Present (Not Present); Microcytosis Present (Not Present); Platelet Estimate Normal (Normal)
[2018-02-19 04:34] LABS: BUN/Creatinine Ratio 33 (6-26); Blood Urea Nitrogen 17 mg/dL (8-23); Carbon Dioxide > 45 mEq/L (23-29); Chloride 91 mEq/L (98-107); Glucose 87 mg/dL (70-105); Osmolality,Calculated 287 (280-300); Potassium 4.4 mEq/L (3.5-5.1); Sodium 138 mEq/L (136-145); eGFR For Non-African Americans > 60 (> 60)
[2018-02-19] MEDS: *HR* Enoxaparin 40 MG/0.4 ML SYRINGE SQ SCH (05:11)
[2018-02-19] MEDS: Aspirin 81 MG TAB.CHEW PO SCH (09:05)
[2018-02-19] MEDS: Psyllium 1 PACKET POWD.PACK PO SCH (09:05)
[2018-02-19] MEDS: Furosemide 20 MG TABLET PO SCH (11:22)
[2018-02-19] MEDS: Furosemide 40 MG/4 ML VIAL IVP SCH (11:23)
[2018-02-19] MEDS ORDERED: *HR* HYDROcodone/Acet 5/325 mg TABLET PO PRN (15:06)
[2018-02-19] MEDS: Acetaminophen 325 MG TABLET PO PRN (15:11)
--- NOTE | 2018-02-19 17:25 | Internal Med Progress Note ---
Hospitalist Progress Note - Encounter Date of Encounter: 02/19/18 Time of Encounter: 09:00 - Subjective Interval History: Patient was seen and examined at bedside currently denies any chest pain or shortness of breath. No swelling noted-patient is anxious to go home encourage patient to ambulate - Exam Vitals: Temp Pulse Resp BP Pulse Ox 98.5 F 76 16 97/58 100 02/19/18 15:29 02/19/18 15:29 02/19/18 15:29 02/19/18 15:29 02/19/18 15:29 Exam: General: Pleasant cooperative HEENT: Atraumatic, Normocephaly, Mucus Membranes Moist Neck: No JVD, Normal carotid pulses Cardiac: Reg Rate and Rhythm, Normal S1 and S2, No Murmur Lungs: Normal Breath Sounds, No Wheeze, Rales, Rhonchi Neuro: Alert and responsive, No focal deficits noted Abdomen: Soft, Non-Tender Skin: No rashes noted on visualized skin Musculoskeletal: No Chest Wall Tenderness Extremities: No Clubbing, No Cyanosis, No Edema, Normal Pulses - Assessment and Plan (1) Chronic anemia Current Visit: Yes Status: Acute Assessment and Plan: 1 patient does have history of chronic anemia appears to be stable at this time no active bleeding noted will continue with iron supplement (2) Elevated troponin Current Visit: Yes Status: Chronic Assessment and Plan: Most likely related to CHF exacerbation-cardiology has been consulted for possible LHC 02/19 No chest pain voiced Cardiology has been consulted-apparently patient has a history of allergy to multiple metals which carries a risk of allergic reaction to with stent. According to cardiology note 02/18 Cardiology has spoken to the patient concerning PCI in the RCA territory and reevaluating her LCA however patient is strongly against any stenting.-We will discussed possibility of LHC to evaluate symptoms once patient is euvolemic (3) Acute exacerbation of CHF (congestive heart failure) Current Visit: No Status: Acute Assessment and Plan: Patient reports that she has been noncompliant with her diet-recent echo shows global systolic dysfunction with ejection fraction of 30%-previous left heart catheter revealed severe single-vessel disease in the RCA territory with nonobstructive disease and the LCA We will continue to diurese patient and monitor intake and output closely Monitor weight daily Cardiology has been consulted and appreciate recommendations Continuous cardiac monitoring 02/19 Patient states she does feel better no shortness of breath or chest pain. No swelling noted to lower extremities at this time. We will switch IV to oral Lasix monitor intake and output Continues cardiac monitoring technical services consultant appreciate recommendations-we will discuss with cardiology concerning possible discharge in a.m. (4) DVT prophylaxis Current Visit: No Status: Acute Assessment and Plan: Lovenox subcutaneous (5) COPD (chronic obstructive pulmonary disease) Current Visit: No Status: Chronic Assessment and Plan: Continue oxygen as needed no wheezing noted at this time Bronchodilators as needed (6) Coronary artery disease Current Visit: No Status: Chronic Assessment and Plan: Continue with aspirin Plavix and statin and beta bettina holding PREMA due to hypertension Nitroglycerin as needed for chest pain Continuous cardiac monitoring 02/19 continue with aspirin Plavix beta bettina and statin. Holding PREMA due to hypotension Nitroglycerin as needed for chest pain Continue cardiac monitoring (7) HLD (hyperlipidemia) Current Visit: No Status: Chronic Assessment and Plan: Continue with statin (8) HTN (hypertension) Current Visit: No Status: Chronic Assessment and Plan: Lisinopril is held at this time due to low blood pressure will continue to monitor closely (9) NICM (nonischemic cardiomyopathy) Current Visit: No Status: Chronic Assessment and Plan: Most recent echo does show EF of 30%-we will continue to diurese patient Cardiology has been consulted for LH C (10) Hypotension Current Visit: Yes Status: Acute Assessment and Plan: The patient's blood pressure 90 systolic Will hold lisinopril. Has been receiving IV Lasix dt CHF exacerbation-we will switch Lasix to by mouth and closely monitor Obtain orthostatic vital signs - Time Spent with Patient Total time spent is greater than 50% in coordination of care (as documented) at patient's floor/unit and/or counseling patient: Internal Medicine: Result - Labs CBC & Chem 7: 02/19/18 03:52 02/19/18 03:52 Labs: Short CBC 02/19/18 Range/Units 03:52 WBC 6.9 (4.3-11.1) K/mcL Hgb 9.7 L (11.5-15.4) g/dL Hct 35.6 (35.3-44.9) % Plt Count 237 (140-400) K/mcL Neutrophils # 4.0 (1.6-8.9) K/mcL BMP 02/19/18 03:52 Sodium 138 Potassium 4.4 Chloride 91 L Carbon Dioxide > 45 H* BUN 17 Creatinine 0.52 L Glucose 87 Calcium 9.0 Consult Discharge Plan - Plan Referrals: Duran Sims Jr, MD [Primary Care Provider] - 03/05/18 11:45 am Amarjit De La Rosa [Partnered Physician] - 02/25/18 12:50 pm (3) Acute exacerbation of CHF (congestive heart failure) Qualifiers: Heart failure type: systolic Qualified Code(s): I50.23 - Acute on chronic systolic (congestive) heart failure (5) COPD (chronic obstructive pulmonary disease) Qualifiers: COPD type: emphysema Emphysema type: unspecified Qualified Code(s): J43.9 - Emphysema, unspecified (6) Coronary artery disease Qualifiers: Coronary Disease-Associated Artery/Lesion type: [place] artery [place] vs. transplanted heart: [place] heart Associated angina: without angina Qualified Code(s): I25.10 - Atherosclerotic heart disease of [place] coronary artery without angina pectoris (7) HLD (hyperlipidemia) Qualifiers: Hyperlipidemia type: pure hypercholesterolemia Qualified Code(s): E78.00 - Pure hypercholesterolemia, unspecified; E78.0 - Pure hypercholesterolemia (8) HTN (hypertension) Qualifiers: Hypertension type: essential hypertension Qualified Code(s): I10 - Essential (primary) hypertension (10) Hypotension Qualifiers: Hypotension type: unspecified hypotension type Qualified Code(s): I95.9 - Hypotension, unspecified
[2018-02-20 05:15] LABS: Basophils % 0.5 %; Eosinophils % 1.7 %; Immature Granulocytes % 0.2 % (0-4); Platelet Count 229 K/mcL (140-400)
[2018-02-20 05:17] LABS: Eosinophils # 0.1 K/mcL (0.0-0.6); Hematocrit 36.8 % (35.3-44.9); Hemoglobin 10.4 g/dL (11.5-15.4); Lymphocytes # 1.7 K/mcL (0.6-4.6); Lymphocytes % 26.3 %; Mean Corpuscular HGB Conc 28.3 g/dL (31.6-35.5); Mean Corpuscular Hemoglobin 26.2 pg (28.0-33.3); Mean Corpuscular Volume 92.7 fL (83.0-100.0); Mean Platelet Volume 9.9 fL (9.4-12.4); Monocytes # 1.2 K/mcL (0.0-1.3); Monocytes % 17.8 %; Neutrophils # 3.5 K/mcL (1.6-8.9); Red Blood Count 3.97 M/mcL (3.82-4.97); Red Cell Distribution Width 15.3 % (11.5-14.5); Segmented Neutrophils % 53.5 %
[2018-02-20 05:32] LABS: BUN/Creatinine Ratio 38 (6-26); Blood Urea Nitrogen 16 mg/dL (8-23); Calcium 9.4 mg/dL (8.6-10.3); Carbon Dioxide 43 mEq/L (23-29); Chloride 92 mEq/L (98-107); Glucose 107 mg/dL (70-105); Osmolality,Calculated 288 (280-300); Potassium 4.6 mEq/L (3.5-5.1); Sodium 138 mEq/L (136-145); eGFR For Non-African Americans > 60 (> 60)
[2018-02-20 06:03] LABS: Anisocytosis 1+ (Not Present); Hypochromasia Present (Not Present); Platelet Estimate Normal (Normal)
[2018-02-20] MEDS: *HR* Enoxaparin 40 MG/0.4 ML SYRINGE SQ SCH (06:15)
[2018-02-20] MEDS: Furosemide 20 MG TABLET PO SCH (08:37)
[2018-02-20] MEDS: Aspirin 81 MG TAB.CHEW PO SCH (08:37)
[2018-02-20] MEDS: Psyllium 1 PACKET POWD.PACK PO SCH (08:37)
[2018-02-20] MEDS ORDERED: 0.9 % Sodium Chloride 500 ML IVC ONE (11:01)
[2018-02-20] MEDS ORDERED: 0.9 % Sodium Chloride 500 ML ONE (11:04)
--- NOTE | 2018-02-20 11:04 | Internal Med Progress Note ---
Hospitalist Progress Note - Encounter Date of Encounter: 02/20/18 Time of Encounter: 09:00 - Subjective Interval History: Patient was seen and examined at bedside -called to bedside per nursing patient was sitting on side of bed somewhat short of breath oxygen increased to 4 L with sats at 95%. Lung sounds are clear obtain chest x-ray she did have a drop in blood pressure systolic 80 patient was also tachycardic did give a 250 mL fluid bolus-blood pressure did improve-Dr. De La Rosa at bedside did discuss patient's case-cardiology will make adjustments to patient's medications. I also had discussion with patient's daughters who are at bedside varix pressing concerns the patient is unable to perform ADLs-and are fearful of leaving her alone. dietary services director will be consulted - Exam Vitals: Temp Pulse Resp BP Pulse Ox 97.8 F 102 16 82/48 92 02/20/18 10:47 02/20/18 10:47 02/20/18 10:47 02/20/18 10:57 02/20/18 10:47 Exam: General: Pleasant cooperative HEENT: Atraumatic, Normocephaly, Mucus Membranes Moist Neck: No JVD, Normal carotid pulses Cardiac: Reg Rate and Rhythm, Normal S1 and S2, No Murmur Lungs: Normal Breath Sounds, No Wheeze, Rales, Rhonchi Neuro: Alert and responsive, No focal deficits noted Abdomen: Soft, Non-Tender Skin: No rashes noted on visualized skin Musculoskeletal: No Chest Wall Tenderness Extremities: No Clubbing, No Cyanosis, No Edema, Normal Pulses - Assessment and Plan (1) Chronic anemia Current Visit: Yes Status: Acute Assessment and Plan: 1 patient does have history of chronic anemia appears to be stable at this time no active bleeding noted will continue with iron supplement (2) Elevated troponin Current Visit: Yes Status: Chronic Assessment and Plan: Most likely related to CHF exacerbation-cardiology has been consulted for possible LHC 02/19 No chest pain voiced Cardiology has been consulted-apparently patient has a history of allergy to multiple metals which carries a risk of allergic reaction to with stent. According to cardiology note 02/18 Cardiology has spoken to the patient concerning PCI in the RCA territory and reevaluating her LCA however patient is strongly against any stenting.-We will discussed possibility of LHC to evaluate symptoms once patient is euvolemic 02/20 Cardiology has been consulted appreciate recommendations (3) Acute exacerbation of CHF (congestive heart failure) Current Visit: No Status: Acute Assessment and Plan: Patient reports that she has been noncompliant with her diet-recent echo shows global systolic dysfunction with ejection fraction of 30%-previous left heart catheter revealed severe single-vessel disease in the RCA territory with nonobstructive disease and the LCA We will continue to diurese patient and monitor intake and output closely Monitor weight daily Cardiology has been consulted and appreciate recommendations Continuous cardiac monitoring 02/19 Patient states she does feel better no shortness of breath or chest pain. No swelling noted to lower extremities at this time. IV to oral Lasix monitor intake and output Continues cardiac monitoring rn lactation consultant appreciate recommendations-we will discuss with cardiology concerning possible discharge in a.m. 02/20 Patient did have increased shortness of breath chest x-ray was obtained this morning which did not show any CHF Continued IV Lasix per cardiology recommendations Continue with nitroglycerin per cardiology's recommendations Monitor intake and output daily weights Coreg will be switched to Toprol in the a.m. per cardiology recommendations (4) DVT prophylaxis Current Visit: No Status: Acute Assessment and Plan: Lovenox subcutaneous (5) COPD (chronic obstructive pulmonary disease) Current Visit: No Status: Chronic (6) Coronary artery disease Current Visit: No Status: Chronic Assessment and Plan: Continue with aspirin Plavix and statin and beta bettina holding BIJU due to h ypertension Nitroglycerin as needed for chest pain Continuous cardiac monitoring 02/19 continue with aspirin Plavix beta bettina and statin. Holding BIJU due to hypotension Nitroglycerin as needed for chest pain Continue cardiac monitoring 02/20 Continue with Plavix beta bettina statin continue to hold Biju due to hypotension Nitroglycerin added per cardiology Continuous cardiac monitoring (7) HLD (hyperlipidemia) Current Visit: No Status: Chronic Assessment and Plan: Continue with statin (8) HTN (hypertension) Current Visit: No Status: Chronic Assessment and Plan: Lisinopril is held at this time due to low blood pressure will continue to monitor closely 02/20 Patient did have hypo-tensive episode this a.m. with systolic pressures in the 80s and was tachycardic. Continue to hold lisinopril she was given a small fluid bolus of 250 ML's which did improve her blood pressure (9) NICM (nonischemic cardiomyopathy) Current Visit: No Status: Chronic Assessment and Plan: Most recent echo does show EF of 30%-we will continue to diurese patient Cardiology has been consulted for LH C 02/20 Cardiology has been consultation concerning possible left heart catheter Continue with Lasix beta bettina which will be changed to Toprol as well as adding nitroglycerin (10) Hypotension Current Visit: Yes Status: Acute Assessment and Plan: The patient's blood pressure 90 systolic Will hold lisinopril. Has been re ceiving IV Lasix dt CHF exacerbation-we will switch Lasix to by mouth and closely monitor Obtain orthostatic vital signs 02/20 Patient continues to have hypotension-systolic was 80 this a.m. she did receive a small fluid bolus this a.m. 250 ml which did improve her systolic to 90 we will continue to hold lisinopril cardiology recommending he continue Lasix 20 mg IV twice a day - Time Spent with Patient Total time spent is greater than 50% in coordination of care (as documented) at patient's floor/unit and/or counseling patient: Internal Medicine: Result - Labs CBC & Chem 7: 02/20/18 04:52 02/20/18 04:52 Labs: Short CBC 02/20/18 Range/Units 04:52 WBC 6.6 (4.3-11.1) K/mcL Hgb 10.4 L (11.5-15.4) g/dL Hct 36.8 (35.3-44.9) % Plt Count 229 (140-400) K/mcL Neutrophils # 3.5 (1.6-8.9) K/mcL BMP 02/20/18 04:52 Sodium 138 Potassium 4.6 Chloride 92 L Carbon Dioxide 43 H* BUN 16 Creatinine 0.42 L Glucose 107 H Calcium 9.4 - Impressions Impressions Chest X-Ray 02/20/18 08:56 IMPRESSION: 1. Stable mild enlargement of the cardiac silhouette. 2. Bibasilar atelectasis. D/ / Dustin Preston MD / Dustin Preston MD Interpreting Provider: Dustin Preston MD Consult Discharge Plan - Plan Referrals: Duran Sims Jr, MD [Primary Care Provider] - 03/05/18 11:45 Amarjit Ahuja [Partnered Physician] - 02/25/18 12:50 pm (3) Acute exacerbation of CHF (congestive heart failure) Qualifiers: Heart failure type: systolic Qualified Code(s): I50.23 - Acute on chronic systolic (congestive) heart failure (5) COPD (chronic obstructive pulmonary disease) Qualifiers: COPD type: emphysema Emphysema type: unspecified Qualified Code(s): J43.9 - Emphysema, unspecified (6) Coronary artery disease Qualifiers: Coronary Disease-Associated Artery/Lesion type: [place] artery [place] vs. transplanted heart: [place] heart Associated angina: without angina Qualified Code(s): I25.10 - Atherosclerotic heart disease of [place] coronary artery without angina pectoris (7) HLD (hyperlipidemia) Qualifiers: Hyperlipidemia type: pure hypercholesterolemia Qualified Code(s): E78.00 - Pure hypercholesterolemia, unspecified; E78.0 - Pure hypercholesterolemia (8) HTN (hypertension) Qualifiers: Hypertension type: essential hypertension Qualified Code(s): I10 - Essential (primary) hypertension (10) Hypotension Qualifiers: Hypotension type: unspecified hypotension type Qualified Code(s): I95.9 - Hypotension, unspecified
--- NOTE | 2018-02-20 11:55 | Cardiology Progress Note ---
Date of Encounter: 02/20/18 Time of Encounter: 11:53 Assessment and Plan (1) Congestive heart failure Current Visit: Yes Status: Acute Likely systolic decompensated CHF with a component of possible ischemia however with her metal allergy she is strongly against any PCI or cardiac interventions at this time. He has been seen by an scaffolding helper in this allergy has been confirmed. Patient is not excepting any risk of allergic reaction to the stent in her coronary arteries. In the setting of worsening CHF and LHC may be reasonable to evaluate for worse olga of her LCA disease or reassessment as this may have been underestimated previously. Echocardiogram obtained today reveals a ejection fraction of 30% similar to her most recent. Continue gentle diuresis Will switch coreg to toprol 25mg once daily starting tomorrow Suspect mild hypervolemia still continue lasix 20 mg BID Add nitropatch for current hypervolemia and obtain repeat cxray continues to have orthopnea with only bibasilar atelectasis, cannot lay flat for CT if the chest Qualifiers: Heart failure type: unspecified Heart failure chronicity: acute on chronic Qualified Code(s): I50.9 - Heart failure, unspecified (2) ACS (acute coronary syndrome) Current Visit: No Status: Acute Possibly related to worsening coronary artery disease involving the RCA or LCA disease. We will discussed the possibility of a LHC to reevaluate symptoms once patient is euvolemic Discussion w patient/family: The assessment and plan as outlined above was discussed with the patient and/or family members who expressed understanding and agreement. All questions were answered. Thank you for involving us in the care of your patient. Please call with any questions. Subjective Principal diagnosis: ICM Interval history: Low BP this am promted IV bolus 250 cc now with improved pressures however SOB Objective Vital Signs, Last 4 Hours Temp Pulse Resp BP Pulse Ox 02/20/18 10:57 82/48 02/20/18 10:47 97.8 F 102 16 82/50 92 02/20/18 10:37 20 96 General: Conversant, No Apparent Distress HEENT: Atraumatic, Normocephaly, Mucus Membranes Moist Neck: No JVD, Normal carotid pulses Cardiac: Reg Rate and Rhythm, Normal S1 and S2, No Murmur Lungs: Normal Breath Sounds (diminished biabsilar air entry ), No Wheeze, Rales, Rhonchi Neuro: Alert and responsive, No focal deficits noted Abdomen: Soft, Non-Tender Skin: No rashes noted on visualized skin Musculoskeletal: No Chest Wall Tenderness Extremities: No Clubbing, No Cyanosis, No Edema, Normal Pulses Results 02/20/18 04:52 02/20/18 04:52 Lab Results 02/20/18 02/20/18 04:52 04:52 WBC 6.6 Hgb 10.4 L Hct 36.8 Plt Count 229 Sodium 138 Potassium 4.6 Chloride 92 L Carbon Dioxide 43 H* BUN 16 Creatinine 0.42 L Glucose 107 H Calcium 9.4 Consult Discharge Plan - Plan Referrals: Duran Sims Jr, MD [Primary Care Provider] - 03/05/18 11:45 am Amarjit De La Rosa [Partnered Physician] - 02/25/18 12:50 pm
[2018-02-20] MEDS: Nitroglycerin 0.2 MG PATCH.TD24 TD SCH (12:42)
[2018-02-20] MEDS: Furosemide 20 MG/2 ML VIAL IVP SCH (17:54)
[2018-02-20 20:40] LABS: Bilirubin,Urine Negative (Negative); Blood,Urine Negative (Negative); Clarity,Urine Clear (Clear); Color,Urine Yellow (Yellow); Glucose,Urine (UA) Normal (Normal); Ketones,Urine Negative (Negative); Leukocyte Esterase,Urine Moderate (Negative); Nitrite,Urine Negative (Negative); Protein,Urine Negative (Neg-Trace); Specific Gravity,Urine 1.011 (1.010-1.025)
[2018-02-20 20:41] LABS: Hyaline Casts,Urine None Seen per lpf (None-Few); Squamous Epithelial Cell,Urine Many per lpf (None-Few)
[2018-02-20] MEDS: Acetaminophen 325 MG TABLET PO PRN (20:41)
[2018-02-20 21:01] LABS: Bacteria,Urine Few per hpf (None-Few)
[2018-02-21 04:58] LABS: Immature Granulocytes % 0.3 % (0-4); Mean Platelet Volume 10.4 fL (9.4-12.4); Segmented Neutrophils % 55.4 %
[2018-02-21 05:00] LABS: Basophils % 0.7 %; Eosinophils # 0.1 K/mcL (0.0-0.6); Eosinophils % 2.1 %; Hematocrit 33.2 % (35.3-44.9); Hemoglobin 9.5 g/dL (11.5-15.4); Lymphocytes # 1.5 K/mcL (0.6-4.6); Lymphocytes % 24.2 %; Mean Corpuscular HGB Conc 28.6 g/dL (31.6-35.5); Mean Corpuscular Hemoglobin 26.3 pg (28.0-33.3); Monocytes # 1.1 K/mcL (0.0-1.3); Monocytes % 17.3 %; Neutrophils # 3.4 K/mcL (1.6-8.9); Platelet Count 213 K/mcL (140-400); Red Blood Count 3.61 M/mcL (3.82-4.97); Red Cell Distribution Width 15.8 % (11.5-14.5)
[2018-02-21 05:26] LABS: BUN/Creatinine Ratio 42 (6-26); Blood Urea Nitrogen 19 mg/dL (8-23); Calcium 9.3 mg/dL (8.6-10.3); Carbon Dioxide 40 mEq/L (23-29); Chloride 93 mEq/L (98-107); Glucose 138 mg/dL (70-105); Osmolality,Calculated 292 (280-300); Sodium 139 mEq/L (136-145); eGFR For Non-African Americans > 60 (> 60)
[2018-02-21 05:49] LABS: Hypochromasia Present (Not Present); Platelet Estimate Normal (Normal)
[2018-02-21] MEDS: *HR* Enoxaparin 40 MG/0.4 ML SYRINGE SQ SCH (06:17)
[2018-02-21] MEDS ORDERED: Nitroglycerin 0.2 MG PATCH.TD24 TD SCH (07:30)
--- NOTE | 2018-02-21 08:19 | Cardiology Progress Note ---
Date of Encounter: 02/21/18 Time of Encounter: 08:15 Assessment and Plan (1) Congestive heart failure Current Visit: Yes Status: Acute Per Cardiology: Chest x-ray stable. BNP overall appears improved from previous hospital stays. Net I&O -2120ml. On IV Lasix 20 mg twice a day. Weight down 2kg. EF remains 30%, comparable to baseline. Patient has declined further ischemic evaluation in terms of left heart catheterization. On PREMA inhibitor and beta bettina. On NTG. Reports on home oxygen. Patient reports clinical improvement and very adamant about going home today. Discuss with primary service. Cardiology will sign off, reconsult as needed, follow-up arranged. All questions answered. Qualifiers: Heart failure type: unspecified Heart failure chronicity: acute on chronic Qualified Code(s): I50.9 - Heart failure, unspecified (2) Elevated troponin Current Visit: Yes Status: Chronic Per Cardiology: Troponins flat and adynamic with peak of 0.06. Upon review of records, patient appears to have chronic history of troponin elevations. Again has declined left heart catheterization. No cardiac rehabilitation consult warranted. Suspect type II demand ischemia. On aspirin, Plavix, statin, beta bettina, and PREMA inhibitor. Chest pain-free. Discussion w patient/family: The assessment and plan as outlined above was discussed with the patient and/or family members who expressed understanding and agreement. All questions were answered. Thank you for involving us in the care of your patient. Please call with any questions. Subjective Principal diagnosis: ICM Interval history: Patient reports "she wants to go home". She reports overall short of breath has improved. Reports lower extremity swelling has improved. She denies any chest pain or palpitations. Reports utilizes oxygen at home. Objective Vital Signs, Last 4 Hours Temp Pulse Resp BP Pulse Ox 02/21/18 07:11 97.9 F 90 16 124/70 95 General: Conversant, No Apparent Distress HEENT: Atraumatic, Normocephaly, Mucus Membranes Moist Neck: No JVD, Normal carotid pulses Cardiac: Reg Rate and Rhythm, Normal S1 and S2, No Murmur Lungs: Normal Breath Sounds, Other (Diminished breath sounds throughout) Neuro: Alert and responsive, No focal deficits noted Abdomen: Soft, Non-Tender Skin: No rashes noted on visualized skin Musculoskeletal: No Chest Wall Tenderness Extremities: No Clubbing, No Cyanosis, Normal Pulses, Other (+1 pitting edema to bilateral lower extremities right slightly larger than left) Results 02/21/18 03:59 02/21/18 03:59 Lab Results Laboratory Tests 07/07/16 02/11/17 12/21/17 22:28 14:06 13:45 Hgb 7.4 L 12.6 Hct Creatinine Est GFR ( Amer) Troponin I B-Natriuretic Peptide 3163 H 01/16/18 02/06/18 02/17/18 14:50 09:00 12:03 Hgb 9.7 L 9.4 L Hct Creatinine Est GFR ( Amer) Troponin I 0.06 H* B-Natriuretic Peptide 02/17/18 02/17/18 02/17/18 12:03 12:03 14:28 Hgb Hct Creatinine Est GFR ( Amer) Troponin I 0.05 H* 0.06 H* B-Natriuretic Peptide 646 H 02/17/18 02/18/18 02/18/18 20:17 02:56 02:56 Hgb Hct Creatinine Est GFR ( Amer) Troponin I 0.06 H* 0.05 H* B-Natriuretic Peptide 865 H 02/21/18 02/21/18 03:59 03:59 Hgb 9.5 L Hct 33.2 L Creatinine 0.45 L Est GFR ( Amer) > 60 Troponin I B-Natriuretic Peptide ITS Impressions Chest X-Ray 02/17/18 11:42 IMPRESSION: Stable cardiomegaly without evidence of heart failure. D/ / Magnus Ann / Magnus Ann Interpreting Provider: Magnus Ann Chest X-Ray 02/20/18 08:56 IMPRESSION: 1. Stable mild enlargement of the cardiac silhouette. 2. Bibasilar atelectasis. D/ / Dustin Preston MD / Dustin Preston MD Interpreting Provider: Dustin Preston MD Intake & Output 02/18/18 02/19/18 02/20/1818 23:59 23:59 23:59 23:59 Intake Total 0 / 0 480 / 480 860 / 860 240 / 240 Output Total 900 / 900 700 / 700 800 / 800 Balance -900 / -900 -220 / -220 60 / 60 240 / 240 Weight 72.8 kg 70.9 kg 70.5 kg Active Medications Acetaminophen (Tylenol) 650 mg PO Q6HR PRN PRN Reason: Mild Pain/Fever Stop: 08/21/18 15:07 Last Admin: 02/20/18 20:41 Dose: 650 mg Hydrocodone Bitart/Acetaminophen ([place] 5-325 Mg) 1 tab PO Q6HR PRN PRN Reason: Moderate Pain Stop: 08/21/18 15:07 Albuterol Sulfate (Albuterol Inhaler) 2 puff IH [id number] PRN PRN Reason: Dyspnea Stop: 08/19/18 14:10 Last Admin: 02/20/18 10:36 Dose: 2 puff Albuterol/Ipratropium (Duoneb) 3 ml IH TIDR PRN PRN Reason: Shortness Of Breath Stop: 08/19/18 14:10 Aspirin (Aspirin) 81 mg PO DAILY [facility] Stop: 08/20/18 09:01 Last Admin: 02/20/18 08:37 Dose: 81 mg Atorvastatin Calcium (Lipitor) 10 mg PO DAILY [facility] Stop: 08/20/18 09:01 Last Admin: 02/20/18 08:37 Dose: 10 mg Citalopram Hydrobromide (Celexa) 20 mg PO DAILY [facility] Stop: 08/20/18 09:01 Last Admin: 02/20/18 08:37 Dose: 20 mg Clopidogrel Bisulfate (Plavix) 75 mg PO DAILY [facility] Stop: 08/20/18 09:01 Last Admin: 02/20/18 08:37 Dose: 75 mg Docusate Sodium (Colace) 100 mg PO DAILY [facility]; Protocol Stop: 08/20/18 09:01 Last Admin: 02/20/18 08:37 Dose: 100 mg Enoxaparin Sodium (Lovenox) 40 mg SQ 0600 [facility]; Protocol Stop: 08/20/18 06:01 Last Admin: 02/21/18 06:17 Dose: 40 mg Ferrous Sulfate (Ferrous Sulfate) 325 mg PO BIDWM [facility] Stop: 08/19/18 17:01 Last Admin: 02/20/18 17:54 Dose: 325 mg Furosemide (Lasix) 20 mg IVP BIDDIURETIC ALESSANDRO Stop: 08/22/18 17:01 Last Admin: 02/20/18 17:54 Dose: 20 mg Lansoprazole (Prevacid) 30 mg PO 0730 [facility]; Protocol Stop: 08/22/18 07:31 Last Admin: 02/20/18 08:37 Dose: 30 mg Lisinopril (Zestril) 2.5 mg PO DAILY [facility]; Protocol Stop: 08/20/18 09:01 Last Admin: 02/18/18 09:45 Dose: Not Given Metoprolol Succinate (Toprol Xl) 25 mg PO DAILY [facility] Stop: 08/23/18 09:01 Naloxone HCl (Narcan) 0.4 mg IVP Q2MIN PRN PRN Reason: SEE COMMENTS Stop: 08/19/18 14:07 Nitroglycerin (Nitroglycerin) 0.2 mg TD 1200 [facility] Stop: 08/22/18 11:58 Last Admin: 02/20/18 12:42 Dose: 0.2 mg Psyllium Hydrophilic Mucilloid (Metamucil Fiber Singles Packet) 1 packet PO DAILY [facility] Stop: 08/20/18 09:01 Last Admin: 02/20/18 08:37 Dose: Not Given - Imaging and Cardiology Chest Xray: report reviewed Echo: report reviewed Consult Discharge Plan - Plan Referrals: Duran Sims Jr, MD [Primary Care Provider] - 03/05/18 11:45 am Amarjit De La Rosa [Partnered Physician] - 02/25/18 12:50 pm
[2018-02-21] MEDS ORDERED: Metoprolol XL (24 HR) Succ 25 MG TAB.ER.24H PO SCH (09:00)
[2018-02-21] MEDS: Aspirin 81 MG TAB.CHEW PO SCH (09:15)
[2018-02-21] MEDS: Furosemide 20 MG/2 ML VIAL IVP SCH (09:16)
[2018-02-21] MEDS: Psyllium 1 PACKET POWD.PACK PO SCH (09:17)
[2018-02-21] MEDS: Nitroglycerin 0.2 MG PATCH.TD24 TD SCH (12:11)
[2018-02-21 15:29] VITALS: BP 117/61
--- NOTE | 2018-02-21 19:33 | Discharge Summary ---
- NOTES TO OUTPATIENT PROVIDER Notes to Outpatient Provider: Follow up with cardiology - prescription for metoprolol nitroglycerin patch Date of Encounter: 02/21/18 Time of Encounter: 15:44 - Discharge Diagnosis (1) Chronic anemia Priority: Secondary Status: Acute (2) Elevated troponin Priority: Secondary Status: Chronic (3) Acute exacerbation of CHF (congestive heart failure) Priority: Primary Status: Acute Qualifiers: Heart failure type: systolic Qualified Code(s): I50.23 - Acute on chronic systolic (congestive) heart failure (4) COPD (chronic obstructive pulmonary disease) Priority: Primary Status: Chronic Qualifiers: COPD type: emphysema Emphysema type: unspecified Qualified Code(s): J43.9 - Emphysema, unspecified (5) Coronary artery disease Priority: Primary Status: Chronic Qualifiers: Coronary Disease-Associated Artery/Lesion type: [place] artery [place] vs. transplanted heart: [place] heart Associated angina: without angina Qualified Code(s): I25.10 - Atherosclerotic heart disease of [place] coronary artery without angina pectoris (6) HLD (hyperlipidemia) Priority: Secondary Status: Chronic Qualifiers: Hyperlipidemia type: pure hypercholesterolemia Qualified Code(s): E78.00 - Pure hypercholesterolemia, unspecified; E78.0 - Pure hypercholesterolemia (7) HTN (hypertension) Priority: Secondary Status: Chronic Qualifiers: Hypertension type: essential hypertension Qualified Code(s): I10 - Essential (primary) hypertension (8) NICM (nonischemic cardiomyopathy) Priority: Secondary Status: Chronic (9) Hypotension Priority: Secondary Status: Acute Qualifiers: Hypotension type: unspecified hypotension type Qualified Code(s): I95.9 - Hypotension, unspecified Hospital course: Ms. Smith is a 68 year old female past medical history of arthritis CHF DVT GERD hyperlipidemia hypertension cardiomyopathy with EF of 30% COPD oxygen dependent. Patient was recently admitted to this hospital discharge February 08 she was seen by her primary care physician for shortness of breath which is progressively worsening also experiencing orthopnea and weight gain R extremity swelling for approximately 3 days. She presented to [facility] ED troponin was 0.05 BMP was 646 chest x-ray with cardiomegaly without any evidence of heart failure. Patient was given IV Lasix she was seen by cardiology who discussed C to evaluate worsening CAD once patient was euvolemic. However patient has an allergy to metals and she is strongly against any PCI or cardiac intervention at this time. We continue to diuresis the patient cardiology did stop her Coreg and add metoprolol as well as nitroglycerin topically. She did have incidental low blood pressure she was given a a small fluid bolus which did improve. She has been hemodynamically stable breathing has improved and she has been able to ambulate patient without difficulty. Her swelling also did improve. She was evaluated by PT and OT recommending home health and nursing prior patient declined. Advised to follow-up with cardiology as well as primary care provider. Advised patient to monitor fluid intake and daily weights. Advised patient to monitor blood pressure. Patient was provided prescription of metoprolol and nitroglycerin she is hemodynamically stable at this time and ready for discharge. Discharge discussed with: patient - Time Spent with Patient Total time spent providing and/or coordinating discharge services: - Discharge Medications Prescriptions: Metoprolol XL (24 HR) Succ [Toprol Xl] 25 mg PO DAILY #30 tab.er.24h Nitroglycerin 0.2 mg TD 1200 #24 patch.td24 Home Medications: Aspirin 81 mg PO DAILY 08/06/16 [History] Citalopram [CeleXA] 20 mg PO DAILY 08/06/16 [History] Pantoprazole Sodium [Protonix] 40 mg PO DAILY 08/06/16 [History] Clopidogrel [Plavix] 75 mg PO DAILY #30 tablet 02/14/17 [Rx] Furosemide [Lasix] 20 mg PO DAILY #30 tablet 02/14/17 [Rx] Lisinopril [Zestril] 2.5 mg PO DAILY #30 tablet 02/14/17 [Rx] Atorvastatin [Lipitor] 10 mg PO DAILY 10/03/17 [History] Albuterol Sulfate [Albuterol Inhaler] 2 puff IH Q4HR PRN #1 hfa.aer.ad 10/09/17 [Rx] Docusate Sodium [Colace] 100 mg PO DAILY 02/06/18 [History] Psyllium Husk [Daily Fiber] 0.52 gm PO DAILY 02/06/18 [History] Ferrous Gluconate 324 mg PO BID #60 tablet 02/08/18 [Rx] Ipratropium/Albuterol Sulfate [Iprat-Albut 0.5-3(2.5) mg/3 ml] 3 ml IH 3-4XD PRN 02/17/18 [History] Lansoprazole [Prevacid] 30 mg PO 0730 capsule. 02/21/18 [Rx] Metoprolol XL (24 HR) Succ [Toprol Xl] 25 mg PO DAILY #30 tab.er.24h 02/21/18 [Rx] Nitroglycerin 0.2 mg TD 1200 #24 patch.td24 02/21/18 [Rx] Allergies/Adverse Reactions: Allergy/AdvReac Type Severity Reaction Status Date / Time Neomycin Allergy Blister Verified 02/17/18 13:47 Penicillins Allergy Blister Verified 02/17/18 13:47 Date of admission: 02/17/18 15:03 Primary care physician: Duran Sims Jr, MD Consults: 02/17/18 14:11 Consult to Cardiology [CONS] Routine Comment: Consulting Provider: Cardiology Jolene Reason for Consult: known cad 70% rca and now systolic chf Time Notified: 14:12 Call Completed: No 02/18/18 10:57 Consult to Nurse Navigator [CONS] Routine Comment: CHF 02/20/18 10:50 Consult to Occupational Therapy [CONS] Routine Comment: Evaluate, develop and implement POC Reason for Consult: deconditioning Does patient have active BEDREST order?: No Is patient medically & hemodynamically stable?: Yes Patient assessed for mobility or mobilized this visit?: No Consult to Physical Therapy [CONS] Routine Comment: Evaluate, develop and implement POC Reason for Consult: deconditioning Does patient have active BEDREST order?: No Is patient medically & hemodynamically stable?: Yes Patient assessed for mobility or mobilized this visit?: No Discharging clinician: Nancy Borjas Anticipated date of discharge: 02/21/18 - Constitutional Vitals: Temp Pulse Resp BP Pulse Ox 98.4 F 52 16 117/61 99 02/21/18 15:26 02/21/18 15:26 02/21/18 15:26 02/21/18 15:26 02/21/18 15:26 General appearance: Present: cooperative, mild distress Exam: General: Pleasant cooperative HEENT: Atraumatic, Normocephaly, Mucus Membranes Moist Neck: No JVD, Normal carotid pulses Cardiac: Reg Rate and Rhythm, Normal S1 and S2, No Murmur Lungs: Normal Breath Sounds, No Wheeze, Rales, Rhonchi Neuro: Alert and responsive, No focal deficits noted Abdomen: Soft, Non-Tender Skin: No rashes noted on visualized skin Musculoskeletal: No Chest Wall Tenderness Extremities: No Clubbing, No Cyanosis, No Edema, Normal Pulses - Patient Status Disposition: Home, Self-Care Condition: Fair Overall status at discharge: patient is back to baseline - Discharge Instructions Instructions: Heart Failure (DC) Follow Up With: Duran Sims Jr, MD [Primary Care Provider] - 03/05/18 11:45 am Amarjit De La Rosa [Partnered Physician] - 02/25/18 12:50 pm - Diet and Activity Diet: low salt diet
--- NOTE | 2018-02-22 18:40 | Electrocardiograph Report ---
[address] [address] Test Date: 2018-02-17 Pat Name: China Smith Department: 104 Room: 3B33 Gender: F Checkman: : 1950 Requested By: Sonu Joe Order Number: [id number] Reading MD: Jaden Guevara Measurements Intervals [place] Rate: 71 P: OK: 0 QRS: -48 QRSD: 133 T: 124 QT: 424 QTc: 447 Interpretive Statements ATRIAL FIBRILLATION WITH ABERRANT CONDUCTION OR VENTRICULAR PREMATURE COMPLEXES INTRAVENTRICULAR CONDUCTION DELAY LEFT AXIS DEVIATION POSSIBLE ANTEROSETPAL INFRACT, AGE INDETERMINATE Electronically Signed On 02-22-2018 18:38:27 EDT by Jaden Guevara
--- NOTE | 2018-02-22 19:21 | Electrocardiograph Report ---
[address] [address] Test Date: 2018-02-18 Pat Name: China Smith Department: 113 Room: 3B33 Gender: F [facility] Administrator: : 1950 Requested By: Nancy Borjas Order Number: [id number] Reading MD: Jaden Guevara Measurements Intervals [place] Rate: 80 P: PA: 0 QRS: -44 QRSD: 128 T: 129 QT: 392 QTc: 428 Interpretive Statements ATRIAL FIBRILLATION WITH ABERRANT CONDUCTION OR VENTRICULAR PREMATURE COMPLEXES MARKED LEFT AXIS DEVIATION IVCD POSSIBLE ANTEROSEPTAL MYOCARDIAL INFARCTION, AGE INDETERMINATE Electronically Signed On 02-22-2018 19:19:56 EDT by Jaden Guevara
== END 2018-02-21 16:56 | disposition home or self-care (01) | DRG 291 ==
LOC: 3BNU 11:32 → EMEROOARM 11:32 → 3BNU 14:00
PROVIDERS: ADMIT Internal Medicine Nephrology; ATTEND Internal Medicine Nephrology

== ENCOUNTER 2018-03-28 00:34 | Inpatient (IN) ==
[2018-03-28] MEDS ORDERED: Furosemide 40 MG/4 ML VIAL IVP ONE (01:02)
--- NOTE | 2018-03-28 01:30 | Emergency Department Note ---
Disposition Clinical Impression: Orthopnea, BOBBY (dyspnea on exertion) Acute exacerbation of CHF (congestive heart failure) Qualifiers: Heart failure type: systolic Qualified Code(s): I50.23 - Acute on chronic systolic (congestive) heart failure Atrial fibrillation Qualifiers: Atrial fibrillation type: unspecified Qualified Code(s): I48.91 - Unspecified atrial fibrillation Disposition: Admitted As Inpatient Condition: Fair Time of Disposition: 03:13 SOB HPI - General Chief Complaint: ED Shortness of Breath/Dyspnea Stated Complaint: CHF feet swelling TIM Time Seen by Provider: 03/28/18 00:51 Source: patient, family Mode of arrival: ambulatory Limitations: no limitations Nursing Notes Reviewed: Yes Vital Signs Reviewed: Yes - History of Present Illness Nontoxic-appearing 68-year-old female presents for evaluation of shortness of breath and worsening bilateral lower extremity edema. Symptoms have worsened over the past 2 days. She states a history of congestive heart failure and feels that she is fluid overloaded. She denies any associated chest pain, productive cough, hemoptysis, abdominal pain, nausea, or vomiting. She takes L asix, 20 mg by mouth daily. She is on home oxygen by 2 L nasal cannula continuously at home. Pt Subjective Complaint: shortness of breath Onset (ago): day(s) (2) Severity: moderate Consistency/Duration: gradually worsening Improves with: nothing Worsens with: lying flat, exertion, movement Known history of: congestive heart failure Associated symptoms: Reports: other (Bilateral lower extremity edema). Denies: chest pain, pain with inspiration, fever, cough, wheezing, sputum production, lower extremity pain, hemoptysis, diaphoresis, nausea/vomiting, abdominal pain Treatment prior to arrival: oxygen Cough present: No - Related Data Home oxygen amount: 2 liters Home Medications Medication Instructions Recorded Confirmed Aspirin 81 mg PO DAILY 08/06/16 02/17/18 Citalopram [CeleXA] 20 mg PO DAILY 08/06/16 02/17/18 Pantoprazole Sodium [Protonix] 40 mg PO DAILY 08/06/16 02/17/18 Atorvastatin [Lipitor] 10 mg PO DAILY 10/03/17 02/17/18 Docusate Sodium [Colace] 100 mg PO DAILY 02/06/18 02/17/18 Psyllium Husk [Daily Fiber] 0.52 gm PO DAILY 02/06/18 02/17/18 Ipratropium/Albuterol Sulfate 3 ml IH 3-4XD PRN 02/17/18 02/17/18 [Iprat-Albut 0.5-3(2.5) mg/3 ml] Previous Rx's Medication Instructions Recorded Clopidogrel [Plavix] 75 mg PO DAILY #30 tablet 02/14/17 Furosemide [Lasix] 20 mg PO DAILY #30 tablet 02/14/17 Lisinopril [Zestril] 2.5 mg PO DAILY #30 tablet 02/14/17 Albuterol Sulfate [Albuterol 2 puff IH Q4HR PRN #1 hfa.aer.ad 10/09/17 Inhaler] Ferrous Gluconate 324 mg PO BID #60 tablet 02/08/18 Lansoprazole [Prevacid] 30 mg PO 0730 capsule.dr 02/21/18 Metoprolol XL (24 HR) Succ [Toprol 25 mg PO DAILY #30 tab.er.24h 02/21/18 Xl] Nitroglycerin 0.2 mg TD 1200 #24 patch.td24 02/21/18 Allergies Allergy/AdvReac Type Severity Reaction Status Date / Time Neomycin Allergy Blister Verified 02/17/18 13:47 Penicillins Allergy Blister Verified 02/17/18 13:47 All systems ED: reviewed and negative except as stated. Review of Systems: As Per HPI Constitutional: Denies: fever, chills, weakness, weight change Eyes: Denies: eye pain, eye discharge, vision change ENT ED: Denies: ear pain, throat pain, dental pain, hearing loss, epistaxis, congestion, dysphagia Cardiovascular: Reports: as per HPI, orthopnea. Denies: chest pain, palpitations, dyspnea on exertion, edema, syncope Respiratory: Reports: as per HPI, dyspnea. Denies: cough, wheezes, hemoptysis, stridor Gastrointestinal: Denies: abdominal pain, nausea, vomiting, diarrhea, constipation, hematemesis, melena, hematochezia Genitourinary: Denies: dysuria, frequency, hematuria, discharge Musculoskeletal: Denies: back pain, neck pain, arthralgia, myalgia Integumentary: Denies: rash, abrasion, lesions Neurological: Denies: headache, weakness, numbness, paresthesias, confusion, abnormal gait, vertigo Psychiatric: Denies: anxiety, depression, suicidal thoughts, homicidal thoughts, auditory hallucinations, visual hallucinations Endocrine: Denies: fatigue Hematological/Lymphatic: Denies: easy bleeding, easy bruising Allergic/Immunologic: Denies: facial swelling, urticaria Past Medical History - Past Medical History Attestation: Yes The following information was validated with the patient. 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 Absent: nystagmus - ENT ENT exam: mucous membranes moist - Neck Neck exam: Present: normal inspection, full ROM, trachea midline - Chest Chest inspection: Present: normal inspection, symmetric chest wall rise - Respiratory Respiratory exam: Present: other (Lung sounds decreased in the bilateral lung bases). Absent: respiratory distress, wheezes, stridor, accessory muscle use, prolonged expiratory phase - Cardiovascular Cardiovascular exam: Present: regular rate, normal rhythm, normal heart sounds - Abdominal Exam Abdominal exam: Present: soft, Non-Tender, normal bowel sounds - Extremities Exam Extremities exam: Present: full ROM, pedal edema (2+ pretibial edema noted bilaterally). Absent: tenderness - Neurological Exam Neurological exam: Present: alert, oriented X3 - Psychiatric Psychiatric exam: Present: normal affect, normal mood - Skin Skin exam: Present: warm, dry, intact, normal color. Absent: rash Course Vital Signs Temperature 98.0 F 03/28/18 00:38 Pulse Rate 71 03/28/18 00:38 Respiratory Rate 16 03/28/18 00:38 Blood Pressure 118/88 03/28/18 00:38 O2 Sat by Pulse Oximetry 92 03/28/18 00:38 Temperature 98.0 F 03/28/18 00:38 Pulse Rate 69 03/28/18 01:34 Respiratory Rate 20 03/28/18 01:34 Blood Pressure 119/64 03/28/18 01:34 O2 Sat by Pulse Oximetry 99 03/28/18 01:34 Oxygen Delivery Oxygen Delivery Nasal Cannula Shortness of Breath/Dyspnea - MDM Narrative Medical decision making narrative: I have discussed this patient's case with Dr. Bertin Danielle. Dr. Bertin Danielle has had a [id number] evaluation with patient, reviewed her laboratory, radiology results, as well as EKG. Interestingly enough, the patient has no formal diagnosis of atrial fibrillation that can be found within her old records. Previous EKGs reviewed for comparison all read as atrial fibrillation however. She is not on any anticoagulants. She is on aspirin and Plavix however states that she is taking these medications "for my heart" and states that she does not have stents nor can she had stents placed because "I am allergic to the metal". For this reason, it has been decided in conjunction with the ED attending, Dr. Bertin Danielle, that the patient will be began on heparin per ACS protocol in light of possible new onset atrial fibrillation with an elevated troponin of 0.05. Again, the patient denies any chest pain. Her only complaint is shortness of breath, orthopnea, and bilateral lower extremity edema. She was given aspirin here in the emergency department as well. The patient will be admitted to the hospital service for CHF exacerbation as well as potential new onset atrial fibrillation and elevated troponin level. - Medical Records Medical records reviewed: Yes I reviewed the patient's medical records. - Lab Data Lab results reviewed: Yes I reviewed the patient's lab results. Lab results narrative: Lab Results 03/28/18 03/28/18 03/28/18 Range/Units 01:20 01:27 01:27 WBC 6.8 (4.3-11.1) K/mcL RBC 3.89 (3.82-4.97) M/mcL Hgb 10.1 L (11.5-15.4) g/dL Hct 34.9 L (35.3-44.9) % MCV 89.7 (83.0-100.0) fL MCH 26.0 L (28.0-33.3) pg MCHC 28.9 L (31.6-35.5) g/dL RDW 16.0 H (11.5-14.5) % Plt Count 238 (140-400) K/mcL MPV 9.8 (9.4-12.4) fL Immature Gran % 0.3 (0-4) % Seg Neutrophils % 57.3 % Lymphocytes % 21.6 % Monocytes % 19.2 % Eosinophils % 1.3 % Basophils % 0.3 % Neutrophils # 3.9 (1.6-8.9) K/mcL Lymphocytes # 1.5 (0.6-4.6) K/mcL Monocytes # 1.3 (0.0-1.3) K/mcL Eosinophils # 0.1 (0.0-0.6) K/mcL Basophils # 0.0 (0.0-0.2) K/mcL Platelet Estimate Normal (Normal) Hypochromasia Present A (Not Present) Sodium 132 L (136-145) mEq/L Potassium 4.9 (3.5-5.1) mEq/L Chloride 91 L (98-107) mEq/L Carbon Dioxide 37 H (23-29) mEq/L BUN 21 (8-23) mg/dL Creatinine 0.47 L (0.60-1.20) mg/dL Est GFR ( Amer) > 60 (> 60) Est GFR (Non-Af Amer) > 60 (> 60) BUN/Creatinine Ratio 45 H (6-26) Glucose 98 (70-105) mg/dL Calculated Osmolality 277 L (280-300) Lactic Acid (0.5-2.2) mmol/L Calcium 9.1 (8.6-10.3) mg/dL Troponin I 0.05 H* (< 0.04) ng/mL B-Natriuretic Peptide (Less than 100) pg/mL Urine Color Dark Yellow (Yellow) Urine Clarity Clear (Clear) Urine pH 7.0 (5.0-8.0) pH Units Ur Specific [place] 1.024 (1.010-1.025) Urine Protein Trace (Neg-Trace) mg/dL Urine Glucose (UA) Normal (Normal) mg/dL Urine Ketones Negative (Negative) mg/dL Urine Blood Negative (Negative) Urine Nitrite Negative (Negative) Urine Bilirubin Small H (Negative) Urine Urobilinogen 4.0 H (Normal) mg/dL Ur Leukocyte Esterase Moderate H (Negative) Urine Microscopic RBC 0-3 (0-3) per hpf Urine Microscopic WBC 3-5 H (0-3) per hpf Ur Squamous Epith Cells Moderate H (None-Few) per lpf Urine Bacteria Few (None-Few) per hpf Hyaline Casts None Seen (None-Few) per lpf Ur Culture Indicated? YES A (NO) 03/28/18 03/28/18 Range/Units 01:27 01:27 WBC (4.3-11.1) K/mcL RBC (3.82-4.97) M/mcL Hgb (11.5-15.4) g/dL Hct (35.3-44.9) % MCV (83.0-100.0) fL MCH (28.0-33.3) pg MCHC (31.6-35.5) g/dL RDW (11.5-14.5) % Plt Count (140-400) K/mcL MPV (9.4-12.4) fL Immature Gran % (0-4) % Seg Neutrophils % % Lymphocytes % % Monocytes % % Eosinophils % % Basophils % % Neutrophils # (1.6-8.9) K/mcL Lymphocytes # (0.6-4.6) K/mcL Monocytes # (0.0-1.3) K/mcL Eosinophils # (0.0-0.6) K/mcL Basophils # (0.0-0.2) K/mcL Platelet Estimate (Normal) Hypochromasia (Not Present) Sodium (136-145) mEq/L Potassium (3.5-5.1) mEq/L Chloride (98-107) mEq/L Carbon Dioxide (23-29) mEq/L BUN (8-23) mg/dL Creatinine (0.60-1.20) mg/dL Est GFR ( Amer) (> 60) Est GFR (Non-Af Amer) (> 60) BUN/Creatinine Ratio (6-26) Glucose (70-105) mg/dL Calculated Osmolality (280-300) Lactic Acid 1.3 (0.5-2.2) mmol/L Calcium (8.6-10.3) mg/dL Troponin I (< 0.04) ng/mL B-Natriuretic Peptide 1327 H (Less than 100) pg/mL Urine Color (Yellow) Urine Clarity (Clear) Urine pH (5.0-8.0) pH Units Ur Specific [place] (1.010-1.025) Urine Protein (Neg-Trace) mg/dL Urine Glucose (UA) (Normal) mg/dL Urine Ketones (Negative) mg/dL Urine Blood (Negative) Urine Nitrite (Negative) Urine Bilirubin (Negative) Urine Urobilinogen (Normal) mg/dL Ur Leukocyte Esterase (Negative) Urine Microscopic RBC (0-3) per hpf Urine Microscopic WBC (0-3) per hpf Ur Squamous Epith Cells (None-Few) per lpf Urine Bacteria (None-Few) per hpf Hyaline Casts (None-Few) per lpf Ur Culture Indicated? (NO) Result diagrams: 03/28/18 03:23 03/28/18 01:27 Lab Results 03/28/18 03/28/18 03/28/18 Range/Units 01:20 01:27 01:27 WBC 6.8 (4.3-11.1) K/mcL RBC 3.89 (3.82-4.97) M/mcL Hgb 10.1 L (11.5-15.4) g/dL Hct 34.9 L (35.3-44.9) % MCV 89.7 (83.0-100.0) fL MCH 26.0 L (28.0-33.3) pg MCHC 28.9 L (31.6-35.5) g/dL RDW 16.0 H (11.5-14.5) % Plt Count 238 (140-400) K/mcL MPV 9.8 (9.4-12.4) fL Immature Gran % 0.3 (0-4) % Seg Neutrophils % 57.3 % Lymphocytes % 21.6 % Monocytes % 19.2 % Eosinophils % 1.3 % Basophils % 0.3 % Neutrophils # 3.9 (1.6-8.9) K/mcL Lymphocytes # 1.5 (0.6-4.6) K/mcL Monocytes # 1.3 (0.0-1.3) K/mcL Eosinophils # 0.1 (0.0-0.6) K/mcL Basophils # 0.0 (0.0-0.2) K/mcL Platelet Estimate Normal (Normal) Hypochromasia Present A (Not Present) Sodium 132 L (136-145) mEq/L Potassium 4.9 (3.5-5.1) mEq/L Chloride 91 L (98-107) mEq/L Carbon Dioxide 37 H (23-29) mEq/L BUN 21 (8-23) mg/dL Creatinine 0.47 L (0.60-1.20) mg/dL Est GFR ( Amer) > 60 (> 60) Est GFR (Non-Af Amer) > 60 (> 60) BUN/Creatinine Ratio 45 H (6-26) Glucose 98 (70-105) mg/dL Calculated Osmolality 277 L (280-300) Lactic Acid (0.5-2.2) mmol/L Calcium 9.1 (8.6-10.3) mg/dL Troponin I 0.05 H* (< 0.04) ng/mL B-Natriuretic Peptide (Less than 100) pg/mL Urine Color Dark Yellow (Yellow) Urine Clarity Clear (Clear) Urine pH 7.0 (5.0-8.0) pH Units Ur Specific [place] 1.024 (1.010-1.025) Urine Protein Trace (Neg-Trace) mg/dL Urine Glucose (UA) Normal (Normal) mg/dL Urine Ketones Negative (Negative) mg/dL Urine Blood Negative (Negative) Urine Nitrite Negative (Negative) Urine Bilirubin Small H (Negative) Urine Urobilinogen 4.0 H (Normal) mg/dL Ur Leukocyte Esterase Moderate H (Negative) Urine Microscopic RBC 0-3 (0-3) per hpf Urine Microscopic WBC 3-5 H (0-3) per hpf Ur Squamous Epith Cells Moderate H (None-Few) per lpf Urine Bacteria Few (None-Few) per hpf Hyaline Casts None Seen (None-Few) per lpf Ur Culture Indicated? YES A (NO) 03/28/18 03/28/18 Range/Units 01:27 01:27 WBC (4.3-11.1) K/mcL RBC (3.82-4.97) M/mcL Hgb (11.5-15.4) g/dL Hct (35.3-44.9) % MCV (83.0-100.0) fL MCH (28.0-33.3) pg MCHC (31.6-35.5) g/dL RDW (11.5-14.5) % Plt Count (140-400) K/mcL MPV (9.4-12.4) fL Immature Gran % (0-4) % Seg Neutrophils % % Lymphocytes % % Monocytes % % Eosinophils % % Basophils % % Neutrophils # (1.6-8.9) K/mcL Lymphocytes # (0.6-4.6) K/mcL Monocytes # (0.0-1.3) K/mcL Eosinophils # (0.0-0.6) K/mcL Basophils # (0.0-0.2) K/mcL Platelet Estimate (Normal) Hypochromasia (Not Present) Sodium (136-145) mEq/L Potassium (3.5-5.1) mEq/L Chloride (98-107) mEq/L Carbon Dioxide (23-29) mEq/L BUN (8-23) mg/dL Creatinine (0.60-1.20) mg/dL Est GFR ( Amer) (> 60) Est GFR (Non-Af Amer) (> 60) BUN/Creatinine Ratio (6-26) Glucose (70-105) mg/dL Calculated Osmolality (280-300) Lactic Acid 1.3 (0.5-2.2) mmol/L Calcium (8.6-10.3) mg/dL Troponin I (< 0.04) ng/mL B-Natriuretic Peptide 1327 H (Less than 100) pg/mL Urine Color (Yellow) Urine Clarity (Clear) Urine pH (5.0-8.0) pH Units Ur Specific [place] (1.010-1.025) Urine Protein (Neg-Trace) mg/dL Urine Glucose (UA) (Normal) mg/dL Urine Ketones (Negative) mg/dL Urine Blood (Negative) Urine Nitrite (Negative) Urine Bilirubin (Negative) Urine Urobilinogen (Normal) mg/dL Ur Leukocyte Esterase (Negative) Urine Microscopic RBC (0-3) per hpf Urine Microscopic WBC (0-3) per hpf Ur Squamous Epith Cells (None-Few) per lpf Urine Bacteria (None-Few) per hpf Hyaline Casts (None-Few) per lpf Ur Culture Indicated? (NO) - Radiology Data Radiology results reviewed: Yes I reviewed the patient's radiology results. Chest X-Ray 03/28/18 01:02 IMPRESSION: No focal airspace consolidation. Right basilar atelectasis. Stable cardiomegaly. D/ / Lisa Fish MD / Lisa Fish MD Interpreting Provider: Lisa Fish MD - EKG Data EKG attestation: Yes I reviewed and interpreted this EKG. EKG results narrative: EKG shows atrial fibrillation at a rate of 69 bpm. QRS duration 173, QT/QTc interval 452/485. No ST elevations. Attestation Statement - Attestation Attestation: I, Otoniel Danielle, examined this patient and my medical decision-making was reviewed with the [employer]/PA/Advanced Practice Nurse/Resident Physician. I agree with the documented findings, disposition and treatment plan as described except to the extent set forth below. 68-year-old female presents emergency Department with concerns of swelling of the bilateral lower extremities. Patient also states that she is unable lay flat without having shortness of breath. She does have dyspnea with exertion at home as well. Patient denies recent chest pain. Chest x-ray shows vascular congestion. Patient has elevated BNP. EKG shows atrial fibrillation. Patient denies a history of atrial fibrillation and she does not take blood thinners other than Plavix. Patient denies fever, chills, nausea, vomiting, diarrhea, chest pain. She said been admitted multiple times in the past for congestive heart failure. Patient will be started on anticoagulation for her atrial fibrillation and admitted to hospitalist for further care and evaluation of her congestive heart failure.
[2018-03-28 01:31] LABS: Bilirubin,Urine Small (Negative); Blood,Urine Negative (Negative); Clarity,Urine Clear (Clear); Color,Urine Dark Yellow (Yellow); Glucose,Urine (UA) Normal (Normal); Ketones,Urine Negative (Negative); Leukocyte Esterase,Urine Moderate (Negative); Nitrite,Urine Negative (Negative); Protein,Urine Trace mg/dL (Neg-Trace); Specific Gravity,Urine 1.024 (1.010-1.025)
[2018-03-28 01:42] LABS: Hyaline Casts,Urine None Seen per lpf (None-Few); Squamous Epithelial Cell,Urine Moderate per lpf (None-Few)
[2018-03-28 01:42] LABS: Basophils % 0.3 %; Eosinophils % 1.3 %; Immature Granulocytes % 0.3 % (0-4); Mean Platelet Volume 9.8 fL (9.4-12.4)
[2018-03-28 01:43] LABS: RBC,Urine 0-3 per hpf (0-3)
[2018-03-28 01:43] LABS: Eosinophils # 0.1 K/mcL (0.0-0.6); Hematocrit 34.9 % (35.3-44.9); Hemoglobin 10.1 g/dL (11.5-15.4); Lymphocytes # 1.5 K/mcL (0.6-4.6); Lymphocytes % 21.6 %; Mean Corpuscular HGB Conc 28.9 g/dL (31.6-35.5); Mean Corpuscular Volume 89.7 fL (83.0-100.0); Monocytes # 1.3 K/mcL (0.0-1.3); Monocytes % 19.2 %; Neutrophils # 3.9 K/mcL (1.6-8.9); Platelet Count 238 K/mcL (140-400); Red Blood Count 3.89 M/mcL (3.82-4.97); Segmented Neutrophils % 57.3 %
[2018-03-28 01:44] LABS: Bacteria,Urine Few per hpf (None-Few)
[2018-03-28 02:03] LABS: BUN/Creatinine Ratio 45 (6-26); Blood Urea Nitrogen 21 mg/dL (8-23); Calcium 9.1 mg/dL (8.6-10.3); Carbon Dioxide 37 mEq/L (23-29); Chloride 91 mEq/L (98-107); Glucose 98 mg/dL (70-105); Osmolality,Calculated 277 (280-300); Potassium 4.9 mEq/L (3.5-5.1); Sodium 132 mEq/L (136-145); eGFR For Non-African Americans > 60 (> 60)
[2018-03-28 02:08] LABS: Troponin I 0.05 ng/mL (< 0.04)
[2018-03-28] MEDS ORDERED: Aspirin 325 MG TABLET PO ONE (02:11)
[2018-03-28 02:34] LABS: Hypochromasia Present (Not Present); Platelet Estimate Normal (Normal)
[2018-03-28] MEDS ORDERED: *HR* Heparin 5,000 UNIT/ML VIAL IVP ONE (02:55)
[2018-03-28] MEDS ORDERED: *HR* Heparin 5,000 UNIT/ML VIAL IVP PRN ×2 (02:55)
[2018-03-28 03:38] LABS: Immature Platelets 3.8 % (1.1-6.1)
[2018-03-28 03:40] LABS: Hematocrit 35.8 % (35.3-44.9); Hemoglobin 10.5 g/dL (11.5-15.4); Mean Corpuscular HGB Conc 29.3 g/dL (31.6-35.5); Mean Corpuscular Hemoglobin 26.1 pg (28.0-33.3); Mean Corpuscular Volume 89.1 fL (83.0-100.0); Mean Platelet Volume 9.7 fL (9.4-12.4); Red Blood Count 4.02 M/mcL (3.82-4.97)
[2018-03-28 03:48] LABS: INR 1.2
[2018-03-28 03:49] LABS: Heparin anti-factor XA UFH 0.01 IU/mL (0.30-0.70)
[2018-03-28] MEDS ORDERED: Naloxone 0.4 MG/ML INJ IVP PRN (03:54)
--- NOTE | 2018-03-28 03:54 | Internal Med History&Physical ---
<Brittani Baxter - Last Filed: 03/28/18 05:33> Date of Encounter: 03/28/18 Time of Encounter: 03:50 Internal Medicine - H&P: HPI Chief complaint: Swelling of feet, SOB Admitted From: Home Plans for Post Hospital Care: Home History of present illness: Ms. Smith is a 68 year old female with PMHx significant for CHF, CAD with 70% RCA lesion, Arthritis, COPD, GERD, HTN, HLD, hx of DVT on Plavix and aspirin who presents with swelling of her lower extremities and SOB for the past 2-3 days. Pt has a known hx of CHF, and is chronically on 2L O2 via NC at home. However, over the past few days, she notes that she has had more difficulty breathing, and has noticed increased swelling of her feet, which she believes to be due to her CHF. States difficulty breathing has been most pronounced when she tries to fall asleep. Reports orthopnea and sleeps sitting upright. However, she has been able to do her tasks around the house without getting short of breath. Denies headache, vision changes, lightheadedness or dizziness, chest pain, palpitations, wheezing, cough, sputum production, congestion, fe vers/chills. Denies abdominal pain, nausea, vomiting, diarrhea, dysuria, urinary difficulty, weakness, fatigue, malaise. Initial Vitals: T = 98.0; HR = 71; RR = 16; BP = 118/88; O2 = 92 on 2L via NC On exam, pt resting comfortably at bedside in no acute distress with sats 98-99% on 2L O2 via NC. Sitting upright with daughter at bedside. PE: B/L LE swelling, 1+ pitting edema to knees; distal pulses palpable; venous stasis dermatitis; Lungs CTAB, no wheezes, rales, crackles; Heart RRR, no murmurs, rubs, gallops. CBC: Within normal limits BMP: Na = 132; Cl = 91; Otherwise within normal limits Lactic Acid: 1.3 --> 0.5 Trop: 0.05 (elevated at baseline) BNP: 1327 UA: Moderate leuk est; WBCs in urine CXR: No focal airspace consolidation. Right basilar atelectasis. Stable Car diomegaly. EKG: Atrial Fibrillation, Left bundle branch block; HR = 69; QRS = 173 (prolonged); QT = 452; No acute ST changes Repeat EKG: Atrial Fibrillation with premature ventricular complexes; Left bundle branch block; Irregular rhythm; HR = 74; QRS = 190; QT = 464; No acute ST Changes Recent Echocardiogram (02/17/18): LVEF 30%. Global LV systolic dysfunction. Normal LV chamber size. Normal RV size. Function grossly appears reduced. Pt was given 40mg Lasix in the ED, and started on Aspirin, Heparin drip to suspicion of new onset atrial fibrillation. Plan to admit for management of CHF exacerbation, and to further investigate new onset atrial fibrillation. Past Med Surg Social Fam HX - Past Medical History Attestation: Yes The following information was validated with the patient. Source: patient, old records reviewed Medical history: arthritis, CHF, COPD, DVT, GERD, hyperlipidemia, hypertension Additional medical history: Hernia x 4 Psychiatric history: depression - Past Surgical History Surgical History: herniorrhaphy, hysterectomy Additional surgical history: Tubal ligation. Endometriosis. Shoulder sx - Social History Smoking Status: Current every day smoker Smokeless Tobacco Status: No Alcohol use: none Drug use: none - Family History Brother Family Member Ethnicity: Non- Living Status: Hx Family Cancer: Yes (Pancreatic) Father Family Member Ethnicity: Non- Living Status: Hx Family Cardiac Disorders: Yes (CHF, TX, HTN) Hx Family Endocrine Disorder: Yes (DM) Mother Family Member Ethnicity: Non- Living Status: Hx Family Neurologic Disorders: Yes (Alzheimer's disease) Sister Family Member Ethnicity: Non- Living Status: Internal Medicine - H&P: Meds RX: Aspirin 81 mg PO DAILY 08/06/16 [History] RX: Citalopram [CeleXA] 20 mg PO DAILY 08/06/16 [History] RX: Pantoprazole Sodium [Protonix] 40 mg PO DAILY 08/06/16 [History] RX: Clopidogrel [Plavix] 75 mg PO DAILY #30 tablet 02/14/17 [Rx] RX: Furosemide [Lasix] 20 mg PO DAILY #30 tablet 02/14/17 [Rx] RX: Lisinopril [Zestril] 2.5 mg PO DAILY #30 tablet 02/14/17 [Rx] RX: Atorvastatin [Lipitor] 10 mg PO DAILY 10/03/17 [History] RX: Albuterol Sulfate [Albuterol Inhaler] 2 puff IH Q4HR PRN #1 hfa.aer.ad 09/27 07/14 [Rx] RX: Docusate Sodium [Colace] 100 mg PO DAILY 02/06/18 [History] RX: Psyllium Husk [Daily Fiber] 0.52 gm PO DAILY 02/06/18 [History] RX: Ferrous Gluconate 324 mg PO BID #60 tablet 02/08/18 [Rx] RX: Ipratropium/Albuterol Sulfate [Iprat-Albut 0.5-3(2.5) mg/3 ml] 3 ml IH 3-4XD PRN 02/17/18 [History] RX: Lansoprazole [Prevacid] 30 mg PO 0730 capsule.dr 02/21/18 [Rx] RX: Metoprolol XL (24 HR) Succ [Toprol Xl] 25 mg PO DAILY #30 tab.er.24h 02/21/18 [Rx] RX: Nitroglycerin 0.2 mg TD 1200 #24 patch.td24 02/21/18 [Rx] Allergy/AdvReac Type Severity Reaction Status Date / Time Neomycin Allergy Blister Verified 02/17/18 13:47 Penicillins Allergy Blister Verified 02/17/18 13:47 All Systems PM: A 10-system review of systems was performed and is negative for pertinent findings except as documented above in the HPI. - Constitutional Constitutional: no chills, no fatigue, no fever(s), no lethargy, no malaise, no night sweats, no weakness, no weight gain - EENT Eyes: no blurry vision, no change in vision Nose, mouth and throat: no nasal congestion, no neck pain, no sinus pressure, no sore throat - Cardiovascular Cardiovascular ROS IM: dyspnea, dyspnea on exertion, edema, orthopnea, paroxysmal nocturnal dyspnea, no chest pain, no diaphoresis, no irregular heart rhythm, no lightheadedness, no palpitations, no syncope - Respiratory Respiratory: cough, dyspnea, dyspnea on exertion, no hemoptysis, no wheezing, no chest congestion, no pain with cough - Gastrointestinal Gastrointestinal: no abdominal pain, no constipation, no diarrhea, no loose stools, no melena, no nausea, no vomiting - Musculoskeletal Musculoskeletal ROS IM: no muscle cramps, no myalgias, no neck pain - Integumentary Integumentary IM: no rash - Neurological Neurological ROS: no confusion, no dizziness, no frequent falls, no headache(s) - Constitutional Vitals: Temp Pulse Resp BP Pulse Ox 98.0 F 85 20 115/85 99 03/28/18 00:38 03/28/18 03:24 03/28/18 03:24 03/28/18 03:24 03/28/18 03:24 General appearance: Present: cooperative, A&O X 3, no acute distress, answers questions appropriately Exam: GEN: AOx3; NAD; sitting up at bedside; accompanied by granddaughter. HEENT: Atraumatic, normocephalic, EOMI, mucous membranes moist CARDIO: RRR, no murmurs, rubs, gallops RESP: CTAB, no wheezes, rhonchi, rales ABD: Soft, non-tender, non-distended; bowel sounds present EXT: 1+ pitting edema to knees b/l; evidence of venous stasis dermatitis; no rashes or lesions NEURO: CN 2-12 intact; no focal deficits Internal Med - H&P Results - Labs CBC & Chem 7: 03/28/18 03:23 03/28/18 01:27 Labs: Short CBC 03/28/18 03/28/18 Range/Units 01:27 03:23 WBC 6.8 6.8 (4.3-11.1) K/mcL Hgb 10.1 L 10.5 L (11.5-15.4) g/dL Hct 34.9 L 35.8 (35.3-44.9) % Plt Count 238 258 (140-400) K/mcL Neutrophils # 3.9 (1.6-8.9) K/mcL BMP 03/28/18 01:27 Sodium 132 L Potassium 4.9 Chloride 91 L Carbon Dioxide 37 H BUN 21 Creatinine 0.47 L Glucose 98 Calcium 9.1 Cardiac Enzymes 03/28/18 Range/Units 01:27 Troponin I 0.05 H* (< 0.04) ng/mL Urine 03/28/18 Range/Units 01:20 Urine Color Dark Yellow (Yellow) Urine Clarity Clear (Clear) Urine pH 7.0 (5.0-8.0) pH Units Ur Specific [place] 1.024 (1.010-1.025) Urine Protein Trace (Neg-Trace) mg/dL Urine Glucose (UA) Normal (Normal) mg/dL - Impressions ITS Impressions Chest X-Ray 03/28/18 01:02 IMPRESSION: No focal airspace consolidation. Right basilar atelectasis. Stable cardiomegaly. D/ / Lisa Fish MD / Lisa Fish MD Interpreting Provider: Lisa Fish MD - Assessment and plan (1) Acute exacerbation of CHF (congestive heart failure) Current Visit: Yes Status: Acute Assessment and plan: Ms. Smith is a 68 year old female with PMHx significant for CHF, CAD with 70% RCA lesion, Arthritis, COPD, GERD, HTN, HLD, hx of DVT on Plavix and aspirin who presents with swelling of her lower extremities and SOB for the past 2-3 days. Associated with orthopnea and paroxysmal nocturnal dyspnea Vitals: Afebrile; hemodynamically stable PE: 1+ pitting edema b/l to knees CBC: No leukocytosis Lactic Acid: Normal BNP: 1327 CXR: No focal airspace consolidation. Right basilar atelectasis. Stable Cardiomegaly Recent Echocardiogram (02/17/18): LVEF 30%. Global LV systolic dysfunction. Normal LV chamber size. Normal RV size. Function grossly appears reduced. S/p 40mg IV Lasix in the ED Acute CHF exacerbation, possibly secondary to new onset arrhythmia, possibly AFib PLAN: Monitor vitals; monitor O2 saturation Cont 2L O2 via NC Strict Is and Os Daily Weights Cont Lasix QD Qualifiers: Heart failure type: systolic Qualified Code(s): I50.23 - Acute on chronic systolic (congestive) heart failure (2) New onset atrial fibrillation Current Visit: Yes Status: Acute Assessment and plan: Pt found to Atrial Fibrillation on EKG: EKG: Atrial Fibrillation, Left bundle branch block; HR = 69; QRS = 173 (prolonged); QT = 452; No acute ST changes Repeat EKG: Atrial Fibrillation with premature ventricular complexes; Left bundle branch block; Irregular rhythm; HR = 74; QRS = 190; QT = 464; No acute ST Changes Vitals hemodynamically stable; denies chest pain, palpitations; denies hx of Afib Trop: 0.05 --> however, appear to be chronically elevated CHADS-VASc Score: 6 points (Age, female gender, CHF, HTN, Venous thromboembolism hx) PLAN: Start Heparin Drip Cont Aspirin 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 Cardiology recommendations appreciated (3) Elevated troponin Current Visit: No Status: Chronic Assessment and plan: Trop = 0.05 Seems to be chronically elevated; likely secondary to demand ischemia Endorses SOB, orthopnea, but Denies chest pain, palpitations, headache, vision changes, nausea, vomiting, diarrhea PLAN: Monitor vitals Cont aspirin, plavix, statin, prema inhibitor, beta bettina Cont Heparin Drip Cardiology recommendations appreciated (4) COPD (chronic obstructive pulmonary disease) Current Visit: No Status: Chronic Assessment and plan: Hx of COPD Maintained on 2L O2 via NC; sats 97-98% Daily smoker PLAN: Monitor vitals; monitor O2 sat Cont O2 via NC Cont Duonebs, albuterol PRN Qualifiers: COPD type: emphysema Emphysema type: unspecified Qualified Code(s): J43.9 - Emphysema, unspecified (5) Hx of deep venous thrombosis Current Visit: No Status: Chronic Assessment and plan: Hx DVT in the past On Aspirin and Plavix PLAN: Cont aspirin, Plavix (6) GERD (gastroesophageal reflux disease) Current Visit: No Status: Chronic Assessment and plan: Hx GERD; Currently denies symptoms PLAN: Cont Protonix Qualifiers: Esophagitis presence: esophagitis presence not specified Qualified Code(s): K21.9 - Gastro-esophageal reflux disease without esophagitis (7) HLD (hyperlipidemia) Current Visit: No Status: Chronic Assessment and plan: Cont statin Qualifiers: Hyperlipidemia type: pure hypercholesterolemia Qualified Code(s): E78.00 - Pure hypercholesterolemia, unspecified; E78.0 - Pure hypercholesterolemia (8) HTN (hypertension) Current Visit: No Status: Chronic Assessment and plan: BP = 118/88 Cont Lisinopril Qualifiers: Hypertension type: essential hypertension Qualified Code(s): I10 - Essential (primary) hypertension (9) DVT prophylaxis Current Visit: No Status: Acute Assessment and plan: Pt currently on heparin drip - Time Spent With Patient Total time spent is greater than 50% in coordination of care (as documented) at patient's floor/unit and/or counseling patient: less than 15 minutes <Michell Davis - Last Filed: 03/28/18 05:59> Date of Encounter: 03/28/18 All Systems PM: A 10-system review of systems was performed and is negative for pertinent findings except as documented above in the HPI. - Constitutional Vitals: Temp Pulse Resp BP Pulse Ox 97.6 F 75 18 123/49 98 03/28/18 03:52 03/28/18 03:52 03/28/18 03:52 03/28/18 03:52 03/28/18 03:52 Internal Med - H&P Results - Labs CBC & Chem 7: 03/28/18 03:23 03/28/18 01:27 Labs: Short CBC 03/28/18 03/28/18 Range/Units 01:27 03:23 WBC 6.8 6.8 (4.3-11.1) K/mcL Hgb 10.1 L 10.5 L (11.5-15.4) g/dL Hct 34.9 L 35.8 (35.3-44.9) % Plt Count 238 258 (140-400) K/mcL Neutrophils # 3.9 (1.6-8.9) K/mcL BMP 03/28/18 01:27 Sodium 132 L Potassium 4.9 Chloride 91 L Carbon Dioxide 37 H BUN 21 Creatinine 0.47 L Glucose 98 Calcium 9.1 Cardiac Enzymes 03/28/18 Range/Units 01:27 Troponin I 0.05 H* (< 0.04) ng/mL Urine 03/28/18 Range/Units 01:20 Urine Color Dark Yellow (Yellow) Urine Clarity Clear (Clear) Urine pH 7.0 (5.0-8.0) pH Units Ur Specific [place] 1.024 (1.010-1.025) Urine Protein Trace (Neg-Trace) mg/dL Urine Glucose (UA) Normal (Normal) mg/dL - Impressions ITS Impressions Chest X-Ray 03/28/18 01:02 IMPRESSION: No focal airspace consolidation. Right basilar atelectasis. Stable cardiomegaly. D/ / Lisa Fish MD / Lisa Fish MD Interpreting Provider: Lisa Fish MD - Time Spent With Patient Total time spent is greater than 50% in coordination of care (as documented) at patient's floor/unit and/or counseling patient: - Attending Attestation I performed a history and physical exam of the patient and discussed management with the resident. I reviewed the resident's note and agree with the documented findings and plan of care. China Smith is a 68 year old woman with known coronary artery disease who refuse PCI due to her concern for an allergy to metal, heart failure with reduced ejection fraction and is an active smoker with COPD on 2 L home oxygen who has been admitted twice in the past 2 months presenting with the complaint of increasing shortness of breath and pedal edema. She reports orthopnea and paroxysmal nocturnal dyspnea. She denies chest pain cough or expectoration. She states that she takes 20 mg furosemide at home and has not increased her dose as of yet. In the ER and EKG was done which was slightly concerning for atrial fibrillation but inconclusive but was started on heparin infusion. She also received IV furosemide with subsequent diuresis which she says has made her feel better. Labs remarkable for troponin of 0.05 which on review of old records is a chronic elevation. BNP is 1327. Physical exam remarkable for well-developed woman in no acute distress who is sitting up in bed to achieve comfort with fine rales in both lower lung bailey with premature beats on cardiac auscultation but not irregularly irregular, soft and non-tender abdomen, no carotid bruits on neck exam, 2+ pitting edema in both lower legs with varices noted and trophic changes of venous stasis. AAO 3 and affect appropriate. We will admit for observation of acute on chronic systolic heart failure. No clinical or with the electrocardiographic signs of ACS. Troponin elevation likely has to do with chronic heart failure and underlying CAD and is unchanged from previous values. EKG seen was compounded by artifacts and not an adequate representation. Another resting EKG should be performed to confirm and continued monitoring on telemetry. She denies any history of atrial fibrillation in the past. Hyponatremia is possibly hypervolemic in origin. Continue dual antiplatelet therapy. Heparin can be continued if verified to be in atrial fibrillation. Resume PREMA inhibitor and beta bettina. Intravenous furosemide. Continue supplemental oxygen. Smoking cessation advised; declines nicotine patch. MARTIN HARMON.
[2018-03-28] MEDS: Heparin 25,000 UNIT/500 ML D5W 25,000 UNIT/500 ML BAG IVC SCH (04:35)
[2018-03-28] MEDS ORDERED: Ipratropium/Albuterol Neb 3 ML IH PRN ×2 (05:39→06:00)
[2018-03-28] MEDS ORDERED: Levalbuterol Neb 0.63 MG/3 ML IH PRN (07:40)
--- NOTE | 2018-03-28 08:25 | Cardiology Consult Note ---
Addendum entered and electronically signed by Phillip De La Torre MD 03/29/18 08:26: I examined this patient and my medical decision-making was reviewed with the PRE K TEACHER. I agree with the documented findings, disposition and treatment plan as described except to the extent set forth below. A/P: Acute on chronic systolic CHF, nonischemic Known CAD of mid RCA Minimally elevated troponin in setting of acute CHF and without angina Old LBBB Continue diuresis, will need to increase 40-60mg lasix PO daily at home (instead of 20mg daily) with bmp followup. Sodium restriction and daily morning postvoid weights (baseline 153lb). EF has improved from 20 to 30% on medical management. Thank you for the consult, Phillip De La Torre MD [facility] Original Note: Date of Encounter: 03/28/18 Time of Encounter: 08:30 Assessment and Plan (1) Acute exacerbation of CHF (congestive heart failure) Current Visit: Yes Status: Acute Per Cardiology: Known EF of 30% from echo January 2018-- comparable from baseline. Chest x-ray stable. BNP 1300s, comparable to her baseline. Clinically she has improved with IV Lasix 40 mg twice a day-- reports home dose of Lasix 20mg by mouth daily. Reports baseline weight of 153 pounds, currently weighing 160 pounds. We will add strict I&O, 1.5 L fluid restriction, daily weights. Anticipate discharge home on higher dose of PO Lasix. Qualifiers: Heart failure type: systolic Qualified Code(s): I50.23 - Acute on chronic systolic (congestive) heart failure (2) Elevated troponin Current Visit: No Status: Chronic Per Cardiology: Has no known history of chronic mild troponin elevations and peak of 0.06 during last hospital stay, currently 0.05. Chest pain-free. Suspect demand ischemia in setting of Jacob and chronic CHF exacerbation and COPD. No cardiac rehabilitation consult warranted. Catheterization film reviewed and discussed with Dr. De La Torre, no further catheterization recommended this time. On aspirin, Plavix, statin, PREMA inhibitor, beta bettina. (3) LBBB (left bundle branch block) Current Visit: Yes Status: Chronic Per Cardiology: Has known left bundle-branch block. (4) Atrial fibrillation Current Visit: Yes Status: Chronic Per Cardiology: Patient denies any past history of atrial fib, however upon review of medical records patient has had intermittent atrial fibrillation throughout 2018. Currently A. fib rate controlled in the 60s to 70s with average heart rate past 12 hours 67. On beta bettina. Regarding long-term anticoagulation, previously had been on Coumadin for history of DVT. [id number]=3. Currently on IV heparin drip. On asa and plavix. Will need to evaluate long-term AC. No stenting 01/2017 done. Qualifiers: Atrial fibrillation type: paroxysmal Qualified Code(s): I48.0 - Paroxysmal atrial fibrillation Discussion w patient/family: The assessment and plan as outlined above was discussed with the patient and/or family members who expressed understanding and agreement. All questions were answered. Thank you for involving us in the care of your patient. Please call with any questions. History of Present Illness Consult date: 03/28/18 Requesting physician: Brittani Baxter Consult reason: CHF, Afib Chief complaint: SOB History of present illness: Ms. Smith is a 68 year old female with a relevant past medical history of CHF-- cardiomyopathy, history of DVT previously on Coumadin in the past, GERD, hyperlipidemia, hypertension, past history of nicotine abuse, COPD with home oxygen use, and CAD. Patient seen during recent hospital stay about one month ago for shortness of breath and edema. At that time patient declined repeat left heart catheterization. Cardiology consult for increased short of breath and edema. Also, concerns of possible new onset atrial fibrillation. Patient reports overall increase in shortness of breath from baseline of the past few days. Reports increased bilateral lower extension is swelling as well. She reports baseline weight 153 pounds and now up about 7-8 pounds. She reports some mild clinical improvement over the past 24 hours with IV diuresis. She denies any chest pain or palpitations. Denies any dizziness, syncope, falls. Denies any active bleeding or blood loss. Denies any fever, chills, nausea, vomiting, diarrhea. Reports was taking Lasix 20 g by mouth daily at [facility], her previous home dosage. 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 Past Med Surg Social Fam HX - Past Medical History Attestation: Yes The following information was validated with the patient. Source: patient, old records reviewed Medical history: arthritis, CHF, COPD, DVT, GERD, hyperlipidemia, hypertension Additional medical history: Hernia x 4 Psychiatric history: depression - Past Surgical History Surgical History: herniorrhaphy, hysterectomy Additional surgical history: Tubal ligation. Endometriosis. Shoulder sx - Social History Smoking Status: Current every day smoker Packs per day: 1/2 Smokeless Tobacco Status: No Alcohol use: none Drug use: none - Family History Father Family Member Ethnicity: Non- Living Status: Hx Family Cardiac Disorders: Yes (CHF, NE, HTN) Hx Family Endocrine Disorder: Yes (DM) Mother Family Member Ethnicity: Non- Living Status: Hx Family Neurologic Disorders: Yes (Alzheimer's disease) Brother Family Member Ethnicity: Non- Living Status: Hx Family Cancer: Yes (Pancreatic) Sister Family Member Ethnicity: Non- Living Status: Medications and Allergies Aspirin 81 mg PO DAILY 08/06/16 [History] Citalopram [CeleXA] 20 mg PO DAILY 08/06/16 [History] Pantoprazole Sodium [Protonix] 40 mg PO DAILY 08/06/16 [History] Clopidogrel [Plavix] 75 mg PO DAILY #30 tablet 02/14/17 [Rx] Furosemide [Lasix] 20 mg PO DAILY #30 tablet 02/14/17 [Rx] Lisinopril [Zestril] 2.5 mg PO DAILY #30 tablet 02/14/17 [Rx] Atorvastatin [Lipitor] 10 mg PO DAILY 10/03/17 [History] Albuterol Sulfate [Albuterol Inhaler] 2 puff IH Q4HR PRN #1 hfa.aer.ad 10/09/17 [Rx] Docusate Sodium [Colace] 100 mg PO DAILY 02/06/18 [History] Psyllium Husk [Daily Fiber] 0.52 gm PO DAILY 02/06/18 [History] Ferrous Gluconate 324 mg PO BID #60 tablet 02/08/18 [Rx] Ipratropium/Albuterol Sulfate [Iprat-Albut 0.5-3(2.5) mg/3 ml] 3 ml IH 3-4XD PRN 02/17/18 [History] Lansoprazole [Prevacid] 30 mg PO 0730 capsule.dr 02/21/18 [Rx] Metoprolol XL (24 HR) Succ [Toprol Xl] 25 mg PO DAILY #30 tab.er.24h 02/21/18 [Rx] Nitroglycerin 0.2 mg TD 1200 #24 patch.td24 02/21/18 [Rx] Allergy/AdvReac Type Severity Reaction Status Date / Time Neomycin Allergy Blister Verified 02/17/18 13:47 Penicillins Allergy Blister Verified 02/17/18 13:47 All Systems Review: The remainder of the systems were reviewed and are negative - Cardiovascular Cardiovascular: as per HPI, dyspnea at rest, dyspnea on exertion, leg edema Physical Examination Selected Entries 03/28/18 03:52 03/28/18 05:29 Temperature 97.6 F Pulse Rate 75 Respiratory Rate 18 Blood Pressure 123/49 O2 Sat by Pulse Oximetry 98 Oxygen Flow Rate (LPM) 2 Oxygen Delivery Method Nasal Cannula General: Conversant, No Apparent Distress HEENT: Atraumatic, Normocephaly, Mucus Membranes Moist Neck: No JVD, Normal carotid pulses Cardiac: Reg Rate and Rhythm, Normal S1 and S2, No Murmur, Other (Mild conversational dyspnea noted, on NC oxygen, diminished breath sounds throughout) Lungs: Normal Breath Sounds, No Wheeze, Rales, Rhonchi Neuro: Alert and responsive, No focal deficits noted Abdomen: Soft, Non-Tender, Other (obese) Skin: No rashes noted on visualized skin Musculoskeletal: No Chest Wall Tenderness Extremities: Other (+2 nonpitting bilateral lower extremity edema, bilateral lower extremities erythematous, no open wounds) Results 03/28/18 03:23 03/28/18 01:27 Lab Results Laboratory Tests 02/18/18 03/28/18 03/28/18 02:56 01:20 01:27 Hgb 10.1 L Hct 34.9 L INR Creatinine Est GFR (Non-Af Amer) Troponin I B-Natriuretic Peptide 865 H Ur Leukocyte Esterase Moderate H Ur Squamous Epith Cells Moderate H Ur Culture Indicated? YES A 03/28/18 03/28/18 03/28/18 01:27 01:27 03:23 Hgb Hct INR 1.2 Creatinine 0.47 L Est GFR (Non-Af Amer) > 60 Troponin I 0.05 H* B-Natriuretic Peptide 1327 H Ur Leukocyte Esterase Ur Squamous Epith Cells Ur Culture Indicated? ITS Impressions Chest X-Ray 03/28/18 01:02 IMPRESSION: No focal airspace consolidation. Right basilar atelectasis. Stable cardiomegaly. D/ / Lisa Fish MD / Lisa Fish MD Interpreting Provider: Lisa Fish MD Active Medications Aspirin (Aspirin) 81 mg PO DAILY [facility] Stop: 09/27/18 09:01 Atorvastatin Calcium (Lipitor) 10 mg PO DAILY [facility] Stop: 09/27/18 09:01 Calcium Polycarbophil (Fibercon) 625 mg PO DAILY [facility] Stop: 09/27/18 09:01 Citalopram Hydrobromide (Celexa) 20 mg PO DAILY [facility] Stop: 09/27/18 09:01 Clopidogrel Bisulfate (Plavix) 75 mg PO DAILY [facility] Stop: 09/27/18 09:01 Docusate Sodium (Colace) 100 mg PO DAILY [facility]; Protocol Stop: 09/27/18 09:01 Ferrous Sulfate (Ferrous Sulfate) 325 mg PO BIDWM [facility] Stop: 09/27/18 08:01 Furosemide (Lasix) 40 mg IVP BIDDIURETIC [facility] Stop: 09/27/18 08:01 Heparin Sodium (Porcine) (Heparin) 4,000 unit IVP Q6HR PRN PRN Reason: SEE COMMENTS Stop: 09/27/18 02:56 Heparin Sodium (Porcine) (Heparin) 2,000 unit IVP Q6H PRN PRN Reason: SEE COMMENTS Stop: 09/27/18 02:56 Heparin Sodium/Dextrose (Heparin 25,000 Unit/500 Ml D5w) 25,000 unit in 500 mls @ 17.418 mls/hr IVC .Q24H [facility]; Protocol Stop: 09/27/18 03:01 Last Admin: 03/28/18 04:35 Dose: 12 unit/kg/hr, 17.418 mls/hr Levalbuterol HCl (Xopenex) 0.63 mg IH [id number] PRN PRN Reason: Shortness Of Breath/Wheezing Stop: 09/27/18 07:41 Lisinopril (Zestril) 2.5 mg PO DAILY [facility]; Protocol Stop: 09/27/18 09:01 Metoprolol Succinate (Toprol Xl) 25 mg PO DAILY [facility] Stop: 09/27/18 09:01 Naloxone HCl (Narcan) 0.4 mg IVP Q2MIN PRN PRN Reason: SEE COMMENTS Stop: 09/27/18 03:55 Omeprazole (Prilosec) 40 mg PO 0630 [facility] Stop: 09/27/18 06:31 - Imaging and Cardiology Chest Xray: report reviewed Echo: report reviewed (02/17/18: Impressions: LIMITED ECHO LVEF 30%. Global LV systolic dysfunction. Normal LV chamber size. Normal RV size. Function grossly appears reduced.) Cardiac cath: report reviewed - EKG Interpretation EKG results cardiology: personally reviewed (Atrial fibrillation, previous ECGs reviewed and atrial fibrillation noted intermittently throughout 2018), left bundle branch block (Known history of left bundle branch block), other (Avg HR on telemetry the past 12 hours 67, atrial fibrillation) Consult Discharge Plan - Plan Referrals: Duran Sims Jr, MD [Primary Care Provider] -
[2018-03-28] MEDS: Aspirin 81 MG TAB.CHEW PO SCH (08:56)
[2018-03-28] MEDS: Furosemide 40 MG/4 ML VIAL IVP SCH ×2 (08:56→16:33)
[2018-03-28] MEDS: Metoprolol XL (24 HR) Succ 25 MG TAB.ER.24H PO SCH (08:57)
[2018-03-28] MEDS ORDERED: Furosemide 20 MG TABLET PO SCH (09:00)
--- NOTE | 2018-03-28 10:37 | Event Note ---
Date of Encounter: 03/28/18 Time of Encounter: 10:35 - Cardiology Event Note [place] check completed for Xarelto with quote of about $500 per month and for Eliqius of about $100 per month. Patient declined both options. Patient agreeable to Coumadin for long-term anticoagulation. Will start Coumadin with pharmacy to dose the target INR 2.0-3.0 for atrial fib. We will discontinue Plavix-- no recent stenting in the past one year. Continue baby aspirin. Continue with IV diuresis and recommend discharge to home the higher dose of by mouth Lasix. Cardiology signoff, reconsult as needed, follow-up arranged. Discussed and reviewed with Dr. De La Torre.
[2018-03-28] MEDS ORDERED: Nitroglycerin 0.2 MG PATCH.TD24 TD SCH (12:00)
--- NOTE | 2018-03-28 14:39 | Internal Med Progress Note ---
<Mercedes Schofield - Last Filed: 03/28/18 15:23> Hospitalist Progress Note - Encounter Date of Encounter: 03/28/18 - Exam Vitals: Temp Pulse Resp BP Pulse Ox 97.5 F L 69 59 120/68 96 03/28/18 12:45 03/28/18 08:17 03/28/18 12:45 03/28/18 12:45 03/28/18 12:45 - Time Spent with Patient Total time spent is greater than 50% in coordination of care (as documented) at patient's floor/unit and/or counseling patient: Internal Medicine: Result - Labs CBC & Chem 7: 03/28/18 03:23 03/28/18 01:27 Labs: Short CBC 03/28/18 03/28/18 Range/Units 01:27 03:23 WBC 6.8 6.8 (4.3-11.1) K/mcL Hgb 10.1 L 10.5 L (11.5-15.4) g/dL Hct 34.9 L 35.8 (35.3-44.9) % Plt Count 238 258 (140-400) K/mcL Neutrophils # 3.9 (1.6-8.9) K/mcL BMP 03/28/18 01:27 Sodium 132 L Potassium 4.9 Chloride 91 L Carbon Dioxide 37 H BUN 21 Creatinine 0.47 L Glucose 98 Calcium 9.1 Cardiac Enzymes 03/28/18 03/28/18 03/28/18 Range/Units 01:27 08:06 13:48 Troponin I 0.05 H* 0.05 H* 0.05 H* (< 0.04) ng/mL Urine 03/28/18 Range/Units 01:20 Urine Color Dark Yellow (Yellow) Urine Clarity Clear (Clear) Urine pH 7.0 (5.0-8.0) pH Units Ur Specific [place] 1.024 (1.010-1.025) Urine Protein Trace (Neg-Trace) mg/dL Urine Glucose (UA) Normal (Normal) mg/dL - ABG Interpretation ABG results: PT/INR, D-dimer PT 14.0 Seconds (9.4-12.1) H 03/28/18 03:23 - Impressions Impressions Chest X-Ray 03/28/18 01:02 IMPRESSION: No focal airspace consolidation. Right basilar atelectasis. Stable cardiomegaly. D/ / Lisa Fish MD / Lisa Fish MD Interpreting Provider: Lisa Fish MD Consult Discharge Plan - Plan Referrals: Duran Sims Jr, MD [Primary Care Provider] - - Attending Attestation I examined this patient and my medical decision-making was reviewed with the Resident Physician Dr Isidro. I agree with the documented findings, disposition and treatment plan as described except to the extent set forth below. Ms Smith is currently admitted for acute on chronic systolic chf exa cerbation and rate controlled afib awake, pleasant, sob is starting to improve at rest, + orthopnea, + le edema, has had redness to the feet for some time but no pain, wounds, ithcin, + dry skin and pitting edema, no fevers, chills, palpitations, presycnope. no dysuria, hematuria, change in freq or urgency, no supra pubic tenderness gen- alert, awake,appears stated age eyes- pupils equal round, no conjunctival pallor cv- reg rate and irreg/irreg rhythm, normal s1,s2, no murmurs appreciated, 1+ pitting edema bl le lungs- ctabl, no wheezing, rhonchi , _ diminsihed bl bases, normal resp effort abd- soft, non tender, non distended, + bs neuro- AAOx3 acute on chronic systolic chf- ef 30%- cards following, cont iv diuresis and at time of dc will need higher than home dose PO RAte controlled afib, hx of prior in past- cards following, hep bridge to coumadin, monitor lytes, tele chronic trop elevation- stable, actually less than baseline cad hx, stable- cont asa, stop plavix now with coumadin, cont statin, bb, acei chronic anemia, stable at baseline - 9-10 in January 2018, no active bleeding, cont to moitor UA may indicate infection with cx pending however pt denies any sxs of uti, cont ot monitor, no leukocytosis or fever further diagnoses and plan documented by resident <Cam Isidro - Last Filed: 03/28/18 18:37> Hospitalist Progress Note - Encounter Date of Encounter: 03/28/18 Time of Encounter: 11:00 - Subjective Interval History: 03/28 She was seen and evaluated sitting up at bedside. Denies fever chest discomfort shortness of breath dizziness or abdominal pain. Her blood pressures have been in the 80s systolic today but currently she is now in the 100 systolic. She has her mild lower extremity redness is not painful , it is not itchy and does not bother her. Interval history: China Smith is a 68-year-old female with past medical history of CHF, CAD 70% RCA lesion, arthritis, COPD on 2 L home O2, GERD, hypertension, hyperlipidemia, and DVT on Plavix and aspirin who presented yesterday with lower extremity swelling and shortness of breath for 2-3 days. ED labs showed a troponin of 0.05 which is her baseline, BNP of 1327, echo was performed on February 17 with an EF of 30%. EKG done in the ED showed A. fib without ST elevation or depression. She was admitted for CHF exacerbation - Exam Vitals: Temp Pulse Resp BP Pulse Ox 97.5 F L 69 59 120/68 96 03/28/18 12:45 03/28/18 08:17 03/28/18 12:45 03/28/18 12:45 03/28/18 12:45 Exam: GEN: AOx3; NAD; sitting up at bedside HEENT: Atraumatic, normocephalic, EOMI, mucous membranes moist CARDIO: RRR, no murmurs, rubs, gallops RESP: no wheezes, rhonchi, rales; bilat decreased breath sounds, normal chest excursion ABD: Soft, non-tender, non-distended; bowel sounds present EXT: 1+ pitting edema to knees b/l; erythema over shins; no rashes or lesions NEURO: CN 2-12 intact; no focal deficits - Assessment and Plan (1) Atrial fibrillation Current Visit: Yes Status: Chronic Assessment and Plan: Toprol 25mg PO daily for rate control Currently on Heparin drip to transition to Coumadin per cardiology [id number] of 5 (2) Congestive heart failure Current Visit: No Status: Acute Assessment and Plan: Diuresising with Lasix 40mg IV BID; to go home with high home dose (3) COPD (chronic obstructive pulmonary disease) Current Visit: No Status: Chronic Assessment and Plan: Not an exacerbation switched to Xopenex due to irregularly irregular rhythm (4) Coronary artery disease Current Visit: No Status: Chronic Assessment and Plan: Aspirin, Coumadin bridge, beta bettina, Biju-i, statin (5) Elevated troponin Current Visit: No Status: Chronic Assessment and Plan: Medical management as above chronic mild troponin elevation with peak of 0.06 du ring last stay, currently 0.05 with no chest pain, diaphoresis or shortness of breath (6) HLD (hyperlipidemia) Current Visit: No Status: Chronic Assessment and Plan: Chronic continue statin (7) HTN (hypertension) Current Visit: No Status: Chronic Assessment and Plan: Chronic continue rate control/beta bettina (8) Hx of deep venous thrombosis Current Visit: No Status: Chronic Assessment and Plan: Currently on heparin with planned transition to Coumadin (9) DVT prophylaxis Current Visit: No Status: Acute Assessment and Plan: as above, heparin to coumadin planned - Time Spent with Patient Total time spent is greater than 50% in coordination of care (as documented) at patient's floor/unit and/or counseling patient: Internal Medicine: Result - Labs CBC & Chem 7: 03/28/18 03:23 03/28/18 01:27 Labs: Short CBC 03/28/18 03/28/18 Range/Units 01:27 03:23 WBC 6.8 6.8 (4.3-11.1) K/mcL Hgb 10.1 L 10.5 L (11.5-15.4) g/dL Hct 34.9 L 35.8 (35.3-44.9) % Plt Count 238 258 (140-400) K/mcL Neutrophils # 3.9 (1.6-8.9) K/mcL BMP 03/28/18 01:27 Sodium 132 L Potassium 4.9 Chloride 91 L Carbon Dioxide 37 H BUN 21 Creatinine 0.47 L Glucose 98 Calcium 9.1 Cardiac Enzymes 03/28/18 03/28/18 Range/Units 01:27 08:06 Troponin I 0.05 H* 0.05 H* (< 0.04) ng/mL Urine 03/28/18 Range/Units 01:20 Urine Color Dark Yellow (Yellow) Urine Clarity Clear (Clear) Urine pH 7.0 (5.0-8.0) pH Units Ur Specific [place] 1.024 (1.010-1.025) Urine Protein Trace (Neg-Trace) mg/dL Urine Glucose (UA) Normal (Normal) mg/dL - ABG Interpretation ABG results: PT/INR, D-dimer PT 14.0 Seconds (9.4-12.1) H 03/28/18 03:23 - Impressions Impressions Chest X-Ray 03/28/18 01:02 IMPRESSION: No focal airspace consolidation. Right basilar atelectasis. Stable cardiomegaly. D/ / Lias Fish MD / Lisa Fish MD Interpreting Provider: Lisa Fish MD <Cam Isidro - Last Filed: 03/28/18 18:37> (1) Atrial fibrillation Qualifiers: Atrial fibrillation type: paroxysmal Qualified Code(s): I48.0 - Paroxysmal atrial fibrillation (2) Congestive heart failure Qualifiers: Heart failure type: unspecified Heart failure chronicity: acute on chronic Qualified Code(s): I50.9 - Heart failure, unspecified (3) COPD (chronic obstructive pulmonary disease) Qualifiers: COPD type: emphysema Emphysema type: unspecified Qualified Code(s): J43.9 - Emphysema, unspecified (4) Coronary artery disease Qualifiers: Coronary Disease-Associated Artery/Lesion type: [place] artery [place] vs. transplanted heart: ch[place]kat heart Associated angina: without angina Qualified Code(s): I25.10 - Atherosclerotic heart disease of [place] coronary artery without angina pectoris (6) HLD (hyperlipidemia) Qualifiers: Hyperlipidemia type: pure hypercholesterolemia Qualified Code(s): E78.00 - Pu re hypercholesterolemia, unspecified; E78.0 - Pure hypercholesterolemia (7) HTN (hypertension) Qualifiers: Hypertension type: essential hypertension Qualified Code(s): I10 - Essential (primary) hypertension
--- NOTE | 2018-03-28 16:28 | Electrocardiograph Report ---
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 Markedly posterior QRS axis Atrial fibrillation Left bundle branch block Electronically Signed On 03-28-2018 16:26:32 EST by Jaden Guevara
--- NOTE | 2018-03-28 16:44 | Electrocardiograph Report ---
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
--- NOTE | 2018-03-28 16:45 | Electrocardiograph Report ---
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
[2018-03-28] MEDS ORDERED: Warfarin perPT PO PRN (18:00)
[2018-03-28] MEDS ORDERED: *HR* Warfarin 7.5 MG TABLET PO ONE (18:00)
[2018-03-29 01:34] LABS: Mean Corpuscular Hemoglobin 25.7 pg (28.0-33.3)
[2018-03-29 01:35] LABS: Hematocrit 33.6 % (35.3-44.9); Hemoglobin 9.6 g/dL (11.5-15.4); Mean Corpuscular HGB Conc 28.6 g/dL (31.6-35.5); Mean Corpuscular Volume 90.1 fL (83.0-100.0); Mean Platelet Volume 9.9 fL (9.4-12.4); Platelet Count 219 K/mcL (140-400); Red Blood Count 3.73 M/mcL (3.82-4.97)
[2018-03-29 01:53] LABS: INR 1.2; Prothrombin Time 13.7 Seconds (9.4-12.1)
[2018-03-29 01:54] LABS: BUN/Creatinine Ratio 43 (6-26); Blood Urea Nitrogen 24 mg/dL (8-23); Calcium 8.7 mg/dL (8.6-10.3); Carbon Dioxide 43 mEq/L (23-29); Chloride 87 mEq/L (98-107); Glucose 118 mg/dL (70-105); Osmolality,Calculated 279 (280-300); Potassium 4.2 mEq/L (3.5-5.1); Sodium 132 mEq/L (136-145); eGFR For Non-African Americans > 60 (> 60)
[2018-03-29 05:12] LABS: Hematocrit 33.1 % (35.3-44.9); Hemoglobin 9.3 g/dL (11.5-15.4); Mean Corpuscular HGB Conc 28.1 g/dL (31.6-35.5); Mean Corpuscular Hemoglobin 25.3 pg (28.0-33.3); Mean Corpuscular Volume 90.2 fL (83.0-100.0); Mean Platelet Volume 9.6 fL (9.4-12.4); Platelet Count 215 K/mcL (140-400); Red Blood Count 3.67 M/mcL (3.82-4.97)
[2018-03-29 05:35] LABS: BUN/Creatinine Ratio 49 (6-26); Blood Urea Nitrogen 25 mg/dL (8-23); Carbon Dioxide 43 mEq/L (23-29); Chloride 88 mEq/L (98-107); Glucose 129 mg/dL (70-105); Osmolality,Calculated 282 (280-300); Potassium 4.1 mEq/L (3.5-5.1); Sodium 133 mEq/L (136-145); eGFR For Non-African Americans > 60 (> 60)
[2018-03-29] MEDS: Heparin 25,000 UNIT/500 ML D5W 25,000 UNIT/500 ML BAG IVC SCH (06:45)
--- NOTE | 2018-03-29 08:14 | Internal Med Progress Note ---
Hospitalist Progress Note - Encounter Date of Encounter: 03/29/18 Time of Encounter: 09:30 - Subjective Interval History: awake in bed, granddaughter at bedside. co2 on vbg results reviewed wiht pt and family. She has pursed lip breathing but denies any sob or wheezing. stating she feels fine. family does feel she was mildly confused this morning, pt denies. She denies cp, pressure, palpitations. + cough. while at bedside she had cough with sputum and tissue had hemoptysis, clear sputum with blood throughout, no clot. denies presyncope. agreeable to bipap trial as family notes in the hospital before she has retained and used bipap with good effect. - Exam Vitals: Temp Pulse Resp BP Pulse Ox 97.4 F L 75 18 119/78 98 03/29/18 04:53 03/29/18 04:53 03/29/18 04:53 03/29/18 04:53 03/29/18 04:53 Exam: gen- alert, awake,appears stated age eyes- pupils equal round, no conjunctival pallor cv- reg rate and irreg/irreg rhythm, normal s1,s2, no murmurs appreciated, trace pitting edema bl le lungs- ctabl, no wheezing, rhonchi , slightly diminished bases but improved aeration and no crackles, pursed lip breathing but no accessory muscle use and no resp distress abd- soft, non tender, non distended, + bs neuro- AAOx3 - Assessment and Plan (1) Acute exacerbation of CHF (congestive heart failure) Current Visit: Yes Status: Acute Assessment and Plan: acute on chronic systolic chf- ef 30%- cards following, cont iv diuresis and at time of dc will need higher than home dose PO (2) Atrial fibrillation Current Visit: Yes Status: Chronic Assessment and Plan: RAte controlled afib, hx of prior in past- cards following, hep bridge to coumadin, monitor lytes, tele (3) Anemia Current Visit: No Status: Chronic Assessment and Plan: chronic anemia, baseline - 9-10 in January 2018, -while hgb remains at baseline she did have drop to 9.3, now up to 9.5 on repeat today, with new single episode epistaxis and sigle episode hemoptysis -serial hgb today ordered as she is on hep gtt with bridge to coumadin, addl work up as below -will monitor closely , ptts are NOT elevated and INR is 1.2, if cont active bleeding or sig hgb changes will have to stop hep gtt given risk vs benefit (4) Asymptomatic bacteriuria Current Visit: Yes Status: Acute Assessment and Plan: ucx neg (5) COPD (chronic obstructive pulmonary disease) Current Visit: No Status: Chronic Assessment and Plan: Not an exacerbation this admission on home o2, nebs prn see co2 retention documentation below (6) Coronary artery disease Current Visit: No Status: Chronic Assessment and Plan: cad hx, stable- cont asa, stop plavix now with coumadin, cont statin, bb, acei (7) Elevated troponin Current Visit: No Status: Chronic Assessment and Plan: chronic trop elevation- stable, actually less than baseline (8) HTN (hypertension) Current Visit: No Status: Chronic Assessment and Plan: cont current regimen, bps at goal (9) Hemoptysis Current Visit: Yes Status: Acute Assessment and Plan: Single episode hemoptysis visualized by myself and rn this morning on hep gtt -will get CT chest to rule out pe, pna, mass -she did have episode epistaxis earlier this morning -at this time monitoring hgb and will cont hep gtt, PTTs have been at goal, INR 1.2 family/pt updated to plan (10) History of chronic carbon dioxide retention Current Visit: Yes Status: Acute Assessment and Plan: acute on chronic co2 retention without acidosis but with mild confusion CO@ at baseline appears to be upper 40- mid 40s on last admit in January, on bmp this am, vbg 79 -no bipap at home but granddaughter at bedside reports some mild confusion this morning from baseline and history of retaining inpt with need for bipap -vbg obtained and reviewed -will place on bipap this monring and repeat vbg at noon, cont to monitor mental status -ct chest as above home o2 is 2L NC cont DVT Prophylaxis: heparin gtt bridge to coumadin - Time Spent with Patient Total time spent is greater than 50% in coordination of care (as documented) at patient's floor/unit and/or counseling patient: 25 - 35 minutes Plan of Care Discussed with: patient Internal Medicine: Result - Labs CBC & Chem 7: 03/29/18 08:33 03/29/18 04:56 Labs: Short CBC 03/29/18 03/29/18 Range/Units 01:06 04:56 WBC 6.3 6.4 (4.3-11.1) K/mcL Hgb 9.6 L 9.3 L (11.5-15.4) g/dL Hct 33.6 L 33.1 L (35.3-44.9) % Plt Count 219 215 (140-400) K/mcL BMP 03/29/18 03/29/18 01:06 04:56 Sodium 132 L 133 L Potassium 4.2 4.1 Chloride 87 L 88 L Carbon Dioxide 43 H* 43 H* BUN 24 H 25 H Creatinine 0.56 L 0.51 L Glucose 118 H 129 H Calcium 8.7 9.0 Cardiac Enzymes 03/28/18 03/28/18 Range/Units 08:06 13:48 Troponin I 0.05 H* 0.05 H* (< 0.04) ng/mL - ABG Interpretation ABG results: PT/INR, D-dimer PT 13.7 Seconds (9.4-12.1) H 03/29/18 01:06 Consult Discharge Plan - Plan Referrals: Duran Sims Jr, MD [Primary Care Provider] - (1) Acute exacerbation of CHF (congestive heart failure) Qualifiers: Heart failure type: systolic Qualified Code(s): I50.23 - Acute on chronic systolic (congestive) heart failure (2) Atrial fibrillation Qualifiers: Atrial fibrillation type: paroxysmal Qualified Code(s): I48.0 - Paroxysmal atrial fibrillation (3) Anemia Qualifiers: Anemia type: iron deficiency Iron deficiency anemia type: unspecified iron deficiency Qualified Code(s): D50.9 - Iron deficiency anemia, unspecified (5) COPD (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 transplanted heart: [place] heart Associated angina: without angina Qualified Code(s): I25.10 - Atherosclerotic heart disease of [place] coronary artery without angina pectoris (8) HTN (hypertension) Qualifiers: Hypertension type: essential hypertension Qualified Code(s): I10 - Essential (primary) hypertension
[2018-03-29 08:53] LABS: Hematocrit 33.4 % (35.3-44.9); Hemoglobin 9.5 g/dL (11.5-15.4)
[2018-03-29 08:58] LABS: VBG HCO3 43 mEq/L (21-27); VBG PCO2 79 mmHg (41-51); VBG PH 7.35 pH Units (7.32-7.42); VBG PO2 135 mmHg (25-50)
[2018-03-29] MEDS: Furosemide 40 MG/4 ML VIAL IVP SCH ×2 (09:49→16:40)
[2018-03-29] MEDS: Aspirin 81 MG TAB.CHEW PO SCH (09:50)
[2018-03-29] MEDS: Metoprolol XL (24 HR) Succ 25 MG TAB.ER.24H PO SCH (09:51)
[2018-03-29] MEDS ORDERED: Isovue-370 500 ML INFUS..BTL IV ONE (11:16)
[2018-03-29 12:50] LABS: ABG Base Excess 15 mEq/L (-2 to 3); ABG HCO3 43 mEq/L (21-27); ABG Oxygen Saturation 94 % (95-98); ABG PCO2 78 mmHg (35-45); ABG PH 7.35 pH Units (7.32-7.45); ABG PO2 80 mmHg (85-104); ABG TCO2 46 mEq/L (20-26)
[2018-03-29] MEDS: Nitroglycerin 0.2 MG PATCH.TD24 TD SCH (13:23)
[2018-03-29 13:48] LABS: Hematocrit 31.3 % (35.3-44.9); Hemoglobin 8.9 g/dL (11.5-15.4)
[2018-03-29 14:12] LABS: Bilirubin,Urine Negative (Negative); Blood,Urine Negative (Negative); Clarity,Urine Clear (Clear); Color,Urine Yellow (Yellow); Glucose,Urine (UA) Normal (Normal); Ketones,Urine Negative (Negative); Leukocyte Esterase,Urine Small (Negative); Nitrite,Urine Negative (Negative); Protein,Urine Negative (Neg-Trace); Specific Gravity,Urine > 1.030 (1.010-1.025)
[2018-03-29 14:13] LABS: Bacteria,Urine None Seen per hpf (None-Few); Hyaline Casts,Urine None Seen per lpf (None-Few); Squamous Epithelial Cell,Urine Moderate per lpf (None-Few)
[2018-03-29 14:23] LABS: RBC,Urine 0-3 per hpf (0-3)
[2018-03-29] MEDS: Levofloxacin 750 MG/150 ML 750 MG/150 ML BAG IVPB SCH (15:47)
[2018-03-29 17:27] LABS: Adenovirus Not Detected (Not Detect); Bordetella Pertussis Not Detected (Not Detect); Chlamydophila pneumoniae Not Detected (Not Detect); Coronavirus 229E Not Detected (Not Detect); Coronavirus HKU1 Not Detected (Not Detect); Coronavirus NL63 Not Detected (Not Detect); Coronavirus OC43 Not Detected (Not Detect); Human Metapneumovirus Not Detected (Not Detect); Human Rhinovirus/Enterovirus Not Detected (Not Detect); Influenza A Subtype 2009 H1 Not Detected (Not Detect); Influenza A Untypeable Not Detected (Not Detect); Influenza B Not Detected (Not Detect); Mycoplasma pneumoniae Not Detected (Not Detect); Parainfluenza Virus 1 Not Detected (Not Detect); Parainfluenza Virus 2 Not Detected (Not Detect); Parainfluenza Virus 3 Not Detected (Not Detect); Parainfluenza Virus 4 Not Detected (Not Detect); Respiratory Syncytial Virus Not Detected (Not Detect)
[2018-03-29] MEDS ORDERED: *HR* Warfarin 5 MG TABLET PO ONE (18:00)
--- NOTE | 2018-03-29 18:03 | Event Note ---
Date of Encounter: 03/29/18 Time of Encounter: 15:45 Pt repeat hgb down to 8.9. CT scan chest showed no PE, no bleeding identified, no mass but findings suggestive of multi focal pna. Met with pt to discuss work up and results further. She is having slow intermittent nasal bleeding this afternoon. No further hemoptysis. In regards to bleeding today and down trending hgb on hep gtt bridge to coumadin we discussed risks of continued bleeding and anemia and risks of afib off anticoagulation. It is recommended that given risk vs benefit at this time with active bleeding and hgb drops that hep gtt and coumadin be stopped and hgb permitted to stabilize. Pt is completely in agreement. While no family is any longer present, she is AAOx3 and able to make all her own decisions with good understanding of situation given the very good questions she asks during conversation. Cardiology team was updated via [facility] to change in treatment plan. Serial h/hs tonight. Given concern for pna on imaging and co2 retention with mild resp distress today, pt agreeable to abx treatment. abx discussed, will check sputum cx, rvp. She has refused to wear bipap today but is thinking about trying it tonight. Discussed plan with pt RN who will also communicate to night RN.
[2018-03-29 18:18] LABS: Hematocrit 32.1 % (35.3-44.9)
[2018-03-30 00:32] LABS: Hematocrit 31.2 % (35.3-44.9); Hemoglobin 8.7 g/dL (11.5-15.4)
[2018-03-30 06:32] LABS: Hemoglobin 8.2 g/dL (11.5-15.4); Platelet Count 190 K/mcL (140-400)
[2018-03-30 06:34] LABS: Hematocrit 29.1 % (35.3-44.9); Mean Corpuscular HGB Conc 28.2 g/dL (31.6-35.5); Mean Corpuscular Hemoglobin 25.5 pg (28.0-33.3); Mean Corpuscular Volume 90.7 fL (83.0-100.0); Mean Platelet Volume 9.7 fL (9.4-12.4); Red Blood Count 3.21 M/mcL (3.82-4.97); Red Cell Distribution Width 15.9 % (11.5-14.5)
[2018-03-30 06:40] LABS: INR 1.7; Prothrombin Time 19.4 Seconds (9.4-12.1)
[2018-03-30 06:50] LABS: BUN/Creatinine Ratio 40 (6-26); Blood Urea Nitrogen 23 mg/dL (8-23); Calcium 8.9 mg/dL (8.6-10.3); Carbon Dioxide > 45 mEq/L (23-29); Chloride 91 mEq/L (98-107); Glucose 112 mg/dL (70-105); Osmolality,Calculated 284 (280-300); Potassium 4.1 mEq/L (3.5-5.1); Sodium 135 mEq/L (136-145); eGFR For Non-African Americans > 60 (> 60)
[2018-03-30 07:20] LABS: Hypochromasia Present (Not Present); Lymphocytes # 1.5 K/mcL (0.6-4.6); Neutrophils # 4.5 K/mcL (1.6-8.9); Platelet Estimate Normal (Normal)
[2018-03-30] MEDS: Levofloxacin 750 MG/150 ML 750 MG/150 ML BAG IVPB SCH (07:36)
[2018-03-30] MEDS: Aspirin 81 MG TAB.CHEW PO SCH (07:37)
[2018-03-30] MEDS: Furosemide 40 MG/4 ML VIAL IVP SCH ×2 (07:37→09:11)
[2018-03-30] MEDS: Metoprolol XL (24 HR) Succ 25 MG TAB.ER.24H PO SCH (07:38)
--- NOTE | 2018-03-30 08:32 | Internal Med Progress Note ---
Hospitalist Progress Note - Encounter Date of Encounter: 03/30/18 Time of Encounter: 09:30 - Subjective Interval History: awake, family sleeping at bedside. sitting in chair on o2 nc. denies any further nose bleeds, coughing up blood. denies any other bleeding. no cp, pressure, lighteadedness or dizziness. she continues to retain co2. she has been refusing bipap to nursing. discussion had with pt and she will wear bipap today for as long as she can tolerate. - Exam Vitals: Temp Pulse Resp BP Pulse Ox 98.4 F 68 17 103/62 98 03/30/18 05:27 03/30/18 05:27 03/30/18 05:27 03/30/18 05:27 03/30/18 05:27 Exam: gen- alert, awake,appears stated age eyes- pupils equal round, no conjunctival pallor cv- reg rate and irreg/irreg rhythm, normal s1,s2, no murmurs appreciated, trace pitting edema bl le lungs- diminshed throughout, worse posteriorly, no wheezing, rhonchi or crackles, normal resp effort on o2 nc abd- soft, non tender, non distended, + bs neuro- AAOx3 - Assessment and Plan (1) Acute exacerbation of CHF (congestive heart failure) Current Visit: Yes Status: Acute Assessment and Plan: acute on chronic systolic chf- ef 30%- cards following, cont iv diuresis and at time of dc will need higher than home dose PO -given low normotensive bps this morning held am dose of lasix and will attempt to give in evening, clinically looking closer to euvolemic, but only net neg 800 cc -given bp changes will order limited echo, most recent was in January 2018 -cont asa, statin -holding acei and BB given bps today (2) Atrial fibrillation Current Visit: Yes Status: Chronic Assessment and Plan: RAte controlled afib, hx of prior in past- cards following, hep bridge to coumadin now stopped due to bleeding and anemia, cont asa, monitor lytes, tele (3) Anemia Current Visit: No Status: Chronic Assessment and Plan: acute on chronic anemia, baseline - 9-10 in January 2018, hgb now 8.2 after bleeding on hep gtt bridge to coumadin -epistaxis episodes and single episode hemoptysis 03/29-- -as documented previously d/w pt 03/29 re risk vs benefit and decision made to stop AC and cont asa for afib -serial hgb checks today/tonight and transfuse for hgb <7 (4) Asymptomatic bacteriuria Current Visit: Yes Status: Acute Assessment and Plan: ucx neg (5) COPD (chronic obstructive pulmonary disease) Current Visit: No Status: Chronic Assessment and Plan: COPD Exacerbation with hypercarbia 2/2 pna on home o2 but retaining co2 - she has been refusing bipap since yesterday, now agreeable, retaiing higher than baseline but mental status remains clear, she does at time have increased work of breathing, and lung exam has been worsening -bipap, repeat abg after (6) Coronary artery disease Current Visit: No Status: Chronic Assessment and Plan: cad hx, stable- cont asa,plavix (now that AC discontinued), cont statin, bb, acei as bp permits -cards following (7) Elevated troponin Current Visit: No Status: Chronic Assessment and Plan: chronic trop elevation- stable, actually less than baseline (8) HTN (hypertension) Current Visit: No Status: Chronic Assessment and Plan: now hypotensive to low normotensive, asx -cards initiatlly made some changes to home meds, undergoing diuresis, and with anemia as noted above -monitor h/hs, held BB and acei this morning, as well as AM dose of lasix -check echo as above -besides bp drop there is at this time no indicator of sepsis picture (9) Hemoptysis Current Visit: Yes Status: Acute Assessment and Plan: Single episode hemoptysis 03/29 on hep gtt -CT chest + pna, no mass, bleeding or PE -she did have episode epistaxis multiple episodes that day -off hep gtt and coumadin, inr 1.7 (10) History of chronic carbon dioxide retention Current Visit: Yes Status: Acute Assessment and Plan: acute on chronic co2 retention without acidosis but with mild confusion 03/29 -no bipap at home but granddaughter at bedside reports history of retaining inpt with need for bipap -see copd above for plan (11) Multifocal pneumonia Current Visit: Yes Status: Acute Assessment and Plan: as evidenced on CT scan organism unknown at this time has been hospitalized in last 90 days given allergy hx she was started on vanc + levaquin sputum cx, legionella/strep pending rvp neg DVT Prophylaxis: scd - Time Spent with Patient Total time spent is greater than 50% in coordination of care (as documented) at patient's floor/unit and/or counseling patient: 25 - 35 minutes Plan of Care Discussed with: patient Internal Medicine: Result - Labs CBC & Chem 7: 03/30/18 06:14 03/30/18 06:14 Labs: Short CBC 03/29/18 03/29/18 03/29/18 Range/Units 08:33 12:54 17:50 WBC (4.3-11.1) K/mcL Hgb 9.5 L 8.9 L 9.0 L (11.5-15.4) g/dL Hct 33.4 L 31.3 L 32.1 L (35.3-44.9) % Plt Count (140-400) K/mcL Neutrophils # (1.6-8.9) K/mcL 03/29/18 03/30/18 Range/Units 23:54 06:14 WBC 7.0 (4.3-11.1) K/mcL Hgb 8.7 L 8.2 L (11.5-15.4) g/dL Hct 31.2 L 29.1 L (35.3-44.9) % Plt Count 190 (140-400) K/mcL Neutrophils # 4.5 (1.6-8.9) K/mcL BMP 03/30/18 06:14 Sodium 135 L Potassium 4.1 Chloride 91 L Carbon Dioxide > 45 H* BUN 23 Creatinine 0.58 L Glucose 112 H Calcium 8.9 Urine 03/29/18 Range/Units 14:07 Urine Color Yellow (Yellow) Urine Clarity Clear (Clear) Urine pH 6.0 (5.0-8.0) pH Units Ur Specific [place] > 1.030 H (1.010-1.025) Urine Protein Negative (Neg-Trace) mg/dL Urine Glucose (UA) Normal (Normal) mg/dL - ABG Interpretation ABG results: ABG ABG pH 7.35 pH Units (7.32-7.45) 03/29/18 12:45 ABG pCO2 78 mmHg (35-45) H* 03/29/18 12:45 ABG pO2 80 mmHg (85-104) L 03/29/18 12:45 ABG O2 Saturation 94 % (95-98) L 03/29/18 12:45 PT/INR, D-dimer PT 19.4 Seconds (9.4-12.1) H 03/30/18 06:14 - Impressions Impressions Chest CTA 03/29/18 11:16 IMPRESSION: 1. Multifocal pneumonia with small bilateral pleural effusions. 2. No evidence of a pulmonary embolism. 3. Cardiomegaly with extensive atherosclerotic disease. D/ / 03/29/2018 12:23:10 Marco A Johnson MD / Farzana Clemons Interpreting Provider: Marco A Johnson MD - VTE Reasons for not Prescribing Prophylaxis: Medical contraindication Consult Discharge Plan - Plan Referrals: Duran Sims Jr, MD [Primary Care Provider] - (1) Acute exacerbation of CHF (congestive heart failure) Qualifiers: Heart failure type: systolic Qualified Code(s): I50.23 - Acute on chronic sys [place] (congestive) heart failure (2) Atrial fibrillation Qualifiers: Atrial fibrillation type: paroxysmal Qualified Code(s): I48.0 - Paroxysmal atrial fibrillation (3) Anemia Qualifiers: Anemia type: iron deficiency Iron deficiency anemia type: unspecified iron deficiency Qualified Code(s): D50.9 - Iron deficiency anemia, unspecified (5) COPD (chronic obstructive pulmonary disease) Qualifiers: COPD type: emphysema Emphysema type: unspecified Qualified Code(s): J43.9 - Emphysema, unspecified (6) Coronary artery disease Qualifiers: Coronary Disease-Associated Artery/Lesion type: [place] artery [place] vs. transplanted heart: [place] heart Associated angina: without angina Qualified Code(s): I25.10 - Atherosclerotic heart disease of [place] coronary artery without angina pectoris (8) HTN (hypertension) Qualifiers: Hypertension type: essential hypertension Qualified Code(s): I10 - Essential (primary) hypertension
[2018-03-30 09:20] LABS: ABG Base Excess 17 mEq/L (-2 to 3); ABG HCO3 45 mEq/L (21-27); ABG Oxygen Saturation 97 % (95-98); ABG PCO2 80 mmHg (35-45); ABG PH 7.36 pH Units (7.32-7.45); ABG PO2 106 mmHg (85-104); ABG TCO2 47 mEq/L (20-26)
[2018-03-30] MEDS: Nitroglycerin 0.2 MG PATCH.TD24 TD SCH (12:05)
[2018-03-30] MEDS ORDERED: Perflutren Lipid Microsphere 1.3 ML in 0.9 % Sodium Chloride 8.7 ML IVP ONE (13:20)
[2018-03-30 13:57] LABS: Hematocrit 29.3 % (35.3-44.9); Hemoglobin 8.1 g/dL (11.5-15.4)
[2018-03-30] MEDS ORDERED: Furosemide 40 MG/4 ML VIAL IVP ONE (17:00)
[2018-03-30 22:47] LABS: Hematocrit 32.8 % (35.3-44.9); Hemoglobin 9.1 g/dL (11.5-15.4)
[2018-03-31 03:14] LABS: Mean Platelet Volume 9.7 fL (9.4-12.4)
[2018-03-31 03:15] LABS: Basophils % 0.5 %; Eosinophils # 0.1 K/mcL (0.0-0.6); Eosinophils % 1.7 %; Hemoglobin 8.2 g/dL (11.5-15.4); Immature Granulocytes % 0.2 % (0-4); Lymphocytes # 1.2 K/mcL (0.6-4.6); Lymphocytes % 20.3 %; Mean Corpuscular HGB Conc 28.3 g/dL (31.6-35.5); Mean Corpuscular Hemoglobin 25.8 pg (28.0-33.3); Mean Corpuscular Volume 91.2 fL (83.0-100.0); Monocytes # 1.2 K/mcL (0.0-1.3); Monocytes % 20.8 %; Platelet Count 186 K/mcL (140-400); Red Blood Count 3.18 M/mcL (3.82-4.97); Red Cell Distribution Width 15.7 % (11.5-14.5); Segmented Neutrophils % 56.5 %
[2018-03-31 03:26] LABS: INR 1.5; Prothrombin Time 16.9 Seconds (9.4-12.1)
[2018-03-31 03:42] LABS: BUN/Creatinine Ratio 41 (6-26); Blood Urea Nitrogen 24 mg/dL (8-23); Calcium 8.9 mg/dL (8.6-10.3); Carbon Dioxide 43 mEq/L (23-29); Chloride 91 mEq/L (98-107); Glucose 108 mg/dL (70-105); Osmolality,Calculated 285 (280-300); Potassium 4.2 mEq/L (3.5-5.1); Sodium 135 mEq/L (136-145); eGFR For Non-African Americans > 60 (> 60)
[2018-03-31 03:45] LABS: VBG HCO3 41 mEq/L (21-27); VBG PCO2 71 mmHg (41-51); VBG PH 7.36 pH Units (7.32-7.42); VBG PO2 161 mmHg (25-50)
[2018-03-31 03:50] LABS: Neutrophils # 3.3 K/mcL (1.6-8.9)
[2018-03-31 04:31] LABS: Hypochromasia Present (Not Present); Large Platelets Present (Not Present); Platelet Estimate Normal (Normal)
[2018-03-31] MEDS ORDERED: Aminoglycoside Consult 1 EACH MC ONE (08:56)
--- NOTE | 2018-03-31 08:58 | Internal Med Progress Note ---
<Mercedes Schofield - Last Filed: 03/31/18 13:25> Hospitalist Progress Note - Encounter Date of Encounter: 03/31/18 - Exam Vitals: Temp Pulse Resp BP Pulse Ox 97.6 F 69 16 116/47 90 03/31/18 03:28 03/31/18 11:29 03/31/18 03:28 03/31/18 11:29 03/31/18 11:29 - Assessment and Plan (1) Acute exacerbation of CHF (congestive heart failure) Current Visit: Yes Status: Acute (2) Atrial fibrillation Current Visit: Yes Status: Chronic (3) Anemia Current Visit: No Status: Chronic (4) Asymptomatic bacteriuria Current Visit: Yes Status: Acute (5) COPD (chronic obstructive pulmonary disease) Current Visit: No Status: Chronic (6) Coronary artery disease Current Visit: No Status: Chronic (7) Elevated troponin Current Visit: No Status: Chronic (8) HTN (hypertension) Current Visit: No Status: Chronic (9) Hemoptysis Current Visit: Yes Status: Acute (10) History of chronic carbon dioxide retention Current Visit: Yes Status: Acute (11) Multifocal pneumonia Current Visit: Yes Status: Acute - Time Spent with Patient Total time spent is greater than 50% in coordination of care (as documented) at patient's floor/unit and/or counseling patient: Internal Medicine: Result - Labs CBC & Chem 7: 03/31/18 03:03 03/31/18 03:03 Labs: Short CBC 03/30/18 03/30/18 03/31/18 Range/Units 13:40 22:00 03:03 WBC 5.9 (4.3-11.1) K/mcL Hgb 8.1 L 9.1 L 8.2 L (11.5-15.4) g/dL Hct 29.3 L 32.8 L 29.0 L (35.3-44.9) % Plt Count 186 (140-400) K/mcL Neutrophils # 3.3 (1.6-8.9) K/mcL BMP 03/31/18 03:03 Sodium 135 L Potassium 4.2 Chloride 91 L Carbon Dioxide 43 H* BUN 24 H Creatinine 0.58 L Glucose 108 H Calcium 8.9 - ABG Interpretation ABG results: ABG ABG pH 7.36 pH Units (7.32-7.45) 03/30/18 09:15 ABG pCO2 80 mmHg (35-45) H* 03/30/18 09:15 ABG pO2 106 mmHg (85-104) H 03/30/18 09:15 ABG O2 Saturation 97 % (95-98) 03/30/18 09:15 PT/INR, D-dimer PT 16.9 Seconds (9.4-12.1) H 03/31/18 03:03 - Impressions Impressions Echocardiogram Limited Views 03/30/18 12:31 Impressions: LVEF 40-45%. Moderate concentric left ventricular hypertrophy. Atypical septal motion consistent with bundle branch block. Mildly dilated left atrium. Mild mitral annular calcification Limited study to assess LV function Left Ventricular Wall Motion: Rest Echo Findings The apex, apical inferior, mid inferior, basal inferior, apical anterior, mid anterior, basal anterior, apical septal, mid inferior septal, basal inferior septal, apical lateral, mid anterior lateral, basal anterior lateral, mid anterior septal, mid inferior lateral, basal anterior septal and basal inferior lateral webb were hypokinetic. Findings: Study Quality * Technically adequate exam. ECG Findings * Normal sinus rhythm. Left Ventricle * Moderate concentric left ventricular hypertrophy. * There is no LV thrombus. * Definity echo contrast was used. * LVEF 40-45%. * Atypical septal motion consistent with bundle branch block. Right Ventricle * Normal right ventricular structure and function. Left Atrium * Mildly dilated left atrium. Right Atrium * Normal right atrial size. Mitral Valve * Mild mitral annular calcification Consult Discharge Plan - Plan Referrals: Duran Sims Jr, MD [Primary Care Provider] - - Attending Attestation I examined this patient and my medical decision-making was reviewed with the Resident Physician Dr Isidro. I agree with the documented findings, disposition an d treatment plan as described except to the extent set forth below. Ms Smith is currently admitted for acute on chronic systolic chf exacerbation and rate controlled afib. Found to have anemia, hemotpysis and epistaxis on hep gtt bridge to coumadin prompting cessation of AC. Imaging chest revealed multifocal pna awake, in bed, awakes to name. denies any further bleeding/hemoptysis. denies cough, wheezing or orthopnea. no fevers or chills. did wear bipap overnight gen- alert, awake,appears stated age eyes- pupils equal round, no conjunctival pallor cv- reg rate and irreg/irreg rhythm, normal s1,s2, no murmurs appreciated, no pitting edema bl le lungs- diminished throughout, no wheezing, rhonchi or crackles appreciated neuro- AAOx3 acute on chronic systolic chf improving- ef 30%- cards following, cont iv diuresis at 40 IV daily and at time of dc will need higher than home dose PO (home is 20 mg po) RAte controlled afib, hx of prior in past- cards following, hep bridge to coumadin now stopped due to bleeding and anemia, cont asa, statin chronic trop elevation- stable, actually less than baseline cad hx, stable- cont asa, plavix, cont statin, -holding acei and BB given bps low normotensive acute on chronic anemia, baseline - 9-10 in January 2018, hgb now 8.2 after bleeding on hep gtt bridge to coumadin -epistaxis episodes and single episode hemoptysis 03/29-- -as documented previously d/w pt 03/29 re risk vs benefit and decision made to st op AC and cont asa for afib -serial hgb checks stable transfuse for hgb <7 COPD Exacerbation with hypercarbia 2/2 Multifocal pna, organism uk on home o2 but retaining co2 -bipap as she is agreeable to wear has been hospitalized in last 90 days given allergy hx she was started on vanc + levaquin--check mrsa swab and hope to be able to de escalate sputum cx, legionella/strep pending rvp neg Single episode hemoptysis 03/29 on hep gtt -CT chest + pna, no mass, bleeding or PE -she did have episode epistaxis multiple episodes that day -off hep gtt and coumadin, no further episodes of note, scds have been ordered since hep gtt off, received notification from todays nurse that pt had not been on 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 No bleed today or overnight. Denies shortness of breath, fever, malaise. Interval history: China Smith is a 68-year-old female with past medical history of CHF, CAD 70% RCA lesion, arthritis, COPD on 2 L home O2, GERD, hypertension, hyperlipidemia, and DVT on Plavix and aspirin who presented 03/28 with lower extremity swelling and shortness of breath for 2-3 days. ED labs showed a troponin of 0.05 which is her baseline, BNP of 1327, echo was performed on February 17 with an EF of 30%. EKG done in the ED showed A. fib without ST elevation or depression. She was admitted for CHF exacerbation and afib. Over weekend, patient demonstrated hemoptysis and epistaxis on while on heparin gtt; subsequently d/c'd; CT chest showed no PE, incidental multifocal pneumonia, currently on Levaquin. - Exam Vitals: Temp Pulse Resp BP Pulse Ox 97.6 F 64 16 110/79 99 03/31/18 03:28 03/31/18 07:07 03/31/18 03:28 03/31/18 07:07 03/31/18 07:07 Exam: gen- alert, awake,appears stated age eyes- EOMI, no conjunctival pallor, no icterus cv- reg rate and irreg/irreg rhythm, normal s1,s2, no murmurs appreciated, trace pitting edema bl le lungs- diminished throughout, worse posteriorly, no wheezing, rhonchi or crackles, normal resp effort on o2 nc abd- soft, non tender, non distended, + bs neuro- AAOx3 - Assessment and Plan (1) Atrial fibrillation Current Visit: Yes Status: Chronic Assessment and Plan: Risk v benefit of hypotension versus afib; patient's rate control held in sett ing of LBP. Lasix held, do not believe this to be over diuresis as she is 800 mL net negative. (2) Congestive heart failure Current Visit: No Status: Acute Assessment and Plan: Cards following EF 40-45% on repeat echo this admission Held lasix and BB today due to LBP; denies dizziness, or chest discomfort, no syncope, monitoring (3) COPD (chronic obstructive pulmonary disease) Current Visit: No Status: Chronic Assessment and Plan: 2/2 multifocal PNA -MRSA swab -follow sputum cx/legionella/strep pending has home O2 2L, she is a chronic co2 retainer tolerated bipap overnight possible overnight qualification prior to discharge (4) Coronary artery disease Current Visit: No Status: Chronic Assessment and Plan: continuing asa and statin, holding bb in setting of LBP (5) Elevated troponin Current Visit: No Status: Chronic Assessment and Plan: chronicly elevated, adynamic, doubt ACS, cards following, continue medical management (6) HLD (hyperlipidemia) Current Visit: No Status: Chronic Assessment and Plan: chronic, continue statin; cardiac diet (7) HTN (hypertension) Current Visit: No Status: Chronic Assessment and Plan: chronic condition, monitoring BPs, has currently been have LBPs per MDM above (8) Hx of deep venous thrombosis Current Visit: No Status: Chronic Assessment and Plan: recent LE dopplers neg for dvt, continue scds (9) DVT prophylaxis Current Visit: No Status: Acute Assessment and Plan: EPCDS - Time Spent with Patient Total time spent is greater than 50% in coordination of care (as documented) at patient's floor/unit and/or counseling patient: Internal Medicine: Result - Labs CBC & Chem 7: 03/31/18 03:03 03/31/18 03:03 Labs: Short CBC 03/30/18 03/30/18 03/31/18 Range/Units 13:40 22:00 03:03 WBC 5.9 (4.3-11.1) K/mcL Hgb 8.1 L 9.1 L 8.2 L (11.5-15.4) g/dL Hct 29.3 L 32.8 L 29.0 L (35.3-44.9) % Plt Count 186 (140-400) K/mcL Neutrophils # 3.3 (1.6-8.9) K/mcL BMP 03/31/18 03:03 Sodium 135 L Potassium 4.2 Chloride 91 L Carbon Dioxide 43 H* BUN 24 H Creatinine 0.58 L Glucose 108 H Calcium 8.9 - ABG Interpretation ABG results: ABG ABG pH 7.36 pH Units (7.32-7.45) 03/30/18 09:15 ABG pCO2 80 mmHg (35-45) H* 03/30/18 09:15 ABG pO2 106 mmHg (85-104) H 03/30/18 09:15 ABG O2 Saturation 97 % (95-98) 03/30/18 09:15 PT/INR, D-dimer PT 16.9 Seconds (9.4-12.1) H 03/31/18 03:03 - Impressions Impressions Echocardiogram Limited Views 03/30/18 12:31 Impressions: LVEF 40-45%. Moderate concentric left ventricular hypertrophy. Atypical septal motion consistent with bundle branch block. Mildly dilated left atrium. Mild mitral annular calcification Limited study to assess LV function Left Ventricular Wall Motion: Rest Echo Findings The apex, apical inferior, mid inferior, basal inferior, apical anterior, mid anterior, basal anterior, apical septal, mid inferior septal, basal inferior septal, apical lateral, mid anterior lateral, basal anterior lateral, mid anterior septal, mid inferior lateral, basal anterior septal and basal inferior lateral webb were hypokinetic. Findings: Study Quality * Technically adequate exam. ECG Findings * Normal sinus rhythm. Left Ventricle * Moderate concentric left ventricular hypertrophy. * There is no LV thrombus. * Definity echo contrast was used. * LVEF 40-45%. * Atypical septal motion consistent with bundle branch block. Right Ventricle * Normal right ventricular structure and function. Left Atrium * Mildly dilated left atrium. Right Atrium * Normal right atrial size. Mitral Valve * Mild mitral annular calcification - VTE Reasons for not Prescribing Prophylaxis: Medical contraindication <Mercedes Schofield - Last Filed: 03/31/18 13:25> (1) Acute exacerbation of CHF (congestive heart failure) Qualifiers: Heart failure type: systolic Qualified Code(s): I50.23 - Acute on chronic systolic (congestive) heart failure (2) Atrial fibrillation Qualifiers: Atrial fibrillation type: paroxysmal Qualified Code(s): I48.0 - Paroxysmal atrial fibrillation (3) Anemia Qualifiers: Anemia type: iron deficiency Iron deficiency anemia type: unspecified iron deficiency Qualified Code(s): D50.9 - Iron deficiency anemia, unspecified (5) COPD (chronic obstructive pulmonary disease) Qualifiers: COPD type: emphysema Emphysema type: unspecified Qualified Code(s): J43.9 - Emphysema, unspecified (6) Coronary artery disease Qualifiers: Coronary Disease-Associated Artery/Lesion type: [place] artery [place] vs. transplanted heart: [place] heart Associated angina: without angina Qualified Code(s): I25.10 - Atherosclerotic heart disease of [place] coronary artery without angina pectoris (8) HTN (hypertension) Qualifiers: Hypertension type: essential hypertension Qualified Code(s): I10 - Essential (primary) hypertension <Cam Isidro - Last Filed: 03/31/18 15:39> (1) Atrial fibrillation Qualifiers: Atrial fibrillation type: paroxysmal Qualified Code(s): I48.0 - Paroxysmal atrial fibrillation (2) Congestive heart failure Qualifiers: Heart failure type: unspecified Heart failure chronicity: acute on chronic Qualified Code(s): I50.9 - Heart failure, unspecified (3) COPD (chronic obstructive pulmonary disease) Qualifiers: COPD type: emphysema Emphysema type: unspecified Qualified Code(s): J43.9 - Emphysema, unspecified (4) Coronary artery disease Qualifiers: Coronary Disease-Associated Artery/Lesion type: [place] artery [place] vs. transplanted heart: [place] heart Associated angina: without angina Qualified Code(s): I25.10 - Atherosclerotic heart disease of [place] coronary artery without angina pectoris (6) HLD (hyperlipidemia) Qualifiers: Hyperlipidemia type: pure hypercholesterolemia Qualified Code(s): E78.00 - Pure hypercholesterolemia, unspecified; E78.0 - Pure hypercholesterolemia (7) HTN (hypertension) Qualifiers: Hypertension type: essential hypertension Qualified Code(s): I10 - Essential (primary) hypertension
[2018-03-31] MEDS: Levofloxacin 750 MG/150 ML 750 MG/150 ML BAG IVPB SCH (10:18)
[2018-03-31] MEDS: Metoprolol XL (24 HR) Succ 25 MG TAB.ER.24H PO SCH (10:20)
[2018-03-31] MEDS: Aspirin 81 MG TAB.CHEW PO SCH (10:22)
[2018-03-31] MEDS: Furosemide 40 MG/4 ML VIAL IVP SCH (10:23)
[2018-03-31] MEDS: Nitroglycerin 0.2 MG PATCH.TD24 TD SCH ×2 (12:23→12:41)
[2018-03-31 16:23] LABS: Hematocrit 30.2 % (35.3-44.9); Hemoglobin 8.5 g/dL (11.5-15.4)
[2018-04-01 06:05] LABS: Hemoglobin 8.5 g/dL (11.5-15.4); Mean Corpuscular HGB Conc 28.3 g/dL (31.6-35.5); Mean Corpuscular Hemoglobin 25.7 pg (28.0-33.3); Mean Corpuscular Volume 90.6 fL (83.0-100.0); Mean Platelet Volume 9.5 fL (9.4-12.4); Platelet Count 170 K/mcL (140-400); Red Blood Count 3.31 M/mcL (3.82-4.97); Red Cell Distribution Width 15.8 % (11.5-14.5)
[2018-04-01 06:47] LABS: BUN/Creatinine Ratio 44 (6-26); Blood Urea Nitrogen 21 mg/dL (8-23); Calcium 9.2 mg/dL (8.6-10.3); Carbon Dioxide 43 mEq/L (23-29); Chloride 90 mEq/L (98-107); Glucose 96 mg/dL (70-105); Osmolality,Calculated 279 (280-300); Potassium 4.4 mEq/L (3.5-5.1); Sodium 133 mEq/L (136-145); eGFR For Non-African Americans > 60 (> 60)
--- NOTE | 2018-04-01 07:25 | Internal Med Progress Note ---
<Cam Isidro - Last Filed: 04/01/18 16:23> Hospitalist Progress Note - Encounter Date of Encounter: 04/01/18 Time of Encounter: 09:50 - Subjective Interval History: 04/01 Patient seen and evaluated in chair at bedside with nursing in accompaniment. Discussed monitoring of blood pressure in setting of her rate control for her af ib. She is without fever, chills, chest pain, shortness of breath. PT/OT have recommended home-health. Plan is for bipap qualification tonight. 03/31 Today patient is somnolent but rouses to gentle touch. No bleed today or overnight. Denies shortness of breath, fever, malaise. Interval history: China Smith is a 68-year-old female with past medical history of CHF, CAD 70% RCA lesion, arthritis, COPD on 2 L home O2, GERD, hypertension, hyperlipidemia, and DVT on Plavix and aspirin who presented 03/28 with lower extremity swelling and shortness of breath for 2-3 days. ED labs showed a tropon in of 0.05 which is her baseline, BNP of 1327, echo was performed on February 17 with an EF of 30%. EKG done in the ED showed A. fib without ST elevation or depression. She was admitted for CHF exacerbation and afib. Over weekend, patient demonstrated hemoptysis and epistaxis on while on heparin gtt; subsequently d/c'd; CT chest showed no PE, incidental multifocal pneumonia, currently on Levaquin. - Exam Vitals: Temp Pulse Resp BP Pulse Ox 98.0 F 64 18 105/42 95 04/01/18 05:09 04/01/18 05:09 04/01/18 05:09 04/01/18 05:09 04/01/18 05:09 Exam: gen- alert, awake,appears stated age, sitting in chair with eyes closed eyes- EOMI, no conjunctival pallor, no icterus cv- reg rate and irreg/irreg rhythm, normal s1,s2, no murmurs appreciated, trace pitting edema bl le lungs- diminished throughout, worse posteriorly, no wheezing, rhonchi or crackles, normal resp effort on o2 nc abd- soft, non tender, non distended, + bs neuro- AAOx3 - Assessment and Plan (1) Atrial fibrillation Current Visit: Yes Status: Chronic Assessment and Plan: Rate control: Risk v benefit of hypotension versus afib; patient's rate control held again today in setting of LBP. Based on blood pressures staying in the 90s without rate control, patient has risk of hypotension if resumed on beta-bettina outpatient. Follow-up outpatient with Cardiology as positive inotropic/rhythm controlling medications like digoxin would warrant Cardiology management. (She does have follow-up appointment) Anticoagulation: Risk v benefit of bleed versus stroke; discussed with patient risk of bleed versus stroke, patient trialled on heparin gtt to coumadin bridge but had x1 episode of hemoptysis 03/30; she is status post 1U prbc, hovering in the mid to high 8's last few days. No further bleeds per patient or observed by nursing or on exam. (2) Congestive heart failure Current Visit: No Status: Acute Assessment and Plan: EF 40-45% on repeat echo this admission Held lasix and BB today due to LBP; denies dizziness, or chest discomfort, no syncope, monitoring Lasix home med to be increased to 40mg po daily, as per Cardiology recomme ndation. (3) COPD (chronic obstructive pulmonary disease) Current Visit: No Status: Chronic Assessment and Plan: 05/31 multifocal PNA -MRSA swab negative -legionella/strep negative -repeat sputum cx has home O2 2L, she is a chronic co2 retainer tolerated bipap overnight; bipap qualification night of 04/01-04/02 (4) Coronary artery disease Current Visit: No Status: Chronic Assessment and Plan: continuing asa and statin (5) Elevated troponin Current Visit: No Status: Chronic Assessment and Plan: doubt acs, adynamic and at her baseline, continue medical management (6) HLD (hyperlipidemia) Current Visit: No Status: Chronic Assessment and Plan: continuing statin (7) HTN (hypertension) Current Visit: No Status: Chronic Assessment and Plan: chronic diagnosis, bb held in setting of 90s systolic (8) Hx of deep venous thrombosis Current Visit: No Status: Chronic Assessment and Plan: recent LE dopplers neg for dvt, continue scds (9) DVT prophylaxis Current Visit: No Status: Acute Assessment and Plan: EPCDs - Time Spent with Patient Total time spent is greater than 50% in coordination of care (as documented) at patient's floor/unit and/or counseling patient: Internal Medicine: Result - Labs CBC & Chem 7: 04/01/18 05:55 04/01/18 05:55 Labs: Short CBC 03/31/18 04/01/18 Range/Units 16:06 05:55 WBC 5.6 (4.3-11.1) K/mcL Hgb 8.5 L 8.5 L (11.5-15.4) g/dL Hct 30.2 L 30.0 L (35.3-44.9) % Plt Count 170 (140-400) K/mcL BMP 04/01/18 05:55 Sodium 133 L Potassium 4.4 Chloride 90 L Carbon Dioxide 43 H* BUN 21 Creatinine 0.48 L Glucose 96 Calcium 9.2 - ABG Interpretation ABG results: ABG ABG pH 7.36 pH Units (7.32-7.45) 03/30/18 09:15 ABG pCO2 80 mmHg (35-45) H* 03/30/18 09:15 ABG pO2 106 mmHg (85-104) H 03/30/18 09:15 ABG O2 Saturation 97 % (95-98) 03/30/18 09:15 PT/INR, D-dimer PT 16.9 Seconds (9.4-12.1) H 03/31/18 03:03 - VTE Reasons for not Prescribing Prophylaxis: Medical contraindication Consult Discharge Plan - Plan Referrals: Duran Sims Jr, MD [Primary Care Provider] - <Andrea Strong - Last Filed: 04/01/18 19:25> Hospitalist Progress Note - Encounter Date of Encounter: 04/01/18 - Exam Vitals: Temp Pulse Resp BP Pulse Ox 98.0 F 68 16 83/55 70 04/01/18 16:19 04/01/18 16:19 04/01/18 16:19 04/01/18 16:19 04/01/18 16:19 - Assessment and Plan (1) Elevated troponin Current Visit: No Status: Chronic (2) Coronary artery disease Current Visit: No Status: Chronic (3) Acute exacerbation of CHF (congestive heart failure) Current Visit: Yes Status: Acute (4) HTN (hypertension) Current Visit: No Status: Chronic (5) COPD (chronic obstructive pulmonary disease) Current Visit: No Status: Chronic (6) Anemia Current Visit: No Status: Chronic (7) Atrial fibrillation Current Visit: Yes Status: Chronic (8) Asymptomatic bacteriuria Current Visit: Yes Status: Acute (9) Hemoptysis Current Visit: Yes Status: Acute (10) History of chronic carbon dioxide retention Current Visit: Yes Status: Acute (11) Multifocal pneumonia Current Visit: Yes Status: Acute (12) Acute on chronic respiratory failure with hypoxia and hypercapnia Current Visit: No Status: Acute - Time Spent with Patient Total time spent is greater than 50% in coordination of care (as documented) at patient's floor/unit and/or counseling patient: Internal Medicine: Result - Labs CBC & Chem 7: 04/01/18 05:55 04/01/18 05:55 Labs: Short CBC 04/01/18 Range/Units 05:55 WBC 5.6 (4.3-11.1) K/mcL Hgb 8.5 L (11.5-15.4) g/dL Hct 30.0 L (35.3-44.9) % Plt Count 170 (140-400) K/mcL BMP 04/01/18 05:55 Sodium 133 L Potassium 4.4 Chloride 90 L Carbon Dioxide 43 H* BUN 21 Creatinine 0.48 L Glucose 96 Calcium 9.2 - ABG Interpretation ABG results: ABG ABG pH 7.36 pH Units (7.32-7.45) 03/30/18 09:15 ABG pCO2 80 mmHg (35-45) H* 03/30/18 09:15 ABG pO2 106 mmHg (85-104) H 03/30/18 09:15 ABG O2 Saturation 97 % (95-98) 03/30/18 09:15 PT/INR, D-dimer PT 16.9 Seconds (9.4-12.1) H 03/31/18 03:03 - Attending Attestation I examined this patient and my medical decision-making was reviewed with the Resident Physician on 04/01/18. I agree with the documented findings, disposition and treatment plan as described except to the extent set forth below. Ms Smith is currently admitted for acute exac CHF. She remains moderate to high risk due to potential for worsening clinical status. Ms Smith is up in chair. No fever or chills. Diuresing and breathing is slowly improving. No chest pain. Exam alert Comfortable Mucus membranes dry Heart not tachy now Decreased breath sounds Abd soft I/P 1. Exac CHF 2. Resp failure Bipap study tonight Further diagnoses and plan as above. <Bette Isidrohan - Last Filed: 04/01/18 16:23> (1) Atrial fibrillation Qualifiers: Atrial fibrillation type: paroxysmal Qualified Code(s): I48.0 - Paroxysmal atrial fibrillation (2) Congestive heart failure Qualifiers: Heart failure type: unspecified Heart failure chronicity: acute on chronic Qualified Code(s): I50.9 - Heart failure, unspecified (3) COPD (chronic obstructive pulmonary disease) Qualifiers: COPD type: emphysema Emphysema type: unspecified Qualified Code(s): J43.9 - Emphysema, unspecified (4) Coronary artery disease Qualifiers: Coronary Disease-Associated Artery/Lesion type: [place] artery [place] vs. transplanted heart: [place] heart Associated angina: without angina Qualified Code(s): I25.10 - Atherosclerotic heart disease of [place] coronary artery without angina pectoris (6) HLD (hyperlipidemia) Qualifiers: Hyperlipidemia type: pure hypercholesterolemia Qualified Code(s): E78.00 - Pure hypercholesterolemia, unspecified; E78.0 - Pure hypercholesterolemia (7) HTN (hypertension) Qualifiers: Hypertension type: essential hypertension Qualified Code(s): I10 - Essential (primary) hypertension <Andrea Strong - Last Filed: 04/01/18 19:25> (2) Coronary artery disease Qualifiers: Coronary Disease-Associated Artery/Lesion type: [place] artery [place] vs. transplanted heart: [place] heart Associated angina: without angina Qualified Code(s): I25.10 - Atherosclerotic heart disease of [place] coronary artery with out angina pectoris (3) Acute exacerbation of CHF (congestive heart failure) Qualifiers: Heart failure type: systolic Qualified Code(s): I50.23 - Acute on chronic systolic (congestive) heart failure (4) HTN (hypertension) Qualifiers: Hypertension type: essential hypertension Qualified Code(s): I10 - Essential (primary) hypertension (5) COPD (chronic obstructive pulmonary disease) Qualifiers: COPD type: emphysema Emphysema type: unspecified Qualified Code(s): J43.9 - Emphysema, unspecified (6) Anemia Qualifiers: Anemia type: iron deficiency Iron deficiency anemia type: unspecified iron deficiency Qualified Code(s): D50.9 - Iron deficiency anemia, unspecified (7) Atrial fibrillation Qualifiers: Atrial fibrillation type: paroxysmal Qualified Code(s): I48.0 - Paroxysmal atrial fibrillation
[2018-04-01] MEDS: Aspirin 81 MG TAB.CHEW PO SCH (10:03)
[2018-04-01] MEDS: Furosemide 40 MG/4 ML VIAL IVP SCH (10:04)
[2018-04-01] MEDS: levoFLOXacin 750 MG TABLET PO SCH (10:04)
[2018-04-01] MEDS: Metoprolol XL (24 HR) Succ 25 MG TAB.ER.24H PO SCH (10:14)
[2018-04-01] MEDS: Nitroglycerin 0.2 MG PATCH.TD24 TD SCH (13:05)
[2018-04-01] MEDS ORDERED: Melatonin 3 MG TABLET PO PRN (23:27)
[2018-04-02 01:56] LABS: Hematocrit 29.8 % (35.3-44.9); Hemoglobin 8.5 g/dL (11.5-15.4); Mean Corpuscular HGB Conc 28.5 g/dL (31.6-35.5); Mean Corpuscular Hemoglobin 25.8 pg (28.0-33.3); Mean Corpuscular Volume 90.6 fL (83.0-100.0); Mean Platelet Volume 9.8 fL (9.4-12.4); Platelet Count 170 K/mcL (140-400); Red Blood Count 3.29 M/mcL (3.82-4.97); Red Cell Distribution Width 15.8 % (11.5-14.5)
[2018-04-02 02:17] LABS: BUN/Creatinine Ratio 45 (6-26); Blood Urea Nitrogen 24 mg/dL (8-23); Calcium 8.9 mg/dL (8.6-10.3); Carbon Dioxide 41 mEq/L (23-29); Chloride 91 mEq/L (98-107); Glucose 121 mg/dL (70-105); Osmolality,Calculated 285 (280-300); Potassium 4.8 mEq/L (3.5-5.1); Sodium 135 mEq/L (136-145); eGFR For Non-African Americans > 60 (> 60)
--- NOTE | 2018-04-02 08:56 | Discharge Summary ---
<Berenice Ruelas - Last Filed: 04/02/18 16:36> - NOTES TO OUTPATIENT PROVIDER Notes to Outpatient Provider: Admitted for CHF exacerbation and afib. Cardiology following. Patient had hemoptysis when Coumadin was started requiring 1 unit PRBC. She is now off anticoagulation and is managed with aspirin and Plavix. - Due to low blood pressure her Toprol was decreased to 12.5 daily. Lasix was increased to 40 mg daily. -She is to follow up with cardiology outpatient. - She is 2 more days of Levaquin for her multifocal pneumonia. -She was discharged with BiPAP to use at night time. -She is home health for PT/OT Date of Encounter: 04/02/18 Time of Encounter: 08:30 - Discharge Diagnosis (1) Acute exacerbation of CHF (congestive heart failure) Priority: Primary Status: Acute Qualifiers: Heart failure type: systolic Qualified Code(s): I50.23 - Acute on chronic systolic (congestive) heart failure (2) Elevated troponin Priority: Secondary Status: Chronic (3) Coronary artery disease Priority: Secondary Status: Chronic Qualifiers: Coronary Disease-Associated Artery/Lesion type: [place] artery [place] vs. transplanted heart: [place] heart Associated angina: without angina Qualified Code(s): I25.10 - Atherosclerotic heart disease of [place] coronary artery without angina pectoris (4) HTN (hypertension) Priority: Secondary Status: Chronic Qualifiers: Hypertension type: essential hypertension Qualified Code(s): I10 - Essential (primary) hypertension (5) Acute on chronic respiratory failure with hypoxia and hypercapnia Priority: Secondary Status: Acute (6) COPD (chronic obstructive pulmonary disease) Priority: Secondary Status: Chronic Qualifiers: COPD type: emphysema Emphysema type: unspecified Qualified Code(s): J43.9 - Emphysema, unspecified (7) Anemia Priority: Secondary Status: Chronic Qualifiers: Anemia type: iron deficiency Iron deficiency anemia type: unspecified iron deficiency Qualified Code(s): D50.9 - Iron deficiency anemia, unspecified (8) Atrial fibrillation Priority: Secondary Status: Chronic Qualifiers: Atrial fibrillation type: paroxysmal Qualified Code(s): I48.0 - Paroxysmal atrial fibrillation (9) Asymptomatic bacteriuria Priority: Secondary Status: Acute (10) Hemoptysis Priority: Secondary Status: Acute (11) History of chronic carbon dioxide retention Priority: Secondary Status: Acute (12) Multifocal pneumonia Priority: Secondary Status: Acute Hospital course: China Smith is a 68-year-old female with past medical history of CHF, CAD 70% RCA lesion, arthritis, COPD on 2 L home O2, GERD, hypertension, hyperlipidemia, and DVT on Plavix and aspirin who presented 03/28 with lower extremity swelling and shortness of breath for 2-3 days. ED labs showed a troponin of 0.05 which is her baseline, BNP of 1327, echo was performed on February 17 with an EF of 30%. EKG done in the ED showed A. fib without ST elevation or depression. She was admitted for CHF exacerbation and afib. Cardiology was consulted. Patient was placed on heparin drip nd was to be bridged to coumadin but she developed hemoptysis and epistaxis on while on heparin gtt; subsequently stopped. She as transfused one unit PRBC. CT chest showed no PE, incidental multifocal pneumonia so she was started on Levaquin. During her treatment she was given lasix for CHF. She was continued on asa, statin, BB, and acei. She qualified for BiPAP at nighttime. Hemoglobin was monitored and remained stable. The patient agreed to not been on anticoagulation due to hemoptysis. Due to low blood pressure her Toprol was decreased to 12.5 daily. Lasix was increased to 40 mg daily. She is to follow up with cardiology outpatient. She is 2 more days of Levaquin for her multifocal pneumonia. She was discharged with BiPAP to use at night time. She is is charged home with home health for PT/OT. She was also told to follow-up with her PCP. Upon discharge the patient was alert and oriented times 3 and no acute distress. The treatment plan was and she stated a clear understanding and was agreeable. Discharge discussed with: patient, nurse, social work - Time Spent with Patient Total time spent providing and/or coordinating discharge services: Greater than 30 minutes - Discharge Medications Prescriptions: Clopidogrel Bisulfate [Plavix] 75 mg PO DAILY #30 tablet RX: Furosemide [Lasix] 40 mg PO DAILY #30 tab RX: levoFLOXacin [Levaquin] 750 mg PO DAILY 2 Days #2 tablet RX: Metoprolol XL (24 HR) Succ [Toprol Xl] 12.5 mg PO DAILY #30 tab.er.24h Home Medications: RX: Aspirin 81 mg PO DAILY 08/06/16 [History] RX: Citalopram [CeleXA] 20 mg PO DAILY 08/06/16 [History] RX: Pantoprazole Sodium [Protonix] 40 mg PO DAILY 08/06/16 [History] RX: Clopidogrel [Plavix] 75 mg PO DAILY #30 tablet 02/14/17 [Rx] RX: Lisinopril [Zestril] 2.5 mg PO DAILY #30 tablet 02/14/17 [Rx] RX: Atorvastatin [Lipitor] 10 mg PO DAILY 10/03/17 [History] RX: Albuterol Sulfate [Albuterol Inhaler] 2 puff IH Q4HR PRN #1 hfa.aer.ad 10/09/17 [Rx] RX: Docusate Sodium [Colace] 100 mg PO DAILY 02/06/18 [History] RX: Psyllium Husk [Daily Fiber] 0.52 gm PO DAILY 02/06/18 [History] RX: Ferrous Gluconate 324 mg PO BID #60 tablet 02/08/18 [Rx] RX: Ipratropium/Albuterol Sulfate [Iprat-Albut 0.5-3(2.5) mg/3 ml] 3 ml IH 3-4XD PRN 02/17/18 [History] RX: Nitroglycerin 0.2 mg TD 1200 #24 patch.td24 02/21/18 [Rx] Clopidogrel Bisulfate [Plavix] 75 mg PO DAILY #30 tablet 04/02/18 [Rx] RX: Furosemide [Lasix] 40 mg PO DAILY #30 tab 04/02/18 [Rx] RX: Metoprolol XL (24 HR) Succ [Toprol Xl] 12.5 mg PO DAILY #30 tab.er.24h 04/02/18 [Rx] RX: levoFLOXacin [Levaquin] 750 mg PO DAILY 2 Days #2 tablet 04/02/18 [Rx] Allergies/Adverse Reactions: Allergy/AdvReac Type Severity Reaction Status Date / Time Neomycin Allergy Blister Verified 02/17/18 13:47 Penicillins Allergy Blister Verified 02/17/18 13:47 Date of admission: 03/30/18 07:14 Primary care physician: Duran Sims Jr, MD Consults: 03/28/18 05:41 Consult to Cardiology [CONS] Routine Comment: Consulting Provider: [facility] Reason for Consult: New onset arrhythmia; CHF exacerbation Call Completed: No 03/31/18 10:07 Consult to Occupational Therapy [CONS] Routine Comment: Evaluate, develop and implement POC Reason for Consult: pna, copd, deconditioned Does patient have active BEDREST order?: No Is patient medically & hemodynamically stable?: Yes Patient assessed for mobility or mobilized this visit?: Yes Discharging clinician: Andrea Strong Anticipated date of discharge: 04/02/18 - Constitutional Vitals: Temp Pulse Resp BP Pulse Ox 97.9 F 69 18 105/78 96 04/02/18 07:56 04/02/18 07:56 04/02/18 07:56 04/02/18 07:56 04/02/18 07:56 General appearance: Present: cooperative, A&O X 3, no acute distress, answers questions appropriately Exam: Gen.: Vitals noted. No acute distress. AAOx3 HEENT: oropharynx clear, Normocephalic, atraumatic Neck: Supple. No adenopathy. Cardiac: irregular, no murmur, +S1/S2 Pulmonary: diminished bilaterally, no wheezes, rales or rhonchi, equal chest expansion Abdomen: soft, nontender, Bowel sounds noted, no guarding Extremities: + BLE edema, nontender calf, no cyanosis or clubbing Neuro: A&Ox3, moves all extremities, no focal deficits Psych: Appropriate mood and behavior - Patient Status Disposition: Home Health Service Condition: Fair Functional capacity at discharge: uses cane/walker Overall status at discharge: patient is progressing back to baseline - Discharge Instructions Instructions: Metoprolol (By mouth), Furosemide (By mouth), Levofloxacin (By mouth), Clopidogrel (By mouth), Heart Failure (DC), Atrial Fibrillation (DC), Pacemaker (DC), Depression (DC), Chronic Obstructive Pulmonary Disease (DC), Chronic Hypertension (DC), Pneumonia (DC), Cigarette Smoking and Your Health, Developer Programmer Analyst (GEN) Follow Up With: [facility] [Provider Group] Duran Sims Jr, MD [Primary Care Provider] - 04/11/18 10:00 am (Dr. Sims has been requested to follow China Smith. There has been a request submitted no t approved yet by Dr. Sims. I believe the request was submitted by the patients daughter) Additional Instructions: -Continue to take aspirin and Plavix daily. -Due to low blood pressure her Toprol was decreased to 12.5 daily. - Lasix was increased to 40 mg daily. -follow up with cardiology outpatient. - finished the 2 more days of Levaquin for pneumonia -continue to use BiPAP at night time and supplemental oxygen during the day. -Continue with home health for PT/OT - Follow-up with your primary care physician - Diet and Activity Activity: ambulate only with your walker, as per physical therapy Diet: low salt diet - VTE Reasons for not Prescribing Prophylaxis: Medical contraindication <Andrea Strong - Last Filed: 04/02/18 19:44> Date of Encounter: 04/02/18 - Discharge Diagnosis (1) Elevated troponin Status: Chronic (2) Coronary artery disease Status: Chronic Qualifiers: Coronary Disease-Associated Artery/Lesion type: [place] artery [place] vs. transplanted heart: [place] heart Associated angina: without angina Qualified Code(s): I25.10 - Atherosclerotic heart disease of [place] coronary artery without angina pectoris (3) Acute exacerbation of CHF (congestive heart failure) Status: Acute Qualifiers: Heart failure type: systolic Qualified Code(s): I50.23 - Acute on chronic systolic (congestive) heart failure (4) HTN (hypertension) Status: Chronic Qualifiers: Hypertension type: essential hypertension Qualified Code(s): I10 - Essential (primary) hypertension (5) Acute on chronic respiratory failure with hypoxia and hypercapnia Status: Acute (6) COPD (chronic obstructive pulmonary disease) Status: Chronic Qualifiers: COPD type: emphysema Emphysema type: unspecified Qualified Code(s): J43.9 - Emphysema, unspecified (7) Anemia Status: Chronic Qualifiers: Anemia type: iron deficiency Iron deficiency anemia type: unspecified iron deficiency Qualified Code(s): D50.9 - Iron deficiency anemia, unspecified (8) Atrial fibrillation Status: Chronic Qualifiers: Atrial fibrillation type: paroxysmal Qualified Code(s): I48.0 - Paroxysmal atrial fibrillation (9) Asymptomatic bacteriuria Status: Acute (10) Hemoptysis Status: Acute (11) History of chronic carbon dioxide retention Status: Acute (12) Multifocal pneumonia Status: Acute (13) Tobacco abuse Priority: Secondary Status: Chronic Hospital course: Ms. Smith is a 68 year old female - Time Spent with Patient Total time spent providing and/or coordinating discharge services: 38min Date of admission: 03/30/18 07:14 Primary care physician: Duran Sims Jr, MD Consults: 03/28/18 05:41 Consult to Cardiology [CONS] Routine Comment: Consulting Provider: Melvi Fernández Reason for Consult: New onset arrhythmia; CHF exacerbation Call Completed: No 03/31/18 10:07 Consult to Occupational Therapy [CONS] Routine Comment: Evaluate, develop and implement POC Reason for Consult: pna, copd, deconditioned Does patient have active BEDREST order?: No Is patient medically & hemodynamically stable?: Yes Patient assessed for mobility or mobilized this visit?: Yes - Constitutional Vitals: Temp Pulse Resp BP Pulse Ox 97.9 F 63 18 70/43 75 04/02/18 07:56 04/02/18 12:05 04/02/18 12:05 04/02/18 12:05 04/02/18 12:05 - Attending Attestation I examined this patient and my medical decision-making was reviewed with the Resident Physician on 04/02/18. I agree with the documented findings, disposition and treatment plan as described except to the extent set forth below. Ms Smith has been admitted for resp failure due to CHF. She has qualified for bipap. She is now at baseline. She is afebrile and ready for discharge home. Bipap has been set up. Exam alert comfortable Mucus membranes dry Heart not tachy No wheeze or rales Abd soft Plan D/C home Bipap Increase home dose of Lasix.
[2018-04-02] MEDS ORDERED: Metoprolol XL (24 HR) Succ 25 MG TAB.ER.24H PO SCH (09:00)
[2018-04-02] MEDS: Furosemide 40 MG/4 ML VIAL IVP SCH (09:36)
[2018-04-02] MEDS: levoFLOXacin 750 MG TABLET PO SCH (09:37)
[2018-04-02] MEDS: Aspirin 81 MG TAB.CHEW PO SCH (09:37)
[2018-04-02] MEDS: Nitroglycerin 0.2 MG PATCH.TD24 TD SCH (11:51)
[2018-04-02 12:07] VITALS: BP 70/43
--- NOTE | 2018-04-02 13:42 | Physician Discharge Referral ---
Home Health/Hosp Referral Info Transfer to: Home Health Provider in Charge Post Discharge: PCP - Diagnosis (1) Acute exacerbation of CHF (congestive heart failure) Status: Acute (2) Elevated troponin Status: Chronic (3) Coronary artery disease Status: Chronic (4) HTN (hypertension) Status: Chronic (5) Acute on chronic respiratory failure with hypoxia and hypercapnia Status: Acute (6) COPD (chronic obstructive pulmonary disease) Status: Chronic (7) Anemia Status: Chronic (8) Atrial fibrillation Status: Chronic (9) Asymptomatic bacteriuria Status: Acute (10) Hemoptysis Status: Acute (11) History of chronic carbon dioxide retention Status: Acute (12) Multifocal pneumonia Status: Acute - Respiratory Orders Oxygen / L per min (2L), Other (bipap) Smoking Cessation: Smoking cessation has been advised. For more information, call the [employer] Quit Line at [phone]-NOW. - Diet/Nutrition Diet/Nutrition Orders: Cardiac - Activity Activity Orders: Ambulate, Walker - Services Needed Following services are medically necessary services: Home Health Aide, Physical Therapy, Occupational Therapy - Transfer Medications Prescriptions: Clopidogrel Bisulfate [Plavix] 75 mg PO DAILY #30 tablet Furosemide [Lasix] 40 mg PO DAILY #30 tab levoFLOXacin [Levaquin] 750 mg PO DAILY 2 Days #2 tablet Metoprolol XL (24 HR) Succ [Toprol Xl] 12.5 mg PO DAILY #30 tab.er.24h Home Medications: Aspirin 81 mg PO DAILY 08/06/16 [History] Citalopram [CeleXA] 20 mg PO DAILY 08/06/16 [History] Pantoprazole Sodium [Protonix] 40 mg PO DAILY 08/06/16 [History] Clopidogrel [Plavix] 75 mg PO DAILY #30 tablet 02/14/17 [Rx] Lisinopril [Zestril] 2.5 mg PO DAILY #30 tablet 02/14/17 [Rx] Atorvastatin [Lipitor] 10 mg PO DAILY 10/03/17 [History] Albuterol Sulfate [Albuterol Inhaler] 2 puff IH Q4HR PRN #1 hfa.aer.ad 10/09/17 [Rx] Docusate Sodium [Colace] 100 mg PO DAILY 02/06/18 [History] Psyllium Husk [Daily Fiber] 0.52 gm PO DAILY 02/06/18 [History] Ferrous Gluconate 324 mg PO BID #60 tablet 02/08/18 [Rx] Ipratropium/Albuterol Sulfate [Iprat-Albut 0.5-3(2.5) mg/3 ml] 3 ml IH 3-4XD PRN 02/17/18 [History] Nitroglycerin 0.2 mg TD 1200 #24 patch.td24 02/21/18 [Rx] Clopidogrel Bisulfate [Plavix] 75 mg PO DAILY #30 tablet 04/02/18 [Rx] Furosemide [Lasix] 40 mg PO DAILY #30 tab 04/02/18 [Rx] Metoprolol XL (24 HR) Succ [Toprol Xl] 12.5 mg PO DAILY #30 tab.er.24h 04/02/18 [Rx] levoFLOXacin [Levaquin] 750 mg PO DAILY 2 Days #2 tablet 04/02/18 [Rx] Allergies/Adverse Reactions: Allergy/AdvReac Type Severity Reaction Status Date / Time Neomycin Allergy Blister Verified 02/17/18 13:47 Penicillins Allergy Blister Verified 02/17/18 13:47 Certification: Further, I certify that my clinical findings support that this patient is homebound (i.e. absences from home require considerable and taxing effort and are for medical reasons or congregational services or infrequently or short duration when for other reasons) because: Homebound Reason: Leaving home requires considerable and taxing effort due to condition Attestation: My signature below is to certify that this patient is under my care and that I, or nurse practitioner, or a physician's bilingual medical assistant working with me, has a [id number] encounter with this patient.
== END 2018-04-02 16:41 | disposition home health service (06) | DRG 291 ==
LOC: 2NENU 00:34 → EMEROOARM 00:34 → SUATTDRO 03:30 → 2NENU 03:45 → SUATTDRO 03-30 07:14
PROVIDERS: ADMIT Internal Medicine; ATTEND Internal Medicine

== ENCOUNTER 2018-05-10 09:13 | Inpatient (IN) ==
[2018-05-10 10:56] LABS: Eosinophils % 1.2 %; Immature Granulocytes % 0.2 % (0-4); Monocytes % 16.8 %; Platelet Count 236 K/mcL (140-400)
[2018-05-10 10:57] LABS: Basophils % 0.5 %; Eosinophils # 0.1 K/mcL (0.0-0.6); Hematocrit 34.7 % (35.3-44.9); Hemoglobin 9.5 g/dL (11.5-15.4); Lymphocytes # 1.4 K/mcL (0.6-4.6); Lymphocytes % 24.2 %; Mean Corpuscular HGB Conc 27.4 g/dL (31.6-35.5); Mean Corpuscular Hemoglobin 23.3 pg (28.0-33.3); Mean Platelet Volume 10.2 fL (9.4-12.4); Monocytes # 0.9 K/mcL (0.0-1.3); Neutrophils # 3.2 K/mcL (1.6-8.9); Red Blood Count 4.08 M/mcL (3.82-4.97); Red Cell Distribution Width 15.8 % (11.5-14.5); Segmented Neutrophils % 57.1 %
--- NOTE | 2018-05-10 11:02 | Emergency Department Note ---
Disposition Clinical Impression: Medication nonadherence due to psychosocial problem, Dyspnea, Elevated troponin, Elevated brain natriuretic peptide (BNP) level Disposition: Admitted As Inpatient General Adult HPI - General Chief complaint: ED Shortness of Breath/Dyspnea Stated complaint: TIM Time Seen by Provider: 05/10/18 09:48 Source: patient Limitations: no limitations - History of Present Illness Pain Scale: 0 - Related Data Home Medications Medication Instructions Recorded Confirmed Aspirin 81 mg PO DAILY 08/06/16 05/10/18 Citalopram [CeleXA] 20 mg PO DAILY 08/06/16 05/10/18 Pantoprazole Sodium [Protonix] 40 mg PO DAILY 08/06/16 05/10/18 Atorvastatin [Lipitor] 10 mg PO DAILY 10/03/17 05/10/18 Docusate Sodium [Colace] 100 mg PO DAILY 02/06/18 05/10/18 Psyllium Husk [Daily Fiber] 0.52 gm PO DAILY 02/06/18 05/10/18 Ipratropium/Albuterol Sulfate 3 ml IH 3-4XD PRN 02/17/18 05/10/18 [Iprat-Albut 0.5-3(2.5) mg/3 ml] Carvedilol [Coreg] 6.25 mg PO BID 05/10/18 05/10/18 Previous Rx's Medication Instructions Recorded Clopidogrel [Plavix] 75 mg PO DAILY #30 tablet 02/14/17 Lisinopril [Zestril] 2.5 mg PO DAILY #30 tablet 02/14/17 Albuterol Sulfate [Albuterol 2 puff IH Q4HR PRN #1 hfa.aer.ad 10/09/17 Inhaler] Nitroglycerin 0.2 mg TD 1200 #24 patch.td24 02/21/18 Furosemide [Lasix] 40 mg PO DAILY #30 tab 04/02/18 Metoprolol XL (24 HR) Succ [Toprol 12.5 mg PO DAILY #30 tab.er.24h 04/02/18 Xl] Allergies Allergy/AdvReac Type Severity Reaction Status Date / Time Neomycin Allergy Blister Verified 02/17/18 13:47 Penicillins Allergy Blister Verified 02/17/18 13:47 Past Medical History - Past Medical History Medical history: Reports: arthritis, CHF, COPD, DVT, GERD, hyperlipidemia, hypertension Surgical history: Reports: herniorrhaphy, hysterectomy Psychiatric history: Reports: depression PLANT CHIEF history: Reports: no PLANT CHIEF history - Social History Smoking Status: Current every day smoker Smokeless Tobacco Status: No Alcohol use: Reports: none Drug use: Reports: none Physical Exam - General Limitations: no limitations General appearance: alert, in no apparent distress Course Vital Signs Temperature 97.9 F 05/10/18 09:16 Pulse Rate 91 05/10/18 09:16 Respiratory Rate 18 05/10/18 09:16 Blood Pressure 128/62 05/10/18 09:16 O2 Sat by Pulse Oximetry 100 05/10/18 09:16 Temperature 97.9 F 05/10/18 14:23 Pulse Rate 96 05/10/18 14:51 Respiratory Rate 18 05/10/18 14:51 Blood Pressure 127/61 05/10/18 14:23 O2 Sat by Pulse Oximetry 99 05/10/18 14:51 Oxygen Delivery Oxygen Delivery Room Air Medical Decision Making - Lab Data Result diagrams: 05/10/18 10:16 05/10/18 10:16 Lab Results 05/10/18 05/10/18 05/10/18 Range/Units 10:16 10:16 10:16 WBC 5.6 (4.3-11.1) K/mcL RBC 4.08 (3.82-4.97) M/mcL Hgb 9.5 L (11.5-15.4) g/dL Hct 34.7 L (35.3-44.9) % MCV 85.0 (83.0-100.0) fL MCH 23.3 L (28.0-33.3) pg MCHC 27.4 L (31.6-35.5) g/dL RDW 15.8 H (11.5-14.5) % Plt Count 236 (140-400) K/mcL MPV 10.2 (9.4-12.4) fL Immature Gran % 0.2 (0-4) % Seg Neutrophils % 57.1 % Lymphocytes % 24.2 % Monocytes % 16.8 % Eosinophils % 1.2 % Basophils % 0.5 % Neutrophils # 3.2 (1.6-8.9) K/mcL Lymphocytes # 1.4 (0.6-4.6) K/mcL Monocytes # 0.9 (0.0-1.3) K/mcL Eosinophils # 0.1 (0.0-0.6) K/mcL Basophils # 0.0 (0.0-0.2) K/mcL Platelet Estimate Normal (Normal) Hypochromasia Present A (Not Present) Anisocytosis 1+ A (Not Present) Sodium 137 (136-145) mEq/L Potassium 4.3 (3.5-5.1) mEq/L Chloride 98 (98-107) mEq/L Carbon Dioxide 37 H (23-29) mEq/L BUN 14 (8-23) mg/dL Creatinine 0.44 L (0.60-1.20) mg/dL Est GFR ( Amer) > 60 (> 60) Est GFR (Non-Af Amer) > 60 (> 60) BUN/Creatinine Ratio 32 H (6-26) Glucose 98 (70-105) mg/dL Calculated Osmolality 284 (280-300) Calcium 9.2 (8.6-10.3) mg/dL Troponin I 0.06 H* (< 0.04) ng/mL B-Natriuretic Peptide 1238 H (Less than 100) pg/mL 05/10/18 Range/Units 13:11 WBC (4.3-11.1) K/mcL RBC (3.82-4.97) M/mcL Hgb (11.5-15.4) g/dL Hct (35.3-44.9) % MCV (83.0-100.0) fL MCH (28.0-33.3) pg MCHC (31.6-35.5) g/dL RDW (11.5-14.5) % Plt Count (140-400) K/mcL MPV (9.4-12.4) fL Immature Gran % (0-4) % Seg Neutrophils % % Lymphocytes % % Monocytes % % Eosinophils % % Basophils % % Neutrophils # (1.6-8.9) K/mcL Lymphocytes # (0.6-4.6) K/mcL Monocytes # (0.0-1.3) K/mcL Eosinophils # (0.0-0.6) K/mcL Basophils # (0.0-0.2) K/mcL Platelet Estimate (Normal) Hypochromasia (Not Present) Anisocytosis (Not Present) Sodium (136-145) mEq/L Potassium (3.5-5.1) mEq/L Chloride (98-107) mEq/L Carbon Dioxide (23-29) mEq/L BUN (8-23) mg/dL Creatinine (0.60-1.20) mg/dL Est GFR ( Amer) (> 60) Est GFR (Non-Af Amer) (> 60) BUN/Creatinine Ratio (6-26) Glucose (70-105) mg/dL Calculated Osmolality (280-300) Calcium (8.6-10.3) mg/dL Troponin I 0.05 H* (< 0.04) ng/mL B-Natriuretic Peptide (Less than 100) pg/mL Attestation Statement - Attestation Attestation: I examined this patient and my medical decision-making was reviewed with the Resident Physician. I agree with the documented findings, disposition and treatment plan as described except to the extent set forth below. Patient presented to the ED complaining of shortness of breath. Leg swelling. Onset 1 week ago. Patient stopped taking her medicines about a week and a half ago. She states her daughter was and pelvic boxes for her but she stopped. She also is out of her medications. She said that she is getting her follow-up appointments with her PCP Dr. Sims and her oil spot washer. On exam she is tachypneic. Mild accessory muscle use. Lung sounds diminished. 2+ pedal edema. Plan. Cardiac workup. Nebs. Lasix. Reevaluate and admit. BNP and troponin elevated. We will admit. Patient symptoms and workup breathing were improved prior to admission. Patient sitting on the edge of the bed at this time eating a meal tray. Chest X-Ray 05/10/18 10:13 IMPRESSION: Stable cardiomegaly and mild pulmonary venous hypertension. No acute pneumonia or overt congestive heart failure. D/ 05/10/2018 11:01:15 Deven Miller MD / steffanie Interpreting Provider: Deven Miller MD
[2018-05-10 11:15] LABS: BUN/Creatinine Ratio 32 (6-26); Blood Urea Nitrogen 14 mg/dL (8-23); Calcium 9.2 mg/dL (8.6-10.3); Carbon Dioxide 37 mEq/L (23-29); Chloride 98 mEq/L (98-107); Glucose 98 mg/dL (70-105); Osmolality,Calculated 284 (280-300); Potassium 4.3 mEq/L (3.5-5.1); Sodium 137 mEq/L (136-145); eGFR For Non-African Americans > 60 (> 60)
[2018-05-10 11:20] LABS: Troponin I 0.06 ng/mL (< 0.04)
[2018-05-10] MEDS ORDERED: Aspirin 325 MG TABLET PO ONE (11:21)
[2018-05-10 11:44] LABS: Anisocytosis 1+ (Not Present); Hypochromasia Present (Not Present); Platelet Estimate Normal (Normal)
[2018-05-10] MEDS ORDERED: Ipratropium/Albuterol Neb 3 ML IH ONE (12:10)
[2018-05-10] MEDS ORDERED: Naloxone 0.4 MG/ML INJ IVP PRN (12:30)
[2018-05-10] MEDS ORDERED: traMADol 50 MG TABLET PO PRN (12:30)
[2018-05-10] MEDS ORDERED: Nitroglycerin 0.4 MG TAB.SUBL SL PRN (12:33)
--- NOTE | 2018-05-10 14:29 | Internal Med History&Physical ---
Date of Encounter: 05/10/18 Time of Encounter: 14:27 Internal Medicine - H&P: HPI Chief complaint: shortness of breath and lower extremities edema. Admitted From: Home Plans for Post Hospital Care: Home History of present illness: Ms. Smith is a 68 year old female PMH of A.fib, chronic hypoxemic respiratory failure on 2 litters of home O2, CAD, HTN, COPD and HFrEF. Patient presented to the ED due to worsening shortness of breath for the past week, which she describes as feeling short of breath with minimal exertion first, followed by SOB at rest, associated with swelling of her lower extremities. She also reports being unable to sleep flat due to being short of breath. Denies chest pain, nausea, vomiting or abdominal discomfort, denies increase fluids intake, but reports that she has not been taking her medications for about a good week because she ran out of them and has not been able to refill them. Past Med Surg Social Fam HX - Past Medical History Medical history: arthritis, CHF, COPD, DVT, GERD, hyperlipidemia, hypertension Additional medical history: Hernia x 4 Psychiatric history: depression - Past Surgical History Surgical History: herniorrhaphy, hysterectomy Additional surgical history: Tubal ligation. Endometriosis. Shoulder sx - Social History Smoking Status: Current every day smoker Smokeless Tobacco Status: No Alcohol use: none Drug use: none - Family History Father Family Member Ethnicity: Non- Living Status: Hx Family Cardiac Disorders: Yes (CHF, MO, HTN) Hx Family Endocrine Disorder: Yes (DM) Mother Family Member Ethnicity: Non- Living Status: Hx Family Neurologic Disorders: Yes (Alzheimer's disease) Brother Family Member Ethnicity: Non- Living Status: Hx Family Cancer: Yes (Pancreatic) Sister Family Member Ethnicity: Non- Living Status: Internal Medicine - H&P: Meds Aspirin 81 mg PO DAILY 08/06/16 [History] Citalopram [CeleXA] 20 mg PO DAILY 08/06/16 [History] Pantoprazole Sodium [Protonix] 40 mg PO DAILY 08/06/16 [History] Clopidogrel [Plavix] 75 mg PO DAILY #30 tablet 02/14/17 [Rx] Lisinopril [Zestril] 2.5 mg PO DAILY #30 tablet 02/14/17 [Rx] Atorvastatin [Lipitor] 10 mg PO DAILY 10/03/17 [History] Albuterol Sulfate [Albuterol Inhaler] 2 puff IH Q4HR PRN #1 hfa.aer.ad 10/09/17 [Rx] Docusate Sodium [Colace] 100 mg PO DAILY 02/06/18 [History] Psyllium Husk [Daily Fiber] 0.52 gm PO DAILY 02/06/18 [History] Ipratropium/Albuterol Sulfate [Iprat-Albut 0.5-3(2.5) mg/3 ml] 3 ml IH 3-4XD PRN 02/17/18 [History] Nitroglycerin 0.2 mg TD 1200 #24 patch.td24 02/21/18 [Rx] Furosemide [Lasix] 40 mg PO DAILY #30 tab 04/02/18 [Rx] Metoprolol XL (24 HR) Succ [Toprol Xl] 12.5 mg PO DAILY #30 tab.er.24h 04/02/18 [Rx] Carvedilol [Coreg] 6.25 mg PO BID 05/10/18 [History] Allergy/AdvReac Type Severity Reaction Status Date / Time Neomycin Allergy Blister Verified 02/17/18 13:47 Penicillins Allergy Blister Verified 02/17/18 13:47 All Systems PM: A 10-system review of systems was performed and is negative for pertinent findings except as documented above in the HPI. - Constitutional Constitutional: weakness, no chills, no fatigue, no fever(s) - EENT Eyes: no irritation Nose, mouth and throat: no bleeding gums - Breasts Breasts: no pain - Cardiovascular Cardiovascular ROS IM: dyspnea, dyspnea on exertion, edema, orthopnea, paroxysmal nocturnal dyspnea, no chest pain, no diaphoresis, no irregular heart rhythm, no lightheadedness, no palpitations, no syncope - Respiratory Respiratory: dyspnea, no cough, no snoring, no pain on inspiration, no chest congestion, no excessive phlegm production - Gastrointestinal Gastrointestinal: no abdominal pain, no dyspepsia, no dysphagia, no melena, no nausea, no vomiting - Genitourinary Genitourinary: no dysuria, no sexual dysfunction, no urinary frequency, no urinary hesitancy, no urinary incontinence, no urinary urgency - Musculoskeletal Musculoskeletal ROS IM: no atrophy, no back pain - Integumentary Integumentary IM: no erythema, no pruritus - Neurological Neurological ROS: no headache(s), no lack of coordination, no vertigo, no weakness - Psychiatric Psychiatric: no depression, no homicidal ideation, no hopelessness - Endocrine Endocrine IM: no flushing, no polydipsia, no polyphagia, no polyuria - Hematologic/Lymphatic Hematologic/Lymphatic: no lymphadenopathy - Allergic/Immunologic Allergic/Immunologic: no wheezing Additional comments: Rest of the review of system is negative - Constitutional Vitals: Temp Pulse Resp BP Pulse Ox 97.9 F 99 16 127/61 89 05/10/18 14:23 05/10/18 14:23 05/10/18 14:23 05/10/18 14:23 05/10/18 14:23 Exam: Vitals: Reviewed. General: Alert and oriented x4. In mild distress due to shortness of breath. Skin: Normal color, no rash, no lesions. HEENT: EOM, pupils equal, round and reactive. Cardiovascular: Irregularly, irregular, Normal S1 & S2, no rubs, murmurs or gallops. No JVD. Lungs: bl crackles at the bases, no wheezing or rales. Abdomen: Obese, Soft, non-tender, no rigidity. Extremities: 2+ pitting edema b/l in the lower extr. Neurological: Normal cognition and motor skills. Rest of the physical exam is non contributory Internal Med - H&P Results - Labs CBC & Chem 7: 05/10/18 10:16 05/10/18 10:16 Labs: Short CBC 05/10/18 Range/Units 10:16 WBC 5.6 (4.3-11.1) K/mcL Hgb 9.5 L (11.5-15.4) g/dL Hct 34.7 L (35.3-44.9) % Plt Count 236 (140-400) K/mcL Neutrophils # 3.2 (1.6-8.9) K/mcL BMP 05/10/18 10:16 Sodium 137 Potassium 4.3 Chloride 98 Carbon Dioxide 37 H BUN 14 Creatinine 0.44 L Glucose 98 Calcium 9.2 Cardiac Enzymes 05/10/18 05/10/18 Range/Units 10:16 13:11 Troponin I 0.06 H* 0.05 H* (< 0.04) ng/mL - Impressions ITS Impressions Chest X-Ray 05/10/18 10:13 IMPRESSION: Stable cardiomegaly and mild pulmonary venous hypertension. No acute pneumonia or overt congestive heart failure. D/ / 05/10/2018 11:01:15 Deven Miller MD / steffanie Interpreting Provider: Deven Miller MD - Assessment and plan (1) CHF exacerbation Current Visit: No Status: Acute Assessment and plan: patient with orthopnea, shortness of breath and lower extremities edema. off medications for about a week. Plan: IV diruresis with furosemide 40mg/IV BID strict intake and output water restriction to 1.5 litters a day. daily weight 2 gram sodium diet Lisinopril 2.5mg/PO daily On metoprolol 12.5mg/PO daily Qualifiers: Heart failure type: systolic Qualified Code(s): I50.23 - Acute on chronic systolic (congestive) heart failure (2) DVT prophylaxis Current Visit: No Status: Acute Assessment and plan: On heparin subQ (3) COPD (chronic obstructive pulmonary disease) Current Visit: No Status: Chronic Assessment and plan: Not on acute exacerbation. will start patient on bronchodilators PRN for wheezi ng. Incentive spirometry. Qualifiers: COPD type: unspecified COPD Qualified Code(s): J44.9 - Chronic obstructive pulmonary disease, unspecified (4) Chronic respiratory failure with hypoxia Current Visit: Yes Status: Chronic Assessment and plan: patient on her baseline O2 requirement. continue O2 by nasal cannula, titrate for O2Sat >92%. (5) Elevated troponin Current Visit: Yes Status: Acute Assessment and plan: possible due to demand ischemia due to chf exacerbation. serial trops telemetry monitoring on aspirin and plavix if trops continue to trend up consider cardiology consult for ischemic work up. (6) Atrial fibrillation Current Visit: Yes Status: Chronic Assessment and plan: Rate controlled on metoprolol. Unclear why not anticoagulated. Qualifiers: Atrial fibrillation type: unspecified Qualified Code(s): I48.91 - Unspecified atrial fibrillation (7) CAD (coronary artery disease) Current Visit: Yes Status: Chronic Assessment and plan: Continue dual antiplatelet therapy with aspirin and Plavix. Qualifiers: Coronary Disease-Associated Artery/Lesion type: unspecified vessel or lesion type [place] vs. transplanted heart: unspecified whether [place] or transplanted heart Associated angina: angina presence unspecified Qualified Code(s): I25.10 - Atherosclerotic heart disease of [place] coronary artery without angina pectoris (8) HLD (hyperlipidemia) Current Visit: Yes Status: Chronic Assessment and plan: Atorvastatin 10mg/PO daily Qualifiers: Hyperlipidemia type: unspecified Qualified Code(s): E78.5 - Hyperlipidemia, unspecified (9) HTN (hypertension) Current Visit: Yes Status: Chronic Assessment and plan: patient re-started on her home medications. Will monitor and adjust medications if needed. Qualifiers: Hypertension type: unspecified Qualified Code(s): I10 - Essential (primary) hypertension - Time Spent With Patient Total time spent is greater than 50% in coordination of care (as documented) at patient's floor/unit and/or counseling patient: Greater than 35 minutes (50)
[2018-05-10] MEDS: Metoprolol XL (24 HR) Succ 25 MG TAB.ER.24H PO SCH (15:08)
[2018-05-10] MEDS: Furosemide 40 MG/4 ML VIAL IVP SCH (15:08)
[2018-05-10] MEDS: *HR* Heparin 5,000 UNIT/ML VIAL SQ SCH (18:06)
--- NOTE | 2018-05-10 18:10 | Emergency Department Note ---
Disposition Clinical Impression: Medication nonadherence due to psychosocial problem, Elevated troponin, Elevated brain natriuretic peptide (BNP) level Dyspnea Qualifiers: Dyspnea type: orthopnea Qualified Code(s): R06.01 - Orthopnea Disposition: Admitted As Inpatient Time of Disposition: 18:34 General Adult HPI - General Chief complaint: ED Shortness of Breath/Dyspnea Stated complaint: TIM Time Seen by Provider: 05/10/18 09:48 Source: patient Mode of arrival: EMS Limitations: no limitations Nursing Notes Reviewed: Yes Vital Signs Reviewed: Yes - History of Present Illness HPI Narrative: Patient has a past medical history of CHF, ACS, and COPD presents to the emergency department for evaluation of 1 week of dyspnea. Patient is on 2 L nasal cannula chronically. States that she has not been taking her medications over the past 7 days due to not having any refills on her scripts. States her daughter daughter has not been present which usually she organizes her pills for her. She denies any fevers, increased sputum production, chest pain, nausea, vomiting, abdominal pain or urinary symptoms. Pain Scale: 0 - Related Data Home Medications Medication Instructions Recorded Confirmed Aspirin 81 mg PO DAILY 08/06/16 05/10/18 Citalopram [CeleXA] 20 mg PO DAILY 08/06/16 05/10/18 Pantoprazole Sodium [Protonix] 40 mg PO DAILY 08/06/16 05/10/18 Atorvastatin [Lipitor] 10 mg PO DAILY 10/03/17 05/10/18 Docusate Sodium [Colace] 100 mg PO DAILY 02/06/18 05/10/18 Psyllium Husk [Daily Fiber] 0.52 gm PO DAILY 02/06/18 05/10/18 Ipratropium/Albuterol Sulfate 3 ml IH 3-4XD PRN 02/17/18 05/10/18 [Iprat-Albut 0.5-3(2.5) mg/3 ml] Carvedilol [Coreg] 6.25 mg PO BID 05/10/18 05/10/18 Previous Rx's Medication Instructions Recorded Clopidogrel [Plavix] 75 mg PO DAILY #30 tablet 02/14/17 Lisinopril [Zestril] 2.5 mg PO DAILY #30 tablet 02/14/17 Albuterol Sulfate [Albuterol 2 puff IH Q4HR PRN #1 hfa.aer.ad 10/09/17 Inhaler] Nitroglycerin 0.2 mg TD 1200 #24 patch.td24 02/21/18 Furosemide [Lasix] 40 mg PO DAILY #30 tab 04/02/18 Metoprolol XL (24 HR) Succ [Toprol 12.5 mg PO DAILY #30 tab.er.24h 04/02/18 Xl] Allergies Allergy/AdvReac Type Severity Reaction Status Date / Time Neomycin Allergy Blister Verified 02/17/18 13:47 Penicillins Allergy Blister Verified 02/17/18 13:47 All systems ED: reviewed and negative except as stated. Review of Systems: As Per HPI Constitutional: Denies: fever, chills Cardiovascular: Reports: dyspnea on exertion, edema. Denies: chest pain, palpitations, syncope, paroxysmal nocturnal dyspnea Respiratory: Reports: cough, dyspnea. Denies: wheezes, sputum production Gastrointestinal: Denies: abdominal pain, nausea, vomiting Genitourinary: Denies: urgency, dysuria Musculoskeletal: Denies: back pain, neck pain Integumentary: Denies: rash Past Medical History - Past Medical History Attestation: Yes The following information was validated with the patient. Medical history: Reports: arthritis, CHF, COPD, DVT, GERD, hyperlipidemia, hypertension Surgical history: Reports: herniorrhaphy, hysterectomy Psychiatric history: Reports: depression ALUMINUM SIDING APPLICATOR history: Reports: no ALUMINUM SIDING APPLICATOR history - Social History Smoking Status: Current every day smoker Smokeless Tobacco Status: No Alcohol use: Reports: none Drug use: Reports: none Physical Exam - General Limitations: no limitations General appearance: alert, in no apparent distress - Head Head exam: atraumatic, normocephalic, normal inspection - Eye Eye exam: Present: normal appearance, PERRL, EOMI - ENT ENT exam: normal exam, normal oropharynx, mucous membranes moist - Neck Neck exam: Present: normal inspection, full ROM, trachea midline - Chest Chest inspection: Present: normal inspection, symmetric chest wall rise - Respiratory Respiratory exam: Present: wheezes (Minimally throughout and decreased lung sounds) - Cardiovascular Cardiovascular exam: Present: regular rate, irregular rhythm, normal heart sounds - Abdominal Exam Abdominal exam: Present: soft, Non-Tender. Absent: tenderness, distention, guarding, rebound, rigidity - Extremities Exam Extremities exam: Present: pedal edema (Bilaterally). Absent: calf tenderness - Back Exam Back exam: Present: normal inspection - Neurological Exam Neurological exam: Present: alert, oriented X3 - Psychiatric Psychiatric exam: Present: normal affect, normal mood Course Course Narrative: Patient reports a week long history of noncompliance with her medication with multiple comorbidities. Present complaint is dyspnea with no other new associated symptoms. On exam her lung sounds are diminished patient undergo breathing treatments for diminished breath sounds. She also be worked up for CHF exacerbation given her lower extremity edema. Patient is not acute respiratory distress at this time but she does have increased work of breathing mildly. - Reevaluation(s) Reevaluation #1: Upon return the patient's lab results she is found have a elevated troponin of 0.01 as well as an elevated BNP of 1238. She also has a hemoglobin of 9.5 to his chronic. Her chest x-ray revealed no acute pneumonia or CHF. EKG was irregular but not ischemic. I discussed the patient's case with the hospitalist on-call. Discussed the patient's need to come in for medication noncompliance as well as concern for her elevated troponin most likely due to demand ischemia from not taking her medications. Vital Signs Temperature 97.9 F 05/10/18 09:16 Pulse Rate 91 05/10/18 09:16 Respiratory Rate 18 05/10/18 09:16 Blood Pressure 128/62 05/10/18 09:16 O2 Sat by Pulse Oximetry 100 05/10/18 09:16 Temperature 97.9 F 05/10/18 14:23 Pulse Rate 96 05/10/18 14:51 Respiratory Rate 18 05/10/18 14:51 Blood Pressure 127/61 05/10/18 14:23 O2 Sat by Pulse Oximetry 99 05/10/18 14:51 Oxygen Delivery Oxygen Delivery Room Air Medical Decision Making - Medical Records Medical records reviewed: Yes I reviewed the patient's medical records. - Lab Data Lab results reviewed: Yes I reviewed the patient's lab results. Result diagrams: 05/10/18 10:16 05/10/18 10:16 Lab Results 05/10/18 05/10/18 05/10/18 Range/Units 10:16 10:16 10:16 WBC 5.6 (4.3-11.1) K/mcL RBC 4.08 (3.82-4.97) M/mcL Hgb 9.5 L (11.5-15.4) g/dL Hct 34.7 L (35.3-44.9) % MCV 85.0 (83.0-100.0) fL MCH 23.3 L (28.0-33.3) pg MCHC 27.4 L (31.6-35.5) g/dL RDW 15.8 H (11.5-14.5) % Plt Count 236 (140-400) K/mcL MPV 10.2 (9.4-12.4) fL Immature Gran % 0.2 (0-4) % Seg Neutrophils % 57.1 % Lymphocytes % 24.2 % Monocytes % 16.8 % Eosinophils % 1.2 % Basophils % 0.5 % Neutrophils # 3.2 (1.6-8.9) K/mcL Lymphocytes # 1.4 (0.6-4.6) K/mcL Monocytes # 0.9 (0.0-1.3) K/mcL Eosinophils # 0.1 (0.0-0.6) K/mcL Basophils # 0.0 (0.0-0.2) K/mcL Platelet Estimate Normal (Normal) Hypochromasia Present A (Not Present) Anisocytosis 1+ A (Not Present) Sodium 137 (136-145) mEq/L Potassium 4.3 (3.5-5.1) mEq/L Chloride 98 (98-107) mEq/L Carbon Dioxide 37 H (23-29) mEq/L BUN 14 (8-23) mg/dL Creatinine 0.44 L (0.60-1.20) mg/dL Est GFR ( Amer) > 60 (> 60) Est GFR (Non-Af Amer) > 60 (> 60) BUN/Creatinine Ratio 32 H (6-26) Glucose 98 (70-105) mg/dL Calculated Osmolality 284 (280-300) Calcium 9.2 (8.6-10.3) mg/dL Troponin I 0.06 H* (< 0.04) ng/mL B-Natriuretic Peptide 1238 H (Less than 100) pg/mL 05/10/18 Range/Units 13:11 WBC (4.3-11.1) K/mcL RBC (3.82-4.97) M/mcL Hgb (11.5-15.4) g/dL Hct (35.3-44.9) % MCV (83.0-100.0) fL MCH (28.0-33.3) pg MCHC (31.6-35.5) g/dL RDW (11.5-14.5) % Plt Count (140-400) K/mcL MPV (9.4-12.4) fL Immature Gran % (0-4) % Seg Neutrophils % % Lymphocytes % % Monocytes % % Eosinophils % % Basophils % % Neutrophils # (1.6-8.9) K/mcL Lymphocytes # (0.6-4.6) K/mcL Monocytes # (0.0-1.3) K/mcL Eosinophils # (0.0-0.6) K/mcL Basophils # (0.0-0.2) K/mcL Platelet Estimate (Normal) Hypochromasia (Not Present) Anisocytosis (Not Present) Sodium (136-145) mEq/L Potassium (3.5-5.1) mEq/L Chloride (98-107) mEq/L Carbon Dioxide (23-29) mEq/L BUN (8-23) mg/dL Creatinine (0.60-1.20) mg/dL Est GFR ( Amer) (> 60) Est GFR (Non-Af Amer) (> 60) BUN/Creatinine Ratio (6-26) Glucose (70-105) mg/dL Calculated Osmolality (280-300) Calcium (8.6-10.3) mg/dL Troponin I 0.05 H* (< 0.04) ng/mL B-Natriuretic Peptide (Less than 100) pg/mL - Radiology Data Radiology results reviewed: Yes I reviewed the patient's radiology results. Chest X-Ray 05/10/18 10:13 IMPRESSION: Stable cardiomegaly and mild pulmonary venous hypertension. No acute pneumonia or overt congestive heart failure. D/ / 05/10/2018 11:01:15 Deven Miller MD / steffanie Interpreting Provider: Deven Miller MD - EKG Data EKG #1 EKG attestation: Yes I reviewed and interpreted this EKG. EKG results narrative: EKG done at 9:59 shows an irregularly irregular rhythm with multiple PVCs. No signs of ischemia.
[2018-05-11 05:07] LABS: Hematocrit 35.6 % (35.3-44.9); Hemoglobin 9.4 g/dL (11.5-15.4); Mean Corpuscular HGB Conc 26.4 g/dL (31.6-35.5); Mean Corpuscular Hemoglobin 22.8 pg (28.0-33.3); Mean Corpuscular Volume 86.4 fL (83.0-100.0); Mean Platelet Volume 9.6 fL (9.4-12.4); Platelet Count 244 K/mcL (140-400); Red Blood Count 4.12 M/mcL (3.82-4.97); Red Cell Distribution Width 15.7 % (11.5-14.5)
[2018-05-11 05:10] LABS: INR 1.1; Prothrombin Time 12.8 Seconds (9.4-12.1)
[2018-05-11 05:13] LABS: Activated Partial Thrombo Time 31.6 Seconds (26.0-36.0)
[2018-05-11 05:25] LABS: BUN/Creatinine Ratio 33 (6-26); Blood Urea Nitrogen 18 mg/dL (8-23); Calcium 9.4 mg/dL (8.6-10.3); Carbon Dioxide 38 mEq/L (23-29); Chloride 98 mEq/L (98-107); Glucose 125 mg/dL (70-105); Magnesium 2.1 mg/dL (1.6-2.6); Osmolality,Calculated 297 (280-300); Phosphorous 4.5 mg/dL (2.7-4.5); Potassium 4.4 mEq/L (3.5-5.1); Sodium 142 mEq/L (136-145); eGFR For Non-African Americans > 60 (> 60)
[2018-05-11] MEDS: *HR* Heparin 5,000 UNIT/ML VIAL SQ SCH ×2 (05:50→17:10)
[2018-05-11] MEDS: Aspirin Enteric Coated 81 MG Tablet PO SCH (09:08)
[2018-05-11] MEDS: Metoprolol XL (24 HR) Succ 25 MG TAB.ER.24H PO SCH (09:08)
[2018-05-11] MEDS: Furosemide 40 MG/4 ML VIAL IVP SCH ×2 (09:09→17:10)
[2018-05-11] MEDS: Ipratropium/Albuterol Neb 3 ML IH PRN (11:10)
--- NOTE | 2018-05-11 12:15 | Internal Med Progress Note ---
Hospitalist Progress Note - Encounter Date of Encounter: 05/11/18 Time of Encounter: 12:13 - Subjective Interval History: Pt reported improved breathing. - Exam Vitals: Temp Pulse Resp BP Pulse Ox 98.0 F 55 16 102/57 96 05/11/18 12:06 05/11/18 12:06 05/11/18 12:06 05/11/18 12:06 05/11/18 12:06 Exam: Vitals: Reviewed. General: Alert and oriented x4. In mild distress due to shortness of breath. Skin: Normal color, no rash, no lesions. HEENT: EOM, pupils equal, round and reactive. Cardiovascular: Irregularly, irregular, Normal S1 & S2, no rubs, murmurs or g allops. No JVD. Lungs: bl crackles at the bases, no wheezing or rales. Abdomen: Obese, Soft, non-tender, no rigidity. Extremities: 2+ pitting edema b/l in the lower extr. Neurological: Normal cognition and motor skills. Rest of the physical exam is non contributory - Assessment and Plan (1) CHF exacerbation Current Visit: No Status: Acute Assessment and Plan: 05/10 patient with orthopnea, shortness of breath and lower extremities edema. off medications for about a week. Plan: IV diruresis with furosemide 40mg/IV BID strict intake and output water restriction to 1.5 litters a day. daily weight 2 gram sodium diet Lisinopril 2.5mg/PO daily On metoprolol 12.5mg/PO daily. 05/11 Symptoms improving, continue current treatment. (2) COPD (chronic obstructive pulmonary disease) Current Visit: No Status: Chronic Assessment and Plan: Not on acute exacerbation. will start patient on bronchodilators PRN for wheezing. Incentive spirometry. (3) Chronic respiratory failure with hypoxia Current Visit: No Status: Chronic Assessment and Plan: patient on her baseline O2 requirement. continue O2 by nasal cannula, titrate for O2Sat >92%. (4) Elevated troponin Current Visit: Yes Status: Acute Assessment and Plan: chronic trop elevation, at baseline. (5) Atrial fibrillation Current Visit: No Status: Chronic Assessment and Plan: Rate controlled on metoprolol. Unclear why not anticoagulated. (6) CAD (coronary artery disease) Current Visit: No Status: Chronic Assessment and Plan: Continue dual antiplatelet therapy with aspirin and Plavix. (7) HLD (hyperlipidemia) Current Visit: No Status: Chronic Assessment and Plan: Atorvastatin 10mg/PO daily (8) HTN (hypertension) Current Visit: No Status: Chronic Assessment and Plan: patient re-started on her home medications. Will monitor and adjust medications if needed. (9) DVT prophylaxis Current Visit: Yes Status: Acute Assessment and Plan: On heparin subQ - Time Spent with Patient Total time spent is greater than 50% in coordination of care (as documented) at patient's floor/unit and/or counseling patient: Greater than 35 minutes Plan of Care Discussed with: patient Internal Medicine: Result - Labs CBC & Chem 7: 05/11/18 04:48 05/11/18 04:48 Labs: Short CBC 05/11/18 Range/Units 04:48 WBC 5.2 (4.3-11.1) K/mcL Hgb 9.4 L (11.5-15.4) g/dL Hct 35.6 (35.3-44.9) % Plt Count 244 (140-400) K/mcL BMP 05/11/18 04:48 Sodium 142 Potassium 4.4 Chloride 98 Carbon Dioxide 38 H BUN 18 Creatinine 0.55 L Glucose 125 H Calcium 9.4 Cardiac Enzymes 05/10/18 05/10/18 05/10/18 Range/Units 13:11 18:02 22:28 Troponin I 0.05 H* 0.07 H* 0.07 H* (< 0.04) ng/mL 05/11/18 Range/Units 04:48 Troponin I 0.07 H* (< 0.04) ng/mL - ABG Interpretation ABG results: PT/INR, D-dimer PT 12.8 Seconds (9.4-12.1) H 05/11/18 04:48 Consult Discharge Plan - Plan Referrals: Duran Sims Jr, MD [Primary Care Provider] - (1) CHF exacerbation Qualifiers: Heart failure type: systolic Qualified Code(s): I50.23 - Acute on chronic systolic (congestive) heart failure (2) COPD (chronic obstructive pulmonary disease) Qualifiers: COPD type: unspecified COPD Qualified Code(s): J44.9 - Chronic obstructive pulmonary disease, unspecified (5) Atrial fibrillation Qualifiers: Atrial fibrillation type: unspecified Qualified Code(s): I48.91 - Unspecified atrial fibrillation (6) CAD (coronary artery disease) Qualifiers: Coronary Disease-Associated Artery/Lesion type: unspecified vessel or lesion type [place] vs. transplanted heart: unspecified whether [place] or transplanted heart Associated angina: angina presence unspecified Qualified Code(s): I25.10 - Atherosclerotic heart disease of [place] coronary artery without angina pectoris (7) HLD (hyperlipidemia) Qualifiers: Hyperlipidemia type: unspecified Qualified Code(s): E78.5 - Hyperlipidemia, unspecified (8) HTN (hypertension) Qualifiers: Hypertension type: unspecified Qualified Code(s): I10 - Essential (primary) hypertension
[2018-05-12] MEDS: Ipratropium/Albuterol Neb 3 ML IH PRN ×2 (04:12→11:19)
[2018-05-12] MEDS: *HR* Heparin 5,000 UNIT/ML VIAL SQ SCH ×2 (05:31→18:00)
[2018-05-12 05:38] LABS: BUN/Creatinine Ratio 37 (6-26); Blood Urea Nitrogen 23 mg/dL (8-23); Calcium 9.3 mg/dL (8.6-10.3); Carbon Dioxide 41 mEq/L (23-29); Chloride 98 mEq/L (98-107); Glucose 115 mg/dL (70-105); Osmolality,Calculated 295 (280-300); Potassium 4.5 mEq/L (3.5-5.1); Sodium 140 mEq/L (136-145); eGFR For Non-African Americans > 60 (> 60)
[2018-05-12] MEDS: Aspirin Enteric Coated 81 MG Tablet PO SCH (08:59)
[2018-05-12] MEDS: Metoprolol XL (24 HR) Succ 25 MG TAB.ER.24H PO SCH (09:00)
[2018-05-12] MEDS: Furosemide 20 MG/2 ML VIAL IVP SCH ×2 (09:00→18:01)
[2018-05-12] MEDS: Furosemide 40 MG/4 ML VIAL IVP SCH (09:16)
--- NOTE | 2018-05-12 09:28 | Internal Med Progress Note ---
Hospitalist Progress Note - Encounter Date of Encounter: 05/12/18 Time of Encounter: 09:26 - Subjective Interval History: Pt reported improved breathing and leg swelling. - Exam Vitals: Temp Pulse Resp BP Pulse Ox 98.3 F 79 16 94/60 98 05/12/18 07:39 05/12/18 07:39 05/12/18 07:39 05/12/18 07:39 05/12/18 07:39 Exam: Vitals: Reviewed. General: Alert and oriented x4. In mild distress due to shortness of breath. Skin: Normal color, no rash, no lesions. HEENT: EOM, pupils equal, round and reactive. Cardiovascular: Irregularly, irregular, Normal S1 & S2, no rubs, murmurs or gallops. No JVD. Lungs: bl crackles at the bases, no wheezing or rales. Abdomen: Obese, Soft, non-tender, no rigidity. Extremities: 2+ pitting edema b/l in the lower extr. Neurological: Normal cognition and motor skills. Rest of the physical exam is non contributory - Assessment and Plan (1) CHF exacerbation Current Visit: No Status: Acute Assessment and Plan: 05/10 patient with orthopnea, shortness of breath and lower extremities edema. off medications for about a week. Plan: IV diruresis with furosemide 40mg/IV BID strict intake and output water restriction to 1.5 litters a day. daily weight 2 gram sodium diet Lisinopril 2.5mg/PO daily On metoprolol 12.5mg/PO daily. 05/11 Symptoms improving, continue current treatment. 05/12 Decrease Lasix dose from 40 twice a day to 20 twice a day. Continue monitoring I's/O's. (2) COPD (chronic obstructive pulmonary disease) Current Visit: No Status: Chronic Assessment and Plan: Not on acute exacerbation. will start patient on bronchodilators PRN for wheezing. Incentive spirometry. (3) Chronic respiratory failure with hypoxia Current Visit: No Status: Chronic Assessment and Plan: patient on her baseline O2 requirement. continue O2 by nasal cannula, titrate for O2Sat >92%. (4) Elevated troponin Current Visit: Yes Status: Acute Assessment and Plan: chronic trop elevation, at baseline. (5) Atrial fibrillation Current Visit: No Status: Chronic Assessment and Plan: Rate controlled on metoprolol. Not on anticoagulation due to risk of fall. (6) CAD (coronary artery disease) Current Visit: No Status: Chronic Assessment and Plan: Continue dual antiplatelet therapy with aspirin and Plavix. (7) HLD (hyperlipidemia) Current Visit: No Status: Chronic Assessment and Plan: Atorvastatin 10mg/PO daily (8) HTN (hypertension) Current Visit: No Status: Chronic Assessment and Plan: patient re-started on her home medications. BP well controlled. (9) DVT prophylaxis Current Visit: Yes Status: Acute Assessment and Plan: On heparin subQ - Time Spent with Patient Total time spent is greater than 50% in coordination of care (as documented) at patient's floor/unit and/or counseling patient: Greater than 35 minutes Plan of Care Discussed with: patient Internal Medicine: Result - Labs CBC & Chem 7: 05/11/18 04:48 05/12/18 04:24 Labs: BMP 05/12/18 04:24 Sodium 140 Potassium 4.5 Chloride 98 Carbon Dioxide 41 H* BUN 23 Creatinine 0.63 Glucose 115 H Calcium 9.3 - ABG Interpretation ABG results: PT/INR, D-dimer PT 12.8 Seconds (9.4-12.1) H 05/11/18 04:48 Consult Discharge Plan - Plan Referrals: Duran Sims Jr, MD [Primary Care Provider] - 05/19/18 3:00 pm (1) CHF exacerbation Qualifiers: Heart failure type: systolic Qualified Code(s): I50.23 - Acute on chronic systolic (congestive) heart failure (2) COPD (chronic obstructive pulmonary disease) Qualifiers: COPD type: unspecified COPD Qualified Code(s): J44.9 - Chronic obstructive pulmonary disease, unspecified (5) Atrial fibrillation Qualifiers: Atrial fibrillation type: unspecified Qualified Code(s): I48.91 - Unspecified atrial fibrillation (6) CAD (coronary artery disease) Qualifiers: Coronary Disease-Associated Artery/Lesion type: unspecified vessel or lesion type [place] vs. transplanted heart: unspecified whether [place] or transplanted heart Associated angina: angina presence unspecified Qualified Code(s): I25.10 - Atherosclerotic heart disease of [place] coronary artery without angina pectoris (7) HLD (hyperlipidemia) Qualifiers: Hyperlipidemia type: unspecified Qualified Code(s): E78.5 - Hyperlipidemia, unspecified (8) HTN (hypertension) Qualifiers: Hypertension type: unspecified Qualified Code(s): I10 - Essential (primary) hypertension
--- NOTE | 2018-05-12 20:08 | Electrocardiograph Report ---
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
[2018-05-13] MEDS: *HR* Heparin 5,000 UNIT/ML VIAL SQ SCH ×2 (05:35→17:47)
[2018-05-13 08:25] LABS: Platelet Count 274 K/mcL (140-400)
[2018-05-13 08:26] LABS: Hematocrit 34.3 % (35.3-44.9); Mean Corpuscular HGB Conc 26.2 g/dL (31.6-35.5); Mean Corpuscular Volume 87.5 fL (83.0-100.0); Mean Platelet Volume 10.7 fL (9.4-12.4); Red Blood Count 3.92 M/mcL (3.82-4.97); Red Cell Distribution Width 15.8 % (11.5-14.5)
[2018-05-13] MEDS: Furosemide 20 MG/2 ML VIAL IVP SCH ×2 (08:38→17:47)
[2018-05-13] MEDS: Metoprolol XL (24 HR) Succ 25 MG TAB.ER.24H PO SCH (08:39)
[2018-05-13] MEDS: Aspirin Enteric Coated 81 MG Tablet PO SCH (08:41)
[2018-05-13 09:08] LABS: BUN/Creatinine Ratio 43 (6-26); Blood Urea Nitrogen 22 mg/dL (8-23); Calcium 9.1 mg/dL (8.6-10.3); Carbon Dioxide 41 mEq/L (23-29); Chloride 96 mEq/L (98-107); Glucose 116 mg/dL (70-105); Osmolality,Calculated 290 (280-300); Potassium 4.5 mEq/L (3.5-5.1); Sodium 138 mEq/L (136-145); eGFR For Non-African Americans > 60 (> 60)
--- NOTE | 2018-05-13 11:37 | Internal Med Progress Note ---
Hospitalist Progress Note - Encounter Date of Encounter: 05/13/18 Time of Encounter: 11:34 - Subjective Interval History: Pt reported improved breathing and leg swelling. - Exam Vitals: Temp Pulse Resp BP Pulse Ox 98.1 F 69 16 119/71 98 05/13/18 07:16 05/13/18 07:16 05/13/18 07:16 05/13/18 07:16 05/13/18 07:16 Exam: Vitals: Reviewed. General: Alert and oriented x4. In mild distress due to shortness of breath. Skin: Normal color, no rash, no lesions. HEENT: EOM, pupils equal, round and reactive. Cardiovascular: Irregularly, irregular, Normal S1 & S2, no rubs, murmurs or gallops. No JVD. Lungs: bl crackles at the bases, no wheezing or rales. Abdomen: Obese, Soft, non-tender, no rigidity. Extremities: 2+ pitting edema b/l in the lower extr. Neurological: Normal cognition and motor skills. Rest of the physical exam is non contributory - Assessment and Plan (1) CHF exacerbation Current Visit: No Status: Acute Assessment and Plan: 05/10 patient with orthopnea, shortness of breath and lower extremities edema. off medications for about a week. Plan: IV diruresis with furosemide 40mg/IV BID strict intake and output water restriction to 1.5 litters a day. daily weight 2 gram sodium diet Lisinopril 2.5mg/PO daily On metoprolol 12.5mg/PO daily. 05/11 Symptoms improving, continue current treatment. 05/12 Decrease Lasix dose from 40 twice a day to 20 twice a day. Continue monitoring I's/O's. 05/13 SOB and leg swelling has improved but not to baseline. will add one time dose of Metolazone today. If improves, may anticipate discharge tomorrow. (2) COPD (chronic obstructive pulmonary disease) Current Visit: No Status: Chronic Assessment and Plan: Not on acute exacerbation. started patient on bronchodilators PRN for wheezing. Incentive spirometry. (3) Chronic respiratory failure with hypoxia Current Visit: No Status: Chronic Assessment and Plan: patient on her baseline O2 requirement. continue O2 by nasal cannula, titrate for O2Sat >92%. (4) Elevated troponin Current Visit: Yes Status: Acute (5) Atrial fibrillation Current Visit: No Status: Chronic Assessment and Plan: Rate controlled on metoprolol. Not on anticoagulation due to risk of fall. (6) CAD (coronary artery disease) Current Visit: No Status: Chronic Assessment and Plan: Continue dual antiplatelet therapy with aspirin and Plavix. (7) HLD (hyperlipidemia) Current Visit: No Status: Chronic Assessment and Plan: Atorvastatin 10mg/PO daily (8) HTN (hypertension) Current Visit: No Status: Chronic Assessment and Plan: patient re-started on her home medications. BP well controlled. (9) DVT prophylaxis Current Visit: Yes Status: Acute Assessment and Plan: On heparin subQ - Time Spent with Patient Total time spent is greater than 50% in coordination of care (as documented) at patient's floor/unit and/or counseling patient: Greater than 35 minutes Plan of Care Discussed with: patient Internal Medicine: Result - Labs CBC & Chem 7: 05/13/18 06:18 05/13/18 06:18 Labs: Short CBC 05/13/18 Range/Units 06:18 WBC 7.9 D (4.3-11.1) K/mcL Hgb 9.0 L (11.5-15.4) g/dL Hct 34.3 L (35.3-44.9) % Plt Count 274 (140-400) K/mcL BMP 05/13/18 06:18 Sodium 138 Potassium 4.5 Chloride 96 L Carbon Dioxide 41 H* BUN 22 Creatinine 0.51 L Glucose 116 H Calcium 9.1 - ABG Interpretation ABG results: PT/INR, D-dimer PT 12.8 Seconds (9.4-12.1) H 05/11/18 04:48 Consult Discharge Plan - Plan Referrals: Duran Sims Jr, MD [Primary Care Provider] - 05/19/18 3:00 pm (1) CHF exacerbation Qualifiers: Heart failure type: systolic Qualified Code(s): I50.23 - Acute on chronic systolic (congestive) heart failure (2) COPD (chronic obstructive pulmonary disease) Qualifiers: COPD type: unspecified COPD Qualified Code(s): J44.9 - Chronic obstructive pulmonary disease, unspecified (5) Atrial fibrillation Qualifiers: Atrial fibrillation type: unspecified Qualified Code(s): I48.91 - Unspecified atrial fibrillation (6) CAD (coronary artery disease) Qualifiers: Coronary Disease-Associated Artery/Lesion type: unspecified vessel or lesion type [place] vs. transplanted heart: unspecified whether [place] or transplanted heart Associated angina: angina presence unspecified Qualified Code(s): I25.10 - Atherosclerotic heart disease of [place] coronary artery without angina pectoris (7) HLD (hyperlipidemia) Qualifiers: Hyperlipidemia type: unspecified Qualified Code(s): E78.5 - Hyperlipidemia, unspecified (8) HTN (hypertension) Qualifiers: Hypertension type: unspecified Qualified Code(s): I10 - Essential (primary) hypertension
[2018-05-13] MEDS ORDERED: metOLazone 5 MG TABLET PO ONE (12:00)
--- NOTE | 2018-05-13 16:28 | Electrocardiograph Report ---
[address] [address] Test Date: 2018-05-10 Pat Name: China Smith Department: EXAM8 Room: 3B55 Gender: F Reworker: : 1950 Requested By: Yoan Monroy Order Number: [id number] Reading MD: Perlita Parsons Measurements Intervals [place] Rate: 83 P: [place]: QRS: -62 QRSD: 173 T: 111 QT: 452 QTc: 532 Interpretive Statements ATRIAL FIBRILLATION WITH CONTROLLED VENTRICULAR RESPONSE WITH PVCs Left bundle branch block Electronically Signed On 05-13-2018 16:27:11 EST by Perlita Parsons
[2018-05-14] MEDS: *HR* Heparin 5,000 UNIT/ML VIAL SQ SCH (05:42)
[2018-05-14 06:06] LABS: Lymphocytes % 12.7 %; Red Cell Distribution Width 15.9 % (11.5-14.5)
[2018-05-14 06:07] LABS: Basophils % 0.3 %; Eosinophils % 0.2 %; Hematocrit 33.6 % (35.3-44.9); Immature Granulocytes % 0.4 % (0-4); Lymphocytes # 1.4 K/mcL (0.6-4.6); Mean Corpuscular HGB Conc 26.8 g/dL (31.6-35.5); Mean Corpuscular Hemoglobin 23.1 pg (28.0-33.3); Mean Corpuscular Volume 86.4 fL (83.0-100.0); Mean Platelet Volume 10.6 fL (9.4-12.4); Monocytes # 2.6 K/mcL (0.0-1.3); Neutrophils # 7.1 K/mcL (1.6-8.9); Platelet Count 263 K/mcL (140-400); Red Blood Count 3.89 M/mcL (3.82-4.97); Segmented Neutrophils % 63.4 %
[2018-05-14 06:23] LABS: Platelet Estimate Normal (Normal); Poikilocytosis 1+ (Not Present); Target Cells 1+ (Not Present)
[2018-05-14 06:24] LABS: BUN/Creatinine Ratio 42 (6-26); Blood Urea Nitrogen 23 mg/dL (8-23); Calcium 9.5 mg/dL (8.6-10.3); Carbon Dioxide 43 mEq/L (23-29); Chloride 91 mEq/L (98-107); Glucose 111 mg/dL (70-105); Osmolality,Calculated 288 (280-300); Potassium 4.3 mEq/L (3.5-5.1); Sodium 137 mEq/L (136-145); eGFR For Non-African Americans > 60 (> 60)
[2018-05-14] MEDS: Ipratropium/Albuterol Neb 3 ML IH PRN (07:23)
[2018-05-14] MEDS: Aspirin Enteric Coated 81 MG Tablet PO SCH (09:38)
[2018-05-14] MEDS: Metoprolol XL (24 HR) Succ 25 MG TAB.ER.24H PO SCH (09:38)
[2018-05-14] MEDS: Furosemide 20 MG/2 ML VIAL IVP SCH (09:38)
[2018-05-14 11:28] VITALS: BP 103/64
--- NOTE | 2018-05-14 13:37 | Discharge Summary ---
- NOTES TO OUTPATIENT PROVIDER Notes to Outpatient Provider: Presented with fluid overload and dyspnea-patient was diuresed over a few days-respiratory status improved as well as extremity swelling. Patient was given education concerning CHF fluid restriction and daily weights. Monitor electrolytes Date of Encounter: 05/14/18 Time of Encounter: 13:34 - Discharge Diagnosis (1) COPD (chronic obstructive pulmonary disease) Priority: Secondary Status: Chronic Qualifiers: COPD type: unspecified COPD Qualified Code(s): J44.9 - Chronic obstructive pulmonary disease, unspecified (2) CHF exacerbation Priority: Primary Status: Acute Qualifiers: Heart failure type: systolic Qualified Code(s): I50.23 - Acute on chronic systolic (congestive) heart failure (3) Chronic respiratory failure with hypoxia Priority: Secondary Status: Chronic (4) Elevated troponin Priority: Secondary Status: Acute (5) Atrial fibrillation Priority: Secondary Status: Chronic Qualifiers: Atrial fibrillation type: unspecified Qualified Code(s): I48.91 - Unspecified atrial fibrillation (6) CAD (coronary artery disease) Priority: Secondary Status: Chronic Qualifiers: Coronary Disease-Associated Artery/Lesion type: unspecified vessel or lesion type [place] vs. transplanted heart: unspecified whether [place] or transplanted heart Associated angina: angina presence unspecified Qualified Code(s): I25.10 - Atherosclerotic heart disease of [place] coronary artery without angina pectoris (7) HLD (hyperlipidemia) Priority: Primary Status: Chronic Qualifiers: Hyperlipidemia type: unspecified Qualified Code(s): E78.5 - Hyperlipidemia, unspecified (8) HTN (hypertension) Priority: Secondary Status: Chronic Qualifiers: Hypertension type: unspecified Qualified Code(s): I10 - Essential (primary) hypertension Hospital course: Ms. Smith is a 68 year old female past medical history of A. fib and chronic hypoxemia respiratory failure on 2 L of home oxygen CAD hypertension COPD HFrEF presented [facility] after experiencing worsening shortness of breath on exertion for approximately one week as well as lower extremity swelling and orthopnea. She was found to be in CHF exacerbation. She was given IV diuretics placed on fluid restriction her respiratory state did not improve she is at her home oxygen level of 2 L. She has been ambulating without any difficulty. She was given education on low sodium diet as well as fluid restriction and daily weights. Patient advised to continue with medications every day. Patient states she had not taken her medication for approximately week and a half prior to arriving to the hospital due to she was out. Patient was given prescriptions prior to discharge and they were filled by child care leader prior to discharge. Advised patient to follow-up with primary care provider. Currently patient is hemodynamically stable and she is ready for discharge. - Time Spent with Patient Total time spent providing and/or coordinating discharge services: - Discharge Medications Prescriptions: Albuterol Sulfate [Albuterol Inhaler] 2 puff IH Q4HR PRN #1 hfa.aer.ad PRN Reason: Dyspnea Aspirin 81 mg PO DAILY #30 tab.chew Atorvastatin [Lipitor] 10 mg PO DAILY #30 tablet Citalopram [CeleXA] 20 mg PO DAILY 30 Days tablet Clopidogrel [Plavix] 75 mg PO DAILY 30 Days #30 tablet Docusate Sodium [Colace] 100 mg PO DAILY #30 capsule Furosemide [Lasix] 40 mg PO DAILY 30 Days #30 tab Ipratropium/Albuterol Sulfate [Iprat-Albut 0.5-3(2.5) mg/3 ml] 3 ml IH 3-4XD PRN #30 ampul.neb PRN Reason: Shortness Of Breath Lisinopril [Zestril] 2.5 mg PO DAILY 30 Days #30 tablet Metoprolol XL (24 HR) Succ [Toprol Xl] 12.5 mg PO DAILY 30 Days #30 tab.er.24h Nitroglycerin 0.2 mg TD 1200 30 Days #24 patch.td24 Pantoprazole Sodium [Protonix] 40 mg PO DAILY #30 tablet.dr Alexanderyllefraín Husk [Daily Fiber] 0.52 gm PO DAILY #30 capsule Home Medications: Albuterol Sulfate [Albuterol Inhaler] 2 puff IH Q4HR PRN #1 hfa.aer.ad 05/14/18 [Rx] Aspirin 81 mg PO DAILY #30 tab.chew 05/14/18 [Rx] Atorvastatin [Lipitor] 10 mg PO DAILY #30 tablet 05/14/18 [Rx] Citalopram [CeleXA] 20 mg PO DAILY 30 Days tablet 05/14/18 [Rx] Clopidogrel [Plavix] 75 mg PO DAILY 30 Days #30 tablet 05/14/18 [Rx] Docusate Sodium [Colace] 100 mg PO DAILY #30 capsule 05/14/18 [Rx] Furosemide [Lasix] 40 mg PO DAILY 30 Days #30 tab 05/14/18 [Rx] Ipratropium/Albuterol Sulfate [Iprat-Albut 0.5-3(2.5) mg/3 ml] 3 ml IH 3-4XD PRN #30 ampul.neb 05/14/18 [Rx] Lisinopril [Zestril] 2.5 mg PO DAILY 30 Days #30 tablet 05/14/18 [Rx] Metoprolol XL (24 HR) Succ [Toprol Xl] 12.5 mg PO DAILY 30 Days #30 tab.er.24h 05/14/18 [Rx] Nitroglycerin 0.2 mg TD 1200 30 Days #24 patch.td24 05/14/18 [Rx] Pantoprazole Sodium [Protonix] 40 mg PO DAILY #30 tablet.dr 05/14/18 [Rx] Psyllium Husk [Daily Fiber] 0.52 gm PO DAILY #30 capsule 05/14/18 [Rx] Allergies/Adverse Reactions: Allergy/AdvReac Type Severity Reaction Status Date / Time Neomycin Allergy Blister Verified 02/17/18 13:47 Penicillins Allergy Blister Verified 02/17/18 13:47 Date of admission: 05/12/18 15:21 Primary care physician: Duran Sims Jr, MD Consults: 05/13/18 11:11 Consult to Nurse Navigator [CONS] Routine Comment: CHF Discharging clinician: Nancy Borjas Anticipated date of discharge: 05/14/18 - Constitutional Vitals: Temp Pulse Resp BP Pulse Ox 97.6 F 93 16 103/64 98 05/14/18 11:26 05/14/18 11:26 05/14/18 11:26 05/14/18 11:26 05/14/18 11:26 General appearance: Present: A&O X 3 Exam: Vitals: Reviewed. General: Alert and oriented x4. In mild distress due to shortness of breath. Skin: Normal color, no rash, no lesions. HEENT: EOM, pupils equal, round and reactive. Cardiovascular: Irregularly, irregular, Normal S1 & S2, no rubs, murmurs or gallops. No JVD. Lungs: bl crackles at the bases, no wheezing or rales. Abdomen: Obese, Soft, non-tender, no rigidity. Extremities: edema b/l in the lower extr. Neurological: Normal cognition and motor skills. Rest of the physical exam is non contributory - Head Head exam: Present: atraumatic, normocephalic - Eye Eye exam: Present: PERRL, conjuntiva pink, sclera anicteric Pupils: Present: PERRL - Neck Neck exam general surgery: Present: supple, trachea midline. Absent: lymphadenopathy - Respiratory Respiratory exam: Present: CTAB. Absent: accessory muscle use, rales, rhonchi, wheezes - Cardiovascular Cardiovascular exam: Present: RRR, +S1, +S2. Absent: diastolic murmur, gallop, rubs, systolic murmur - GI/Abdominal GI/Abdominal exam: Present: normal bowel sounds, soft, no peritoneal signs. Absent: distended, tenderness - Extremities Exam Extremities exam: Present: pedal edema, warm, radial pulses palpable and symmetrical. Absent: calf tenderness, cyanotic - Neurological Exam Neurological exam: Present: CN II-XII intact, oriented X3, no focal deficits. Absent: pronater drift, facial droop, speech deficit - Skin Skin exam: Present: dry, intact - Patient Status Disposition: Home, Self-Care Condition: Fair Functional capacity at discharge: independent ambulation Overall status at discharge: patient is back to baseline - Discharge Instructions Follow Up With: Duran Sims Jr, MD [Primary Care Provider] - 05/19/18 3:00 pm - Diet and Activity Activity: increase activity as tolerated Diet: low salt diet
== END 2018-05-14 17:19 | disposition home or self-care (01) | DRG 292 ==
LOC: EMEROOARM 09:13 → 3BNU 09:13
PROVIDERS: ADMIT Internal Medicine; ATTEND Internal Medicine

== ENCOUNTER 2018-06-22 13:37 | Inpatient (IN) ==
[~2018-06-22 13:37] MED LIST: Aminoglycoside Consult 1 EACH MC ONE
--- NOTE | 2018-06-22 13:39 | Emergency Department Note ---
Addendum entered and electronically signed by Vini Stewart DO 06/22/18 16:12: Patient has vanc allergy. Discussed with pharmacist, discuss giving the patient clindamycin for gram-positive coverage. We will cancel vancomycin and switched to clinda Original Note: Disposition Clinical Impression: Septic shock, COPD exacerbation Pneumonia Qualifiers: Pneumonia type: due to unspecified organism Laterality: unspecified laterality Lung location: unspecified part of lung Qualified Code(s): J18.9 - Pneumonia, unspecified organism Respiratory failure with hypercapnia Qualifiers: Chronicity: unspecified Qualified Code(s): J96.92 - Respiratory failure, unspecified with hypercapnia Disposition: Admitted As Inpatient Condition: Fair Referrals: Duran Sims Jr, MD [Primary Care Provider] - Forms: ED Satisfaction Letter Time of Disposition: 15:33 SOB HPI - General Chief Complaint: ED Shortness of Breath/Dyspnea Stated Complaint: TIM Time Seen by Provider: 06/22/18 13:38 Source: patient, EMS Mode of arrival: EMS Limitations: no limitations Nursing Notes Reviewed: Yes Vital Signs Reviewed: Yes - History of Present Illness Patient is a 68 year old female past medical history of hypertension, hyperlipid emia, CHF, COPD. She wears 2 L nasal cannula at home. She also uses CPAP at night. She presents today due to concern for shortness of breath. This is been going on for a couple days. Denies any chest pain. Admits to significant shortness of breath, increased sputum production above baseline, increased cough. She usually uses 2 L nasal cannula oxygen at home and CPAP at night. Takes daily steroid inhalers. EMS states that upon arrival, patient was labored, using accessory muscles. They gave the patient 1 albuterol treatment while in route. No steroids given in route. Patient denies any other fever, chest pain, nausea, vomiting, diarrhea, abdominal pain. - Related Data Previous Rx's Medication Instructions Recorded Albuterol Sulfate [Albuterol 2 puff IH Q4HR PRN #1 hfa.aer.ad 05/14/18 Inhaler] Aspirin 81 mg PO DAILY #30 tab.chew 05/14/18 Atorvastatin [Lipitor] 10 mg PO DAILY #30 tablet 05/14/18 Docusate Sodium [Colace] 100 mg PO DAILY #30 capsule 05/14/18 Ipratropium/Albuterol Sulfate 3 ml IH 3-4XD PRN #30 ampul.claudette 05/14/18 [Iprat-Albut 0.5-3(2.5) mg/3 ml] Pantoprazole Sodium [Protonix] 40 mg PO DAILY #30 tablet. 05/14/18 Psyllium Husk [Daily Fiber] 0.52 gm PO DAILY #30 capsule 05/14/18 Allergies Allergy/AdvReac Type Severity Reaction Status Date / Time Neomycin Allergy Blister Verified 02/17/18 13:47 Penicillins Allergy Blister Verified 02/17/18 13:47 All systems ED: reviewed and negative except as stated. Constitutional: Denies: fever Cardiovascular: Denies: chest pain Respiratory: Reports: cough, dyspnea, wheezes, sputum production Gastrointestinal: Denies: abdominal pain, nausea, vomiting Integumentary: Denies: rash Neurological: Denies: headache Past Medical History - Past Medical History Attestation: Yes The following information was validated with the patient. 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 - Social History Smoking Status: Current every day smoker Smokeless Tobacco Status: No Alcohol use: Reports: none Drug use: Reports: none Physical Exam - General General appearance: alert, other (Moderate respiratory distress) - Head Head exam: atraumatic, normocephalic, normal inspection - Eye Eye exam: Present: normal appearance, PERRL, EOMI - ENT ENT exam: normal exam, normal oropharynx, mucous membranes moist - Neck Neck exam: Present: normal inspection, full ROM, trachea midline - Chest Chest inspection: Present: normal inspection, symmetric chest wall rise - Respiratory Respiratory exam: Present: other (Wheeze and coarse breath sounds of bilateral lower lobes, decreased aeration throughout. Tripoding, accessory muscle use, moderate respiratory distress. Currently on nonrebreather and satting 90%) - Cardiovascular Cardiovascular exam: Present: regular rate, normal rhythm, normal heart sounds - Abdominal Exam Abdominal exam: Present: soft, Non-Tender. Absent: tenderness, distention, guarding, rebound, rigidity - Extremities Exam Extremities exam: Present: full ROM, pedal edema (Mild bilateral lower extremity edema). Absent: tenderness - Neurological Exam Neurological exam: Present: alert, oriented X3 - Psychiatric Psychiatric exam: Present: normal affect, normal mood - Skin Skin exam: Present: warm, dry, intact, normal color. Absent: rash Course Course Narrative: Patient was satting 90% on nonrebreather and labored, using accessory muscle use, decreased aeration throughout and coarse sounds of bilateral lower lobes. We discussed placing the patient on BiPAP and she is agreeable with this plan. We will give the patient DuoNeb 3, Solu-Medrol, placed on BiPAP. We will obtain basic labs, EKG, chest x-ray, troponin. Patient will need to be admitted for COPD exacerbation. We will wait on chest x-ray to determine antibiotic treatment choice. 14:38 Patient now meets severe sepsis/septic shock criteria. Lactic was 6.5, patient was given 30/kg normal saline bolus. Troponin elevated but near baseline for previous values. ABG shows patient is acidotic and CO2 level of 90. Chest x-ray shows edema versus possible infiltrates. Patient was started on empiric antibiotic vancomycin, meropenem, Levaquin. Avoided Zosyn due to penicillin allergy. Patient was reassessed and clinically she states that she is feeling better while on BiPAP. Vitals remained stable at this time. I do not feel the patient requires ICU at this time due to stable vitals and improving symptoms. However, she will be placed on 2 N. for closer care. Patient was admitted and accepted by hospitalist. Vital Signs Respiratory Rate 45 06/22/18 13:54 O2 Sat by Pulse Oximetry 99 06/22/18 13:54 Temperature 96.3 F L 06/22/18 14:09 Pulse Rate 92 06/22/18 15:09 Respiratory Rate 27 06/22/18 15:09 Blood Pressure 109/65 06/22/18 15:09 O2 Sat by Pulse Oximetry 94 06/22/18 15:09 Oxygen Delivery Oxygen Delivery Bipap Shortness of Breath/Dyspnea - MDM Narrative Medical decision making narrative: Patient was satting 90% on nonrebreather and labored, using accessory muscle use, decreased aeration throughout and coarse sounds of bilateral lower lobes. We discussed placing the patient on BiPAP and she is agreeable with this plan. We will give the patient DuoNeb 3, Solu-Medrol, placed on BiPAP. We will obtain basic labs, EKG, chest x-ray, troponin. Patient will need to be admitted for COPD exacerbation. We will wait on chest x-ray to determine antibiotic treatment choice. 14:38 Patient now meets severe sepsis/septic shock criteria. Lactic was 6.5, patient was given 30/kg normal saline bolus. Troponin elevated but near baseline for previous values. ABG shows patient is acidotic and CO2 level of 90. Chest x-ray shows edema versus possible infiltrates. Patient was started on empiric antibiotic vancomycin, meropenem, Levaquin. Avoided Zosyn due to penicillin allergy. Patient was reassessed and clinically she states that she is feeling better while on BiPAP. Vitals remained stable at this time. I do not feel the patient requires ICU at this time due to stable vitals and improving symptoms. However, she will be placed on 2 N. for closer care. Patient was admitted and accepted by hospitalist. - Medical Records Medical records reviewed: Yes I reviewed the patient's medical records. - Lab Data Lab results reviewed: Yes I reviewed the patient's lab results. Result diagrams: 06/22/18 14:00 06/22/18 14:00 Lab Results 06/22/18 06/22/18 06/22/18 Range/Units 14:00 14:00 14:00 WBC 9.2 (4.3-11.1) K/mcL RBC 4.78 (3.82-4.97) M/mcL Hgb 10.4 L (11.5-15.4) g/dL Hct 41.0 (35.3-44.9) % MCV 85.8 (83.0-100.0) fL MCH 21.8 L (28.0-33.3) pg MCHC 25.4 L (31.6-35.5) g/dL RDW 18.6 H (11.5-14.5) % Plt Count 360 (140-400) K/mcL MPV 9.7 (9.4-12.4) fL Immature Gran % 0.3 (0-4) % Seg Neutrophils % 48.2 % Lymphocytes % 33.9 % Monocytes % 15.5 % Eosinophils % 1.6 % Basophils % 0.5 % Neutrophils # 4.4 (1.6-8.9) K/mcL Lymphocytes # 3.1 (0.6-4.6) K/mcL Monocytes # 1.4 H (0.0-1.3) K/mcL Eosinophils # 0.2 (0.0-0.6) K/mcL Basophils # 0.1 (0.0-0.2) K/mcL Platelet Estimate Normal (Normal) Hypochromasia Present A (Not Present) Anisocytosis 1+ A (Not Present) PT (9.4-12.1) Seconds INR APTT (26.0-36.0) Seconds VBG pH (7.32-7.42) pH Units VBG pCO2 (41-51) mmHg VBG pO2 (25-50) mmHg VBG HCO3 (21-27) mEq/L Sodium 140 (136-145) mEq/L Potassium 4.0 (3.5-5.1) mEq/L Chloride 98 (98-107) mEq/L Carbon Dioxide 29 (23-29) mEq/L BUN 16 (8-23) mg/dL Creatinine 0.62 (0.60-1.20) mg/dL Est GFR ( Amer) > 60 (> 60) Est GFR (Non-Af Amer) > 60 (> 60) BUN/Creatinine Ratio 26 (6-26) Glucose 229 H (70-105) mg/dL Calculated Osmolality 298 (280-300) Lactic Acid 6.5 H* (0.5-2.2) mmol/L Calcium 9.3 (8.6-10.3) mg/dL Troponin I 0.05 H* (< 0.04) ng/mL B-Natriuretic Peptide (Less than 100) pg/mL Person Notif of Crit 06/22/18 06/22/18 06/22/18 Range/Units 14:00 14:00 14:21 WBC (4.3-11.1) K/mcL RBC (3.82-4.97) M/mcL Hgb (11.5-15.4) g/dL Hct (35.3-44.9) % MCV (83.0-100.0) fL MCH (28.0-33.3) pg MCHC (31.6-35.5) g/dL RDW (11.5-14.5) % Plt Count (140-400) K/mcL MPV (9.4-12.4) fL Immature Gran % (0-4) % Seg Neutrophils % % Lymphocytes % % Monocytes % % Eosinophils % % Basophils % % Neutrophils # (1.6-8.9) K/mcL Lymphocytes # (0.6-4.6) K/mcL Monocytes # (0.0-1.3) K/mcL Eosinophils # (0.0-0.6) K/mcL Basophils # (0.0-0.2) K/mcL Platelet Estimate (Normal) Hypochromasia (Not Present) Anisocytosis (Not Present) PT 14.7 H (9.4-12.1) Seconds INR 1.3 APTT 31.2 (26.0-36.0) Seconds VBG pH 7.12 L* (7.32-7.42) pH Units VBG pCO2 99 H* (41-51) mmHg VBG pO2 65 H (25-50) mmHg VBG HCO3 32 H (21-27) mEq/L Sodium (136-145) mEq/L Potassium (3.5-5.1) mEq/L Chloride (98-107) mEq/L Carbon Dioxide (23-29) mEq/L BUN (8-23) mg/dL Creatinine (0.60-1.20) mg/dL Est GFR ( Amer) (> 60) Est GFR (Non-Af Amer) (> 60) BUN/Creatinine Ratio (6-26) Glucose (70-105) mg/dL Calculated Osmolality (280-300) Lactic Acid (0.5-2.2) mmol/L Calcium (8.6-10.3) mg/dL Troponin I (< 0.04) ng/mL B-Natriuretic Peptide 1481 H (Less than 100) pg/mL Person Notif of Crit Dr Pelayo - Radiology Data Radiology results reviewed: Yes I reviewed the patient's radiology results. - EKG Data EKG attestation: Yes I reviewed and interpreted this EKG. EKG results narrative: 06/22/2018 at 13:49. Left bundle branch block. Sinus rhythm. Rate 107. QRS 184. QTC 540. Mild left axis deviation. Bundle branch block formation in V1, V2 to V3, V4. This is old. Mild ST elevation in lead V2 that is also old on previous EKGs. No acute changes from previous EKG on 05/10/2018. S.B.A.R. - S.B.A.R. Situation: Demographics, MOA Background: Presenting Complaint, Relevant PMH, Meds, & Allergies Assessment: Vital Signs, Course and respsone to treatment, Exam Concerns, Patient/Family Expectation, Pertinant Lab Results Recommendation: Barrier(s) to disposition, Recommendation based on pending studies, treatments, or consults S.B.A.R. Report Given to: Dr. Mcmahon Attestation Statement - Attestation Attestation: I, Gómez Ornelas DO, examined this patient [id number] and my medical decision-making was reviewed with Dr. Vini Stewart, Resident Physician. I agree with the documented findings, disposition and treatment plan as described except to the extent set forth below. Please see my progress notes for details.
[2018-06-22] MEDS ORDERED: methylPREDNISolone 125 MG/2 ML VIAL IVP ONE (13:44)
[2018-06-22] MEDS ORDERED: Ipratropium/Albuterol Neb 3 ML IH ONE (13:44)
[2018-06-22 14:17] LABS: Basophils # 0.1 K/mcL (0.0-0.2); Basophils % 0.5 %; Eosinophils # 0.2 K/mcL (0.0-0.6); Eosinophils % 1.6 %; Hemoglobin 10.4 g/dL (11.5-15.4); Immature Granulocytes % 0.3 % (0-4); Lymphocytes # 3.1 K/mcL (0.6-4.6); Lymphocytes % 33.9 %; Mean Corpuscular HGB Conc 25.4 g/dL (31.6-35.5); Mean Corpuscular Hemoglobin 21.8 pg (28.0-33.3); Mean Corpuscular Volume 85.8 fL (83.0-100.0); Mean Platelet Volume 9.7 fL (9.4-12.4); Monocytes # 1.4 K/mcL (0.0-1.3); Monocytes % 15.5 %; Neutrophils # 4.4 K/mcL (1.6-8.9); Platelet Count 360 K/mcL (140-400); Red Blood Count 4.78 M/mcL (3.82-4.97); Red Cell Distribution Width 18.6 % (11.5-14.5); Segmented Neutrophils % 48.2 %
[2018-06-22 14:19] LABS: Anisocytosis 1+ (Not Present); Hypochromasia Present (Not Present); Platelet Estimate Normal (Normal)
[2018-06-22 14:29] LABS: VBG HCO3 32 mEq/L (21-27); VBG PCO2 99 mmHg (41-51); VBG PH 7.12 pH Units (7.32-7.42); VBG PO2 65 mmHg (25-50)
--- NOTE | 2018-06-22 14:32 | Emergency Department Note ---
Disposition Clinical Impression: Septic shock, COPD exacerbation Pneumonia Qualifiers: Pneumonia type: due to unspecified organism Laterality: unspecified laterality Lung location: unspecified part of lung Qualified Code(s): J18.9 - Pneumonia, unspecified organism Respiratory failure with hypercapnia Qualifiers: Chronicity: unspecified Qualified Code(s): J96.92 - Respiratory failure, unspecified with hypercapnia Disposition: Admitted As Inpatient Condition: Fair Referrals: Duran Sims Jr, MD [Partnered Physician] - Forms: ED Satisfaction Letter Time of Disposition: 15:42 General Adult HPI - General Chief complaint: ED Shortness of Breath/Dyspnea Stated complaint: TIM Time Seen by Provider: 06/22/18 13:38 Source: patient, EMS Mode of arrival: EMS Limitations: no limitations - History of Present Illness Pain Scale: 0 - Related Data Previous Rx's Medication Instructions Recorded Albuterol Sulfate [Albuterol 2 puff IH Q4HR PRN #1 hfa.aer.ad 05/14/18 Inhaler] Aspirin 81 mg PO DAILY #30 tab.chew 05/14/18 Atorvastatin [Lipitor] 10 mg PO DAILY #30 tablet 05/14/18 Docusate Sodium [Colace] 100 mg PO DAILY #30 capsule 05/14/18 Ipratropium/Albuterol Sulfate 3 ml IH 3-4XD PRN #30 ampul.neb 05/14/18 [Iprat-Albut 0.5-3(2.5) mg/3 ml] Pantoprazole Sodium [Protonix] 40 mg PO DAILY #30 tablet.dr 05/14/18 Psyllium Husk [Daily Fiber] 0.52 gm PO DAILY #30 capsule 05/14/18 Allergies Allergy/AdvReac Type Severity Reaction Status Date / Time Neomycin Allergy Blister Verified 02/17/18 13:47 Penicillins Allergy Blister Verified 02/17/18 13:47 Constitutional: Denies: fever Cardiovascular: Denies: chest pain Respiratory: Reports: cough, dyspnea, wheezes, sputum production Gastrointestinal: Denies: abdominal pain, nausea, vomiting Integumentary: Denies: rash Neurological: Denies: headache Past Medical History - Past Medical History Medical history: Reports: arthritis, CHF, COPD, DVT, GERD, hyperlipidemia, hypertension Surgical history: Reports: herniorrhaphy, hysterectomy Psychiatric history: Reports: depression 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 - Social History Smoking Status: Current every day smoker Smokeless Tobacco Status: No Alcohol use: Reports: none Drug use: Reports: none Physical Exam - General Limitations: no limitations General appearance: alert, other (Moderate respiratory distress) Course Vital Signs Respiratory Rate 45 06/22/18 13:54 O2 Sat by Pulse Oximetry 99 06/22/18 13:54 Temperature 96.3 F L 06/22/18 14:09 Pulse Rate 92 06/22/18 15:09 Respiratory Rate 27 06/22/18 15:09 Blood Pressure 109/65 06/22/18 15:09 O2 Sat by Pulse Oximetry 94 06/22/18 15:09 Oxygen Delivery Oxygen Delivery Bipap Medical Decision Making - Lab Data Result diagrams: 06/22/18 14:00 06/22/18 14:00 Lab Results 06/22/18 06/22/18 06/22/18 Range/Units 14:00 14:00 14:00 WBC 9.2 (4.3-11.1) K/mcL RBC 4.78 (3.82-4.97) M/mcL Hgb 10.4 L (11.5-15.4) g/dL Hct 41.0 (35.3-44.9) % MCV 85.8 (83.0-100.0) fL MCH 21.8 L (28.0-33.3) pg MCHC 25.4 L (31.6-35.5) g/dL RDW 18.6 H (11.5-14.5) % Plt Count 360 (140-400) K/mcL MPV 9.7 (9.4-12.4) fL Immature Gran % 0.3 (0-4) % Seg Neutrophils % 48.2 % Lymphocytes % 33.9 % Monocytes % 15.5 % Eosinophils % 1.6 % Basophils % 0.5 % Neutrophils # 4.4 (1.6-8.9) K/mcL Lymphocytes # 3.1 (0.6-4.6) K/mcL Monocytes # 1.4 H (0.0-1.3) K/mcL Eosinophils # 0.2 (0.0-0.6) K/mcL Basophils # 0.1 (0.0-0.2) K/mcL Platelet Estimate Normal (Normal) Hypochromasia Present A (Not Present) Anisocytosis 1+ A (Not Present) PT (9.4-12.1) Seconds INR APTT (26.0-36.0) Seconds VBG pH (7.32-7.42) pH Units VBG pCO2 (41-51) mmHg VBG pO2 (25-50) mmHg VBG HCO3 (21-27) mEq/L Sodium 140 (136-145) mEq/L Potassium 4.0 (3.5-5.1) mEq/L Chloride 98 (98-107) mEq/L Carbon Dioxide 29 (23-29) mEq/L BUN 16 (8-23) mg/dL Creatinine 0.62 (0.60-1.20) mg/dL Est GFR ( Amer) > 60 (> 60) Est GFR (Non-Af Amer) > 60 (> 60) BUN/Creatinine Ratio 26 (6-26) Glucose 229 H (70-105) mg/dL Calculated Osmolality 298 (280-300) Lactic Acid 6.5 H* (0.5-2.2) mmol/L Calcium 9.3 (8.6-10.3) mg/dL Troponin I 0.05 H* (< 0.04) ng/mL B-Natriuretic Peptide (Less than 100) pg/mL Person Notif of Crit 06/22/18 06/22/18 06/22/18 Range/Units 14:00 14:00 14:21 WBC (4.3-11.1) K/mcL RBC (3.82-4.97) M/mcL Hgb (11.5-15.4) g/dL Hct (35.3-44.9) % MCV (83.0-100.0) fL MCH (28.0-33.3) pg MCHC (31.6-35.5) g/dL RDW (11.5-14.5) % Plt Count (140-400) K/mcL MPV (9.4-12.4) fL Immature Gran % (0-4) % Seg Neutrophils % % Lymphocytes % % Monocytes % % Eosinophils % % Basophils % % Neutrophils # (1.6-8.9) K/mcL Lymphocytes # (0.6-4.6) K/mcL Monocytes # (0.0-1.3) K/mcL Eosinophils # (0.0-0.6) K/mcL Basophils # (0.0-0.2) K/mcL Platelet Estimate (Normal) Hypochromasia (Not Present) Anisocytosis (Not Present) PT 14.7 H (9.4-12.1) Seconds INR 1.3 APTT 31.2 (26.0-36.0) Seconds VBG pH 7.12 L* (7.32-7.42) pH Units VBG pCO2 99 H* (41-51) mmHg VBG pO2 65 H (25-50) mmHg VBG HCO3 32 H (21-27) mEq/L Sodium (136-145) mEq/L Potassium (3.5-5.1) mEq/L Chloride (98-107) mEq/L Carbon Dioxide (23-29) mEq/L BUN (8-23) mg/dL Creatinine (0.60-1.20) mg/dL Est GFR ( Amer) (> 60) Est GFR (Non-Af Amer) (> 60) BUN/Creatinine Ratio (6-26) Glucose (70-105) mg/dL Calculated Osmolality (280-300) Lactic Acid (0.5-2.2) mmol/L Calcium (8.6-10.3) mg/dL Troponin I (< 0.04) ng/mL B-Natriuretic Peptide 1481 H (Less than 100) pg/mL Person Notif of Crit Dr Pelayo Critical Care Time Critical Care Time: Yes Total Critical Care Time: 45 Attestation: Critical care performed: Time is exclusive of separately billable procedures. Time includes: direct patient care, patient reassessment, coordination of patient care, interpretation of data (laboratory data, radiology data, and respiratory data), review of patient's medical records, medical consultation and documentation of patient care. Procedures included in critical care time: Procedures excluded from critical care time: Attestation Statement - Attestation Attestation: I, Gómez Ornelas DO, examined this patient [id number] and my medical decision-making was reviewed with Dr. Vini Stewart, Resident Physician. I agree with the documented findings, disposition and treatment plan as described except to the extent set forth below. Please see my progress notes for details. 68-year-old female presents emergency room by EMS for evaluation of shortness of breath. Patient has long-standing COPD and emphysema. She describes some intermittent productive cough over the last several days. She denies any fevers or chills. Currently denying chest pain. Denies any nausea vomiting or diarrhea. Denies any headache or vision change. Only complaint on arrival here to the emergency room is shortness of breath. EMS transportation was completed. Patient was hypoxic at 88% on her typical 2 L of oxygen at home. Patient is also having significantly increased work of breathing. She has have a CPAP machine available at her house. Vital signs show tachypnea and hypoxia. Oxygen by nonrebreather was applied. Initial physical exam shows a very thin frail- appearing female using significant accessory muscle use. Oropharynx is patent without stridor or trismus. Lungs are diminished bilaterally. Wheezing noted. Intermittent coarse crackles noted. Heart is regular. Abdomen is soft nontender nondistended with no pulsatile masses or lesions. Extremities are normal and no signs of pitting edema. Patient is neurologically intact with cranial nerves II through XII grossly intact. Patient is concerning for COPD ex acerbation and failed outpatient management. Patient will be started with breathing treatments steroids and BiPAP along with chest x-ray EKG CBC chemistry and troponin along with BNP. Sepsis evaluation will be started secondary to the tachycardia tachypnea and hypoxia along with productive sputum. Antibiotics will be held until definitive diagnosis is made. Patient will have blood cultures and ABG collected along with lactic acid ordered. Disposition pending full workup and treatment course. Patient is concerning for decompensation secondary to her significant increased work of breathing. See detailed documentation of the physical exam, medical intervention, medical decision- making and disposition in the resident physician's note. No critical care pad the patient's treatment course at this time. 1435 Patient is found to have signs of septic shock with an elevated lactic acid of 6.5 along with a pH of 7.15. Patient does have poorly compensated COPD at this time with elevated CO2. Patient will continue BiPAP treatment. Mental status is stable at this time. 2.2 L of fluid will be given appropriate resuscitation for septic shock. Infectious sources noted to be pneumonia at this time and antibiotic regimen has been started. Patient is otherwise stable but is concerning. Appropriate IV access has been obtained. Disposition will be admission. 45 minutes of critical care applied at this time. 1530 Patient is symptomatically stable. Multiple derangements have been noted some of which are chronic including the BNP as well as a troponin. Symptomatic treatment has been started and established here. Patient is being admitted for what appears to be septic shock secondary to pneumonia. The hospitalist Dr. mariano reviewed the case. Patient will be placed on a telemetry floor. Otherwise she is not showing any acute signs of decompensation is been tolerating the treatment course appropriately. Patient will be admitted for symptomatic control and treatment. Patient will be monitored here in the emergency department to the treatment course has been established.
[2018-06-22] MEDS ORDERED: Levofloxacin 750 MG/150 ML 750 MG/150 ML BAG IVPB ONE (14:35)
[2018-06-22] MEDS ORDERED: 0.9 % Sodium Chloride 500 ML IVC ONE (14:35)
[2018-06-22 14:42] LABS: BUN/Creatinine Ratio 26 (6-26); Blood Urea Nitrogen 16 mg/dL (8-23); Calcium 9.3 mg/dL (8.6-10.3); Carbon Dioxide 29 mEq/L (23-29); Chloride 98 mEq/L (98-107); Glucose 229 mg/dL (70-105); Osmolality,Calculated 298 (280-300); Sodium 140 mEq/L (136-145); eGFR For Non-African Americans > 60 (> 60)
[2018-06-22 14:47] LABS: INR 1.3; Prothrombin Time 14.7 Seconds (9.4-12.1)
[2018-06-22 14:50] LABS: Activated Partial Thrombo Time 31.2 Seconds (26.0-36.0)
[2018-06-22 14:56] LABS: Troponin I 0.05 ng/mL (< 0.04)
[2018-06-22] MEDS: 0.9 % Sodium Chloride 1,000 ML IVC SCH ×2 (15:05→16:00)
[2018-06-22] MEDS ORDERED: Naloxone 0.4 MG/ML INJ IVP PRN (15:49)
[2018-06-22] MEDS ORDERED: Meropenem 1,000 MG in Water for inj. (sterile) 20 ML 10 ML IVP SCH (16:00)
[2018-06-22] MEDS ORDERED: Albuterol 2.5 MG/3 ML NEBULIZER IH PRN (16:13)
[2018-06-22] MEDS ORDERED: Clindamycin 600 MG/50 ML 600 MG/50 ML IV.SOLN IVPB ONE (16:14)
--- NOTE | 2018-06-22 16:17 | Internal Med History&Physical ---
Date of Encounter: 06/22/18 Time of Encounter: 16:00 Internal Medicine - H&P: HPI Chief complaint: Shortness of breath Admitted From: Emergency Dept Plans for Post Hospital Care: Home History of present illness: Ms. Smith is a 68 year old female patient with a history of congestive heart failure, COPD, hypertension, coronary artery disease, chronic respiratory failure on 2 L home oxygen and on BiPAP at night, atrial fibrillation presented to the ER with complaints of Shortness of breath that has been going on for about a week now. She was hospitalized here last month for an episode of acute congestive heart failure. She was treated with diuretics and discharged home in a stable condition. She did well for a while. She denies any worsening cough. She occasionally gets some sputum. She has exertional dyspnea but no significant pedal edema. No chest pain or palpitations. She denies any fevers or chills. No nausea or vomiting. She reports that she feels cold in her feet. She has not noticed any dysuria. No urinary retention. Patient is not on anticoagulation because of episodes of hemoptysis and epistaxis while on anticoagulation. Patient had previously been admitted to the hospital in [facility] for a bout of multifocal pneumonia along with A. fib with RVR. Past Med Surg Social Fam HX - Past Medical History Attestation: Yes The following information was validated with the patient. Source: patient Medical history: arthritis, CHF, COPD, DVT, GERD, hyperlipidemia, hypertension Additional medical history: Hernia x 4 Psychiatric history: depression - Past Surgical History Surgical History: herniorrhaphy, hysterectomy Additional surgical history: Tubal ligation. Endometriosis. Shoulder sx - Social History Smoking Status: Current every day smoker Smokeless Tobacco Status: No Alcohol use: none Drug use: none - Family History Father Family Member Ethnicity: Non- Living Status: Hx Family Cardiac Disorders: Yes (CHF, PR, HTN) Hx Family Endocrine Disorder: Yes (DM) Mother Family Member Ethnicity: Non- Living Status: Hx Family Neurologic Disorders: Yes (Alzheimer's disease) Brother Family Member Ethnicity: Non- Living Status: Hx Family Cancer: Yes (Pancreatic) Sister Family Member Ethnicity: Non- Living Status: Internal Medicine - H&P: Meds Albuterol Sulfate [Albuterol Inhaler] 2 puff IH Q4HR PRN #1 hfa.aer.ad 05/14/18 [Rx] Aspirin 81 mg PO DAILY #30 tab.chew 05/14/18 [Rx] Atorvastatin [Lipitor] 10 mg PO DAILY #30 tablet 05/14/18 [Rx] Docusate Sodium [Colace] 100 mg PO DAILY #30 capsule 05/14/18 [Rx] Ipratropium/Albuterol Sulfate [Iprat-Albut 0.5-3(2.5) mg/3 ml] 3 ml IH 3-4XD PRN #30 ampul.neb 05/14/18 [Rx] Pantoprazole Sodium [Protonix] 40 mg PO DAILY #30 tablet.dr 05/14/18 [Rx] Psyllium Husk [Daily Fiber] 0.52 gm PO DAILY #30 capsule 05/14/18 [Rx] Allergy/AdvReac Type Severity Reaction Status Date / Time Neomycin Allergy Blister Verified 02/17/18 13:47 Penicillins Allergy Blister Verified 02/17/18 13:47 vancomycin Allergy Blister Verified 06/22/18 16:08 All Systems PM: A 10-system review of systems was performed and is negative for pertinent findings except as documented above in the HPI. - Constitutional Constitutional: malaise, no chills, no fever(s), no night sweats - EENT Eyes: no change in vision, no discharge, no pain, no photophobia Ears: no ear discharge, no ear pain, no tinnitus Nose, mouth and throat: no dysphagia, no nasal discharge, no neck pain, no sore throat - Cardiovascular Cardiovascular ROS IM: dyspnea, dyspnea on exertion, no chest pain, no diaphoresis, no lightheadedness, no palpitations, no syncope - Respiratory Respiratory: dyspnea, no cough, no wheezing, no excessive phlegm production - Gastrointestinal Gastrointestinal: no abdominal pain, no diarrhea, no hematemesis, no hematochezia, no melena, no nausea, no vomiting - Genitourinary Genitourinary: no change in urinary stream, no dysuria, no flank pain, no hematuria - Musculoskeletal Musculoskeletal ROS IM: no numbness, no tingling - Integumentary Integumentary IM: no rash, no unusual bruising - Neurological Neurological ROS: no confusion, no convulsions, no focal weakness, no numbness, no tingling, no tremor(s) - Hematologic/Lymphatic Hematologic/Lymphatic: no easy bruising - Constitutional Vitals: Temp Pulse Resp BP Pulse Ox 96.3 F L 90 27 118/69 95 06/22/18 14:09 06/22/18 16:04 06/22/18 16:04 06/22/18 16:04 06/22/18 16:04 General appearance: Present: cooperative, A&O X 3 Exam: . - ENT Additional comments: BiPAP mask in place - Neck Neck exam general surgery: Present: supple, trachea midline. Absent: lymphadenopathy - Respiratory Respiratory exam: Present: prolonged expiratory phase, rhonchi, wheezes. Ab sent: accessory muscle use, rales Additional comments: Coarse breath sounds bilaterally - Cardiovascular Cardiovascular exam: Present: RRR, +S1, +S2. Absent: diastolic murmur, gallop, rubs, systolic murmur - GI/Abdominal GI/Abdominal exam: Present: normal bowel sounds, soft, no peritoneal signs. Absent: distended, tenderness - Extremities Exam Extremities exam: Present: cyanotic (Bilateral toes appear cyanotic), warm, radial pulses palpable and symmetrical. Absent: calf tenderness, pedal edema - Neurological Exam Neurological exam: Present: alert, CN II-XII intact, oriented X3, no focal deficits. Absent: facial droop, speech deficit - Psychiatric Psychiatric exam: Present: normal affect - Skin Skin exam: Present: dry, intact Internal Med - H&P Results - Labs CBC & Chem 7: 06/22/18 14:00 06/22/18 14:00 Labs: Short CBC 06/22/18 Range/Units 14:00 WBC 9.2 (4.3-11.1) K/mcL Hgb 10.4 L (11.5-15.4) g/dL Hct 41.0 (35.3-44.9) % Plt Count 360 (140-400) K/mcL Neutrophils # 4.4 (1.6-8.9) K/mcL BMP 06/22/18 14:00 Sodium 140 Potassium 4.0 Chloride 98 Carbon Dioxide 29 BUN 16 Creatinine 0.62 Glucose 229 H Calcium 9.3 Cardiac Enzymes 06/22/18 Range/Units 14:00 Troponin I 0.05 H* (< 0.04) ng/mL - ABG Interpretation ABG results: 06/22/18 14:21 VBG pH 7.12 L* VBG pCO2 99 H* VBG pO2 65 H VBG HCO3 32 H - EKG Data -: EKG Interpreted by Myself - EKG Data EKG comments: 06/22/18 16:28 Atrial fibrillation - Impressions ITS Impressions Chest X-Ray 06/22/18 13:44 IMPRESSION: 1. Enlarged cardiac silhouette and interstitial edema worsened from 05/10/2018. 2. Small right pleural effusion. 3. Mild bibasilar opacities compatible with atelectasis. In the appropriate clinical setting pneumonia is not excluded. D/ / Shahbaz Mann MD / Shahbaz Mann MD Interpreting Provider: Shahbaz Mann MD - Assessment and plan (1) Acute on chronic respiratory failure with hypoxia and hypercapnia Current Visit: Yes Status: Acute Assessment and plan: Patient presenting with acute on chronic hypoxic/hypercapnic respiratory failure. Multifactorial. Patient does have underlying COPD and congestive heart failure. She also had an elevated lactic acid levels concerning for sepsis. However she has not had any fevers or leukocytosis. For now continue BiPAP use. Recheck ABG. Treat underlying CHF and COPD. high risk for complications (2) Atrial fibrillation Current Visit: Yes Status: Chronic Assessment and plan: Rate controlled. Patient is not on anticoagulation due to episodes of epistaxis and hemoptysis while on anticoagulation. Qualifiers: Atrial fibrillation type: paroxysmal Qualified Code(s): I48.0 - Paroxysmal atrial fibrillation (3) Congestive heart failure Current Visit: Yes Status: Acute Assessment and plan: Patient with history of congestive heart failure. Last echocardiogram done in March showed an EF of 40-45%. Patient does not have significant pedal edema but she reported exertional dyspnea. Her BNP is elevated above baseline. She does have increased interstitial markings in her lung bailey and cardiomegaly which has worsened. We will repeat limited 2-D echocardiogram. Will give a dose of intravenous Lasix if her blood pressure tolerates and her lactic acid improves. Monitor renal function, vital signs closely. Qualifiers: Heart failure type: combined systolic and diastolic Heart failure chronicity: acute on chronic Qualified Code(s): I50.43 - Acute on chronic combined systolic (congestive) and diastolic (congestive) heart failure (4) COPD (chronic obstructive pulmonary disease) Current Visit: Yes Status: Acute Assessment and plan: Patient with a history of COPD presenting with worsening shortness of breath. She does have bilateral wheezing and rhonchi. Chest x-ray does not clearly show any pneumonia but patient does have elevated lactic acid level. Continue BiPAP support. Continue intravenous steroids. Continue bronchodilators. Qualifiers: COPD type: COPD with acute exacerbation Qualified Code(s): J44.1 - Chronic obstructive pulmonary disease with (acute) exacerbation (5) Pneumonia Current Visit: Yes Status: Suspected Assessment and plan: Patient was started on IV antibiotics in the ER due to concern for sepsis with elevated lactic acid level. However, lactic acid level has come down to 1.3. Patient also has an elevated BNP levels suggesting fluid overload. She has not had any fever, significant worsening cough or sputum production. No leuko cytosis either. Check pro calcitonin level. Blood cultures have been sent and will be followed. Check respiratory infection panel. We will de-escalate/stop antibiotics if patient's symptoms improved quickly and cultures are negative. Qualifiers: Pneumonia type: due to unspecified organism Laterality: bilateral Lung location: lower lobe of lung Qualified Code(s): J18.1 - Lobar pneumonia, unspecified organism (6) Septic shock Current Visit: Yes Status: Suspected Assessment and plan: Patient has elevated lactic acid level at 6.5 in the ER. However this has come down to 1.3 quickly. Patient was never hypotensive. No leukocytosis. No clear source for sepsis/septic shock at this time. Patient received antibiotics for possible pneumonia. - Time Spent With Patient Total time spent is greater than 50% in coordination of care (as documented) at patient's floor/unit and/or counseling patient:
[2018-06-22] MEDS ORDERED: Furosemide 20 MG/2 ML VIAL IVP ONE (16:37)
[2018-06-22] MEDS ORDERED: Isovue-370 500 ML BOTTLE IVP ONE (16:38)
[2018-06-22] MEDS: Ipratropium/Albuterol Neb 3 ML IH SCH (21:00)
[2018-06-23] MEDS: methylPREDNISolone 125 MG/2 ML VIAL IVP SCH ×3 (00:04→16:27)
[2018-06-23] MEDS: Ipratropium/Albuterol Neb 3 ML IH SCH ×6 (00:12→20:05)
[2018-06-23] MEDS: *HR* Heparin 5,000 UNIT/ML VIAL SQ SCH ×2 (05:58→17:29)
[2018-06-23 07:36] LABS: Monocytes % 4.8 %
[2018-06-23 07:37] LABS: Hematocrit 34.4 % (35.3-44.9); Hemoglobin 8.8 g/dL (11.5-15.4); Immature Granulocytes % 0.3 % (0-4); Lymphocytes # 0.6 K/mcL (0.6-4.6); Mean Corpuscular HGB Conc 25.6 g/dL (31.6-35.5); Mean Corpuscular Hemoglobin 21.6 pg (28.0-33.3); Mean Corpuscular Volume 84.5 fL (83.0-100.0); Mean Platelet Volume 10.1 fL (9.4-12.4); Monocytes # 0.2 K/mcL (0.0-1.3); Platelet Count 245 K/mcL (140-400); Red Blood Count 4.07 M/mcL (3.82-4.97); Segmented Neutrophils % 79.9 %
[2018-06-23 08:26] LABS: BUN/Creatinine Ratio 37 (6-26); Blood Urea Nitrogen 19 mg/dL (8-23); Calcium 9.2 mg/dL (8.6-10.3); Carbon Dioxide 33 mEq/L (23-29); Chloride 104 mEq/L (98-107); Glucose 126 mg/dL (70-105); Osmolality,Calculated 296 (280-300); Sodium 141 mEq/L (136-145); eGFR For Non-African Americans > 60 (> 60)
--- NOTE | 2018-06-23 08:44 | Electrocardiograph Report ---
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
[2018-06-23] MEDS ORDERED: Levofloxacin 750 MG/150 ML 750 MG/150 ML BAG IVPB SCH (09:00)
--- NOTE | 2018-06-23 11:10 | Internal Med Progress Note ---
Hospitalist Progress Note - Encounter Date of Encounter: 06/23/18 Time of Encounter: 09:30 - Subjective Interval History: Patient feels somewhat better today. Remains on BiPAP. No fever or chills reported overnight. Unable to obtain CT scan as patient not able to lie flat. Patient's blood pressure has been running in the 90s systolic but at baseline she does run low. She denies any dizziness or lightheadedness. No palpitations. - Exam Vitals: Temp Pulse Resp BP Pulse Ox 98.1 F 77 20 90/49 99 06/23/18 07:52 06/23/18 07:52 06/23/18 07:52 06/23/18 07:52 06/23/18 07:52 Exam: General: Patient is alert, moderate distress, oriented x 3 ENT: BiPAP mask in place Respiratory: Bilateral wheezing and coarse breath sounds Cardiovascular: Regular rate and rhythm. s1 and s2 normal No clicks, rubs, gallops, or murmurs. Bilateral pedal edema Abdomen: Abdomen is soft, nontender. Bowel sounds are present Musculoskeletal: Spontaneously moving all extremities Skin: warm, dry, intact. Neuro: Alert oriented x 3 normal cranial nerves, no focal deficits - Assessment and Plan (1) Acute on chronic respiratory failure with hypoxia and hypercapnia Current Visit: Yes Status: Acute Assessment and Plan: Continue bronchodilators, O2 supplementation with BiPAP. Respiratory infection panel pending. Will repeat chest x-ray and ABG. CT scan on hold due to patient's inability to lie down flat. High risk for complications. (2) Atrial fibrillation Current Visit: Yes Status: Chronic Assessment and Plan: Rate controlled. Patient is not on anticoagulation due to history of epistaxis and hemoptysis. (3) Congestive heart failure Current Visit: Yes Status: Acute Assessment and Plan: Patient received Lasix yesterday. Will repeat chest x-ray today to evaluate. Holding Lasix for now due to low blood pressure. Avoid further fluids at this time. Monitor vital signs. We will recheck BNP. (4) COPD (chronic obstructive pulmonary disease) Current Visit: Yes Status: Acute Assessment and Plan: with acute exacerbation. Continue BiPAP use. Continue steroids. (5) Pneumonia Current Visit: Yes Status: Suspected Assessment and Plan: Will repeat chest x-ray. CT scan not done as patient not able to lie flat. WBC count 3.7 today. Continue Levaquin for now. Await culture results. (6) Septic shock Current Visit: Yes Status: Suspected Assessment and Plan: WBC count 3.7 today. No fever or chills reported. Patient's blood pressure on the low side but this is chronic for the patient. Lactic acid levels have normalized. - Time Spent with Patient Total time spent is greater than 50% in coordination of care (as documented) at patient's floor/unit and/or counseling patient: Internal Medicine: Result - Labs CBC & Chem 7: 06/23/18 07:17 06/23/18 07:17 Labs: Short CBC 06/22/18 06/23/18 Range/Units 14:00 07:17 WBC 9.2 3.7 L D (4.3-11.1) K/mcL Hgb 10.4 L 8.8 L D (11.5-15.4) g/dL Hct 41.0 34.4 L (35.3-44.9) % Plt Count 360 245 (140-400) K/mcL Neutrophils # 4.4 3.0 (1.6-8.9) K/mcL BMP 06/22/18 06/23/18 14:00 07:17 Sodium 140 141 Potassium 4.0 5.0 Chloride 98 104 Carbon Dioxide 29 33 H BUN 16 19 Creatinine 0.62 0.52 L Glucose 229 H 126 H Calcium 9.3 9.2 Cardiac Enzymes 06/22/18 Range/Units 14:00 Troponin I 0.05 H* (< 0.04) ng/mL - ABG Interpretation ABG results: PT/INR, D-dimer PT 14.7 Seconds (9.4-12.1) H 06/22/18 14:00 - Impressions Impressions Chest X-Ray 06/22/18 13:44 IMPRESSION: 1. Enlarged cardiac silhouette and interstitial edema worsened from 05/10/2018. 2. Small right pleural effusion. 3. Mild bibasilar opacities compatible with atelectasis. In the appropriate clinical setting pneumonia is not excluded. D/ / Shahbaz Mann MD / Shahbaz Mann MD Interpreting Provider: Shahbaz Mann MD Consult Discharge Plan - Plan Referrals: Duran Sims Jr, MD [Primary Care Provider] - (2) Atrial fibrillation Qualifiers: Atrial fibrillation type: paroxysmal Qualified Code(s): I48.0 - Paroxysmal atrial fibrillation (3) Congestive heart failure Qualifiers: Heart failure type: combined systolic and diastolic Heart failure chronicity: acute on chronic Qualified Code(s): I50.43 - Acute on chronic combined systolic (congestive) and diastolic (congestive) heart failure (4) COPD (chronic obstructive pulmonary disease) Qualifiers: COPD type: COPD with acute exacerbation Qualified Code(s): J44.1 - Chronic obstructive pulmonary disease with (acute) exacerbation (5) Pneumonia Qualifiers: Pneumonia type: due to unspecified organism Laterality: bilateral Lung location: lower lobe of lung Qualified Code(s): J18.1 - Lobar pneumonia, unspecified organism
[2018-06-23 11:31] LABS: ABG Base Excess 8 mEq/L (-2 to 3); ABG HCO3 35 mEq/L (21-27); ABG Oxygen Saturation 90 % (95-98); ABG PCO2 62 mmHg (35-45); ABG PH 7.36 pH Units (7.32-7.45); ABG PO2 64 mmHg (85-104); ABG TCO2 37 mEq/L (20-26)
[2018-06-23] MEDS ORDERED: 0.9 % Sodium Chloride 250 ML IVC ONE (12:51)
[2018-06-23 13:40] LABS: Adenovirus Not Detected (Not Detect); Coronavirus 229E Not Detected (Not Detect); Coronavirus HKU1 Not Detected (Not Detect); Coronavirus NL63 Not Detected (Not Detect); Coronavirus OC43 Not Detected (Not Detect); Human Metapneumovirus Not Detected (Not Detect); Human Rhinovirus/Enterovirus Not Detected (Not Detect); Influenza A Subtype 2009 H1 Not Detected (Not Detect); Influenza A Untypeable Not Detected (Not Detect); Influenza B Not Detected (Not Detect); Parainfluenza Virus 1 Not Detected (Not Detect); Parainfluenza Virus 2 Not Detected (Not Detect); Parainfluenza Virus 3 Not Detected (Not Detect)
[2018-06-23 13:41] LABS: Bordetella Pertussis Not Detected (Not Detect); Chlamydophila pneumoniae Not Detected (Not Detect); Mycoplasma pneumoniae Not Detected (Not Detect); Parainfluenza Virus 4 Not Detected (Not Detect); Respiratory Syncytial Virus Not Detected (Not Detect)
[2018-06-23] MEDS ORDERED: ALPRAZolam 0.5 MG TABLET PO ONE (14:38)
[2018-06-23] MEDS: Doxycycline 100 MG in 0.9 % Sodium Chloride Mini Bag 100 ML IVPB SCH (16:27)
[2018-06-23] MEDS: cefTRIAXone 1,000 MG in Water for inj. (sterile) 20 ML 10 ML IVP SCH (16:30)
[2018-06-23] MEDS ORDERED: 0.9 % Sodium Chloride 250 ML ONE (16:49)
[2018-06-23] MEDS ORDERED: Psyllium 1 PACKET POWD.PACK PO PRN (18:24)
[2018-06-23] MEDS: Albumin 25% 25gram/100mL 25 GM/100 ML IV.SOLN IVC SCH ×3 (22:05→22:23)
[2018-06-24] MEDS: Ipratropium/Albuterol Neb 3 ML IH SCH ×6 (00:14→20:30)
[2018-06-24] MEDS: methylPREDNISolone 125 MG/2 ML VIAL IVP SCH ×3 (01:13→17:46)
[2018-06-24] MEDS: Albumin 25% 25gram/100mL 25 GM/100 ML IV.SOLN IVC SCH ×3 (01:16→04:32)
[2018-06-24] MEDS: *HR* Heparin 5,000 UNIT/ML VIAL SQ SCH ×2 (06:09→17:46)
[2018-06-24] MEDS: Doxycycline 100 MG in 0.9 % Sodium Chloride Mini Bag 100 ML IVPB SCH ×2 (06:14→15:33)
[2018-06-24 07:11] LABS: Hematocrit 33.8 % (35.3-44.9); Hemoglobin 8.6 g/dL (11.5-15.4); Immature Granulocytes % 0.2 % (0-4); Lymphocytes # 0.5 K/mcL (0.6-4.6); Lymphocytes % 11.7 %; Mean Corpuscular HGB Conc 25.4 g/dL (31.6-35.5); Mean Corpuscular Hemoglobin 21.7 pg (28.0-33.3); Mean Corpuscular Volume 85.1 fL (83.0-100.0); Mean Platelet Volume 9.9 fL (9.4-12.4); Monocytes # 0.2 K/mcL (0.0-1.3); Monocytes % 5.5 %; Neutrophils # 3.5 K/mcL (1.6-8.9); Platelet Count 227 K/mcL (140-400); Red Blood Count 3.97 M/mcL (3.82-4.97); Red Cell Distribution Width 17.8 % (11.5-14.5); Segmented Neutrophils % 82.6 %
[2018-06-24 07:22] LABS: BUN/Creatinine Ratio 48 (6-26); Blood Urea Nitrogen 25 mg/dL (8-23); Calcium 9.9 mg/dL (8.6-10.3); Carbon Dioxide 34 mEq/L (23-29); Chloride 100 mEq/L (98-107); Glucose 147 mg/dL (70-105); Osmolality,Calculated 299 (280-300); Potassium 4.9 mEq/L (3.5-5.1); Sodium 141 mEq/L (136-145); eGFR For Non-African Americans > 60 (> 60)
[2018-06-24] MEDS: cefTRIAXone 1,000 MG in Water for inj. (sterile) 20 ML 10 ML IVP SCH (08:51)
[2018-06-24] MEDS: Aspirin 81 MG TAB.CHEW PO SCH (08:51)
[2018-06-24 09:52] LABS: Anisocytosis 1+ (Not Present); Platelet Estimate Normal (Normal)
[2018-06-24 09:53] LABS: Hypochromasia Present (Not Present)
[2018-06-24] MEDS ORDERED: Furosemide 20 MG/2 ML VIAL IVP ONE (10:10)
--- NOTE | 2018-06-24 11:08 | Internal Med Progress Note ---
Hospitalist Progress Note - Encounter Date of Encounter: 06/24/18 Time of Encounter: 09:50 - Subjective Interval History: Patient lying down in bed with BiPAP. Feels better compared to yesterday. Denies any dizziness or lightheadedness. No fever reported overnight. - Exam Vitals: Temp Pulse Resp BP Pulse Ox 97.7 F 93 20 103/76 100 06/24/18 03:30 06/24/18 07:50 06/24/18 07:50 06/24/18 07:50 06/24/18 07:50 Exam: General: Patient is alert, moderate distress, oriented x 3 ENT: Mucous membranes moist, BiPAP mask in place Respiratory: Coarse breath sounds bilaterally. Decreased at both bases Cardiovascular: Regular rate and rhythm. s1 and s2 normal No clicks, rubs, gallops, or murmurs. Bilateral pedal edema present Abdomen: Abdomen is soft, nontender. Bowel sounds are present Musculoskeletal: Spontaneously moving all extremities Skin: warm, dry, intact. Neuro: Alert oriented x 3 normal cranial nerves, no focal deficits - Assessment and Plan (1) Acute on chronic respiratory failure with hypoxia and hypercapnia Current Visit: Yes Status: Acute Assessment and Plan: Continue O2 supplementation and use BiPAP as needed. Continue bronchodilators. Patient has been able to tolerate nasal cannula intermittently. Will wean down steroids. (2) Atrial fibrillation Current Visit: Yes Status: Chronic Assessment and Plan: Rate controlled. Patient not on anticoagulation due to history of reported epistaxis and hemoptysis while on anticoagulation. (3) Congestive heart failure Current Visit: Yes Status: Acute Assessment and Plan: Lasix held yesterday as patient's blood pressure was low. She also received some IV fluid. Blood pressure has improved today. Will give a small dose of intravenous Lasix. Continue O2 supplementation. Recheck BNP. (4) COPD (chronic obstructive pulmonary disease) Current Visit: Yes Status: Acute Assessment and Plan: Continue treatment with bronchodilators, steroids and O2 supplementation. (5) Pneumonia Current Visit: Yes Status: Suspected Assessment and Plan: Continue ceftriaxone and doxycycline. WBC count stable. Blood cultures have been negative. Chest x-ray done yesterday showed interstitial edema and cardiomegaly suggestive of CHF And pneumonia. We will complete 5 day antibiotic course and then stop antibiotics. No clear evidence of pneumonia at this time. If patient's clinical status improves when she is able to lie down flat, will obtain CT of the chest to clarify. (6) Septic shock Current Visit: Yes Status: Ruled-out Assessment and Plan: Patient has been hypotensive yesterday but within her baseline. Lactic acid levels normal. Septic shock ruled out. - Time Spent with Patient Total time spent is greater than 50% in coordination of care (as documented) at patient's floor/unit and/or counseling patient: Internal Medicine: Result - Labs CBC & Chem 7: 06/24/18 06:42 06/24/18 06:42 Labs: Short CBC 06/24/18 Range/Units 06:42 WBC 4.2 L (4.3-11.1) K/mcL Hgb 8.6 L (11.5-15.4) g/dL Hct 33.8 L (35.3-44.9) % Plt Count 227 (140-400) K/mcL Neutrophils # 3.5 (1.6-8.9) K/mcL BMP 06/24/18 06:42 Sodium 141 Potassium 4.9 Chloride 100 Carbon Dioxide 34 H BUN 25 H Creatinine 0.52 L Glucose 147 H Calcium 9.9 - ABG Interpretation ABG results: ABG ABG pH 7.36 pH Units (7.32-7.45) 06/23/18 11:28 ABG pCO2 62 mmHg (35-45) H 06/23/18 11:28 ABG pO2 64 mmHg (85-104) L 06/23/18 11:28 ABG O2 Saturation 90 % (95-98) L 06/23/18 11:28 PT/INR, D-dimer PT 14.7 Seconds (9.4-12.1) H 06/22/18 14:00 - Impressions Impressions Chest X-Ray 06/23/18 11:13 IMPRESSION: No significant change in findings of CHF with a small right pleural effusion. D/ / Ced Maurer MD / Ced Maurer MD Interpreting Provider: Ced Maurer MD Consult Discharge Plan - Plan Referrals: Duran Sims Jr, MD [Primary Care Provider] - (2) Atrial fibrillation Qualifiers: Atrial fibrillation type: paroxysmal Qualified Code(s): I48.0 - Paroxysmal atrial fibrillation (3) Congestive heart failure Qualifiers: Heart failure type: combined systolic and diastolic Heart failure chronicity: acute on chronic Qualified Code(s): I50.43 - Acute on chronic combined systolic (congestive) and diastolic (congestive) heart failure (4) COPD (chronic obstructive pulmonary disease) Qualifiers: COPD type: COPD with acute exacerbation Qualified Code(s): J44.1 - Chronic obstructive pulmonary disease with (acute) exacerbation (5) Pneumonia Qualifiers: Pneumonia type: due to unspecified organism Laterality: bilateral Lung location: lower lobe of lung Qualified Code(s): J18.1 - Lobar pneumonia, unspecified organism
--- NOTE | 2018-06-24 18:22 | Electrocardiograph Report ---
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
[2018-06-24] MEDS ORDERED: Perflutren Lipid Microsphere 1.3 ML in 0.9 % Sodium Chloride 8.7 ML IVP ONE (20:21)
[2018-06-24] MEDS ORDERED: Melatonin 3 MG TABLET PO ONE (21:00)
[2018-06-25] MEDS: Ipratropium/Albuterol Neb 3 ML IH SCH ×4 (00:25→11:10)
[2018-06-25] MEDS: Doxycycline 100 MG in 0.9 % Sodium Chloride Mini Bag 100 ML IVPB SCH (03:11)
[2018-06-25] MEDS: Albumin 25% 25gram/100mL 25 GM/100 ML IV.SOLN IVC SCH (03:42)
[2018-06-25] MEDS: methylPREDNISolone 125 MG/2 ML VIAL IVP SCH (05:17)
[2018-06-25] MEDS: *HR* Heparin 5,000 UNIT/ML VIAL SQ SCH ×2 (05:18→17:24)
[2018-06-25 05:48] LABS: Hematocrit 36.2 % (35.3-44.9); Hemoglobin 9.4 g/dL (11.5-15.4); Immature Granulocytes % 0.4 % (0-4); Lymphocytes # 0.8 K/mcL (0.6-4.6); Lymphocytes % 9.7 %; Mean Corpuscular Hemoglobin 21.6 pg (28.0-33.3); Mean Corpuscular Volume 83.2 fL (83.0-100.0); Mean Platelet Volume 9.9 fL (9.4-12.4); Monocytes # 0.9 K/mcL (0.0-1.3); Monocytes % 11.1 %; Neutrophils # 6.2 K/mcL (1.6-8.9); Platelet Count 243 K/mcL (140-400); Red Blood Count 4.35 M/mcL (3.82-4.97); Segmented Neutrophils % 78.8 %
[2018-06-25 06:00] LABS: BUN/Creatinine Ratio 53 (6-26); Blood Urea Nitrogen 31 mg/dL (8-23); Calcium 9.9 mg/dL (8.6-10.3); Carbon Dioxide 36 mEq/L (23-29); Chloride 101 mEq/L (98-107); Glucose 132 mg/dL (70-105); Osmolality,Calculated 300 (280-300); Potassium 4.2 mEq/L (3.5-5.1); Sodium 141 mEq/L (136-145); eGFR For Non-African Americans > 60 (> 60)
[2018-06-25 06:43] LABS: Hypochromasia Present (Not Present); Platelet Estimate Normal (Normal)
[2018-06-25] MEDS: Aspirin 81 MG TAB.CHEW PO SCH (08:46)
[2018-06-25] MEDS: cefTRIAXone 1,000 MG in Water for inj. (sterile) 20 ML 10 ML IVP SCH (08:46)
[2018-06-25] MEDS ORDERED: Furosemide 20 MG/2 ML VIAL IVP SCH (09:00)
[2018-06-25] MEDS ORDERED: Furosemide 20 MG/2 ML VIAL IVP ONE (10:15)
--- NOTE | 2018-06-25 14:58 | Cardiology Consult Note ---
<JamesDaniel quiroga Janet - Last Filed: 06/25/18 15:27> Date of Encounter: 06/25/18 Time of Encounter: 14:53 Assessment and Plan (1) Acute on chronic systolic CHF (congestive heart failure), NYHA class 3 Current Visit: Yes Status: Acute PMH of systolic congestive heart failure. Worsening dyspnea that has been ongoing for a week prior to admission. Reports baseline weight ~153lbs, currently 168lbs. BNP was 1481 on admission, 2084 today. CXR 06/23 with small right pleural effusion. Troponin 0.05--likely demand ischemia. Limited TTE 06/24/18: LVEF grossly 35-40%. Severe biatrial enlargement. 03/2018 EF was 40-45% and 01/2018 EF 30%. Attempted diuresis with IV Lasix, but pt became hypotensive. Cardiology consulted for further recs. IV Lasix 20mg given this AM. Recommend strict I/Os, Na and fluid restriction, daily weights. Discussed and reviewed with Dr. Coppola. He recommends Dopamine gtt in order for BP to allow for IV diuresis. Will plan on IV Lasix 40mg BID w/Dopamine gtt. Continue to follow. (2) Atrial fibrillation Current Visit: Yes Status: Chronic Known A-Fib. 12 hr tele AVG HR 98. Currently not on AV teresa blockers due to hypotension. [id number]. Not on anticoagulation because of episodes of hemoptysis and epistaxis while on anticoagulation. Qualifiers: Atrial fibrillation type: paroxysmal Qualified Code(s): I48.0 - Paroxysmal atrial fibrillation (3) NICM (nonischemic cardiomyopathy) Current Visit: No Status: Chronic Known hx of CMP, thought to be NICMP since CMP is out of proportion to her CAD. Currently not on BB or ACEi d/t hypotension. (4) Coronary artery disease Current Visit: No Status: Chronic LHC 02/13/17: Severe 1 vessel CAD. 70% mRCA. Continue ASA, Statin. No BB d/t hypotension. Pt denies chest pain. Outpt notes mention repeat cath but pt has always been hesitant d/t metal allergy. Pt states she would now be willing. Will consider LHC prior to d/c once Qualifiers: Coronary Disease-Associated Artery/Lesion type: [place] artery [place] vs. transplanted heart: [place] heart Associated angina: without angina Qualified Code(s): I25.10 - Atherosclerotic heart disease of [place] coronary artery without angina pectoris (5) LBBB (left bundle branch block) Current Visit: No Status: Chronic Known LBBB. Discussion w patient/family: The assessment and plan as outlined above was discussed with the patient and/or family members who expressed understanding and agreement. All questions were answered. Thank you for involving us in the care of your patient. Please call with any questions. I will discuss all the above with Dr. Coppola and make changes as necessary. History of Present Illness Consult date: 06/25/18 Consult reason: CHF Chief complaint: dyspnea History of present illness: Ms. Smith is a 68 year old female with PMH of systolic congestive heart failure, CMP, COPD, HTN, CAD, chronic respiratory failure on 2 L home oxygen and on BiPAP at night, A-Fib presented to the ER with complaints of worsening dyspnea that has been ongoing for a week prior to admission. Denies chest pain. Patient is not on anticoagulation because of episodes of hemoptysis and epistaxis while on anticoagulation. Reports baseline weight ~153lbs, currently 168lbs. BNP was 1481 on admission, 2084 today. CXR 06/23 with small right pleural effusion. Prior CV testing: Limited TTE 06/24/18: LVEF grossly 35-40%. Severe biatrial enlargement. 03/2018 EF was 40-45% and 01/2018 EF 30%. LHC 02/13/17: Severe 1 vessel CAD. 70% mRCA. Past Med Surg Social Fam HX - Past Medical History Medical history: arthritis, CHF, COPD, DVT, GERD, hyperlipidemia, hypertension Additional medical history: endometriosis Psychiatric history: anxiety, depression - Past Surgical History Surgical History: herniorrhaphy, hysterectomy Additional surgical history: Tubal ligation. Shoulder sx. hernia repair x4 - Social History Smoking Status: Current every day smoker Packs per day: 1 Smokeless Tobacco Status: No Alcohol use: none Drug use: none - Family History Father Family Member Ethnicity: Non- Living Status: Cause of : heart disease Hx Family Cardiac Disorders: Yes (CHF, OR, HTN) Hx Family Endocrine Disorder: Yes (DM) Mother History Unknown: Yes Family Member Ethnicity: Non- Living Status: Hx Family Neurologic Disorders: Yes (Alzheimer's disease) Brother Family Member Ethnicity: Non- Living Status: Cause of : cancer Hx Family Cancer: Yes (pancreatic) Sister Family Member Ethnicity: Non- Living Status: Cause of : OD Medications and Allergies Albuterol Sulfate [Albuterol Inhaler] 2 puff IH Q4HR PRN #1 hfa.aer.ad 05/14/18 [Rx] Aspirin 81 mg PO DAILY #30 tab.chew 05/14/18 [Rx] Atorvastatin [Lipitor] 10 mg PO DAILY #30 tablet 05/14/18 [Rx] Docusate Sodium [Colace] 100 mg PO DAILY #30 capsule 05/14/18 [Rx] Ipratropium/Albuterol Sulfate [Iprat-Albut 0.5-3(2.5) mg/3 ml] 3 ml IH 3-4XD PRN #30 ampul.neb 05/14/18 [Rx] Pantoprazole Sodium [Protonix] 40 mg PO DAILY #30 tablet. 05/14/18 [Rx] Psyllium Husk [Daily Fiber] 0.52 gm PO DAILY PRN 06/22/18 [History] Citalopram Hydrobromide [Citalopram HBr] 20 mg PO DAILY 06/23/18 [History] Clopidogrel [Plavix] 75 mg PO DAILY 06/23/18 [History] Furosemide [Lasix] 40 mg PO DAILY 06/23/18 [History] Lisinopril 2.5 mg PO DAILY 06/23/18 [History] Metoprolol Succinate [Toprol Xl] 12.5 mg PO DAILY 06/23/18 [History] Allergy/AdvReac Type Severity Reaction Status Date / Time Neomycin Allergy Blister Verified 02/17/18 13:47 Penicillins Allergy Blister Verified 02/17/18 13:47 vancomycin Allergy Blister Verified 06/22/18 16:08 All Systems Review: The remainder of the systems were reviewed and are negative - Cardiovascular Cardiovascular: as per HPI, dyspnea at rest, dyspnea on exertion, leg edema - Respiratory Respiratory: dyspnea Physical Examination Vital Signs, Last 4 Hours Pulse Resp BP Pulse Ox 06/25/18 11:33 107 91/43 94 06/25/18 11:10 27 100 Vital Signs Temp Pulse Resp BP Pulse Ox 06/25/18 11:33 107 91/43 94 06/25/18 11:10 27 100 06/25/18 08:06 23 98 06/25/18 07:26 96 102/65 96 06/25/18 04:45 24 132/72 99 06/25/18 04:00 97.5 F L 87 18 132/72 97 06/25/18 00:25 28 138/73 98 06/24/18 22:01 90 06/24/18 21:00 97.5 F L 93 18 132/73 99 06/24/18 20:30 18 90 06/24/18 17:13 89 20 114/79 100 06/24/18 15:46 37 99 Intake and Output 06/24/18 06/25/18 06/25/18 23:59 07:59 15:59 Intake Total 220 / 220 320 / 320 110 / 110 Output Total 150 / 150 300 / 300 Balance 70 / 70 320 / 320 -190 / -190 Intake: IV Fluids 100 / 100 200 / 200 110 / 110 Rocephin 1,000 MG In Water for inj. (sterile) 10 ML @ 600 mls/ hr IVP DAILY [facility]ESSANDRO Rx#:[id number] Doxycycline 100 MG In 0.9 % 100 / 100 100 / 100 Sodium Chloride (Mini-Bag +) 100 ML @ 100 mls/hr IVPB Q12H [facility] Rx#:[id number] Oral 120 / 120 120 / 120 Output: Urine 150 / 150 300 / 300 Other: Stool Size Small Stool Consistency formed Stool Color Brown Weight 75 kg Blood Glucose* 133 127 165 Patient Weight 06/25/18 23:59 Weight 75 kg General: Conversant HEENT: Atraumatic, Normocephaly, Mucus Membranes Moist Neck: Normal carotid pulses Cardiac: Other (irregularly irregular) Lungs: Other (diminished) Neuro: Alert and responsive, No focal deficits noted Abdomen: Soft, Non-Tender Skin: No rashes noted on visualized skin Musculoskeletal: No Chest Wall Tenderness Extremities: Other (BLE edema) Results 06/25/18 05:29 06/25/18 05:29 Lab Results 06/25/18 06/25/18 06/25/18 05:29 05:29 05:29 WBC 7.9 D Hgb 9.4 L Hct 36.2 Plt Count 243 Sodium 141 Potassium 4.2 Chloride 101 Carbon Dioxide 36 H BUN 31 H Creatinine 0.58 L Glucose 132 H Calcium 9.9 B-Natriuretic Peptide 2084 H Short CBC 06/25/18 06/25/18 06/25/18 Range/Units 07:28 05:29 05:29 WBC (4.3-11.1) K/mcL RBC (3.82-4.97) M/mcL Hgb (11.5-15.4) g/dL Hct (35.3-44.9) % MCV (83.0-100.0) fL MCH (28.0-33.3) pg MCHC (31.6-35.5) g/dL RDW (11.5-14.5) % Plt Count (140-400) K/mcL MPV (9.4-12.4) fL Immature Gran % (0-4) % Seg Neutrophils % % Lymphocytes % % Monocytes % % Eosinophils % % Basophils % % Neutrophils # (1.6-8.9) K/mcL Lymphocytes # (0.6-4.6) K/mcL Monocytes # (0.0-1.3) K/mcL Eosinophils # (0.0-0.6) K/mcL Basophils # (0.0-0.2) K/mcL Platelet Estimate (Normal) Hypochromasia (Not Present) Anisocytosis (Not Present) PT (9.4-12.1) Seconds INR APTT (26.0-36.0) Seconds ABG pH (7.32-7.45) pH Units ABG pCO2 (35-45) mmHg ABG pO2 (85-104) mmHg ABG HCO3 (21-27) mEq/L ABG Total CO2 (20-26) mEq/L ABG O2 Saturation (95-98) % ABG Base Excess (-2 to 3) mEq/L VBG pH (7.32-7.42) pH Units VBG pCO2 (41-51) mmHg VBG pO2 (25-50) mmHg VBG HCO3 (21-27) mEq/L O2 Delivery Device Inspired O2 (1-15=lpm [id number]=%) Sodium 141 (136-145) mEq/L Potassium 4.2 (3.5-5.1) mEq/L Chloride 101 (98-107) mEq/L Carbon Dioxide 36 H (23-29) mEq/L BUN 31 H (8-23) mg/dL Creatinine 0.58 L (0.60-1.20) mg/dL Est GFR ( Amer) > 60 (> 60) Est GFR (Non-Af Amer) > 60 (> 60) BUN/Creatinine Ratio 53 H (6-26) Glucose 132 H (70-105) mg/dL POC Glucose 127 H (70-99) mg/dL Calculated Osmolality 300 (280-300) Lactic Acid (0.5-2.2) mmol/L Calcium 9.9 (8.6-10.3) mg/dL Troponin I (< 0.04) ng/mL B-Natriuretic Peptide 2084 H (Less than 100) pg/mL Chlamy pneumoniae PCR (Not Detect) Adenovirus (PCR) (Not Detect) B. pertussis DNA (PCR) (Not Detect) B.parapertussis DNA PCR (Not Detect) Coronavirus OC43 (PCR) (Not Detect) Coronavirus HKU1 (PCR) (Not Detect) Coronavirus 229E (PCR) (Not Detect) Coronavirus NL63 (PCR) (Not Detect) Human Metapneumovir PCR (Not Detect) Influenza A (H1) PCR (Not Detect) Influ A (H1N1/09) PCR (Not Detect) Influenza A (H3) PCR (Not Detect) Influenza A Untype (PCR) (Not Detect) Influenza Type B (PCR) (Not Detect) M.pneumoniae DNA (PCR) (Not Detect) Parainfluenza 1 (PCR) (Not Detect) Parainfluenza 2 (PCR) (Not Detect) Parainfluenza 3 (PCR) (Not Detect) Parainfluenza 4 (PCR) (Not Detect) RSV (PCR) (Not Detect) Entero/Rhino (PCR) (Not Detect) Person Notif of Crit 06/25/18 06/24/18 06/24/18 Range/Units 05:29 21:57 17:16 WBC 7.9 D (4.3-11.1) K/mcL RBC 4.35 (3.82-4.97) M/mcL Hgb 9.4 L (11.5-15.4) g/dL Hct 36.2 (35.3-44.9) % MCV 83.2 (83.0-100.0) fL MCH 21.6 L (28.0-33.3) pg MCHC 26.0 L (31.6-35.5) g/dL RDW 18.0 H (11.5-14.5) % Plt Count 243 (140-400) K/mcL MPV 9.9 (9.4-12.4) fL Immature Gran % 0.4 (0-4) % Seg Neutrophils % 78.8 % Lymphocytes % 9.7 % Monocytes % 11.1 % Eosinophils % 0.0 % Basophils % 0.0 % Neutrophils # 6.2 (1.6-8.9) K/mcL Lymphocytes # 0.8 (0.6-4.6) K/mcL Monocytes # 0.9 (0.0-1.3) K/mcL Eosinophils # 0.0 (0.0-0.6) K/mcL Basophils # 0.0 (0.0-0.2) K/mcL Platelet Estimate Normal (Normal) Hypochromasia Present A (Not Present) Anisocytosis (Not Present) PT (9.4-12.1) Seconds INR APTT (26.0-36.0) Seconds ABG pH (7.32-7.45) pH Units ABG pCO2 (35-45) mmHg ABG pO2 (85-104) mmHg ABG HCO3 (21-27) mEq/L ABG Total CO2 (20-26) mEq/L ABG O2 Saturation (95-98) % ABG Base Excess (-2 to 3) mEq/L VBG pH (7.32-7.42) pH Units VBG pCO2 (41-51) mmHg VBG pO2 (25-50) mmHg VBG HCO3 (21-27) mEq/L O2 Delivery Device Inspired O2 (1-15=lpm [id number]=%) Sodium (136-145) mEq/L Potassium (3.5-5.1) mEq/L Chloride (98-107) mEq/L Carbon Dioxide (23-29) mEq/L BUN (8-23) mg/dL Creatinine (0.60-1.20) mg/dL Est GFR ( Amer) (> 60) Est GFR (Non-Af Amer) (> 60) BUN/Creatinine Ratio (6-26) Glucose (70-105) mg/dL POC Glucose 133 H 138 H (70-99) mg/dL Calculated Osmolality (280-300) Lactic Acid (0.5-2.2) mmol/L Calcium (8.6-10.3) mg/dL Troponin I (< 0.04) ng/mL B-Natriuretic Peptide (Less than 100) pg/mL Chlamy pneumoniae PCR (Not Detect) Adenovirus (PCR) (Not Detect) B. pertussis DNA (PCR) (Not Detect) B.parapertussis DNA PCR (Not Detect) Coronavirus OC43 (PCR) (Not Detect) Coronavirus HKU1 (PCR) (Not Detect) Coronavirus 229E (PCR) (Not Detect) Coronavirus NL63 (PCR) (Not Detect) Human Metapneumovir PCR (Not Detect) Influenza A (H1) PCR (Not Detect) Influ A (H1N1/09) PCR (Not Detect) Influenza A (H3) PCR (Not Detect) Influenza A Untype (PCR) (Not Detect) Influenza Type B (PCR) (Not Detect) M.pneumoniae DNA (PCR) (Not Detect) Parainfluenza 1 (PCR) (Not Detect) Parainfluenza 2 (PCR) (Not Detect) Parainfluenza 3 (PCR) (Not Detect) Parainfluenza 4 (PCR) (Not Detect) RSV (PCR) (Not Detect) Entero/Rhino (PCR) (Not Detect) Person Notif of Crit 06/24/18 06/24/18 06/24/18 Range/Units 11:33 07:54 06:42 WBC (4.3-11.1) K/mcL RBC (3.82-4.97) M/mcL Hgb (11.5-15.4) g/dL Hct (35.3-44.9) % MCV (83.0-100.0) fL MCH (28.0-33.3) pg MCHC (31.6-35.5) g/dL RDW (11.5-14.5) % Plt Count (140-400) K/mcL MPV (9.4-12.4) fL Immature Gran % (0-4) % Seg Neutrophils % % Lymphocytes % % Monocytes % % Eosinophils % % Basophils % % Neutrophils # (1.6-8.9) K/mcL Lymphocytes # (0.6-4.6) K/mcL Monocytes # (0.0-1.3) K/mcL Eosinophils # (0.0-0.6) K/mcL Basophils # (0.0-0.2) K/mcL Platelet Estimate (Normal) Hypochromasia (Not Present) Anisocytosis (Not Present) PT (9.4-12.1) Seconds INR APTT (26.0-36.0) Seconds ABG pH (7.32-7.45) pH Units ABG pCO2 (35-45) mmHg ABG pO2 (85-104) mmHg ABG HCO3 (21-27) mEq/L ABG Total CO2 (20-26) mEq/L ABG O2 Saturation (95-98) % ABG Base Excess (-2 to 3) mEq/L VBG pH (7.32-7.42) pH Units VBG pCO2 (41-51) mmHg VBG pO2 (25-50) mmHg VBG HCO3 (21-27) mEq/L O2 Delivery Device Inspired O2 (1-15=lpm [id number]=%) Sodium 141 (136-145) mEq/L Potassium 4.9 (3.5-5.1) mEq/L Chloride 100 (98-107) mEq/L Carbon Dioxide 34 H (23-29) mEq/L BUN 25 H (8-23) mg/dL Creatinine 0.52 L (0.60-1.20) mg/dL Est GFR ( Amer) > 60 (> 60) Est GFR (Non-Af Amer) > 60 (> 60) BUN/Creatinine Ratio 48 H (6-26) Glucose 147 H (70-105) mg/dL POC Glucose 140 H 140 H (70-99) mg/dL Calculated Osmolality 299 (280-300) Lactic Acid (0.5-2.2) mmol/L Calcium 9.9 (8.6-10.3) mg/dL Troponin I (< 0.04) ng/mL B-Natriuretic Peptide (Less than 100) pg/mL Chlamy pneumoniae PCR (Not Detect) Adenovirus (PCR) (Not Detect) B. pertussis DNA (PCR) (Not Detect) B.parapertussis DNA PCR (Not Detect) Coronavirus OC43 (PCR) (Not Detect) Coronavirus HKU1 (PCR) (Not Detect) Coronavirus 229E (PCR) (Not Detect) Coronavirus NL63 (PCR) (Not Detect) Human Metapneumovir PCR (Not Detect) Influenza A (H1) PCR (Not Detect) Influ A (H1N1/09) PCR (Not Detect) Influenza A (H3) PCR (Not Detect) Influenza A Untype (PCR) (Not Detect) Influenza Type B (PCR) (Not Detect) M.pneumoniae DNA (PCR) (Not Detect) Parainfluenza 1 (PCR) (Not Detect) Parainfluenza 2 (PCR) (Not Detect) Parainfluenza 3 (PCR) (Not Detect) Parainfluenza 4 (PCR) (Not Detect) RSV (PCR) (Not Detect) Entero/Rhino (PCR) (Not Detect) Person Notif of Crit 06/24/18 06/23/18 06/23/18 Range/Units 06:42 19:47 17:12 WBC (4.3-11.1) K/mcL RBC 3.97 (3.82-4.97) M/mcL Hgb (11.5-15.4) g/dL Hct (35.3-44.9) % MCV 85.1 (83.0-100.0) fL MCH 21.7 L (28.0-33.3) pg MCHC 25.4 L (31.6-35.5) g/dL RDW 17.8 H (11.5-14.5) % Plt Count (140-400) K/mcL MPV 9.9 (9.4-12.4) fL Immature Gran % 0.2 (0-4) % Seg Neutrophils % 82.6 % Lymphocytes % 11.7 % Monocytes % 5.5 % Eosinophils % 0.0 % Basophils % 0.0 % Neutrophils # (1.6-8.9) K/mcL Lymphocytes # 0.5 L (0.6-4.6) K/mcL Monocytes # 0.2 (0.0-1.3) K/mcL Eosinophils # 0.0 (0.0-0.6) K/mcL Basophils # 0.0 (0.0-0.2) K/mcL Platelet Estimate Normal (Normal) Hypochromasia Present A (Not Present) Anisocytosis 1+ A (Not Present) PT (9.4-12.1) Seconds INR APTT (26.0-36.0) Seconds ABG pH (7.32-7.45) pH Units ABG pCO2 (35-45) mmHg ABG pO2 (85-104) mmHg ABG HCO3 (21-27) mEq/L ABG Total CO2 (20-26) mEq/L ABG O2 Saturation (95-98) % ABG Base Excess (-2 to 3) mEq/L VBG pH (7.32-7.42) pH Units VBG pCO2 (41-51) mmHg VBG pO2 (25-50) mmHg VBG HCO3 (21-27) mEq/L O2 Delivery Device Inspired O2 (1-15=lpm [id number]=%) Sodium (136-145) mEq/L Potassium (3.5-5.1) mEq/L Chloride (98-107) mEq/L Carbon Dioxide (23-29) mEq/L BUN (8-23) mg/dL Creatinine (0.60-1.20) mg/dL Est GFR ( Amer) (> 60) Est GFR (Non-Af Amer) (> 60) BUN/Creatinine Ratio (6-26) Glucose (70-105) mg/dL POC Glucose 162 H 149 H (70-99) mg/dL Calculated Osmolality (280-300) Lactic Acid (0.5-2.2) mmol/L Calcium (8.6-10.3) mg/dL Troponin I (< 0.04) ng/mL B-Natriuretic Peptide (Less than 100) pg/mL Chlamy pneumoniae PCR (Not Detect) Adenovirus (PCR) (Not Detect) B. pertussis DNA (PCR) (Not Detect) B.parapertussis DNA PCR (Not Detect) Coronavirus OC43 (PCR) (Not Detect) Coronavirus HKU1 (PCR) (Not Detect) Coronavirus 229E (PCR) (Not Detect) Coronavirus NL63 (PCR) (Not Detect) Human Metapneumovir PCR (Not Detect) Influenza A (H1) PCR (Not Detect) Influ A (H1N1/09) PCR (Not Detect) Influenza A (H3) PCR (Not Detect) Influenza A Untype (PCR) (Not Detect) Influenza Type B (PCR) (Not Detect) M.pneumoniae DNA (PCR) (Not Detect) Parainfluenza 1 (PCR) (Not Detect) Parainfluenza 2 (PCR) (Not Detect) Parainfluenza 3 (PCR) (Not Detect) Parainfluenza 4 (PCR) (Not Detect) RSV (PCR) (Not Detect) Entero/Rhino (PCR) (Not Detect) Person Notif of Crit 06/23/18 06/23/18 06/23/18 Range/Units 12:10 11:31 11:28 WBC (4.3-11.1) K/mcL RBC (3.82-4.97) M/mcL Hgb (11.5-15.4) g/dL Hct (35.3-44.9) % MCV (83.0-100.0) fL MCH (28.0-33.3) pg MCHC (31.6-35.5) g/dL RDW (11.5-14.5) % Plt Count (140-400) K/mcL MPV (9.4-12.4) fL Immature Gran % (0-4) % Seg Neutrophils % % Lymphocytes % % Monocytes % % Eosinophils % % Basophils % % Neutrophils # (1.6-8.9) K/mcL Lymphocytes # (0.6-4.6) K/mcL Monocytes # (0.0-1.3) K/mcL Eosinophils # (0.0-0.6) K/mcL Basophils # (0.0-0.2) K/mcL Platelet Estimate (Normal) Hypochromasia (Not Present) Anisocytosis (Not Present) PT (9.4-12.1) Seconds INR APTT (26.0-36.0) Seconds ABG pH 7.36 (7.32-7.45) pH Units ABG pCO2 62 H (35-45) mmHg ABG pO2 64 L (85-104) mmHg ABG HCO3 35 H (21-27) mEq/L ABG Total CO2 37 H (20-26) mEq/L ABG O2 Saturation 90 L (95-98) % ABG Base Excess 8 H (-2 to 3) mEq/L VBG pH (7.32-7.42) pH Units VBG pCO2 (41-51) mmHg VBG pO2 (25-50) mmHg VBG HCO3 (21-27) mEq/L O2 Delivery Device Oxy Mask Inspired O2 3.0 (1-15=lpm nu66-665=%) Sodium (136-145) mEq/L Potassium (3.5-5.1) mEq/L Chloride (98-107) mEq/L Carbon Dioxide (23-29) mEq/L BUN (8-23) mg/dL Creatinine (0.60-1.20) mg/dL Est GFR ( Amer) (> 60) Est GFR (Non-Af Amer) (> 60) BUN/Creatinine Ratio (6-26) Glucose (70-105) mg/dL POC Glucose 116 H (70-99) mg/dL Calculated Osmolality (280-300) Lactic Acid 2.2 (0.5-2.2) mmol/L Calcium (8.6-10.3) mg/dL Troponin I (< 0.04) ng/mL B-Natriuretic Peptide (Less than 100) pg/mL Chlamy pneumoniae PCR (Not Detect) Adenovirus (PCR) (Not Detect) B. pertussis DNA (PCR) (Not Detect) B.parapertussis DNA PCR (Not Detect) Coronavirus OC43 (PCR) (Not Detect) Coronavirus HKU1 (PCR) (Not Detect) Coronavirus 229E (PCR) (Not Detect) Coronavirus NL63 (PCR) (Not Detect) Human Metapneumovir PCR (Not Detect) Influenza A (H1) PCR (Not Detect) Influ A (H1N1/09) PCR (Not Detect) Influenza A (H3) PCR (Not Detect) Influenza A Untype (PCR) (Not Detect) Influenza Type B (PCR) (Not Detect) M.pneumoniae DNA (PCR) (Not Detect) Parainfluenza 1 (PCR) (Not Detect) Parainfluenza 2 (PCR) (Not Detect) Parainfluenza 3 (PCR) (Not Detect) Parainfluenza 4 (PCR) (Not Detect) RSV (PCR) (Not Detect) Entero/Rhino (PCR) (Not Detect) Person Notif of Crit 06/23/18 06/23/18 06/23/18 Range/Units 07:56 07:17 07:17 WBC (4.3-11.1) K/mcL RBC 4.07 (3.82-4.97) M/mcL Hgb (11.5-15.4) g/dL Hct (35.3-44.9) % MCV 84.5 (83.0-100.0) fL MCH 21.6 L (28.0-33.3) pg MCHC 25.6 L (31.6-35.5) g/dL RDW 18.0 H (11.5-14.5) % Plt Count (140-400) K/mcL MPV 10.1 (9.4-12.4) fL Immature Gran % 0.3 (0-4) % Seg Neutrophils % 79.9 % Lymphocytes % 15.0 % Monocytes % 4.8 % Eosinophils % 0.0 % Basophils % 0.0 % Neutrophils # (1.6-8.9) K/mcL Lymphocytes # 0.6 (0.6-4.6) K/mcL Monocytes # 0.2 (0.0-1.3) K/mcL Eosinophils # 0.0 (0.0-0.6) K/mcL Basophils # 0.0 (0.0-0.2) K/mcL Platelet Estimate (Normal) Hypochromasia (Not Present) Anisocytosis (Not Present) PT (9.4-12.1) Seconds INR APTT (26.0-36.0) Seconds ABG pH (7.32-7.45) pH Units ABG pCO2 (35-45) mmHg ABG pO2 (85-104) mmHg ABG HCO3 (21-27) mEq/L ABG Total CO2 (20-26) mEq/L ABG O2 Saturation (95-98) % ABG Base Excess (-2 to 3) mEq/L VBG pH (7.32-7.42) pH Units VBG pCO2 (41-51) mmHg VBG pO2 (25-50) mmHg VBG HCO3 (21-27) mEq/L O2 Delivery Device Inspired O2 (1-15=lpm po84-825=%) Sodium 141 (136-145) mEq/L Potassium 5.0 (3.5-5.1) mEq/L Chloride 104 (98-107) mEq/L Carbon Dioxide 33 H (23-29) mEq/L BUN 19 (8-23) mg/dL Creatinine 0.52 L (0.60-1.20) mg/dL Est GFR ( Amer) > 60 (> 60) Est GFR (Non-Af Amer) > 60 (> 60) BUN/Creatinine Ratio 37 H (6-26) Glucose 126 H (70-105) mg/dL POC Glucose 123 H (70-99) mg/dL Calculated Osmolality 296 (280-300) Lactic Acid (0.5-2.2) mmol/L Calcium 9.2 (8.6-10.3) mg/dL Troponin I (< 0.04) ng/mL B-Natriuretic Peptide (Less than 100) pg/mL Chlamy pneumoniae PCR (Not Detect) Adenovirus (PCR) (Not Detect) B. pertussis DNA (PCR) (Not Detect) B.parapertussis DNA PCR (Not Detect) Coronavirus OC43 (PCR) (Not Detect) Coronavirus HKU1 (PCR) (Not Detect) Coronavirus 229E (PCR) (Not Detect) Coronavirus NL63 (PCR) (Not Detect) Human Metapneumovir PCR (Not Detect) Influenza A (H1) PCR (Not Detect) Influ A (H1N1/09) PCR (Not Detect) Influenza A (H3) PCR (Not Detect) Influenza A Untype (PCR) (Not Detect) Influenza Type B (PCR) (Not Detect) M.pneumoniae DNA (PCR) (Not Detect) Parainfluenza 1 (PCR) (Not Detect) Parainfluenza 2 (PCR) (Not Detect) Parainfluenza 3 (PCR) (Not Detect) Parainfluenza 4 (PCR) (Not Detect) RSV (PCR) (Not Detect) Entero/Rhino (PCR) (Not Detect) Person Notif of Crit 06/22/18 06/22/18 06/22/18 Range/Units 18:11 15:49 14:21 WBC (4.3-11.1) K/mcL RBC (3.82-4.97) M/mcL Hgb (11.5-15.4) g/dL Hct (35.3-44.9) % MCV (83.0-100.0) fL MCH (28.0-33.3) pg MCHC (31.6-35.5) g/dL RDW (11.5-14.5) % Plt Count (140-400) K/mcL MPV (9.4-12.4) fL Immature Gran % (0-4) % Seg Neutrophils % % Lymphocytes % % Monocytes % % Eosinophils % % Basophils % % Neutrophils # (1.6-8.9) K/mcL Lymphocytes # (0.6-4.6) K/mcL Monocytes # (0.0-1.3) K/mcL Eosinophils # (0.0-0.6) K/mcL Basophils # (0.0-0.2) K/mcL Platelet Estimate (Normal) Hypochromasia (Not Present) Anisocytosis (Not Present) PT (9.4-12.1) Seconds INR APTT (26.0-36.0) Seconds ABG pH (7.32-7.45) pH Units ABG pCO2 (35-45) mmHg ABG pO2 (85-104) mmHg ABG HCO3 (21-27) mEq/L ABG Total CO2 (20-26) mEq/L ABG O2 Saturation (95-98) % ABG Base Excess (-2 to 3) mEq/L VBG pH 7.12 L* (7.32-7.42) pH Units VBG pCO2 99 H* (41-51) mmHg VBG pO2 65 H (25-50) mmHg VBG HCO3 32 H (21-27) mEq/L O2 Delivery Device Inspired O2 (1-15=lpm [id number]=%) Sodium (136-145) mEq/L Potassium (3.5-5.1) mEq/L Chloride (98-107) mEq/L Carbon Dioxide (23-29) mEq/L BUN (8-23) mg/dL Creatinine (0.60-1.20) mg/dL Est GFR ( Amer) (> 60) Est GFR (Non-Af Amer) (> 60) BUN/Creatinine Ratio (6-26) Glucose (70-105) mg/dL POC Glucose (70-99) mg/dL Calculated Osmolality (280-300) Lactic Acid 1.4 1.3 (0.5-2.2) mmol/L Calcium (8.6-10.3) mg/dL Troponin I (< 0.04) ng/mL B-Natriuretic Peptide (Less than 100) pg/mL Chlamy pneumoniae PCR (Not Detect) Adenovirus (PCR) (Not Detect) B. pertussis DNA (PCR) (Not Detect) B.parapertussis DNA PCR (Not Detect) Coronavirus OC43 (PCR) (Not Detect) Coronavirus HKU1 (PCR) (Not Detect) Coronavirus 229E (PCR) (Not Detect) Coronavirus NL63 (PCR) (Not Detect) Human Metapneumovir PCR (Not Detect) Influenza A (H1) PCR (Not Detect) Influ A (H1N1/09) PCR (Not Detect) Influenza A (H3) PCR (Not Detect) Influenza A Untype (PCR) (Not Detect) Influenza Type B (PCR) (Not Detect) M.pneumoniae DNA (PCR) (Not Detect) Parainfluenza 1 (PCR) (Not Detect) Parainfluenza 2 (PCR) (Not Detect) Parainfluenza 3 (PCR) (Not Detect) Parainfluenza 4 (PCR) (Not Detect) RSV (PCR) (Not Detect) Entero/Rhino (PCR) (Not Detect) Person Notif of Crit Dr Pelayo 06/22/18 06/22/18 06/22/18 Range/Units 14:00 14:00 14:00 WBC (4.3-11.1) K/mcL RBC (3.82-4.97) M/mcL Hgb (11.5-15.4) g/dL Hct (35.3-44.9) % MCV (83.0-100.0) fL MCH (28.0-33.3) pg MCHC (31.6-35.5) g/dL RDW (11.5-14.5) % Plt Count (140-400) K/mcL MPV (9.4-12.4) fL Immature Gran % (0-4) % Seg Neutrophils % % Lymphocytes % % Monocytes % % Eosinophils % % Basophils % % Neutrophils # (1.6-8.9) K/mcL Lymphocytes # (0.6-4.6) K/mcL Monocytes # (0.0-1.3) K/mcL Eosinophils # (0.0-0.6) K/mcL Basophils # (0.0-0.2) K/mcL Platelet Estimate (Normal) Hypochromasia (Not Present) Anisocytosis (Not Present) PT 14.7 H (9.4-12.1) Seconds INR 1.3 APTT 31.2 (26.0-36.0) Seconds ABG pH (7.32-7.45) pH Units ABG pCO2 (35-45) mmHg ABG pO2 (85-104) mmHg ABG HCO3 (21-27) mEq/L ABG Total CO2 (20-26) mEq/L ABG O2 Saturation (95-98) % ABG Base Excess (-2 to 3) mEq/L VBG pH (7.32-7.42) pH Units VBG pCO2 (41-51) mmHg VBG pO2 (25-50) mmHg VBG HCO3 (21-27) mEq/L O2 Delivery Device Inspired O2 (1-15=lpm [id number]=%) Sodium (136-145) mEq/L Potassium (3.5-5.1) mEq/L Chloride (98-107) mEq/L Carbon Dioxide (23-29) mEq/L BUN (8-23) mg/dL Creatinine (0.60-1.20) mg/dL Est GFR ( Amer) (> 60) Est GFR (Non-Af Amer) (> 60) BUN/Creatinine Ratio (6-26) Glucose (70-105) mg/dL POC Glucose (70-99) mg/dL Calculated Osmolality (280-300) Lactic Acid 6.5 H* (0.5-2.2) mmol/L Calcium (8.6-10.3) mg/dL Troponin I (< 0.04) ng/mL B-Natriuretic Peptide 1481 H (Less than 100) pg/mL Chlamy pneumoniae PCR (Not Detect) Adenovirus (PCR) (Not Detect) B. pertussis DNA (PCR) (Not Detect) B.parapertussis DNA PCR (Not Detect) Coronavirus OC43 (PCR) (Not Detect) Coronavirus HKU1 (PCR) (Not Detect) Coronavirus 229E (PCR) (Not Detect) Coronavirus NL63 (PCR) (Not Detect) Human Metapneumovir PCR (Not Detect) Influenza A (H1) PCR (Not Detect) Influ A (H1N1/09) PCR (Not Detect) Influenza A (H3) PCR (Not Detect) Influenza A Untype (PCR) (Not Detect) Influenza Type B (PCR) (Not Detect) M.pneumoniae DNA (PCR) (Not Detect) Parainfluenza 1 (PCR) (Not Detect) Parainfluenza 2 (PCR) (Not Detect) Parainfluenza 3 (PCR) (Not Detect) Parainfluenza 4 (PCR) (Not Detect) RSV (PCR) (Not Detect) Entero/Rhino (PCR) (Not Detect) Person Notif of Crit 06/22/18 06/22/18 06/22/18 Range/Units 14:00 14:00 12:10 WBC (4.3-11.1) K/mcL RBC 4.78 (3.82-4.97) M/mcL Hgb (11.5-15.4) g/dL Hct (35.3-44.9) % MCV 85.8 (83.0-100.0) fL MCH 21.8 L (28.0-33.3) pg MCHC 25.4 L (31.6-35.5) g/dL RDW 18.6 H (11.5-14.5) % Plt Count (140-400) K/mcL MPV 9.7 (9.4-12.4) fL Immature Gran % 0.3 (0-4) % Seg Neutrophils % 48.2 % Lymphocytes % 33.9 % Monocytes % 15.5 % Eosinophils % 1.6 % Basophils % 0.5 % Neutrophils # (1.6-8.9) K/mcL Lymphocytes # 3.1 (0.6-4.6) K/mcL Monocytes # 1.4 H (0.0-1.3) K/mcL Eosinophils # 0.2 (0.0-0.6) K/mcL Basophils # 0.1 (0.0-0.2) K/mcL Platelet Estimate Normal (Normal) Hypochromasia Present A (Not Present) Anisocytosis 1+ A (Not Present) PT (9.4-12.1) Seconds INR APTT (26.0-36.0) Seconds ABG pH (7.32-7.45) pH Units ABG pCO2 (35-45) mmHg ABG pO2 (85-104) mmHg ABG HCO3 (21-27) mEq/L ABG Total CO2 (20-26) mEq/L ABG O2 Saturation (95-98) % ABG Base Excess (-2 to 3) mEq/L VBG pH (7.32-7.42) pH Units VBG pCO2 (41-51) mmHg VBG pO2 (25-50) mmHg VBG HCO3 (21-27) mEq/L O2 Delivery Device Inspired O2 (1-15=lpm [id number]=%) Sodium 140 (136-145) mEq/L Potassium 4.0 (3.5-5.1) mEq/L Chloride 98 (98-107) mEq/L Carbon Dioxide 29 (23-29) mEq/L BUN 16 (8-23) mg/dL Creatinine 0.62 (0.60-1.20) mg/dL Est GFR ( Amer) > 60 (> 60) Est GFR (Non-Af Amer) > 60 (> 60) BUN/Creatinine Ratio 26 (6-26) Glucose 229 H (70-105) mg/dL POC Glucose (70-99) mg/dL Calculated Osmolality 298 (280-300) Lactic Acid (0.5-2.2) mmol/L Calcium 9.3 (8.6-10.3) mg/dL Troponin I 0.05 H* (< 0.04) ng/mL B-Natriuretic Peptide (Less than 100) pg/mL Chlamy pneumoniae PCR Not Detected (Not Detect) Adenovirus (PCR) Not Detected (Not Detect) B. pertussis DNA (PCR) Not Detected (Not Detect) B.parapertussis DNA PCR Not Detected (Not Detect) Coronavirus OC43 (PCR) Not Detected (Not Detect) Coronavirus HKU1 (PCR) Not Detected (Not Detect) Coronavirus 229E (PCR) Not Detected (Not Detect) Coronavirus NL63 (PCR) Not Detected (Not Detect) Human Metapneumovir PCR Not Detected (Not Detect) Influenza A (H1) PCR Not Detected (Not Detect) Influ A (H1N1/09) PCR Not Detected (Not Detect) Influenza A (H3) PCR Not Detected (Not Detect) Influenza A Untype (PCR) Not Detected (Not Detect) Influenza Type B (PCR) Not Detected (Not Detect) M.pneumoniae DNA (PCR) Not Detected (Not Detect) Parainfluenza 1 (PCR) Not Detected (Not Detect) Parainfluenza 2 (PCR) Not Detected (Not Detect) Parainfluenza 3 (PCR) Not Detected (Not Detect) Parainfluenza 4 (PCR) Not Detected (Not Detect) RSV (PCR) Not Detected (Not Detect) Entero/Rhino (PCR) Not Detected (Not Detect) Person Notif of Crit BMP 06/25/18 Range/Units 05:29 Sodium 141 (136-145) mEq/L Potassium 4.2 (3.5-5.1) mEq/L Chloride 101 (98-107) mEq/L Carbon Dioxide 36 H (23-29) mEq/L BUN 31 H (8-23) mg/dL Creatinine 0.58 L (0.60-1.20) mg/dL Glucose 132 H (70-105) mg/dL Calcium 9.9 (8.6-10.3) mg/dL Impressions Echocardiogram Limited Views 06/24/18 11:10 Impressions: Technically challenging exam. LVEF challenging to quantify even with use of Definity. Grossly EF 35-40%. Atypical septal motion consistent with bundle branch block. Definity echo contrast was used - unable to fully evaluate segmental wall motion due to technical quality. Severe bi-atrial enlargment. Left Ventricular Wall Motion: Rest Echo Findings The apex, apical inferior, mid inferior, basal inferior, apical anterior, mid anterior, basal anterior, apical septal, mid inferior septal, basal inferior septal, apical lateral, mid anterior lateral, basal anterior lateral, mid anterior septal, mid inferior lateral, basal anterior septal and basal inferior lateral webb were hypokinetic. Findings: Study Quality * Technically challenging exam. ECG Findings * Atrial fibrillation, BBB. Left Ventricle * LVEF 35-40%. * Atypical septal motion consistent with bundle branch block. * Normal LV chamber size and wall thickness. * Definity echo contrast was used. * There is no LV thrombus. Right Ventricle * RV is not optimally evaluated. Left Atrium * Severely dilated left atrium. Right Atrium * Severely dilated right atrium. Aorta * Normally sized aortic root. Pericardium * There is no pericardial effusion present. Active Medications Albuterol Sulfate (Proventil Neb) 2.5 mg IH [id number] PRN; Protocol PRN Reason: Shortness Of Breath/Wheezing Stop: 12/22/18 16:14 Albuterol/Ipratropium (Duoneb) 3 ml IH [id number] [facility] [place]; Protocol Stop: 12/22/18 20:01 Last Admin: 06/25/18 11:10 Dose: 3 ml Aspirin (Aspirin) 81 mg PO DAILY [facility] [place] Stop: 12/24/18 09:01 Last Admin: 06/25/18 08:46 Dose: 81 mg Atorvastatin Calcium (Lipitor) 10 mg PO DAILY [facility] [place] Stop: 12/24/18 09:01 Last Admin: 06/25/18 08:46 Dose: 10 mg Citalopram Hydrobromide (Celexa) 20 mg PO DAILY [facility] [place] Stop: 12/24/18 09:01 Last Admin: 06/25/18 08:46 Dose: 20 mg Clopidogrel Bisulfate (Plavix) 75 mg PO DAILY [facility] [place] Stop: 12/24/18 09:01 Last Admin: 06/25/18 08:46 Dose: 75 mg Docusate Sodium (Colace) 100 mg PO DAILY [facility] [place]; Protocol Stop: 12/24/18 09:01 Last Admin: 06/25/18 08:46 Dose: 100 mg Furosemide (Lasix) 40 mg IVP DAILY [facility] [place] Stop: 12/26/18 09:01 Heparin Sodium (Porcine) (Heparin) 5,000 unit SQ Q12HCO [facility] [place] Stop: 12/23/18 06:01 Last Admin: 06/25/18 05:18 Dose: 5,000 unit Naloxone HCl (Narcan) 0.4 mg IVP Q2M PRN PRN Reason: SEE COMMENTS Stop: 12/22/18 15:50 Omeprazole (Prilosec) 20 mg PO DAILY@0730 [facility] [place] Stop: 12/24/18 07:31 Last Admin: 06/25/18 08:46 Dose: 20 mg Psyllium Hydrophilic Mucilloid (Metamucil Fiber Singles Packet) 1 packet PO DAILY PRN PRN Reason: Constipation - Imaging and Cardiology Echo: report reviewed Cardiac cath: report reviewed - EKG Interpretation EKG results cardiology: personally reviewed (A-Fib RVR, LBBB) Consult Discharge Plan - Plan Referrals: Duran Sims Jr, MD [Primary Care Provider] - <Nick Coppola A - Last Filed: 06/26/18 09:04> Date of Encounter: 06/26/18 - Attending Attestation I have personally performed a face to face evaluation on this patient. I have reviewed and agree with the documented findings and care plan as documented by the PHOTOGRAPHIC REPRODUCTION TECHNICIAN. History and Exam by me shows: 68-year-old pleasant female with history of , CAD, cardiomyopathy, systolic heart failure, admitted for acute respiratory failure secondary to acute CHF exacerbation exacerbation. CXR and BNP supportive of fluid overload Recommend aggressive diuresis, with vasopressor support as needed. Continue BiPAP. Strict inputs and outputs monitoring, fluid restricted low-salt diet Nick Cantu MD FACC Assessment and Plan Discussion w patient/family: The assessment and plan as outlined above was discussed with the patient and/or family members who expressed understanding and agreement. All questions were answered. Thank you for involving us in the care of your patient. Please call with any questions. History of Present Illness History of present illness: Ms. Smith is a 68 year old female All Systems Review: The remainder of the systems were reviewed and are negative Physical Examination Vital Signs, Last 4 Hours Temp Pulse Resp BP Pulse Ox 06/26/18 07:28 99.4 F 99 26 86/66 100 Results 06/26/18 03:20 06/26/18 03:20 Lab Results 06/26/18 06/26/18 03:20 03:20 WBC 9.5 Hgb 9.0 L Hct 34.0 L Plt Count 220 Sodium 140 Potassium 3.9 Chloride 100 Carbon Dioxide 39 H BUN 30 H Creatinine 0.53 L Glucose 91 Calcium 9.1
--- NOTE | 2018-06-25 15:26 | Internal Med Progress Note ---
Hospitalist Progress Note - Encounter Date of Encounter: 06/25/18 Time of Encounter: 09:00 - Subjective Interval History: Patient still has shortness of breath with difficulty to laying down flat. Patient cannot tolerate high-dose IV Lasix because BP intolerance. Patient denies cough, fever. Patient has no wheezing on auscultation when I saw her. - Exam Vitals: Temp Pulse Resp BP Pulse Ox 97.5 F L 107 27 91/43 94 06/25/18 04:00 06/25/18 11:33 06/25/18 11:10 06/25/18 11:33 06/25/18 11:33 Exam: General: Patient is alert, moderate distress, oriented x 3 ENT: Mucous membranes moist, BiPAP mask in place Respiratory: Coarse breath sounds bilaterally. Decreased at both bases, no wheezing Cardiovascular: Regular rate and rhythm. s1 and s2 normal No clicks, rubs, gallops, or murmurs. Bilateral pedal edema present Abdomen: Abdomen is soft, nontender. Bowel sounds are present Musculoskeletal: Spontaneously moving all extremities Skin: warm, dry, intact. Neuro: Alert oriented x 3 normal cranial nerves, no focal deficits - Assessment and Plan (1) Congestive heart failure Current Visit: Yes Status: Acute Assessment and Plan: Pt has known systolic CHF with LVEF 35-40%. Has elevated BNP. Worsening shortness of breath. Chest x-ray shows pulmonary edema. Consider systolic CHF exacerbation. - Patient cannot tolerate high-dose Lasix because of low BP. The fluid removal is not ideal. - Continue fluid restriction, strict I and O - Will consult cardiology for further management - (2) Acute on chronic respiratory failure with hypoxia and hypercapnia Current Visit: Yes Status: Acute Assessment and Plan: Continue O2 supplementation and use BiPAP as needed. Continue bronchodilators. Patient has been able to tolerate nasal cannula intermittently. Will d/c steroid as patient has no wheezing and steroid may worsen CHF. (3) COPD (chronic obstructive pulmonary disease) Current Visit: Yes Status: Acute Assessment and Plan: Continue treatment with bronchodilators, and O2 supplementation. (4) Atrial fibrillation Current Visit: Yes Status: Chronic Assessment and Plan: Rate controlled. Patient not on anticoagulation due to history of reported epis taxis and hemoptysis while on anticoagulation. (5) Pneumonia Current Visit: Yes Status: Suspected Assessment and Plan: Patient denies cough or fever. Chest x-ray favorite CHF exacerbation. - We will discontinue antibiotics at this point, continue closely monitor patient. DVT Prophylaxis: SC heparin - Time Spent with Patient Total time spent is greater than 50% in coordination of care (as documented) at patient's floor/unit and/or counseling patient: 25 - 35 minutes Plan of Care Discussed with: patient Internal Medicine: Result - Labs CBC & Chem 7: 06/25/18 05:29 06/25/18 05:29 Labs: Short CBC 06/25/18 Range/Units 05:29 WBC 7.9 D (4.3-11.1) K/mcL Hgb 9.4 L (11.5-15.4) g/dL Hct 36.2 (35.3-44.9) % Plt Count 243 (140-400) K/mcL Neutrophils # 6.2 (1.6-8.9) K/mcL BMP 06/25/18 05:29 Sodium 141 Potassium 4.2 Chloride 101 Carbon Dioxide 36 H BUN 31 H Creatinine 0.58 L Glucose 132 H Calcium 9.9 - ABG Interpretation ABG results: ABG ABG pH 7.36 pH Units (7.32-7.45) 06/23/18 11:28 ABG pCO2 62 mmHg (35-45) H 06/23/18 11:28 ABG pO2 64 mmHg (85-104) L 06/23/18 11:28 ABG O2 Saturation 90 % (95-98) L 06/23/18 11:28 PT/INR, D-dimer PT 14.7 Seconds (9.4-12.1) H 06/22/18 14:00 - Impressions Impressions Echocardiogram Limited Views 06/24/18 11:10 Impressions: Technically challenging exam. LVEF challenging to quantify even with use of Definity. Grossly EF 35-40%. Atypical septal motion consistent with bundle branch block. Definity echo contrast was used - unable to fully evaluate segmental wall motion due to technical quality. Severe bi-atrial enlargment. Left Ventricular Wall Motion: Rest Echo Findings The apex, apical inferior, mid inferior, basal inferior, apical anterior, mid anterior, basal anterior, apical septal, mid inferior septal, basal inferior septal, apical lateral, mid anterior lateral, basal anterior lateral, mid anterior septal, mid inferior lateral, basal anterior septal and basal inferior lateral webb were hypokinetic. Findings: Study Quality * Technically challenging exam. ECG Findings * Atrial fibrillation, BBB. Left Ventricle * LVEF 35-40%. * Atypical septal motion consistent with bundle branch block. * Normal LV chamber size and wall thickness. * Definity echo contrast was used. * There is no LV thrombus. Right Ventricle * RV is not optimally evaluated. Left Atrium * Severely dilated left atrium. Right Atrium * Severely dilated right atrium. Aorta * Normally sized aortic root. Pericardium * There is no pericardial effusion present. Consult Discharge Plan - Plan Referrals: Duran Sims Jr, MD [Primary Care Provider] - (1) Congestive heart failure Qualifiers: Qualified Code(s): I50.43 - Acute on chronic combined systolic (congestive) and diastolic (congestive) heart failure (3) COPD (chronic obstructive pulmonary disease) Qualifiers: Qualified Code(s): J44.1 - Chronic obstructive pulmonary disease with (acute) exacerbation (4) Atrial fibrillation Qualifiers: Qualified Code(s): I48.0 - Paroxysmal atrial fibrillation (5) Pneumonia Qualifiers: Qualified Code(s): J18.1 - Lobar pneumonia, unspecified organism
[2018-06-25] MEDS: Levalbuterol Neb 1.25 MG/3 ML IH SCH ×2 (19:32→21:59)
[2018-06-25] MEDS: Furosemide 40 MG/4 ML VIAL IVP SCH (20:07)
[2018-06-26] MEDS: Levalbuterol Neb 1.25 MG/3 ML IH SCH ×4 (03:24→21:36)
[2018-06-26 03:52] LABS: Basophils % 0.1 %; Eosinophils % 0.1 %; Immature Granulocytes % 0.3 % (0-4); Lymphocytes # 2.5 K/mcL (0.6-4.6); Lymphocytes % 26.3 %; Mean Corpuscular HGB Conc 26.5 g/dL (31.6-35.5); Mean Corpuscular Volume 83.1 fL (83.0-100.0); Mean Platelet Volume 10.3 fL (9.4-12.4); Monocytes # 1.6 K/mcL (0.0-1.3); Monocytes % 16.3 %; Neutrophils # 5.4 K/mcL (1.6-8.9); Platelet Count 220 K/mcL (140-400); Red Blood Count 4.09 M/mcL (3.82-4.97); Red Cell Distribution Width 18.1 % (11.5-14.5); Segmented Neutrophils % 56.9 %
[2018-06-26 04:10] LABS: BUN/Creatinine Ratio 57 (6-26); Blood Urea Nitrogen 30 mg/dL (8-23); Calcium 9.1 mg/dL (8.6-10.3); Carbon Dioxide 39 mEq/L (23-29); Chloride 100 mEq/L (98-107); Glucose 91 mg/dL (70-105); Osmolality,Calculated 296 (280-300); Potassium 3.9 mEq/L (3.5-5.1); Sodium 140 mEq/L (136-145); eGFR For Non-African Americans > 60 (> 60)
[2018-06-26 04:15] LABS: Anisocytosis 2+ (Not Present); Hypochromasia Present (Not Present); Microcytosis Present (Not Present); Platelet Estimate Normal (Normal)
[2018-06-26] MEDS: *HR* Heparin 5,000 UNIT/ML VIAL SQ SCH ×2 (05:56→17:35)
[2018-06-26] MEDS: Aspirin 81 MG TAB.CHEW PO SCH (07:40)
[2018-06-26] MEDS ORDERED: Furosemide 40 MG/4 ML VIAL IVP SCH (09:00)
--- NOTE | 2018-06-26 09:36 | Cardiology Progress Note ---
Date of Encounter: 06/26/18 Time of Encounter: 09:29 Assessment and Plan (1) Acute on chronic systolic CHF (congestive heart failure), NYHA class 3 Current Visit: Yes Status: Acute PMH of systolic CHF. Worsening dyspnea 1 week prior to admission. Baseline weight ~153lbs, 158lbs today, down from 165lb yesterday--?accuracy. BNP 1481 on admission, 2084 06/25. CXR 06/23 with small right pleural effusion. Troponin 0.05--likely demand ischemia. Limited TTE 06/24/18 LVEF grossly 35-40%. Severe biatrial enlargement. 03/2018 EF was 40-45% and 01/2018 EF 30%. Increased IV Lasix dose to 40mg BID. Ordered Dopamine yesterday afternoon, was cancelled since BP tolerated IV Lasix dose. BP 80s/50s this AM, IV Lasix held. Pt still with conversational dyspnea and pursed lip breathing. Discussed with Dr. Coppola. Reordered dopamine gtt so that BP will allow for IV diuresis. I/O documated as 2000mL of outpt since yesterday, still net positive 1.3L. Recommend strict I/Os, Na and fluid restriction, daily weights. Continue to follow. (2) Atrial fibrillation Current Visit: Yes Status: Chronic Known A-Fib. 12 hr tele AVG HR 101. Currently not on AV teresa blockers due to hypotension. [id number]. Not on anticoagulation because of episodes of hemoptysis and epistaxis while on anticoagulation previously. Continue ASA. Qualifiers: Atrial fibrillation type: paroxysmal Qualified Code(s): I48.0 - Paroxysmal atrial fibrillation (3) NICM (nonischemic cardiomyopathy) Current Visit: No Status: Chronic Known hx of CMP, EF 35-40%, thought to be NICMP since CMP is out of proportion to her CAD. Currently not on BB or ACEi d/t hypotension. (4) Coronary artery disease Current Visit: No Status: Chronic LHC 02/13/17: Severe 1 vessel CAD. 70% mRCA. Continue ASA, Statin. No BB d/t hypotension. Pt denies chest pain. Outpt notes mention repeat cath but pt has always been hesitant d/t metal allergy. Pt states she would now be willing. Will consider LHC prior to d/c once more euvolemic. Qualifiers: Coronary Disease-Associated Artery/Lesion type: [place] artery [place] vs. transplanted heart: [place] heart Associated angina: without angina Qualified Code(s): I25.10 - Atherosclerotic heart disease of [place] coronary artery without angina pectoris (5) LBBB (left bundle branch block) Current Visit: No Status: Chronic Known LBBB. Discussion w patient/family: The assessment and plan as outlined above was discussed with the patient and/or family members who expressed understanding and agreement. All questions were answered. Thank you for involving us in the care of your patient. Please call with any questions. I will discuss all the above with Dr. Coppola and make changes as necessary. Subjective Principal diagnosis: CHF Interval history: Dyspnea persists. Mild improvement in BLE edema. Objective Vital Signs, Last 4 Hours Temp Pulse Resp BP Pulse Ox 06/26/18 07:28 99.4 F 99 26 86/66 100 Vital Signs Temp Pulse Resp BP Pulse Ox 06/26/18 07:28 99.4 F 99 26 86/66 100 06/26/18 04:43 97.6 F 106 22 93/53 99 06/26/18 04:02 98.0 F 100 21 99/52 99 06/26/18 03:39 22 99 06/26/18 03:26 22 98 06/25/18 23:34 96 06/25/18 23:00 98.3 F 122 18 96/53 92 06/25/18 22:01 18 100 06/25/18 20:17 98.2 F 96 22 103/73 06/25/18 15:50 20 100 06/25/18 15:34 104 99/61 96 06/25/18 11:33 107 91/43 94 06/25/18 11:10 27 100 Intake and Output 06/25/18 06/26/18 06/26/18 23:59 07:59 15:59 Output Total 1700 / 1700 100 / 100 225 / 225 Balance -1700 / -1700 -100 / -100 -225 / -225 Output: Urine 1700 / 1700 100 / 100 225 / 225 Other: Meal Breakfast Percent of Meal Consumed 50% Weight 71.9 kg Blood Glucose* 99 88 Patient Weight 06/26/18 23:59 Weight 71.9 kg General: Conversant, No Apparent Distress HEENT: Atraumatic, Normocephaly, Mucus Membranes Moist Neck: Normal carotid pulses Cardiac: Other (irregularly irregular) Lungs: Other (diminished) Neuro: Alert and responsive, No focal deficits noted Abdomen: Soft, Non-Tender Skin: No rashes noted on visualized skin Musculoskeletal: No Chest Wall Tenderness Extremities: Other (mild BLE edema) Results 06/26/18 03:20 06/26/18 03:20 Lab Results 06/26/18 06/26/18 03:20 03:20 WBC 9.5 Hgb 9.0 L Hct 34.0 L Plt Count 220 Sodium 140 Potassium 3.9 Chloride 100 Carbon Dioxide 39 H BUN 30 H Creatinine 0.53 L Glucose 91 Calcium 9.1 Short CBC 06/26/18 Range/Units 03:20 WBC 9.5 (4.3-11.1) K/mcL Hgb 9.0 L (11.5-15.4) g/dL Hct 34.0 L (35.3-44.9) % Plt Count 220 (140-400) K/mcL Neutrophils # 5.4 (1.6-8.9) K/mcL BMP 06/26/18 Range/Units 03:20 Sodium 140 (136-145) mEq/L Potassium 3.9 (3.5-5.1) mEq/L Chloride 100 (98-107) mEq/L Carbon Dioxide 39 H (23-29) mEq/L BUN 30 H (8-23) mg/dL Creatinine 0.53 L (0.60-1.20) mg/dL Glucose 91 (70-105) mg/dL Calcium 9.1 (8.6-10.3) mg/dL Impressions Echocardiogram Limited Views 06/24/18 11:10 Impressions: Technically challenging exam. LVEF challenging to quantify even with use of Definity. Grossly EF 35-40%. Atypical septal motion consistent with bundle branch block. Definity echo contrast was used - unable to fully evaluate segmental wall motion due to technical quality. Severe bi-atrial enlargment. Left Ventricular Wall Motion: Rest Echo Findings The apex, apical inferior, mid inferior, basal inferior, apical anterior, mid anterior, basal anterior, apical septal, mid inferior septal, basal inferior septal, apical lateral, mid anterior lateral, basal anterior lateral, mid anterior septal, mid inferior lateral, basal anterior septal and basal inferior lateral webb were hypokinetic. Findings: Study Quality * Technically challenging exam. ECG Findings * Atrial fibrillation, BBB. Left Ventricle * LVEF 35-40%. * Atypical septal motion consistent with bundle branch block. * Normal LV chamber size and wall thickness. * Definity echo contrast was used. * There is no LV thrombus. Right Ventricle * RV is not optimally evaluated. Left Atrium * Severely dilated left atrium. Right Atrium * Severely dilated right atrium. Aorta * Normally sized aortic root. Pericardium * There is no pericardial effusion present. Active Medications Albuterol Sulfate (Proventil Neb) 2.5 mg IH [id number] PRN; Protocol PRN Reason: Shortness Of Breath/Wheezing Stop: 12/22/18 16:14 Last Admin: 06/25/18 15:50 Dose: 2.5 mg Aspirin (Aspirin) 81 mg PO DAILY [facility] Stop: 12/24/18 09:01 Last Admin: 06/26/18 07:40 Dose: 81 mg Atorvastatin Calcium (Lipitor) 10 mg PO DAILY [facility] Stop: 12/24/18 09:01 Last Admin: 06/26/18 07:40 Dose: 10 mg Citalopram Hydrobromide (Celexa) 20 mg PO DAILY [facility] Stop: 12/24/18 09:01 Last Admin: 06/26/18 07:40 Dose: 20 mg Clopidogrel Bisulfate (Plavix) 75 mg PO DAILY [facility] Stop: 12/24/18 09:01 Last Admin: 06/26/18 07:40 Dose: 75 mg Docusate Sodium (Colace) 100 mg PO DAILY [facility]; Protocol Stop: 12/24/18 09:01 Last Admin: 06/26/18 07:40 Dose: 100 mg Furosemide (Lasix) 40 mg IVP BIDDIURETIC [facility] Stop: 12/25/18 21:01 Last Admin: 06/25/18 20:07 Dose: 40 mg Heparin Sodium (Porcine) (Heparin) 5,000 unit SQ Q12HCO [facility] Stop: 12/23/18 06:01 Last Admin: 06/26/18 05:56 Dose: 5,000 unit Levalbuterol HCl (Xopenex) 1.25 mg IH [id number] [facility] Stop: 12/25/18 16:01 Last Admin: 06/26/18 03:24 Dose: 1.25 mg Naloxone HCl (Narcan) 0.4 mg IVP Q2M PRN PRN Reason: SEE COMMENTS Stop: 12/22/18 15:50 Omeprazole (Prilosec) 20 mg PO DAILY@0730 [facility] Stop: 12/24/18 07:31 Last Admin: 06/26/18 07:40 Dose: 20 mg Psyllium Hydrophilic Mucilloid (Metamucil Fiber Singles Packet) 1 packet PO DAILY PRN PRN Reason: Constipation - Imaging and Cardiology Echo: report reviewed Cardiac cath: report reviewed - EKG Interpretation EKG results cardiology: other (12 hr tele AVG 101, A-Fib.) Consult Discharge Plan - Plan Referrals: Duran Sims Jr, MD [Primary Care Provider] -
[2018-06-26] MEDS ORDERED: Lidocaine -MPF 1% 5 ML AMPUL INFILT ONE (11:24)
[2018-06-26] MEDS: Furosemide 40 MG/4 ML VIAL IVP SCH ×2 (14:04→17:35)
--- NOTE | 2018-06-26 14:52 | Internal Med Progress Note ---
Hospitalist Progress Note - Encounter Date of Encounter: 06/26/18 Time of Encounter: 09:00 - Subjective Interval History: Patient complaining of tired. States shortness of breath has improved after Lasix use. BP at lower side, will start dopamine drip. Otherwise vitals are stable. - Exam Vitals: Temp Pulse Resp BP Pulse Ox 98.7 F 94 34 113/79 100 06/26/18 11:30 06/26/18 11:30 06/26/18 11:30 06/26/18 11:30 06/26/18 11:30 Exam: General: Patient is alert, moderate distress, oriented x 3 ENT: Mucous membranes moist, BiPAP mask in place Respiratory: Coarse breath sounds bilaterally. Decreased at both bases, no wheezing Cardiovascular: Regular rate and rhythm. s1 and s2 normal No clicks, rubs, gallops, or murmurs. Abdomen: Abdomen is soft, nontender. Bowel sounds are present Musculoskeletal: Spontaneously moving all extremities. Bilateral pedal edema present Skin: warm, dry, intact. Neuro: Alert oriented x 3 normal cranial nerves, no focal deficits - Assessment and Plan (1) Congestive heart failure Current Visit: Yes Status: Acute Assessment and Plan: Pt has known systolic CHF with LVEF 35-40%. Has elevated BNP. Worsening shortness of breath. Chest x-ray shows pulmonary edema. Consider systolic CHF exacerbation. - Patient cannot tolerate high-dose Lasix because of low BP. The fluid removal is not ideal. - Continue fluid restriction, strict I and O - Cardiology consult appreciated, will start dopamine drip to maintain BP when patient is treated with IV Lasix. Patient was transferred to and PICC line placed for dopamine drip. (2) Acute on chronic respiratory failure with hypoxia and hypercapnia Current Visit: Yes Status: Acute Assessment and Plan: Continue O2 supplementation and use BiPAP as needed. Continue bronchodilators. Patient has been able to tolerate nasal cannula intermittently. (3) COPD (chronic obstructive pulmonary disease) Current Visit: Yes Status: Acute Assessment and Plan: Continue treatment with bronchodilators, and O2 supplementation. Patient has no wheezing (4) Atrial fibrillation Current Visit: Yes Status: Chronic Assessment and Plan: Rate controlled. Patient not on anticoagulation due to history of reported epistaxis and hemoptysis while on anticoagulation. (5) Pneumonia Current Visit: Yes Status: Suspected Assessment and Plan: Patient denies cough or fever. Chest x-ray favorite CHF exacerbation. - We will discontinue antibiotics at this point, continue closely monitor patient. DVT Prophylaxis: SC heparin - Time Spent with Patient Total time spent is greater than 50% in coordination of care (as documented) at patient's floor/unit and/or counseling patient: 30 minutes 25 - 35 minutes Plan of Care Discussed with: patient Internal Medicine: Result - Labs CBC & Chem 7: 06/26/18 03:20 06/26/18 03:20 Labs: Short CBC 06/26/18 Range/Units 03:20 WBC 9.5 (4.3-11.1) K/mcL Hgb 9.0 L (11.5-15.4) g/dL Hct 34.0 L (35.3-44.9) % Plt Count 220 (140-400) K/mcL Neutrophils # 5.4 (1.6-8.9) K/mcL BMP 06/26/18 03:20 Sodium 140 Potassium 3.9 Chloride 100 Carbon Dioxide 39 H BUN 30 H Creatinine 0.53 L Glucose 91 Calcium 9.1 - ABG Interpretation ABG results: ABG ABG pH 7.36 pH Units (7.32-7.45) 06/23/18 11:28 ABG pCO2 62 mmHg (35-45) H 06/23/18 11:28 ABG pO2 64 mmHg (85-104) L 06/23/18 11:28 ABG O2 Saturation 90 % (95-98) L 06/23/18 11:28 PT/INR, D-dimer PT 14.7 Seconds (9.4-12.1) H 06/22/18 14:00 - Impressions Impressions Chest X-Ray 06/26/18 11:23 IMPRESSION: 1. New right extremity PICC terminates in the upper to mid right atrium. 2. Unchanged bilateral pleural effusions larger on the right. Associated bibasilar airspace opacities appear increased especially on the left, potentially atelectasis, pneumonia, and/or aspiration. 3. Pulmonary vascular congestion and mild cardiomegaly. D/ / Shreyas Chauhan MD / Shreyas Chauhan MD Interpreting Provider: Shreyas Chauhan MD Chest X-Ray 06/26/18 12:10 IMPRESSION: Right upper extremity PICC line in place tip in the SVC Persistent pleural effusions with bibasilar atelectasis. D/ / 06/26/2018 13:17:24 Collin Herbert MD / kateryna Interpreting Provider: Collin Herbert MD Consult Discharge Plan - Plan Referrals: Duran Sims Jr, MD [Primary Care Provider] - (1) Congestive heart failure Qualifiers: Heart failure type: combined systolic and diastolic Heart failure chronicity: acute on chronic Qualified Code(s): I50.43 - Acute on chronic combined systolic (congestive) and diastolic (congestive) heart failure (3) COPD (chronic obstructive pulmonary disease) Qualifiers: COPD type: COPD with acute exacerbation Qualified Code(s): J44.1 - Chronic obstructive pulmonary disease with (acute) exacerbation (4) Atrial fibrillation Qualifiers: Atrial fibrillation type: paroxysmal Qualified Code(s): I48.0 - Paroxysmal atrial fibrillation (5) Pneumonia Qualifiers: Pneumonia type: due to unspecified organism Laterality: bilateral Lung location: lower lobe of lung Qualified Code(s): J18.1 - Lobar pneumonia, unspecified organism
[2018-06-27 03:57] LABS: Eosinophils % 0.7 %; Immature Granulocytes % 0.3 % (0-4)
[2018-06-27 03:58] LABS: Eosinophils # 0.1 K/mcL (0.0-0.6); Hematocrit 32.5 % (35.3-44.9); Hemoglobin 8.7 g/dL (11.5-15.4); Lymphocytes # 2.1 K/mcL (0.6-4.6); Lymphocytes % 28.6 %; Mean Corpuscular HGB Conc 26.8 g/dL (31.6-35.5); Mean Corpuscular Hemoglobin 21.9 pg (28.0-33.3); Mean Corpuscular Volume 81.7 fL (83.0-100.0); Mean Platelet Volume 10.4 fL (9.4-12.4); Monocytes # 1.1 K/mcL (0.0-1.3); Monocytes % 15.7 %; Platelet Count 206 K/mcL (140-400); Red Blood Count 3.98 M/mcL (3.82-4.97); Red Cell Distribution Width 18.1 % (11.5-14.5); Segmented Neutrophils % 54.7 %
[2018-06-27 04:04] LABS: Neutrophils # 3.9 K/mcL (1.6-8.9)
[2018-06-27 04:19] LABS: BUN/Creatinine Ratio 51 (6-26); Blood Urea Nitrogen 27 mg/dL (8-23); Calcium 9.1 mg/dL (8.6-10.3); Carbon Dioxide 41 mEq/L (23-29); Chloride 98 mEq/L (98-107); Glucose 89 mg/dL (70-105); Osmolality,Calculated 299 (280-300); Sodium 142 mEq/L (136-145); eGFR For Non-African Americans > 60 (> 60)
[2018-06-27 04:28] LABS: Anisocytosis 1+ (Not Present)
[2018-06-27 04:29] LABS: Hypochromasia Present (Not Present); Platelet Estimate Normal (Normal)
[2018-06-27] MEDS: Levalbuterol Neb 1.25 MG/3 ML IH SCH ×4 (04:41→23:08)
[2018-06-27] MEDS: *HR* Heparin 5,000 UNIT/ML VIAL SQ SCH ×2 (05:31→18:16)
[2018-06-27] MEDS: Furosemide 40 MG/4 ML VIAL IVP SCH ×2 (08:39→18:16)
[2018-06-27] MEDS: Aspirin 81 MG TAB.CHEW PO SCH (08:39)
--- NOTE | 2018-06-27 11:56 | Internal Med Progress Note ---
Hospitalist Progress Note - Encounter Date of Encounter: 06/27/18 Time of Encounter: 09:00 - Subjective Interval History: Patient feels less shortness of breasts after we increased the Lasix dose. Still has leg swelling. Still feel tired. Denies chest pain, nausea. No fever - Exam Vitals: Temp Pulse Resp BP Pulse Ox 98.1 F 93 18 103/54 97 06/27/18 11:47 06/27/18 11:47 06/27/18 11:47 06/27/18 11:47 06/27/18 11:47 Exam: General: Patient is alert, moderate distress, oriented x 3 ENT: Mucous membranes moist Respiratory: CTA bilaterally. Decreased breath sounds, no wheezing Cardiovascular: Regular rate and rhythm. s1 and s2 normal No clicks, rubs, gall ops, or murmurs. Abdomen: Abdomen is soft, nontender. Bowel sounds are present Musculoskeletal: Spontaneously moving all extremities. Bilateral pedal edema present Skin: warm, dry, intact. Neuro: Alert oriented x 3 normal cranial nerves, no focal deficits - Assessment and Plan (1) Congestive heart failure Current Visit: Yes Status: Acute Assessment and Plan: Pt has known systolic CHF with LVEF 35-40%. Has elevated BNP. Worsening shortness of breath. Chest x-ray shows pulmonary edema. Consider systolic CHF exacerbation. - Patient cannot tolerate high-dose Lasix because of low BP. The fluid removal is not ideal. - Continue fluid restriction, strict I and O - Cardiology consult appreciated, will start dopamine drip to maintain BP when patient is treated with IV Lasix. Patient was transferred to and PICC line placed for dopamine drip. (2) Acute on chronic respiratory failure with hypoxia and hypercapnia Current Visit: Yes Status: Acute Assessment and Plan: Continue O2 supplementation and use BiPAP as needed. Continue bronchodilators. Patient has been able to tolerate nasal cannula intermittently. (3) COPD (chronic obstructive pulmonary disease) Current Visit: Yes Status: Acute Assessment and Plan: Continue treatment with bronchodilators, and O2 supplementation. Patient has no wheezing (4) Atrial fibrillation Current Visit: Yes Status: Chronic Assessment and Plan: Rate controlled. Patient not on anticoagulation due to history of reported epistaxis and hemoptysis while on anticoagulation. (5) Pneumonia Current Visit: Yes Status: Suspected Assessment and Plan: Patient denies cough or fever. Chest x-ray favorite CHF exacerbation. - We will discontinue antibiotics at this point, continue closely monitor patient. - Pt has no fever or leukocytosis as off abx, SOB has improved DVT Prophylaxis: SC heparin - Time Spent with Patient Total time spent is greater than 50% in coordination of care (as documented) at patient's floor/unit and/or counseling patient: 30 min 25 - 35 minutes Plan of Care Discussed with: patient Internal Medicine: Result - Labs CBC & Chem 7: 06/27/18 03:40 06/27/18 03:40 Labs: Short CBC 06/27/18 Range/Units 03:40 WBC 7.2 (4.3-11.1) K/mcL Hgb 8.7 L (11.5-15.4) g/dL Hct 32.5 L (35.3-44.9) % Plt Count 206 (140-400) K/mcL Neutrophils # 3.9 (1.6-8.9) K/mcL BMP 06/27/18 03:40 Sodium 142 Potassium 4.0 Chloride 98 Carbon Dioxide 41 H* BUN 27 H Creatinine 0.53 L Glucose 89 Calcium 9.1 - ABG Interpretation ABG results: ABG ABG pH 7.36 pH Units (7.32-7.45) 06/23/18 11:28 ABG pCO2 62 mmHg (35-45) H 06/23/18 11:28 ABG pO2 64 mmHg (85-104) L 06/23/18 11:28 ABG O2 Saturation 90 % (95-98) L 06/23/18 11:28 PT/INR, D-dimer PT 14.7 Seconds (9.4-12.1) H 06/22/18 14:00 - Impressions Impressions Chest X-Ray 06/26/18 11:23 IMPRESSION: 1. New right extremity PICC terminates in the upper to mid right atrium. 2. Unchanged bilateral pleural effusions larger on the right. Associated bibasilar airspace opacities appear increased especially on the left, potentially atelectasis, pneumonia, and/or aspiration. 3. Pulmonary vascular congestion and mild cardiomegaly. D/ / Shreyas Chauhan MD / Shreyas Chauhan MD Interpreting Provider: Shreyas Chauhan MD Chest X-Ray 06/26/18 12:10 IMPRESSION: Right upper extremity PICC line in place tip in the SVC Persistent pleural effusions with bibasilar atelectasis. D/ / 06/26/2018 13:17:24 Collin Herbert MD / kateryna Interpreting Provider: Collin Herbert MD Consult Discharge Plan - Plan Referrals: Duran Sims Jr, MD [Primary Care Provider] - (1) Congestive heart failure Qualifiers: Heart failure type: combined systolic and diastolic Heart failure chronicity: acute on chronic Qualified Code(s): I50.43 - Acute on chronic combined systolic (congestive) and diastolic (congestive) heart failure (3) COPD (chronic obstructive pulmonary disease) Qualifiers: COPD type: COPD with acute exacerbation Qualified Code(s): J44.1 - Chronic obstructive pulmonary disease with (acute) exacerbation (4) Atrial fibrillation Qualifiers: Atrial fibrillation type: paroxysmal Qualified Code(s): I48.0 - Paroxysmal atrial fibrillation (5) Pneumonia Qualifiers: Pneumonia type: due to unspecified organism Laterality: bilateral Lung location: lower lobe of lung Qualified Code(s): J18.1 - Lobar pneumonia, unspecified organism
--- NOTE | 2018-06-27 13:38 | Electrocardiograph Report ---
[address] [address] Test Date: 2018-06-25 Pat Name: China Smith Department: 111 Room: 2N05 Gender: F [employer]: RAW : [id number] Requested By: Dorothy Vaughn Order Number: [id number] Reading MD: Perlita Parsons Measurements Intervals [place] Rate: 104 P: [place]: 0 QRS: -41 QRSD: 182 T: 141 QT: 416 QTc: 477 Interpretive Statements ATRIAL FIBRILLATION WITH RAPID VENTRICULAR RESPONSE WITH ABERRANT CONDUCTION OR VENTRICULAR PREMATURE COMPLEXES MARKED LEFT AXIS DEVIATION LEFT BUNDLE BRANCH BLOCK Electronically Signed On 06-27-2018 13:36:57 EST by Perlita Parsons
--- NOTE | 2018-06-27 16:12 | Cardiology Progress Note ---
Date of Encounter: 06/27/18 Time of Encounter: 16:00 Assessment and Plan (1) Acute on chronic systolic CHF (congestive heart failure), NYHA class 3 Current Visit: Yes Status: Acute Acute on chronic systolic CHF. Worsening dyspnea 1 week prior to admission. Baseline weight ~153lbs. BNP 1481 on admission, 2084 06/25. CXR 06/23 with small right pleural effusion. Repeat CXR 06/26/18-persistent pleural effusions seen. Troponin 0.05--likely demand ischemia. Limited TTE 06/24/18 LVEF grossly 35-40%. Severe bi-atrial enlargement. 03/2018 EF was 40-45% and 01/2018 EF 30%. Increased IV Lasix dose to 40mg BID. Patient appears to be tolerating with b/p. Initially required dopamine but she was taken off with improved b/p. I/O documented net negative 1600 ml. Continues to have significant symptoms. Continue IV lasix. Recommend strict I/Os, Na and fluid restriction, daily weights. No bb/aceI with hypotension. Will consider starting after diuresed. Continue to follow. (2) Coronary artery disease Current Visit: No Status: Chronic LHC 02/13/17: Severe 1 vessel CAD. 70% mRCA. Continue ASA, Statin. No BB d/t hypotension. Pt denies chest pain. Outpt notes mention repeat cath recommended but pt has always been hesitant d/t metal allergy. Pt states she would now be willing. Will consider LHC prior to d/c once more euvolemic. Qualifiers: Coronary Disease-Associated Artery/Lesion type: [place] artery [facility] vs. transplanted heart: [place] heart Associated angina: without angina Qualified Code(s): I25.10 - Atherosclerotic heart disease of [place] coronary artery w [facility] angina pectoris (3) Atrial fibrillation Current Visit: Yes Status: Chronic Known A-Fib. 12 hr tele AVG HR 101. Currently not on AV teresa blockers due to hypotension. [id number] 5. Not on anticoagulation because of episodes of hemoptysis and epistaxis while on anticoagulation previously. Continue ASA. On DVT prophylaxis. Qualifiers: Atrial fibrillation type: paroxysmal Qualified Code(s): I48.0 - Paroxysmal atrial fibrillation Discussion w patient/family: The assessment and plan as outlined above was discussed with the patient and/or family members who expressed understanding and agreement. All questions were answered. Thank you for involving us in the care of your patient. Please call with any questions. Subjective Principal diagnosis: CHF Interval history: Ms. Smith is sitting in her chair. She continues to have SOB, orthopnea, and edema. States SOB only mildly improved. Objective General: Conversant, No Apparent Distress HEENT: Atraumatic, Normocephaly, Mucus Membranes Moist Neck: Normal carotid pulses Cardiac: Reg Rate and Rhythm Lungs: No Wheeze, Rales, Rhonchi, Other (Lung sounds diminished) Neuro: Alert and responsive, No focal deficits noted Abdomen: Soft, Non-Tender Skin: No rashes noted on visualized skin Musculoskeletal: No Chest Wall Tenderness Extremities: Other (Significant non-pitting edema in BLE. ) Results 06/27/18 03:40 06/27/18 03:40 Lab Results 06/27/18 06/27/18 03:40 03:40 WBC 7.2 Hgb 8.7 L Hct 32.5 L Plt Count 206 Sodium 142 Potassium 4.0 Chloride 98 Carbon Dioxide 41 H* BUN 27 H Creatinine 0.53 L Glucose 89 Calcium 9.1 - Imaging and Cardiology Echo: report reviewed - EKG Interpretation EKG results cardiology: personally reviewed Consult Discharge Plan - Plan Referrals: Duran Sims Jr, MD [Primary Care Provider] -
[2018-06-28] MEDS: Levalbuterol Neb 1.25 MG/3 ML IH SCH ×3 (04:26→22:48)
[2018-06-28] MEDS: *HR* Heparin 5,000 UNIT/ML VIAL SQ SCH ×2 (05:18→16:00)
[2018-06-28 05:33] LABS: Eosinophils % 1.6 %; Hemoglobin 8.4 g/dL (11.5-15.4); Immature Granulocytes % 0.2 % (0-4); Monocytes % 21.2 %; Red Cell Distribution Width 18.1 % (11.5-14.5)
[2018-06-28 05:35] LABS: Eosinophils # 0.1 K/mcL (0.0-0.6); Hematocrit 32.8 % (35.3-44.9); Lymphocytes # 1.4 K/mcL (0.6-4.6); Lymphocytes % 21.4 %; Mean Corpuscular HGB Conc 25.6 g/dL (31.6-35.5); Mean Corpuscular Hemoglobin 21.2 pg (28.0-33.3); Mean Corpuscular Volume 82.6 fL (83.0-100.0); Mean Platelet Volume 10.4 fL (9.4-12.4); Monocytes # 1.3 K/mcL (0.0-1.3); Neutrophils # 3.5 K/mcL (1.6-8.9); Platelet Count 189 K/mcL (140-400); Red Blood Count 3.97 M/mcL (3.82-4.97); Segmented Neutrophils % 55.6 %
[2018-06-28 05:54] LABS: BUN/Creatinine Ratio 59 (6-26); Blood Urea Nitrogen 22 mg/dL (8-23); Calcium 9.1 mg/dL (8.6-10.3); Carbon Dioxide 42 mEq/L (23-29); Chloride 94 mEq/L (98-107); Glucose 104 mg/dL (70-105); Osmolality,Calculated 296 (280-300); Potassium 3.9 mEq/L (3.5-5.1); Sodium 141 mEq/L (136-145); eGFR For Non-African Americans > 60 (> 60)
[2018-06-28 06:13] LABS: Hypochromasia Present (Not Present); Platelet Estimate Normal (Normal)
[2018-06-28] MEDS: Metoprolol XL (24 HR) Succ 25 MG TAB.ER.24H PO SCH (07:51)
[2018-06-28] MEDS: Furosemide 40 MG/4 ML VIAL IVP SCH ×2 (07:51→16:00)
[2018-06-28] MEDS: Aspirin 81 MG TAB.CHEW PO SCH (07:51)
[2018-06-28] MEDS: Acetaminophen 325 MG TABLET PO PRN (10:00)
--- NOTE | 2018-06-28 13:27 | Internal Med Progress Note ---
Hospitalist Progress Note - Encounter Date of Encounter: 06/28/18 Time of Encounter: 09:00 - Subjective Interval History: Patient stated shortness of breath has improved after iv Lasix. Still very weak. Vitals are stable, seems tolerate IV Lasix, no Doberman drip needed today. - Exam Vitals: Temp Pulse Resp BP Pulse Ox 98.6 F 86 18 104/56 98 06/28/18 12:30 06/28/18 12:30 06/28/18 12:30 06/28/18 12:30 06/28/18 12:30 Exam: General: Patient is alert, moderate distress, oriented x 3 ENT: Mucous membranes moist Respiratory: CTA bilaterally. Decreased breath sounds, no wheezing Cardiovascular: Irregularly irregular. s1 and s2 normal No clicks, rubs, mcgill ps, or murmurs. Abdomen: Abdomen is soft, nontender. Bowel sounds are present Musculoskeletal: Spontaneously moving all extremities. Bilateral pedal edema present Skin: warm, dry, intact. Neuro: Alert oriented x 3 normal cranial nerves, no focal deficits - Assessment and Plan (1) Congestive heart failure Current Visit: Yes Status: Acute Assessment and Plan: Pt has known systolic CHF with LVEF 35-40%. Has elevated BNP. Worsening shortness of breath. Chest x-ray shows pulmonary edema. Consider systolic CHF exacerbation. - Patient cannot tolerate high-dose Lasix because of low BP. The fluid removal is not ideal initially. - Continue fluid restriction, strict I and O - Cardiology consult appreciated, started dopamine drip to maintain BP when patient is treated with IV Lasix. Patient was transferred to and PICC line placed for dopamine drip. - Patient tolerated Lasix 40 mg IV twice a day well now. BP is well maintained. Continue current treatment. Currently fluid balance -2.6 L (2) Acute on chronic respiratory failure with hypoxia and hypercapnia Current Visit: Yes Status: Acute Assessment and Plan: Continue O2 supplementation and use BiPAP as needed. Continue bronchodilators. Patient has been able to tolerate nasal cannula now and most of time on nasal cannula. (3) COPD (chronic obstructive pulmonary disease) Current Visit: Yes Status: Acute Assessment and Plan: Continue treatment with bronchodilators, and O2 supplementation. Patient has no wheezing, not on steroid (4) Atrial fibrillation Current Visit: Yes Status: Chronic Assessment and Plan: Rate controlled. Patient not on anticoagulation due to history of reported epistaxis and hemoptysis while on anticoagulation. Resume home medication metoprolol as BP is more tolerated now DVT Prophylaxis: Heparin subcutaneously - Time Spent with Patient Total time spent is greater than 50% in coordination of care (as documented) at patient's floor/unit and/or counseling patient: 30 minutes 25 - 35 minutes Plan of Care Discussed with: patient Internal Medicine: Result - Labs CBC & Chem 7: 06/28/18 05:06 06/28/18 05:06 Labs: Short CBC 06/28/18 Range/Units 05:06 WBC 6.3 (4.3-11.1) K/mcL Hgb 8.4 L (11.5-15.4) g/dL Hct 32.8 L (35.3-44.9) % Plt Count 189 (140-400) K/mcL Neutrophils # 3.5 (1.6-8.9) K/mcL BMP 06/28/18 05:06 Sodium 141 Potassium 3.9 Chloride 94 L Carbon Dioxide 42 H* BUN 22 Creatinine 0.37 L Glucose 104 Calcium 9.1 - ABG Interpretation ABG results: ABG ABG pH 7.36 pH Units (7.32-7.45) 06/23/18 11:28 ABG pCO2 62 mmHg (35-45) H 06/23/18 11:28 ABG pO2 64 mmHg (85-104) L 06/23/18 11:28 ABG O2 Saturation 90 % (95-98) L 06/23/18 11:28 PT/INR, D-dimer PT 14.7 Seconds (9.4-12.1) H 06/22/18 14:00 Consult Discharge Plan - Plan Referrals: Duran Sims Jr, MD [Primary Care Provider] - _ (1) Congestive heart failure Qualifiers: Heart failure type: combined systolic and diastolic Heart failure chronicity: acute on chronic Qualified Code(s): I50.43 - Acute on chronic combined systolic (congestive) and diastolic (congestive) heart failure (3) COPD (chronic obstructive pulmonary disease) Qualifiers: COPD type: COPD with acute exacerbation Qualified Code(s): J44.1 - Chronic obstructive pulmonary disease with (acute) exacerbation (4) Atrial fibrillation Qualifiers: Atrial fibrillation type: paroxysmal Qualified Code(s): I48.0 - Paroxysmal atrial fibrillation
--- NOTE | 2018-06-28 16:08 | Cardiology Progress Note ---
Date of Encounter: 06/28/18 Time of Encounter: 12:00 Assessment and Plan (1) Acute on chronic systolic CHF (congestive heart failure), NYHA class 3 Current Visit: Yes Status: Acute Acute on chronic systolic CHF. Worsening dyspnea 1 week prior to admission. Baseline weight ~153lbs. BNP 1481 on admission, 2084 06/25. CXR 06/23 with small right pleural effusion. Repeat CXR 06/26/18-persistent pleural effusions seen. Troponin 0.05--likely demand ischemia. Limited TTE 06/24/18 LVEF grossly 35-40%. Severe bi-atrial enlargement. 03/2018 EF was 40-45% and 01/2018 EF 30%. Increased IV Lasix dose to 40mg BID. Patient appears to be tolerating with b/p. Initially required dopamine but she was taken off with improved b/p. I/O documented net negative 2226 ml. Continues to have significant symptoms. Continue IV lasix. Recommend strict I/Os, Na and fluid restriction, daily weights. No bb/aceI with hypotension. Will consider starting after diuresed. Continue to follow. (2) Coronary artery disease Current Visit: No Status: Chronic LHC 02/13/17: Severe 1 vessel CAD. 70% mRCA. Continue ASA, Statin. No BB d/t hypotension. Pt denies chest pain. Outpt notes mention repeat cath recommended but pt has always been hesitant d/t metal allergy. Pt states she would now be willing. Will consider LHC prior to d/c once more euvolemic. Qualifiers: Coronary Disease-Associated Artery/Lesion type: [facility] artery [place] vs. transplanted heart: [facility] heart Associated angina: without angina Qualified Code(s): I25.10 - Atherosclerotic heart disease of [facility] coronary artery w [facility] angina pectoris (3) Atrial fibrillation Current Visit: Yes Status: Chronic Known A-Fib. 12 hr tele AVG HR 101. Currently not on AV teresa blockers due to hypotension. [id number] 5. Not on anticoagulation because of episodes of hemoptysis and epistaxis while on anticoagulation previously. Continue ASA. On DVT prophylaxis. Qualifiers: Atrial fibrillation type: paroxysmal Qualified Code(s): I48.0 - Paroxysmal atrial fibrillation Discussion w patient/family: The assessment and plan as outlined above was discussed with the patient and/or family members who expressed understanding and agreement. All questions were answered. Thank you for involving us in the care of your patient. Please call with any questions. Subjective Principal diagnosis: CHF Interval history: Ms. Smith is sitting in her chair. She continues to have SOB, orthopnea, and edema. States SOB only mildly improved. Objective Vital Signs, Last 4 Hours Temp Pulse Resp BP Pulse Ox 06/28/18 12:30 98.6 F 86 18 104/56 98 General: Conversant, No Apparent Distress HEENT: Atraumatic, Normocephaly, Mucus Membranes Moist Neck: No JVD, Normal carotid pulses Cardiac: Other (Irregular) Lungs: Normal Breath Sounds, No Wheeze, Rales, Rhonchi Neuro: Alert and responsive, No focal deficits noted Abdomen: Soft, Non-Tender Skin: No rashes noted on visualized skin Musculoskeletal: No Chest Wall Tenderness Extremities: No Clubbing, No Cyanosis, Normal Pulses, Other (2+ pitting BLE edema improved.) Results 06/28/18 05:06 06/28/18 05:06 Lab Results 06/28/18 06/28/18 05:06 05:06 WBC 6.3 Hgb 8.4 L Hct 32.8 L Plt Count 189 Sodium 141 Potassium 3.9 Chloride 94 L Carbon Dioxide 42 H* BUN 22 Creatinine 0.37 L Glucose 104 Calcium 9.1 Magnesium 2.0 - Imaging and Cardiology Echo: report reviewed Consult Discharge Plan - Plan Referrals: Duran Sims Jr, MD [Primary Care Provider] -
[2018-06-29] MEDS: *HR* Heparin 5,000 UNIT/ML VIAL SQ SCH ×2 (05:15→16:09)
[2018-06-29 05:21] LABS: Basophils % 0.1 %; Mean Corpuscular Hemoglobin 21.7 pg (28.0-33.3)
[2018-06-29 05:23] LABS: Eosinophils # 0.1 K/mcL (0.0-0.6); Eosinophils % 1.9 %; Hematocrit 30.3 % (35.3-44.9); Immature Granulocytes % 0.1 % (0-4); Lymphocytes # 1.4 K/mcL (0.6-4.6); Lymphocytes % 18.8 %; Mean Corpuscular HGB Conc 26.4 g/dL (31.6-35.5); Mean Corpuscular Volume 82.1 fL (83.0-100.0); Mean Platelet Volume 10.5 fL (9.4-12.4); Monocytes # 1.4 K/mcL (0.0-1.3); Monocytes % 19.2 %; Neutrophils # 4.4 K/mcL (1.6-8.9); Platelet Count 160 K/mcL (140-400); Red Blood Count 3.69 M/mcL (3.82-4.97); Red Cell Distribution Width 18.3 % (11.5-14.5); Segmented Neutrophils % 59.9 %
[2018-06-29 05:41] LABS: BUN/Creatinine Ratio 58 (6-26); Blood Urea Nitrogen 19 mg/dL (8-23); Calcium 9.1 mg/dL (8.6-10.3); Carbon Dioxide 44 mEq/L (23-29); Chloride 93 mEq/L (98-107); Glucose 98 mg/dL (70-105); Osmolality,Calculated 292 (280-300); Potassium 3.7 mEq/L (3.5-5.1); Sodium 140 mEq/L (136-145); eGFR For Non-African Americans > 60 (> 60)
[2018-06-29 05:54] LABS: Anisocytosis 1+ (Not Present); Hypochromasia Present (Not Present); Platelet Estimate Normal (Normal)
[2018-06-29] MEDS: Aspirin 81 MG TAB.CHEW PO SCH (07:29)
[2018-06-29] MEDS: Furosemide 40 MG/4 ML VIAL IVP SCH ×2 (07:29→16:09)
[2018-06-29] MEDS: Metoprolol XL (24 HR) Succ 25 MG TAB.ER.24H PO SCH (07:29)
[2018-06-29] MEDS: Levalbuterol Neb 1.25 MG/3 ML IH SCH ×2 (08:26→22:56)
--- NOTE | 2018-06-29 10:43 | Internal Med Progress Note ---
Hospitalist Progress Note - Encounter Date of Encounter: 06/29/18 Time of Encounter: 09:00 - Subjective Interval History: Patient feels less shortness of breath but not reached baseline. Improved leg swelling but still moderate pitting edema bilaterally. BP is tolerate for Lasix, no further dopamine drip. Vitals are stable. - Exam Vitals: Temp Pulse Resp BP Pulse Ox 98.4 F 86 14 99/48 93 06/29/18 07:00 06/29/18 07:00 06/29/18 08:26 06/29/18 07:00 06/29/18 08:26 Exam: General: Patient is alert, moderate distress, oriented x 3 ENT: Mucous membranes moist Respiratory: CTA bilaterally. Decreased breath sounds, no wheezing Cardiovascular: Irregularly irregular. s1 and s2 normal No clicks, rubs, gallops, or murmurs. Abdomen: Abdomen is soft, nontender. Bowel sounds are present Musculoskeletal: Spontaneously moving all extremities. Bilateral moderate pedal edema present Skin: warm, dry, intact. Neuro: Alert oriented x 3 normal cranial nerves, no focal deficits - Assessment and Plan (1) Congestive heart failure Current Visit: Yes Status: Acute Assessment and Plan: Pt has known systolic CHF with LVEF 35-40%. Has elevated BNP. Worsening shortness of breath. Chest x-ray shows pulmonary edema. Consider systolic CHF exacerbation. - Continue fluid restriction, strict I and O - Cardiology consult appreciated, started dopamine drip to maintain BP when patient is treated with IV Lasix. Patient was transferred to and PICC line placed for dopamine drip. - Patient tolerated Lasix 40 mg IV twice a day well now. BP is well maintained. Continue current treatment. Currently fluid balance -3.1 L (2) Acute on chronic respiratory failure with hypoxia and hypercapnia Current Visit: Yes Status: Acute Assessment and Plan: Continue O2 supplementation and use BiPAP as needed. Continue bronchodilators. Patient has been able to tolerate nasal cannula now and most of time on nasal cannula. (3) COPD (chronic obstructive pulmonary disease) Current Visit: Yes Status: Acute Assessment and Plan: Patient has a history of COPD. Likely end-stage COPD. no wheezing at this point. Continue treatment with bronchodilators, and O2 supplementation. (4) Atrial fibrillation Current Visit: Yes Status: Chronic Assessment and Plan: Rate controlled. Patient not on anticoagulation due to history of reported epistaxis and hemoptysis while on anticoagulation. Resume home medication metoprolol as BP is more tolerated now DVT Prophylaxis: Heparin subcutaneously - Time Spent with Patient Total time spent is greater than 50% in coordination of care (as documented) at patient's floor/unit and/or counseling patient: 30 minutes 25 - 35 minutes Plan of Care Discussed with: patient Internal Medicine: Result - Labs CBC & Chem 7: 06/29/18 04:00 06/29/18 05:08 Labs: Short CBC 06/29/18 Range/Units 04:00 WBC 7.4 (4.3-11.1) K/mcL Hgb 8.0 L (11.5-15.4) g/dL Hct 30.3 L (35.3-44.9) % Plt Count 160 (140-400) K/mcL Neutrophils # 4.4 (1.6-8.9) K/mcL BMP 06/29/18 05:08 Sodium 140 Potassium 3.7 Chloride 93 L Carbon Dioxide 44 H* BUN 19 Creatinine 0.33 L Glucose 98 Calcium 9.1 - ABG Interpretation ABG results: ABG ABG pH 7.36 pH Units (7.32-7.45) 06/23/18 11:28 ABG pCO2 62 mmHg (35-45) H 06/23/18 11:28 ABG pO2 64 mmHg (85-104) L 06/23/18 11:28 ABG O2 Saturation 90 % (95-98) L 06/23/18 11:28 PT/INR, D-dimer PT 14.7 Seconds (9.4-12.1) H 06/22/18 14:00 Consult Discharge Plan - Plan Referrals: Duran Sims Jr, MD [Primary Care Provider] - (1) Congestive heart failure Qualifiers: Heart failure type: combined systolic and diastolic Heart failure chronicity: acute on chronic Qualified Code(s): I50.43 - Acute on chronic combined systolic (congestive) and diastolic (congestive) heart failure (3) COPD (chronic obstructive pulmonary disease) Qualifiers: COPD type: COPD with acute exacerbation Qualified Code(s): J44.1 - Chronic obstructive pulmonary disease with (acute) exacerbation (4) Atrial fibrillation Qualifiers: Atrial fibrillation type: paroxysmal Qualified Code(s): I48.0 - Paroxysmal atrial fibrillation
--- NOTE | 2018-06-29 12:55 | Event Note ---
Date of Encounter: 06/29/18 Time of Encounter: 12:54 - Cardiology Event Note Patient continuing diuresis. Still with BLE edema and orthopnea. We will re- evaluate for [facility] readiness early this week. Call with questions.
[2018-06-29] MEDS: Acetaminophen 325 MG TABLET PO PRN (19:32)
[2018-06-30 03:54] LABS: Hematocrit 30.4 % (35.3-44.9); Mean Corpuscular HGB Conc 26.3 g/dL (31.6-35.5); Mean Corpuscular Hemoglobin 21.7 pg (28.0-33.3); Mean Corpuscular Volume 82.6 fL (83.0-100.0); Mean Platelet Volume 10.4 fL (9.4-12.4); Platelet Count 155 K/mcL (140-400); Red Blood Count 3.68 M/mcL (3.82-4.97); Red Cell Distribution Width 18.2 % (11.5-14.5)
[2018-06-30 04:15] LABS: BUN/Creatinine Ratio 50 (6-26); Blood Urea Nitrogen 20 mg/dL (8-23); Calcium 9.3 mg/dL (8.6-10.3); Carbon Dioxide > 45 mEq/L (23-29); Chloride 94 mEq/L (98-107); Glucose 92 mg/dL (70-105); Osmolality,Calculated 288 (280-300); Potassium 3.8 mEq/L (3.5-5.1); Sodium 138 mEq/L (136-145); eGFR For Non-African Americans > 60 (> 60)
[2018-06-30 04:22] LABS: Hypochromasia Present (Not Present); Lymphocytes # 1.9 K/mcL (0.6-4.6); Monocytes # 0.8 K/mcL (0.0-1.3); Platelet Estimate Normal (Normal)
[2018-06-30] MEDS: *HR* Heparin 5,000 UNIT/ML VIAL SQ SCH ×2 (06:50→18:34)
[2018-06-30] MEDS: Aspirin 81 MG TAB.CHEW PO SCH (09:10)
[2018-06-30] MEDS: Metoprolol XL (24 HR) Succ 25 MG TAB.ER.24H PO SCH (09:11)
[2018-06-30] MEDS: Furosemide 40 MG/4 ML VIAL IVP SCH ×2 (09:11→18:34)
[2018-06-30] MEDS: Levalbuterol Neb 1.25 MG/3 ML IH SCH ×2 (09:48→22:04)
--- NOTE | 2018-06-30 10:49 | Internal Med Progress Note ---
Hospitalist Progress Note - Encounter Date of Encounter: 06/30/18 Time of Encounter: 09:00 - Subjective Interval History: Patient feels shortness of breath has improved but not reach her baseline yet. Still has bilateral leg swelling, slightly improved. Fluid balance -3.6 L - Exam Vitals: Temp Pulse Resp BP Pulse Ox 98.4 F 80 16 95/59 98 06/30/18 07:22 06/30/18 07:22 06/30/18 09:49 06/30/18 07:22 06/30/18 09:49 Exam: General: Patient is alert, moderate distress, oriented x 3 ENT: Mucous membranes moist Respiratory: CTA bilaterally. Decreased breath sounds, no wheezing Cardiovascular: Irregularly irregular. s1 and s2 normal No clicks, rubs, gallops, or murmurs. Abdomen: Abdomen is soft, nontender. Bowel sounds are present Musculoskeletal: Spontaneously moving all extremities. Bilateral moderate pedal edema present Skin: warm, dry, intact. Neuro: Alert oriented x 3 normal cranial nerves, no focal deficits - Assessment and Plan (1) Congestive heart failure Current Visit: Yes Status: Acute Assessment and Plan: Pt has known systolic CHF with LVEF 35-40%. Has elevated BNP. Worsening shortness of breath. Chest x-ray shows pulmonary edema. Consider systolic CHF exacerbation. - Continue fluid restriction, strict I and O - Patient tolerated Lasix 40 mg IV twice a day well now. BP is well maintained. Continue current treatment. Currently fluid balance -3.6 L (2) Acute on chronic respiratory failure with hypoxia and hypercapnia Current Visit: Yes Status: Acute Assessment and Plan: Continue O2 supplementation and use BiPAP as needed. Continue bronchodilators. Patient has been able to tolerate nasal cannula now and most of time on nasal cannula. (3) COPD (chronic obstructive pulmonary disease) Current Visit: Yes Status: Acute Assessment and Plan: Patient has a history of COPD. Likely end-stage COPD. no wheezing at this poi nt. Continue treatment with bronchodilators, and O2 supplementation. - Patient has home oxygen and home BiPAP already (4) Atrial fibrillation Current Visit: Yes Status: Chronic Assessment and Plan: Rate controlled. Patient not on anticoagulation due to history of reported epistaxis and hemoptysis while on anticoagulation. Resume home medication metoprolol as BP is more tolerated now DVT Prophylaxis: Heparin subcutaneously - Time Spent with Patient Total time spent is greater than 50% in coordination of care (as documented) at patient's floor/unit and/or counseling patient: 30 minutes 25 - 35 minutes Plan of Care Discussed with: patient Internal Medicine: Result - Labs CBC & Chem 7: 06/30/18 03:40 06/30/18 03:40 Labs: Short CBC 06/30/18 Range/Units 03:40 WBC 6.6 (4.3-11.1) K/mcL Hgb 8.0 L (11.5-15.4) g/dL Hct 30.4 L (35.3-44.9) % Plt Count 155 (140-400) K/mcL Neutrophils # 4.0 (1.6-8.9) K/mcL BMP 06/30/18 03:40 Sodium 138 Potassium 3.8 Chloride 94 L Carbon Dioxide > 45 H* BUN 20 Creatinine 0.40 L Glucose 92 Calcium 9.3 - ABG Interpretation ABG results: ABG ABG pH 7.36 pH Units (7.32-7.45) 06/23/18 11:28 ABG pCO2 62 mmHg (35-45) H 06/23/18 11:28 ABG pO2 64 mmHg (85-104) L 06/23/18 11:28 ABG O2 Saturation 90 % (95-98) L 06/23/18 11:28 PT/INR, D-dimer PT 14.7 Seconds (9.4-12.1) H 06/22/18 14:00 Consult Discharge Plan - Plan Referrals: Duran Sims Jr, MD [Primary Care Provider] - (1) Congestive heart failure Qualifiers: Heart failure type: combined systolic and diastolic Heart failure chronicity: acute on chronic Qualified Code(s): I50.43 - Acute on chronic combined systolic (congestive) and diastolic (congestive) heart failure (3) COPD (chronic obstructive pulmonary disease) Qualifiers: COPD type: COPD with acute exacerbation Qualified Code(s): J44.1 - Chronic obstructive pulmonary disease with (acute) exacerbation (4) Atrial fibrillation Qualifiers: Atrial fibrillation type: paroxysmal Qualified Code(s): I48.0 - Paroxysmal atrial fibrillation
--- NOTE | 2018-06-30 13:49 | Cardiology Progress Note ---
Date of Encounter: 06/30/18 Time of Encounter: 14:44 Assessment and Plan (1) Acute on chronic systolic CHF (congestive heart failure), NYHA class 3 Current Visit: Yes Status: Acute Acute on chronic systolic CHF. Worsening dyspnea 1 week prior to admission. Baseline weight ~153lbs. BNP 1481 on admission, 2084 06/25. CXR 06/23 with small right pleural effusion. Repeat CXR 06/26/18-persistent pleural effusions seen. Troponin 0.05--likely demand ischemia. Limited TTE 06/24/18 LVEF grossly 35-40%. Severe bi-atrial enlargement. 03/2018 EF was 40-45% and 01/2018 EF 30%. Increased IV Lasix dose to 40mg BID. Patient appears to be tolerating. I/O documented net negative 3925 ml. Scr remains normal. Continues to have significant symptoms. Continue IV lasix at 24 more hours. Recommend strict I/Os, Na and fluid restriction, daily weights. No bb/aceI with hypotension. Will consider starting after diuresed. LHC once orthopnea resolves. Continue to follow. (2) Coronary artery disease Current Visit: No Status: Chronic LHC 02/13/17: Severe 1 vessel CAD. 70% mRCA. Continue ASA, Statin. No BB d/t hypotension. Pt denies chest pain. Outpt notes mention repeat cath recommended but pt has always been hesitant d/t metal allergy. Pt states she would now be willing. Will consider LHC prior to d/c once more euvolemic. Qualifiers: Coronary Disease-Associated Artery/Lesion type: [place] artery [place] vs. transplanted heart: [place] heart Associated angina: without angina Qualified Code(s): I25.10 - Atherosclerotic heart disease of [place] coronary artery without angina pectoris (3) Atrial fibrillation Current Visit: Yes Status: Chronic Known A-Fib. 12 hr tele AVG HR 80. Currently not on AV teresa blockers due to hypotension. [id number] 5. Not on anticoagulation because of episodes of hemoptysis and epistaxis while on anticoagulation previously. Continue ASA. On DVT prophylaxis. Qualifiers: Atrial fibrillation type: paroxysmal Qualified Code(s): I48.0 - Paroxysmal atrial fibrillation Discussion w patient/family: The assessment and plan as outlined above was discussed with the patient and/or family members who expressed understanding and agreement. All questions were answered. Thank you for involving us in the care of your patient. Please call with any questions. Subjective Principal diagnosis: CHF Interval history: Ms. Smith is sitting in her chair. She continues to have SOB, orthopnea, and edema. States SOB improved but continues to have orthopnea. Objective Vital Signs, Last 4 Hours Temp Pulse Resp BP Pulse Ox 06/30/18 11:00 98.1 F 88 20 89/52 100 06/30/18 09:49 16 98 General: Conversant, No Apparent Distress HEENT: Atraumatic, Normocephaly, Mucus Membranes Moist Neck: No JVD, Normal carotid pulses Cardiac: Reg Rate and Rhythm, Normal S1 and S2, No Murmur Lungs: Normal Breath Sounds, No Wheeze, Rales, Rhonchi Neuro: Alert and responsive, No focal deficits noted Abdomen: Soft, Non-Tender Skin: No rashes noted on visualized skin Musculoskeletal: No Chest Wall Tenderness Extremities: No Clubbing, No Cyanosis, No Edema, Normal Pulses Results 06/30/18 03:40 06/30/18 03:40 Lab Results 06/30/18 06/30/18 03:40 03:40 WBC 6.6 Hgb 8.0 L Hct 30.4 L Plt Count 155 Sodium 138 Potassium 3.8 Chloride 94 L Carbon Dioxide > 45 H* BUN 20 Creatinine 0.40 L Glucose 92 Calcium 9.3 Consult Discharge Plan - Plan Referrals: Jose C Azul CNP [Advanced Practice Nurse] - (Office will call patient at home with follow up appointment) Duran Sims Jr, MD [Primary Care Provider] - (Sent Web request on 06-30-18 @ [phone])
[2018-07-01] MEDS: *HR* Heparin 5,000 UNIT/ML VIAL SQ SCH ×2 (05:48→17:35)
[2018-07-01] MEDS: Aspirin 81 MG TAB.CHEW PO SCH (10:00)
[2018-07-01] MEDS: Furosemide 40 MG/4 ML VIAL IVP SCH (10:01)
[2018-07-01] MEDS: Metoprolol XL (24 HR) Succ 25 MG TAB.ER.24H PO SCH (10:01)
[2018-07-01 10:44] LABS: Basophils % 0.2 %; Immature Granulocytes % 0.2 % (0-4)
[2018-07-01 10:46] LABS: Eosinophils # 0.1 K/mcL (0.0-0.6); Eosinophils % 1.9 %; Hematocrit 31.6 % (35.3-44.9); Hemoglobin 8.3 g/dL (11.5-15.4); Lymphocytes % 17.5 %; Mean Corpuscular HGB Conc 26.3 g/dL (31.6-35.5); Mean Corpuscular Hemoglobin 22.1 pg (28.0-33.3); Mean Corpuscular Volume 84.3 fL (83.0-100.0); Mean Platelet Volume 10.4 fL (9.4-12.4); Monocytes # 1.2 K/mcL (0.0-1.3); Monocytes % 21.8 %; Platelet Count 171 K/mcL (140-400); Red Blood Count 3.75 M/mcL (3.82-4.97); Red Cell Distribution Width 18.6 % (11.5-14.5); Segmented Neutrophils % 58.4 %
[2018-07-01 10:53] LABS: BUN/Creatinine Ratio 45 (6-26); Blood Urea Nitrogen 20 mg/dL (8-23); Calcium 9.5 mg/dL (8.6-10.3); Carbon Dioxide > 45 mEq/L (23-29); Chloride 92 mEq/L (98-107); Glucose 138 mg/dL (70-105); Osmolality,Calculated 297 (280-300); Sodium 141 mEq/L (136-145); eGFR For Non-African Americans > 60 (> 60)
[2018-07-01 10:58] LABS: Neutrophils # 3.2 K/mcL (1.6-8.9)
[2018-07-01] MEDS: Levalbuterol Neb 1.25 MG/3 ML IH SCH ×2 (11:28→21:25)
[2018-07-01 11:31] LABS: Platelet Clumps Few (Not Present); Platelet Estimate Normal (Normal)
--- NOTE | 2018-07-01 12:09 | Internal Med Progress Note ---
Hospitalist Progress Note - Encounter Date of Encounter: 07/01/18 Time of Encounter: 09:00 - Subjective Interval History: Patient feels shortness of breath has improved. Still mild leg swelling. Leg swelling has significantly improved. Has good urine output. - Exam Vitals: Temp Pulse Resp BP Pulse Ox 97.9 F 84 18 101/67 96 07/01/18 11:43 07/01/18 11:43 07/01/18 11:43 07/01/18 11:43 07/01/18 11:43 Exam: General: Patient is alert, moderate distress, oriented x 3 ENT: Mucous membranes moist Respiratory: CTA bilaterally. Decreased breath sounds, no wheezing Cardiovascular: Irregularly irregular. s1 and s2 normal No clicks, rubs, gallops, or murmurs. Abdomen: Abdomen is soft, nontender. Bowel sounds are present Musculoskeletal: Spontaneously moving all extremities. Bilateral mild pedal edema present Skin: warm, dry, intact. Neuro: Alert oriented x 3 normal cranial nerves, no focal deficits - Assessment and Plan (1) Congestive heart failure Current Visit: Yes Status: Acute Assessment and Plan: Pt has known systolic CHF with LVEF 35-40%. Has elevated BNP. Worsening shortness of breath. Chest x-ray shows pulmonary edema. Consider systolic CHF exacerbation. - Continue fluid restriction, strict I and O - Patient is on Lasix 40 mg IV twice a day. BP is well maintained. Currently fluid balance -5 L - Patient has elevated the bicarbonate level, likely metabolic alkalosis due to diuretics use, with decrease Lasix to 40 mg iv daily as patient is close to euvolemic. (2) Acute on chronic respiratory failure with hypoxia and hypercapnia Current Visit: Yes Status: Acute Assessment and Plan: Continue O2 supplementation and use BiPAP as needed. Continue bronchodilators. Patient has been able to tolerate nasal cannula now and on BiPAP during night, which is she does at home. (3) COPD (chronic obstructive pulmonary disease) Current Visit: Yes Status: Acute Assessment and Plan: Patient has a history of COPD. Likely end-stage COPD. no wheezing at this point. Continue treatment with bronchodilators, and O2 supplementation. - Patient has home oxygen and home BiPAP already (4) Atrial fibrillation Current Visit: Yes Status: Chronic Assessment and Plan: Rate controlled. Patient not on anticoagulation due to history of reported epistaxis and hemoptysis while on anticoagulation. Resume home medication metoprolol as BP is more tolerated now DVT Prophylaxis: Heparin subcutaneously - Time Spent with Patient Total time spent is greater than 50% in coordination of care (as documented) at patient's floor/unit and/or counseling patient: 30 minutes 25 - 35 minutes Plan of Care Discussed with: patient Internal Medicine: Result - Labs CBC & Chem 7: 07/01/18 10:10 07/01/18 10:10 Labs: Short CBC 07/01/18 Range/Units 10:10 WBC 5.4 (4.3-11.1) K/mcL Hgb 8.3 L (11.5-15.4) g/dL Hct 31.6 L (35.3-44.9) % Plt Count 171 (140-400) K/mcL Neutrophils # 3.2 (1.6-8.9) K/mcL BMP 07/01/18 10:10 Sodium 141 Potassium 4.0 Chloride 92 L Carbon Dioxide > 45 H* BUN 20 Creatinine 0.44 L Glucose 138 H Calcium 9.5 - ABG Interpretation ABG results: ABG ABG pH 7.36 pH Units (7.32-7.45) 06/23/18 11:28 ABG pCO2 62 mmHg (35-45) H 06/23/18 11:28 ABG pO2 64 mmHg (85-104) L 06/23/18 11:28 ABG O2 Saturation 90 % (95-98) L 06/23/18 11:28 PT/INR, D-dimer PT 14.7 Seconds (9.4-12.1) H 06/22/18 14:00 - Impressions Impressions Chest X-Ray 06/30/18 13:45 IMPRESSION: Findings suggest congestive heart failure D/ / Shreyas Hawk MD / Shreyas Hawk MD Interpreting Provider: Shreyas Hawk MD Consult Discharge Plan - Plan Referrals: Jose C Azul, [employer] [Advanced Practice Nurse] - (Office will call patient at home with follow up appointment) Tamie Smith CNP [Advanced Practice Nurse] - 07/07/18 1:00 pm (1) Congestive heart failure Qualifiers: Heart failure type: combined systolic and diastolic Heart failure chronicity: acute on chronic Qualified Code(s): I50.43 - Acute on chronic combined systolic (congestive) and diastolic (congestive) heart failure (3) COPD (chronic obstructive pulmonary disease) Qualifiers: COPD type: COPD with acute exacerbation Qualified Code(s): J44.1 - Chronic obstructive pulmonary disease with (acute) exacerbation (4) Atrial fibrillation Qualifiers: Atrial fibrillation type: paroxysmal Qualified Code(s): I48.0 - Paroxysmal atrial fibrillation
--- NOTE | 2018-07-01 14:17 | Cardiology Progress Note ---
Date of Encounter: 07/01/18 Time of Encounter: 14:00 Assessment and Plan (1) Acute on chronic systolic CHF (congestive heart failure), NYHA class 3 Current Visit: Yes Status: Acute Acute on chronic systolic CHF. Worsening dyspnea 1 week prior to admission. Baseline weight ~153lbs. BNP 1481 on admission, 2084 06/25. CXR 06/23 with small right pleural effusion. Repeat CXR 06/26/18-persistent pleural effusions seen. Troponin 0.05--likely demand ischemia. Limited TTE 06/24/18 LVEF grossly 35-40%. Severe bi-atrial enlargement. 03/2018 EF was 40-45% and 01/2018 EF 30%. IV Lasix dose at 40mg BID. Patient appears to be tolerating with blood pressure. Initially dopamine ordered but patient did not require.. I/O documented net negative 4096 ml. 24 hour negative 1220ml. Scr remains normal. Continues to have significant symptoms. CXR repeated and continues to show CHF. Continue IV lasix . Recommend strict I/Os, Na and fluid restriction, daily weights. No bb/aceI with hypotension. Will consider starting after diuresed. LHC once orthopnea resolves. Continue to follow. (2) Coronary artery disease Current Visit: No Status: Chronic LHC 02/13/17: Severe 1 vessel CAD. 70% mRCA. Continue ASA, Statin. No BB d/t hypotension. Pt denies chest pain. Outpt notes mention repeat cath recommended but pt has always been hesitant d/t metal allergy. Pt states she would now be willing. Will consider LHC prior to d/c once more euvolemic. Qualifiers: Coronary Disease-Associated Artery/Lesion type: [place] artery [place] vs. transplanted heart: [place] heart Associated angina: without angina Qualified Code(s): I25.10 - Atherosclerotic heart disease of [place] coronary artery without angina pectoris (3) Atrial fibrillation Current Visit: Yes Status: Chronic Known A-Fib. 12 hr tele AVG HR 80. Currently not on AV teresa blockers due to hypotension. [id number] 5. Not on anticoagulation because of episodes of hemoptysis and epistaxis while on anticoagulation previously. Continue ASA. On DVT prophylaxis. Qualifiers: Atrial fibrillation type: paroxysmal Qualified Code(s): I48.0 - Paroxysmal atrial fibrillation Discussion w patient/family: The assessment and plan as outlined above was discussed with the patient and/or family members who expressed understanding and agreement. All questions were answered. Thank you for involving us in the care of your patient. Please call with any questions. Subjective Principal diagnosis: CHF Interval history: Ms. Smith is sitting in her chair. She continues to have SOB, orthopnea, and edema. States SOB improved but continues to have orthopnea. Objective Vital Signs, Last 4 Hours Temp Pulse Resp BP Pulse Ox 07/01/18 11:43 97.9 F 84 18 101/67 96 07/01/18 11:15 18 100 Results 07/01/18 10:10 07/01/18 10:10 Lab Results 07/01/18 07/01/18 10:10 10:10 WBC 5.4 Hgb 8.3 L Hct 31.6 L Plt Count 171 Sodium 141 Potassium 4.0 Chloride 92 L Carbon Dioxide > 45 H* BUN 20 Creatinine 0.44 L Glucose 138 H Calcium 9.5 Consult Discharge Plan - Plan Referrals: Jose C Azul CNP [Advanced Practice Nurse] - (Office will call patient at home with follow up appointment) Tamie Smith CNP [Advanced Practice Nurse] - 07/07/18 1:00 pm
[2018-07-02 05:56] LABS: Basophils % 0.2 %; Immature Granulocytes % 0.3 % (0-4); Segmented Neutrophils % 56.3 %
[2018-07-02 05:57] LABS: Eosinophils # 0.1 K/mcL (0.0-0.6); Eosinophils % 1.7 %; Hemoglobin 8.1 g/dL (11.5-15.4); Lymphocytes # 1.2 K/mcL (0.6-4.6); Lymphocytes % 19.1 %; Mean Corpuscular HGB Conc 26.1 g/dL (31.6-35.5); Mean Platelet Volume 10.6 fL (9.4-12.4); Monocytes # 1.4 K/mcL (0.0-1.3); Monocytes % 22.4 %; Neutrophils # 3.6 K/mcL (1.6-8.9); Platelet Count 194 K/mcL (140-400); Red Blood Count 3.69 M/mcL (3.82-4.97); Red Cell Distribution Width 18.7 % (11.5-14.5)
[2018-07-02] MEDS: *HR* Heparin 5,000 UNIT/ML VIAL SQ SCH ×2 (06:05→17:23)
[2018-07-02 06:18] LABS: BUN/Creatinine Ratio 45 (6-26); Blood Urea Nitrogen 21 mg/dL (8-23); Calcium 9.7 mg/dL (8.6-10.3); Carbon Dioxide > 45 mEq/L (23-29); Chloride 92 mEq/L (98-107); Glucose 113 mg/dL (70-105); Osmolality,Calculated 296 (280-300); Sodium 141 mEq/L (136-145); eGFR For Non-African Americans > 60 (> 60)
[2018-07-02 06:51] LABS: Anisocytosis 1+ (Not Present); Hypochromasia Present (Not Present); Platelet Estimate Normal (Normal); Stomatocytes 1+ (Not Present)
[2018-07-02] MEDS: Furosemide 40 MG/4 ML VIAL IVP SCH (09:00)
[2018-07-02] MEDS: Aspirin 81 MG TAB.CHEW PO SCH (09:01)
[2018-07-02] MEDS: Metoprolol XL (24 HR) Succ 25 MG TAB.ER.24H PO SCH (09:01)
--- NOTE | 2018-07-02 10:31 | Cardiology Progress Note ---
Date of Encounter: 07/02/18 Time of Encounter: 10:29 Assessment and Plan (1) Acute on chronic systolic CHF (congestive heart failure), NYHA class 3 Current Visit: Yes Status: Acute Acute on chronic systolic CHF. Worsening dyspnea 1 week prior to admission. Baseline weight ~153lbs. BNP 1481 on admission, 2084 06/25. CXR 06/23 with small right pleural effusion. Repeat CXR 06/26/18-persistent pleural effusions seen. Limited TTE 06/24/18 LVEF grossly 35-40%. Severe bi-atrial enlargement. 03/2018 EF was 40-45% and 01/2018 EF 30%. Initially IV Lasix dose at 40mg BID, decreased yesterday to daily per primary team. BP tolerating. Initially dopamine ordered but patient did not require. I/O documented net negative 4585mL. Scr remains normal. Continues to have significant symptoms. CXR repeated 06/30 and continues to show CHF. Recommend strict I/Os, Na and fluid restriction, daily weights. No bb/aceI with hypotension. Recommend low dose BB and ACEi prior to d/c if BP tolerates. Discussed and reviewed with Dr. De La Torre. [facility] is nonurgent, can be done as outpt. Pt denies chest pain. Recommend continuing IV diuresis until near euvolemic then transition to PO prior to d/c. Cardiology signing off. Reconsult PRN. Will coordinate outpt follow-up. (2) Atrial fibrillation Current Visit: Yes Status: Chronic Known A-Fib. 12 hr tele AVG HR 83. Currently not on AV teresa blockers due to hypotension. [id number] 5. Not on anticoagulation because of episodes of hemoptysis and epistaxis while on anticoagulation previously. Continue ASA. On DVT prophylaxis. Qualifiers: Atrial fibrillation type: paroxysmal Qualified Code(s): I48.0 - Paroxysmal atrial fibrillation (3) NICM (nonischemic cardiomyopathy) Current Visit: No Status: Chronic Known hx of CMP, EF 35-40%, thought to be NICMP since CMP is out of proportion to her CAD. Currently not on BB or ACEi d/t hypotension. (4) Coronary artery disease Current Visit: No Status: Chronic LHC 02/13/17: Severe 1 vessel CAD. 70% mRCA. Continue ASA, Statin. No BB d/t hypotension. Pt denies chest pain. Outpt notes mention repeat cath recommended but pt has always been hesitant d/t metal allergy. Pt states she would now be willing. As above, Discussed and reviewed with Dr. De La Torre. [facility] is nonurgent, can be done as outpt. Will coordinate outpt follow-up. Qualifiers: Coronary Disease-Associated Artery/Lesion type: [place] artery [place] vs. transplanted heart: [place] heart Associated angina: without angina Qualified Code(s): I25.10 - Atherosclerotic heart disease of [place] coronary artery without angina pectoris (5) LBBB (left bundle branch block) Current Visit: No Status: Chronic Known LBBB. Discussion w patient/family: The assessment and plan as outlined above was discussed with the patient and/or family members who expressed understanding and agreement. All questions were answered. Thank you for involving us in the care of your patient. Please call with any questions. I will discuss all the above with Dr. De La Torre and make changes as necessary. Subjective Principal diagnosis: CHF Interval history: Dyspnea persists, but improved since admission. Mild improvement in BLE edema. Denies chest pain. Objective Vital Signs, Last 4 Hours Temp Pulse Resp BP Pulse Ox 07/02/18 07:12 97.8 F 83 22 102/60 98 Vital Signs Temp Pulse Resp BP Pulse Ox 07/02/18 07:12 97.8 F 83 22 102/60 98 07/02/18 03:57 97.7 F 85 34 91/59 95 07/02/18 03:38 28 105/56 97 07/02/18 00:02 24 105/56 100 07/01/18 23:50 97.5 F L 72 29 105/56 100 07/01/18 21:25 16 100 07/01/18 19:01 98.3 F 90 18 106/39 98 07/01/18 15:54 98.2 F 82 16 98/41 99 07/01/18 11:43 97.9 F 84 18 101/67 96 07/01/18 11:15 18 100 Intake and Output 07/01/18 07/02/18 07/02/18 23:59 07:59 15:59 Intake Total 240 / 240 240 / 240 Output Total 550 / 550 100 / 100 300 / 300 Balance -310 / -310 -100 / -100 -60 / -60 Intake: Oral 240 / 240 240 / 240 Output: Urine 550 / 550 100 / 100 300 / 300 Other: Meal Dinner Breakfast Percent of Meal Consumed 100% 25% Stool Size Moderate Stool Consistency loose Stool Characteristics Normal for Patient Stool Color Brown # Bowel Movements 1 Weight 69.9 kg Patient Weight 07/02/18 23:59 Weight 69.9 kg General: Conversant, No Apparent Distress HEENT: Atraumatic, Normocephaly, Mucus Membranes Moist Neck: Normal carotid pulses Cardiac: Other (irregularly irregular) Lungs: Other (diminished) Neuro: Alert and responsive, No focal deficits noted Abdomen: Soft, Non-Tender Skin: No rashes noted on visualized skin Extremities: Other (2+ BLE edema) Results 07/02/18 05:34 07/02/18 05:34 Lab Results 07/01/18 07/01/18 07/02/18 10:10 10:10 05:34 WBC 5.4 6.4 Hgb 8.3 L 8.1 L Hct 31.6 L 31.0 L Plt Count 171 194 Sodium 141 Potassium 4.0 Chloride 92 L Carbon Dioxide > 45 H* BUN 20 Creatinine 0.44 L Glucose 138 H Calcium 9.5 07/02/18 05:34 WBC Hgb Hct Plt Count Sodium 141 Potassium 4.0 Chloride 92 L Carbon Dioxide > 45 H* BUN 21 Creatinine 0.47 L Glucose 113 H Calcium 9.7 Short CBC 07/02/18 07/01/18 Range/Units 05:34 10:10 WBC 6.4 5.4 (4.3-11.1) K/mcL Hgb 8.1 L 8.3 L (11.5-15.4) g/dL Hct 31.0 L 31.6 L (35.3-44.9) % Plt Count 194 171 (140-400) K/mcL Neutrophils # 3.6 3.2 (1.6-8.9) K/mcL BMP 07/02/18 07/01/18 Range/Units 05:34 10:10 Sodium 141 141 (136-145) mEq/L Potassium 4.0 4.0 (3.5-5.1) mEq/L Chloride 92 L 92 L (98-107) mEq/L Carbon Dioxide > 45 H* > 45 H* (23-29) mEq/L BUN 21 20 (8-23) mg/dL Creatinine 0.47 L 0.44 L (0.60-1.20) mg/dL Glucose 113 H 138 H (70-105) mg/dL Calcium 9.7 9.5 (8.6-10.3) mg/dL Active Medications Acetaminophen (Tylenol) 650 mg PO Q6HR PRN PRN Reason: mild to moderate pain Stop: 12/28/18 08:48 Last Admin: 06/29/18 19:32 Dose: 650 mg Albuterol Sulfate (Proventil Neb) 2.5 mg IH [id number] PRN; Protocol PRN Reason: Shortness Of Breath/Wheezing Stop: 12/22/18 16:14 Last Admin: 06/25/18 15:50 Dose: 2.5 mg Aspirin (Aspirin) 81 mg PO DAILY [facility] Stop: 12/24/18 09:01 Last Admin: 07/02/18 09:01 Dose: 81 mg Atorvastatin Calcium (Lipitor) 10 mg PO DAILY [facility] Stop: 12/24/18 09:01 Last Admin: 07/02/18 09:03 Dose: 10 mg Citalopram Hydrobromide (Celexa) 20 mg PO DAILY [facility] Stop: 12/24/18 09:01 Last Admin: 07/02/18 09:02 Dose: 20 mg Clopidogrel Bisulfate (Plavix) 75 mg PO DAILY [facility] Stop: 12/24/18 09:01 Last Admin: 07/02/18 09:03 Dose: 75 mg Docusate Sodium (Colace) 100 mg PO DAILY [facility]; Protocol Stop: 12/24/18 09:01 Last Admin: 07/02/18 09:02 Dose: 100 mg Ferrous Sulfate (Ferrous Sulfate) 325 mg PO DAILY@0800 [facility] Stop: 12/29/18 08:01 Last Admin: 07/02/18 07:29 Dose: 325 mg Furosemide (Lasix) 40 mg IVP DAILY [facility] Stop: 01/01/19 09:01 Last Admin: 07/02/18 09:00 Dose: 40 mg Heparin Sodium (Porcine) (Heparin) 5,000 unit SQ Q12HCO [facility] Stop: 12/23/18 06:01 Last Admin: 07/02/18 06:05 Dose: 5,000 unit Levalbuterol HCl (Xopenex) 1.25 mg IH BIDR [facility] Stop: 12/28/18 22:01 Last Admin: 07/01/18 21:25 Dose: 1.25 mg Metoprolol Succinate (Toprol Xl) 12.5 mg PO DAILY [facility] Stop: 12/28/18 09:01 Last Admin: 07/02/18 09:01 Dose: 12.5 mg Naloxone HCl (Narcan) 0.4 mg IVP Q2M PRN PRN Reason: SEE COMMENTS Stop: 12/22/18 15:50 Omeprazole (Prilosec) 20 mg PO DAILY@0730 [facility] Stop: 12/24/18 07:31 Last Admin: 07/02/18 07:29 Dose: 20 mg Psyllium Hydrophilic Mucilloid (Metamucil Fiber Singles Packet) 1 packet PO DAILY PRN PRN Reason: Constipation - Imaging and Cardiology Echo: report reviewed - EKG Interpretation EKG results cardiology: other (12 hr tele AVG HR 82, A-Fib) Consult Discharge Plan - Plan Referrals: Jose C Azul CNP [Advanced Practice Nurse] - (Office will call patient at home with follow up appointment) Tamie Smith CNP [Advanced Practice Nurse] - 07/07/18 1:00 pm
[2018-07-02] MEDS: Levalbuterol Neb 1.25 MG/3 ML IH SCH ×2 (10:43→21:54)
--- NOTE | 2018-07-02 12:26 | Internal Med Progress Note ---
Hospitalist Progress Note - Encounter Date of Encounter: 07/02/18 Time of Encounter: 12:24 - Subjective Interval History: I have seen and evaluated the patient at bedside. Patient reports improvement on her shortness of breath, but still reports shortness of breath with ambulation, but better than for the past 6 months. denies chest pain. patient also reported she was not taking her medications as indicated for about 6 months. - Exam Vitals: Temp Pulse Resp BP Pulse Ox 98.0 F 80 20 100/41 100 07/02/18 12:05 07/02/18 12:05 07/02/18 12:05 07/02/18 12:05 07/02/18 12:05 Exam: Vitals: Reviewed General: Alert and oriented x4. In mild distress due to shortness of breath Cardiovascular: Irreguarly, irregular Normal S1 & S2, no rubs, murmurs or gallops. Lungs: CTA b/l, no wheezes or crackles. Abdomen: Obese, soft, non-tender, no rigidity. Extremities: 2+ pitting edema. Neurological: Normal cognition and motor skills. Rest of the physical exam is non contributory - Assessment and Plan (1) Congestive heart failure Current Visit: Yes Status: Acute Assessment and Plan: patient reporting shortness of breath. chest is clear to auscultation. total negative balance of 5 litters. Plan continue fluids restrictive strategies to 1.5 litters a day daily weight and strict intake and output started on a low dose bb cardiology recommended outpatient follow up. No ACEs due to low BP (2) Acute on chronic respiratory failure with hypoxia and hypercapnia Current Visit: Yes Status: Acute Assessment and Plan: due to CHF. continue O2 supplement by nasal cannula. titrate for O2Sat >90%. (3) COPD (chronic obstructive pulmonary disease) Current Visit: Yes Status: Acute Assessment and Plan: not exacerbated. to continue bronchodylators prn (4) Atrial fibrillation Current Visit: Yes Status: Chronic Assessment and Plan: Rate controlled on metoprolol. Not on anticoagulation due to hx of hemoptysis and epistaxis. DVT Prophylaxis: Patient is on heparin 5000 units subQ BID for DVT prophylaxis - Summary of Assessment and Plan Summary of Assessment and Plan: patient to remain in the hospital due to chf, still referring shortness of breath with ambulation. will continue IV diuresis for at least 24 more hours. - Time Spent with Patient Total time spent is greater than 50% in coordination of care (as documented) at patient's floor/unit and/or counseling patient: Greater than 35 minutes Plan of Care Discussed with: patient (and the nurse.) Internal Medicine: Result - Labs CBC & Chem 7: 07/02/18 05:34 07/02/18 05:34 Labs: Short CBC 07/02/18 Range/Units 05:34 WBC 6.4 (4.3-11.1) K/mcL Hgb 8.1 L (11.5-15.4) g/dL Hct 31.0 L (35.3-44.9) % Plt Count 194 (140-400) K/mcL Neutrophils # 3.6 (1.6-8.9) K/mcL BMP 07/02/18 05:34 Sodium 141 Potassium 4.0 Chloride 92 L Carbon Dioxide > 45 H* BUN 21 Creatinine 0.47 L Glucose 113 H Calcium 9.7 - ABG Interpretation ABG results: ABG ABG pH 7.36 pH Units (7.32-7.45) 06/23/18 11:28 ABG pCO2 62 mmHg (35-45) H 06/23/18 11:28 ABG pO2 64 mmHg (85-104) L 06/23/18 11:28 ABG O2 Saturation 90 % (95-98) L 06/23/18 11:28 PT/INR, D-dimer PT 14.7 Seconds (9.4-12.1) H 06/22/18 14:00 Consult Discharge Plan - Plan Referrals: Jose C Azul DATA SUPPORT ANALYST [Advanced Practice Nurse] - (Office will call patient at home with follow up appointment) Tamie Smith CNP [Advanced Practice Nurse] - 07/07/18 1:00 pm ____ (1) Congestive heart failure Qualifiers: Heart failure type: combined systolic and diastolic Heart failure chronicity: acute on chronic Qualified Code(s): I50.43 - Acute on chronic combined systolic (congestive) and diastolic (congestive) heart failure (3) COPD (chronic obstructive pulmonary disease) Qualifiers: COPD type: COPD with acute exacerbation Qualified Code(s): J44.1 - Chronic obstructive pulmonary disease with (acute) exacerbation (4) Atrial fibrillation Qualifiers: Atrial fibrillation type: paroxysmal Qualified Code(s): I48.0 - Paroxysmal atrial fibrillation
[2018-07-02 14:13] LABS: ABG Base Excess 17 mEq/L (-2 to 3); ABG HCO3 46 mEq/L (21-27); ABG Oxygen Saturation 97 % (95-98); ABG PCO2 87 mmHg (35-45); ABG PH 7.33 pH Units (7.32-7.45); ABG PO2 108 mmHg (85-104); ABG TCO2 49 mEq/L (20-26)
[2018-07-03 00:57] LABS: BUN/Creatinine Ratio 59 (6-26); Blood Urea Nitrogen 23 mg/dL (8-23); Calcium 9.3 mg/dL (8.6-10.3); Carbon Dioxide 45 mEq/L (23-29); Chloride 93 mEq/L (98-107); Glucose 117 mg/dL (70-105); Magnesium 2.1 mg/dL (1.6-2.6); Osmolality,Calculated 295 (280-300); Potassium 4.1 mEq/L (3.5-5.1); Sodium 140 mEq/L (136-145); eGFR For Non-African Americans > 60 (> 60)
--- NOTE | 2018-07-03 01:05 | Event Note ---
Date of Encounter: 07/02/18 Time of Encounter: 23:09 Notified by nurse of patient having 19 beat run of vtach per tele. Patient asymptomatic, vitals stable. EKG obtained and reviewed with no acute changes. BMP and magnesium ordered. Reviewed plan and EKG with Dr Mccall. Nurse to notify of any changes.
[2018-07-03 02:23] LABS: Basophils % 0.2 %; Immature Granulocytes % 0.3 % (0-4); Mean Corpuscular Hemoglobin 21.9 pg (28.0-33.3)
[2018-07-03 02:24] LABS: Eosinophils # 0.1 K/mcL (0.0-0.6); Eosinophils % 1.5 %; Hematocrit 30.8 % (35.3-44.9); Hemoglobin 7.9 g/dL (11.5-15.4); Lymphocytes # 1.4 K/mcL (0.6-4.6); Lymphocytes % 23.3 %; Mean Corpuscular HGB Conc 25.6 g/dL (31.6-35.5); Mean Corpuscular Volume 85.3 fL (83.0-100.0); Mean Platelet Volume 10.9 fL (9.4-12.4); Monocytes # 1.4 K/mcL (0.0-1.3); Monocytes % 22.5 %; Neutrophils # 3.2 K/mcL (1.6-8.9); Platelet Count 214 K/mcL (140-400); Red Blood Count 3.61 M/mcL (3.82-4.97); Red Cell Distribution Width 18.7 % (11.5-14.5); Segmented Neutrophils % 52.2 %
[2018-07-03 03:52] LABS: Hypochromasia Present (Not Present); Platelet Estimate Normal (Normal)
[2018-07-03] MEDS: *HR* Heparin 5,000 UNIT/ML VIAL SQ SCH (05:59)
[2018-07-03] MEDS: Levalbuterol Neb 1.25 MG/3 ML IH SCH (07:45)
--- NOTE | 2018-07-03 09:44 | Electrocardiograph Report ---
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
--- NOTE | 2018-07-03 10:06 | Discharge Summary ---
- NOTES TO OUTPATIENT PROVIDER Notes to Outpatient Provider: Get a repeat BMP within a week of hospital discharge. Date of Encounter: 07/03/18 Time of Encounter: 10:04 - Discharge Diagnosis (1) Congestive heart failure Priority: Primary Status: Resolved Qualifiers: Heart failure type: combined systolic and diastolic Heart failure chronicity: acute on chronic Qualified Code(s): I50.43 - Acute on chronic combined systolic (congestive) and diastolic (congestive) heart failure (2) Acute on chronic respiratory failure with hypoxia and hypercapnia Priority: Secondary Status: Resolved (3) COPD (chronic obstructive pulmonary disease) Priority: Secondary Status: Chronic Qualifiers: COPD type: COPD with acute exacerbation Qualified Code(s): J44.1 - Chronic obstructive pulmonary disease with (acute) exacerbation (4) Atrial fibrillation Priority: Secondary Status: Chronic Qualifiers: Atrial fibrillation type: paroxysmal Qualified Code(s): I48.0 - Paroxysmal atrial fibrillation Hospital course: Ms. Smith is a 68 year old female history of congestive heart failure, COPD, hypertension, coronary artery disease, chronic respiratory failure on 2 L home oxygen and on BiPAP at night, atrial fibrillation presented to the ER with complaints of Shortness of breath that has been going on for about a week now. Patient admitted to the hospital due to CHF exacerbation, lactic acidosis and acute hypercapnic respiratory failure. Patient managed with empiric IV antibiotics, IV diuretics and a short course of a dopamine drip, with a total negative balance of 5 litters of fluids. Patient's acute symptoms on presentation have resolved, and patient is hemodynamically stable to be discharged. Patient was educated about the importance of being compliant with her me dications and diet. Reported her medications got messed up and she was not taking them as recommended. - Time Spent with Patient Total time spent providing and/or coordinating discharge services: Time spent: Greater than 30 minutes (35) - Discharge Medications Prescriptions: New Ferrous Sulfate 325 mg PO DAILY@0800 30 Days #30 tablet Continue Albuterol Sulfate [Albuterol Inhaler] 2 puff IH Q4HR PRN #1 hfa.aer.ad PRN Reason: Dyspnea Aspirin 81 mg PO DAILY #30 tab.chew Atorvastatin [Lipitor] 10 mg PO DAILY #30 tablet Docusate Sodium [Colace] 100 mg PO DAILY #30 capsule Ipratropium/Albuterol Sulfate [Iprat-Albut 0.5-3(2.5) mg/3 ml] 3 ml IH 3-4XD PRN #30 ampul.neb PRN Reason: Shortness Of Breath Pantoprazole Sodium [Protonix] 40 mg PO DAILY #30 tablet. Psyllium Husk [Daily Fiber] 0.52 gm PO DAILY PRN PRN Reason: Constipation Metoprolol Succinate [Toprol Xl] 12.5 mg PO DAILY Lisinopril 2.5 mg PO DAILY Furosemide [Lasix] 40 mg PO DAILY Clopidogrel [Plavix] 75 mg PO DAILY Citalopram Hydrobromide [Citalopram HBr] 20 mg PO DAILY Home Medications: Albuterol Sulfate [Albuterol Inhaler] 2 puff IH Q4HR PRN #1 hfa.aer.ad 05/14/18 [Rx] Aspirin 81 mg PO DAILY #30 tab.chew 05/14/18 [Rx] Atorvastatin [Lipitor] 10 mg PO DAILY #30 tablet 05/14/18 [Rx] Docusate Sodium [Colace] 100 mg PO DAILY #30 capsule 05/14/18 [Rx] Ipratropium/Albuterol Sulfate [Iprat-Albut 0.5-3(2.5) mg/3 ml] 3 ml IH 3-4XD PRN #30 ampul.neb 05/14/18 [Rx] Pantoprazole Sodium [Protonix] 40 mg PO DAILY #30 tablet. 05/14/18 [Rx] Psyllium Husk [Daily Fiber] 0.52 gm PO DAILY PRN 06/22/18 [History] Citalopram Hydrobromide [Citalopram HBr] 20 mg PO DAILY 06/23/18 [History] Clopidogrel [Plavix] 75 mg PO DAILY 06/23/18 [History] Furosemide [Lasix] 40 mg PO DAILY 06/23/18 [History] Lisinopril 2.5 mg PO DAILY 06/23/18 [History] Metoprolol Succinate [Toprol Xl] 12.5 mg PO DAILY 06/23/18 [History] Ferrous Sulfate 325 mg PO DAILY@0800 30 Days #30 tablet 07/03/18 [Rx] Allergies/Adverse Reactions: Allergy/AdvReac Type Severity Reaction Status Date / Time Neomycin Allergy Blister Verified 02/17/18 13:47 Penicillins Allergy Blister Verified 02/17/18 13:47 vancomycin Allergy Blister Verified 06/22/18 16:08 Date of admission: 06/22/18 15:51 Primary care physician: Duran Sims Jr, MD Consults: 06/23/18 12:52 Consult to Nurse Navigator [CONS] Routine Comment: COPD; Pneumonia; CHF (MULTIPLE ADMISSIONS!) 06/25/18 12:23 Consult to Cardiology [CONS] Routine Comment: Consulting Provider: Melvi Fernández Reason for Consult: Systolic CHF exacerbation, BP at lower side and cannot tolerate lasix Call Completed: Yes 06/26/18 10:32 Consult to PICC team [Consult to Invasive Line Access Team] [CONS] Routine Reason for Consult: Dopamine Line Type: PICC 06/26/18 11:24 Consult to Invasive Line Access Team [CONS] Routine Reason for Consult: Picc Line Insertion Line Type: PICC 06/29/18 10:47 Consult to Occupational Therapy [CONS] Routine Comment: Evaluate, develop and implement POC Reason for Consult: Weakness, End Stage COPD Does patient have active BEDREST order?: No Is patient medically & hemodynamically stable?: Yes Patient assessed for mobility or mobilized this visit?: Yes Consult to Physical Therapy [CONS] Routine Comment: Evaluate, develop and implement POC Reason for Consult: Weakness, End Stage COPD Does patient have active BEDREST order?: No Is patient medically & hemodynamically stable?: Yes Patient assessed for mobility or mobilized this visit?: Yes 07/03/18 10:02 Consult to Cardiology [CONS] Routine Consulting Provider: Melvi Fernández Comment: Reason for Consult: Vtach Call Completed: Yes - Constitutional Vitals: Temp Pulse Resp BP Pulse Ox 98.6 F 88 16 129/85 97 07/03/18 07:15 07/03/18 07:15 07/03/18 07:46 07/03/18 07:15 07/03/18 07:46 General appearance: Present: cooperative, A&O X 3 Exam: Vitals: Reviewed General: Alert and oriented x4. No distress Cardiovascular: Irreguarly, irregular Normal S1 & S2, no rubs, murmurs or gallops. Lungs: CTA b/l, no wheezes or crackles. Abdomen: Obese, soft, non-tender, no rigidity. Extremities: 2+ pitting edema. Neurological: Normal cognition. CN II-XII intact Rest of the physical exam is non contributory - Patient Status Disposition: Transfer SNF Condition: Fair Functional capacity at discharge: uses cane/walker Overall status at discharge: patient is back to baseline - Discharge Instructions Follow Up With: Jose C Azul CNP [Advanced Practice Nurse] - (Office will call patient at home with follow up appointment) Tamie Smith CNP [Advanced Practice Nurse] - 07/07/18 1:00 pm - Diet and Activity Activity: as per physical therapy, wear oxygen at all times (2 litters) Diet: diabetic diet, low salt diet
[2018-07-03] MEDS: Furosemide 40 MG/4 ML VIAL IVP SCH ×2 (10:12→10:19)
[2018-07-03] MEDS: Metoprolol XL (24 HR) Succ 25 MG TAB.ER.24H PO SCH (10:13)
[2018-07-03] MEDS: Aspirin 81 MG TAB.CHEW PO SCH (10:13)
--- NOTE | 2018-07-03 10:14 | Physician Discharge Referral ---
ExtendedCare Referral Info Transfer To: SNF - Diagnosis (1) Congestive heart failure Priority: Primary Status: Resolved (2) Acute on chronic respiratory failure with hypoxia and hypercapnia Priority: Secondary Status: Resolved (3) COPD (chronic obstructive pulmonary disease) Priority: Secondary Status: Chronic (4) Atrial fibrillation Priority: Secondary Status: Chronic Prognosis: Fair Aware of Diagnosis: Patient Aware of Prognosis: Patient - Transfer Medications Prescriptions: Ferrous Sulfate 325 mg PO DAILY@0800 30 Days #30 tablet Home Medications: Albuterol Sulfate [Albuterol Inhaler] 2 puff IH Q4HR PRN #1 hfa.aer.ad 05/14/18 [Rx] Aspirin 81 mg PO DAILY #30 tab.chew 05/14/18 [Rx] Atorvastatin [Lipitor] 10 mg PO DAILY #30 tablet 05/14/18 [Rx] Docusate Sodium [Colace] 100 mg PO DAILY #30 capsule 05/14/18 [Rx] Ipratropium/Albuterol Sulfate [Iprat-Albut 0.5-3(2.5) mg/3 ml] 3 ml IH 3-4XD PRN #30 ampul.neb 05/14/18 [Rx] Pantoprazole Sodium [Protonix] 40 mg PO DAILY #30 tablet.dr 05/14/18 [Rx] Psyllium Husk [Daily Fiber] 0.52 gm PO DAILY PRN 06/22/18 [History] Citalopram Hydrobromide [Citalopram HBr] 20 mg PO DAILY 06/23/18 [History] Clopidogrel [Plavix] 75 mg PO DAILY 06/23/18 [History] Furosemide [Lasix] 40 mg PO DAILY 06/23/18 [History] Lisinopril 2.5 mg PO DAILY 06/23/18 [History] Metoprolol Succinate [Toprol Xl] 12.5 mg PO DAILY 06/23/18 [History] Ferrous Sulfate 325 mg PO DAILY@0800 30 Days #30 tablet 07/03/18 [Rx] Allergies/Adverse Reactions: Allergy/AdvReac Type Severity Reaction Status Date / Time Neomycin Allergy Blister Verified 02/17/18 13:47 Penicillins Allergy Blister Verified 02/17/18 13:47 vancomycin Allergy Blister Verified 06/22/18 16:08 - Respiratory Orders Oxygen / L per min (2 litters) Smoking Cessation: Smoking cessation has been advised. For more information, call the [place] Tobacco Quit Line at 6-877-YHCUNOW. CERTIFICATION: I certify that the transfer of the above named patient to an Extended Care Facility is necessary for the continuing treatment of the diagnosis listed. The above information is true and accurate reflection of patient's current condition. Confidential - Redisclosure prohibited without a patient's written consent.
--- NOTE | 2018-07-03 10:26 | Event Note ---
Date of Encounter: 07/03/18 Time of Encounter: 10:24 - Cardiology Event Note Cardiology reconsulted for non-sustained VT on monitor. Telemetry reviewed with and noted a.fib with abberency. No non-sustained VT noted. Cardiology signing off. Will arrange outpatient follow up.
[2018-07-03 15:16] VITALS: BP 118/51
== END 2018-07-03 18:40 | DRG 291 ==
LOC: EMEROOARM 13:37 → 2NENU 15:51 → SUATTDRO 15:51 → 2NENU 16:59 → 2NNU 06-25 19:37 → 2NENU 07-02 15:01
PROVIDERS: ADMIT Internal Medicine; ATTEND Internal Medicine